=== PATIENT | female | born 1955 | race Caucasian/White ===

== ENCOUNTER 2021-08-02 13:16 | Outpatient (REF) | payer MEDICARE, MEDICAID, SELFPAY ==
[2021-08-02 13:48] LABS: MANUAL DIFF FLAG NO
[2021-08-02 14:32] LABS: Basophils Absolute Auto 0.1 X10*3/uL (0.0-0.2); Basophils Percent Auto 0.8 % (0-2); Eosinophils Absolute Auto 0.1 X10*3/uL (0.0-0.4); Eosinophils Percent Auto 0.6 % (0-4); Hematocrit 41.3 % (37.0-47.0); Imm Gran Abs Auto 0.04 X10*3/uL (0.00-0.03); Imm Gran Pct Auto 0.4 % (0.0-0.4); Lymphocytes Absolute Auto 3.6 X10*3/uL (1.2-4.9); Lymphocytes Percent Auto 36.8 % (20-40); Mean Corpuscular HGB Conc 33.9 g/dl (31.0-35.0); Mean Corpuscular Hemoglobin 30.8 pg (27.0-33.0); Mean Corpuscular Volume 90.8 fL (80.0-98.0); Mean Platelet Volume 10.1 fL (9.4-12.3); Monocytes Absolute Auto 0.6 X10*3/uL (0.1-1.2); Monocytes Percent Auto 6.3 % (2-11); Neutrophils Absolute Auto 5.4 x10*3/uL (2.0-8.3); Neutrophils Percent Auto 55.1 % (45-73); Platelet Count 292 X10*3/uL (160-400); Red Blood Count 4.55 X10*6/uL (4.20-5.50); Red Cell Distribution Width 13.1 % (11.0-16.0); White Blood Count 9.9 X10*3/uL (4.8-10.8)
[2021-08-02 14:53] LABS: Rheumatoid Factor < 15.0 IU/mL (<15.0)
[2021-08-02 15:10] LABS: Erythrocyte Sedimentation Rate 12 MM/HR (0-20)
[2021-08-03 08:35] LABS: Lyme Abs Screen <0.90 index
[2021-08-03 22:12] LABS: Anti Nuclear Antibody Screen POSITIVE (NEGATIVE); Anti Nuclear Antibody Titer 1:40 titer
[2021-08-04 14:01] LABS: Antibody to SS-A Antigen <1.0 NEG AI (<1.0 NEG); Antibody to SS-B Antigen <1.0 NEG AI (<1.0 NEG); Myeloperoxidase Antibody <1.0 AI; Proteinase 3 PR3 Antibodies <1.0 AI
== END 2021-08-02 13:17 | disposition home or self-care (01) ==
LOC: HO.LAB 13:16
PROVIDERS: Visit Provider Psychiatry & Neurology Neurology
DX: M79.7 Fibromyalgia (principal)
CPT/HCPCS: 36415; 85025; 85652; 86021; 86038; 86039; 86235; 86431; 86617; 86618

== ENCOUNTER 2021-08-16 14:37 | Outpatient (REF) | payer MEDICARE, MEDICAID, SELFPAY ==
--- NOTE | ~2021-08-16 | XR_ITS ---
EXAMINATION: PRE-MRI SCREENING ORBITS CLINICAL INFORMATION: Rule out foreign body in the orbits. COMPARISON: None TECHNIQUE: 3 views. FINDINGS: There is no radiopaque foreign body seen in the orbits. Mild haziness in the right maxillary sinus is seen. Rest the paranasal sinuses and mastoid air cells are well-aerated. XR/XR pre mri screening IMPRESSION: No radiopaque foreign body seen in the orbits. Chronic right maxillary sinusitis suspected.
--- NOTE | ~2021-08-16 | MR_ITS ---
EXAMINATION: MR BRAIN WITHOUT AND WITH CONTRAST CLINICAL INFORMATION: 66-year-old with self-reported tremors and numbness in hands and feet. Patient states previous MS diagnosis. Clinically reported reason for exam: Fibromyalgia. COMPARISON: No previous studies are available for comparison. TECHNIQUE: Multiplanar, multisequence MRI of the brain was obtained before and after the intravenous administration of 7 mL Gadavist. FINDINGS: Brain Volume: [id number] generalized diffuse supratentorial brain parenchymal volume loss is noted within the limitations of a qualitative assessment. Structural: No malformations. Brain and Meninges: DWI sequence demonstrates no restricted diffusion to suggest acute or subacute cerebral ischemia. Scattered small zones of FLAIR/T2 signal hyperintensity are seen within the subcortical and deeper white matter of both cerebral hemispheres with patchy zones of white matter T2 hyperintensity in the parietal and left periatrial white matter associated with bilateral periventricular leukoaraiosis. Small zones of low T1/high T2 signal in the deep parietal white matter bilaterally are nonspecific and have the appearance of either remote deep white matter infarcts or possibly chronic demyelination. Gradient refocused imaging demonstrates no evidence for hemorrhage, hemosiderin staining or abnormal mineral deposition. No extra-axial fluid collections, significant space-occupying process or mass effect are identified. There is no abnormal brain parenchymal or leptomeningeal enhancement. No mass lesions are identified. Ventricles and Subarachnoid Spaces: The ventricular system and subarachnoid spaces are consistent with mild volume loss without hydrocephalus. Orbital Structures: The visualized orbital structures are grossly unremarkable within the limitations of the study. Vascular: Signal voids are noted in the visualized major intracranial vessels. Osseous Structures, Sinuses/Mastoids, Extracranial Soft Tissues: Marked nasal septal deviation to the right is noted with minor mucosal thickening in the ethmoid complex. Osseous marrow signal intensity appears within normal limits. The there appears to be either atrophic or postoperative change involving the left parotid gland. MR/MR head/brain wo/w con IMPRESSION: 1. Nonspecific white matter lesions noted bilaterally as detailed above. Differential diagnostic considerations include chronic ischemic microangiopathy with small areas of chronic deep white matter infarction. Cannot exclude superimposed foci of chronic demyelination. 2. No acute intracranial process. Specifically, no evidence for acute territorial infarct, mass lesion, abnormal enhancement, hemorrhage, extra-axial fluid collection, space-occupying process, mass effect or hydrocephalus. 3. 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 Correlate with clinical history and physical exam.
== END 2021-08-16 14:38 | disposition home or self-care (01) ==
LOC: HO.MRI 14:37
PROVIDERS: Visit Provider Psychiatry & Neurology Neurology
DX: M79.7 Fibromyalgia (principal)
CPT/HCPCS: 70553; A9585

== ENCOUNTER 2023-03-22 08:59 | Outpatient (AMB) | payer MEDICARE, MEDICAID, SELFPAY ==
[2023-03-22 09:03] VITALS: BP 140/78; PULSE 77; O2SAT 98; BMI 31.8
--- NOTE | 2023-03-22 09:03 | MHC.PC.OV ---
Vital Signs 03/22/23 09:03 Height 5 ft 1.5 in Weight 171 lb BMI 31.8 BP 140/78 H Blood Pressure Location Lt brachial Position Sitting Pulse 77 Pulse Source Pulse Oximeter Pulse Oximetry (%) 98 Oxygen Delivery Method Room Air Intake Visit Reasons: HEALTH/SAFETY JOB TITLES-Cholesterol/BP Allergies birch [BIRCH] Allergy (Unknown, Verified 03/22/23 09:08) UNKNOWN codeine [CODEINE] Allergy (Unknown, Verified 03/22/23 09:08) UNKNOWN dog dander [DOG] Allergy (Unknown, Verified 03/22/23 09:08) UNKNOWN indomethacin [From INDOCIN] Allergy (Unknown, Verified 03/22/23 09:08) UNKNOWN mold [MOLD] Allergy (Unknown, Verified 03/22/23 09:08) UNKNOWN oak [OAK] Allergy (Unknown, Verified 03/22/23 09:08) UNKNOWN oxycodone [From PERCOCET] Allergy (Unknown, Verified 03/22/23 09:08) UNKNOWN povidone-iodine [From BETADINE] Allergy (Unknown, Verified 03/22/23 09:08) UNKNOWN soap [From BETADINE] Allergy (Unknown, Verified 03/22/23 09:08) UNKNOWN bupropion [From Wellbutrin] Adverse Reaction (Intermediate, Verified 03/22/23 09:08) Hive DUST Allergy (Unknown, Uncoded 03/22/23 09:08) UNKNOWN DUST MITES Allergy (Unknown, Uncoded 03/22/23 09:08) UNKNOWN MILDEW Allergy (Unknown, Uncoded 03/22/23 09:08) UNKNOWN Medication List - Last Reconciled 03/22/23 by Stephany Naranjo MD cholecalciferol (vitamin D3) 25 mcg PO DAILY ferrous sulfate (Feosol) 325 mg PO DAILY lorazepam 0.5 mg PO BID PRN potassium chloride ER 8 mEq PO DAILY rosuvastatin 5 mg PO DAILY trazodone 100 mg PO BEDTIME PRN triamterene-hydrochlorothiazid 37.5-25 mg 1 cap PO DAILY vitamin B complex 1 tab PO DAILY Tobacco use date assessed: 03/22/23 Fall risk assessment: 2 + Falls in past year Last assessed Fall Risk: 03/22/23 Dental Screening Dental Screen Date: 03/22/23 Did you have a dental visit in the last 12 months?: No Did you have a dental problem in the last 6 months where you did not have access to dental care?: No Was dental information given to patient?: No HPI HEALTH/SAFETY JOB TITLES-Cholesterol/BP HPI Details 68-year-old obese female seen for the 1st time . History of chronic maxillary sinusitis. Up-to-date with mammogram. Review of the notes July 2021 had brain MRI Nonspecific white matter lesions noted bilaterally as detailed above. Differential diagnostic considerations include chronic ischemic microangiopathy with small areas of chronic deep white matter infarction. Cannot exclude superimposed foci of chronic demyelination. 2. No acute intracranial process. Specifically, no evidence for acute territorial infarct, mass lesion, abnormal enhancement, hemorrhage, extra-axial fluid collection, space-occupying process, mass effect or hydrocephalus. 3. 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 Correlate with clinical history and physical exam. Regarding her medical problem. Declined referral to Neurology for multiple sclerosis. Not on any treatment for this. Patient has a history of smoking and has been having CT scans every year and would like to be referred for lung cancer screening. Discussed about colonoscopies but declined and would be okay with the Cologuard test. Patient also has multiple eye problems will be seeing the safety and health consultant in April. Dr. Archibald. 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 [facility] Medical History (Updated 03/22/23 @ 10:08 by Stephany Naranjo MD) Dislocated wrist Ankle fracture, right Scleritis Cataract Glaucoma Surgical History (Updated 03/22/23 @ 09:56 by Stephany Naranjo MD) Hx of cholecystectomy History of bilateral oophorectomies Mass of parotid gland Family History (Updated 03/22/23 @ 09:16 by Crystal Carlson [facility]) Mother Lymphoma Father No problems noted. Sister Heart attack Sister No problems noted. Sister No problems noted. Son Memory deficit Son No problems noted. Daughter No problems noted. Social History (Updated 03/22/23 @ 09:59 by Stephany Naranjo MD) Housing: Apartment Alcohol intake: current Comment: once a week2 glasses Patient Tobacco Use Status: Former Tobacco user Tobacco use type: Cigarette e-Cigarette/Vaping Use: Never Used Second Hand Smoke Exposure: No Current occupational status: disabled Current occupational exposures/hazards: No Cognitive needs: No Hearing needs: No Vision needs: Yes Questionnaire PHQ-9 Over the last 2 weeks, how often have you been bothered by any of the following problems? 1. Little interest or pleasure in doing things: nearly every day 2. Feeling down, depressed, or hopeless: nearly every day 3. Trouble falling or staying asleep, or sleeping too much: several days 4. Feeling tired or having little energy: more than half the days 5. Poor appetite or overeating: several days 6. Feeling bad about yourself - or that you are a failure or have let yourself or your family down: several days 7. Trouble concentrating on things, such as reading the newspaper or watching television: not at all 8. Moving or speaking so slowly that other people could have noticed. Or the opposite - being so fidgety or restless that you have been moving around a lot more than usual: several days 9. Thoughts that you would be better off or of hurting yourself in some way: not at all Total score: 12 Depression Screening Interpretation: Positive Depression Screening Done: Yes Source: Developed by Drs. Yosvany Anand, Eleni Sanchez, Dk Parker and colleagues, with an educational rashawn from [employer]. Thrive Questionnaire Date Thrive assessed: 03/22/23 I am a: Patient What is your living situation today?: I have a steady place to live Within the past 12 months, did the food you bought not last and you didn't have the money to get more?: Never true Within the past 12 months, did you worry whether your food would run out before you got money to buy more?: Never true Do you have trouble paying for medicines?: No Do you have trouble getting transportation to medical appointments?: No Do you have trouble paying your heating and electricity bill?: No Do you have trouble taking care of your child, family member or friend?: No Do you have trouble with day-to-day activities such as bathing, preparing meals, shopping, managing finances, etc.?: No Are you currently unemployed and looking for a job?: No Are you interested in more education?: No Currently or been in a relationship where the following occur: no concerns reported THRIVE Score: 0 AUDIT C Alcohol Use Questionnaire (AUDIT-C) 1. How often do you have a drink containing alcohol?: Monthly or less 2. How many drinks containing alcohol do you have on a typical day when you are drinking?: 1 or 2 3. How often do you have six or more drinks on one occasion?: Never Total Score: 1 VICKI-7 AMB Questionnaire VICKI-7 Date VICKI - 7 assessed: 03/22/23 Feeling nervous, anxious, or on edge: 3 = Nearly every day Not being able to stop or control worryin = Nearly every day Worrying too much about different things: 3 = Nearly every day Trouble relaxin = More than half the days Being so restless that it is hard to sit still: 2 = More than half the days Becoming easily annoyed or irritable: 1 = Several days Feeling afraid as if something awful might happen: 0 = Not at all Total VICKI-7 score (0-4 normal; 5-9 mild; 10-14 moderate; 15-21 severe): 14 Source: Developed by Drs. Yosvany Anand, Eleni Sanchez, Dk Parker and colleagues, with an educational rashawn from [employer]. Physical exam (Primary Care) Vital Signs: Last Vital Signs Pulse 77 03/22/23 09:03 BP 140/78 H 03/22/23 09:03 Pulse Ox 98 03/22/23 09:03 Oxygen Delivery Method Room Air 03/22/23 09:03 Next steps: Showed rash on the right lateral leg area scaly irregular shaped scabbed areas 3 x 2 cm had another 1 near the superior leg area on the right side same thing. BMI result Body Mass Index 31.8 Tobacco/Smoking Status: Tobacco use Status Tobacco use date assessed 03/22/23 03/22/23 09:20 Patient Tobacco Use Status Former Tobacco user 03/22/23 09:59 Tobacco use type Cigarette 03/22/23 09:59 e-Cigarette/Vaping Use Never Used 03/22/23 09:59 PHQ-9: PHQ-9 Score PHQ-9: Total score 12 03/22/23 09:52 Depression Screening Interpretation: Positive Thrive Assessment: Date of Thrive Assessment Date Thrive assessed 03/22/23 03/22/23 09:10 Currently or been in a relationship where the following occur: no concerns reported Const General: alert; No acute distress Eyes Conjunctivae: conjunctivae normal Resp Auscultation: clear to auscultation bilaterally Cardio Rate: regular rate Rhythm: regular rhythm GI Inspection: Yes normal to inspection Extrem General: Yes normal to inspection and No edema Immunizations pneumoc 20-chris conj-dip cr(PF) 0.5 mL IM syringe Performing Provider: Stephany Naranjo MD [facility] Administered by: Crystal Carlson CMA on 03/22/23 10:19 Dose Route Admin Location Dispensed Lot Number Expiration Date [employer] 0.5 mL IM Left Deltoid 0.5 mL [id number] 03/30/24 Influx/[employer] VIS Given Date VIS Provided VIS Publication Date 03/22/23 Single Vaccine 21 Eligibility Eligibility Date Funding Source Not [facility] Eligible 03/22/23 Private Assessment and Plan Assessment & Plan (1) Obesity (BMI 30.0-34.9): Code(s): E66.9 - Obesity, unspecified Plan: Diet and exercise (2) Generalized anxiety disorder: Comment: decline counselling Code(s): F41.1 - Generalized anxiety disorder Plan: Continue with present medication. (3) Hypercholesterolemia: Code(s): E78.00 - Pure hypercholesterolemia, unspecified Plan: Avoid fried foods, chicken skin, eggs, butter margarine, pastries and meat. Be it pork or beef they have a lot of cholesterol LDL goal of less than 130 and triglyceride of less than 150. Blood work requested (4) Hypertension: Code(s): I10 - Essential (primary) hypertension Plan: Continue with blood pressure medication. Decrease salt intake and exercise advised to continue monitoring it and if blood pressure is 140/90 or above then will have to adjust medication. She did discuss about having leg cramps a lot. Discussed about potassium problems and if leg cramps continue to happened will change medication (5) Blepharitis: Code(s): H01.009 - Unspecified blepharitis unspecified eye, unspecified eyelid Plan: Will be seeing safety and health consultant in April (6) Multiple sclerosis: Comment: 2011 decline referral to Neurology Code(s): G35 - Multiple sclerosis Plan: Declined referral for Neurology for now (7) Tobacco abuse: Comment: stopped 2007 smoked packed a day 25 years Code(s): Z72.0 - Tobacco use Plan: Referral to thoracic surgeon for lung cancer screening (8) Colon cancer screening: Code(s): Z12.11 - Encounter for screening for malignant neoplasm of colon Plan: Cologuard requested (9) Ankle fracture, right: Comment: 2001 Code(s): S82.891A - Other fracture of right lower leg, initial encounter for closed fracture Plan: Stable (10) Urge incontinence: Code(s): N39.41 - Urge incontinence Plan: Timed voiding meaning every 1-2 hours even if you do not feel like urinating empty the bladder, avoid drinks with high sweet content like juices or caffeine that makes her urinate, 2 hours before you sleep hold liquids so that in the morning you do not get the bladder to be too full. Declined medication (11) Psoriasis: Code(s): L40.9 - Psoriasis, unspecified Plan: Steroid cream sent in. Orders: Orders XR DEXA axial skeleton Today M81.0 - Age-related osteoporosis without current pathological fracture, S82.891A - Other fracture of right lower leg, initial encounter for closed fracture Free T4 (Free Thyroxine) Today I10 - Essential (primary) hypertension Vitamin B12 and Folate Today I10 - Essential (primary) hypertension IRON PROFILE Today I10 - Essential (primary) hypertension UA w Microscopic Today N39.41 - Urge incontinence Complete Blood Count Auto Diff Today I10 - Essential (primary) hypertension Comprehensive Met. Panel Today I10 - Essential (primary) hypertension Thyroid Stimulating Hormone Today I10 - Essential (primary) hypertension Lipid Panel Today E78.00 - Pure hypercholesterolemia, unspecified, I10 - Essential (primary) hypertension Vitamin D 25-OH Total Today I10 - Essential (primary) hypertension Ferritin Today I10 - Essential (primary) hypertension Reticulocyte Count Today I10 - Essential (primary) hypertension Referrals Thoracic Surgery Referral Z72.0 - Tobacco use Cologuard Test Z12.11 - Encounter for screening for malignant neoplasm of colon, Z12.12 - Encounter for screening for malignant neoplasm of rectum Medications: New betamethasone valerate 0.1% 1 appl topical BID PRN 45 grams 0RF skin irritation L40.9 - Psoriasis, unspecified Coding Level of Care Code New Pt Level 4 ([id number]) Diagnoses Obesity (BMI 30.0-34.9) E66.9 Generalized anxiety disorder F41.1 Hypercholesterolemia E78.00 Hypertension I10 Blepharitis H01.009 Multiple sclerosis G35 Tobacco abuse Z72.0 Colon cancer screening Z12.11 Ankle fracture, right S82.891A Urge incontinence N39.41 Psoriasis L40.9
== END 2023-03-22 10:24 | disposition home or self-care (01) ==
PROVIDERS: PCP Internal Medicine; Visit Provider Internal Medicine
DX: G35 Multiple sclerosis (principal); Z68.31 Body mass index [BMI] 31.0-31.9, adult; E66.9 Obesity, unspecified; Z23 Encounter for immunization; F41.1 Generalized anxiety disorder; E78.00 Pure hypercholesterolemia, unspecified; I10 Essential (primary) hypertension; H01.009 Unspecified blepharitis unspecified eye, unspecified eyelid; Z72.0 Tobacco use; Z12.11 Encounter for screening for malignant neoplasm of colon; S82.891A Other fracture of right lower leg, initial encounter for closed fracture; N39.41 Urge incontinence
CPT/HCPCS: 90471; 90677; 99204

== ENCOUNTER 2023-08-16 11:56 | Emergency (ER) | payer MEDICARE, MEDICAID, SELFPAY ==
--- NOTE | 2023-08-16 12:13 | ED.GENADULT ---
HPI - General Adult General Chief complaint: Weakness Stated complaint: hard time walking Time Seen by Provider: 08/16/23 13:13 Source: patient Mode of arrival: ambulatory Limitations: no limitations History of Present Illness ED Provider: Dr. Rosales Escobar HPI narrative: 68-year-old female history of hypertension, hyperlipidemia, psoriasis, multiple sclerosis, anxiety who presents emergency department for evaluation of intermittent difficulty walking, right-sided tremors and her legs giving out on her. Patient states that she has been having intermittent difficulty with her walking since 2006. She states over the last couple of months these symptoms have gotten worse. She states that occasionally she has difficulty standing and walking. She states that also occasionally her knees will give out on her causing her to fall. She states this morning she would difficulty standing and walking. She also noted that her right arm was more tremulous which concerned her. She states she is seen her PCP as well as our neurologist and has not had a specific diagnosis for these symptoms. She states she has been here in the past and was found to have low potassiums in his been dehydrated as causes of the symptoms. She also states that she is concerned that she may have Parkinson's disease as the cause the symptoms since her right arm is more tremulous. She denied fever, chills, rhinorrhea, sore throat, cough, chest pain, shortness of breath, nausea, vomiting, diarrhea. She has had no frequency urgency or dysuria. She has not noticed any dark stools or bloody stools. Related Data Home Medications ?Medication ?Instructions ?Recorded ?Confirmed cholecalciferol (vitamin D3) 25 25 mcg PO DAILY 03/22/23 03/22/23 mcg (1,000 unit) capsule ferrous sulfate 325 mg (65 mg 325 mg PO DAILY 03/22/23 03/22/23 iron) tablet (Feosol) lorazepam 0.5 mg tablet 0.5 mg PO BID PRN 03/22/23 03/22/23 potassium chloride 8 mEq 8 meq PO DAILY 03/22/23 03/22/23 capsule,extended release rosuvastatin 5 mg tablet 5 mg PO DAILY 03/22/23 03/22/23 trazodone 100 mg tablet 100 mg PO BEDTIME PRN 03/22/23 03/22/23 triamterene 37.5 1 cap PO DAILY 03/22/23 03/22/23 mg-hydrochlorothiazide 25 mg capsule vitamin B complex 1 tab PO DAILY 03/22/23 03/22/23 Previous Rx's ?Medication ?Instructions ?Recorded betamethasone valerate 0.1 % 1 appl topical BID PRN skin 07/10/23 topical cream irritation #45 grams Allergies Allergy/AdvReac Type Severity Reaction Status Date / Time birch [BIRCH] Allergy Unknown UNKNOWN Verified 08/16/23 12:16 codeine [CODEINE] Allergy Unknown UNKNOWN Verified 08/16/23 12:16 dog dander [DOG] Allergy Unknown UNKNOWN Verified 08/16/23 12:16 indomethacin [From INDOCIN] Allergy Unknown UNKNOWN Verified 08/16/23 12:16 mold [MOLD] Allergy Unknown UNKNOWN Verified 08/16/23 12:16 oak [OAK] Allergy Unknown UNKNOWN Verified 08/16/23 12:16 oxycodone [From PERCOCET] Allergy Unknown UNKNOWN Verified 08/16/23 12:16 povidone-iodine Allergy Unknown UNKNOWN Verified 08/16/23 12:16 [From BETADINE] soap [From BETADINE] Allergy Unknown UNKNOWN Verified 08/16/23 12:16 bupropion [From Wellbutrin] AdvReac Intermediate Hive Verified 08/16/23 12:16 DUST Allergy Unknown UNKNOWN Uncoded 03/22/23 09:08 DUST MITES Allergy Unknown UNKNOWN Uncoded 03/22/23 09:08 MILDEW Allergy Unknown UNKNOWN Uncoded 03/22/23 09:08 Review of Systems Review of Systems: Yes all other systems are reviewed and are negative [facility] Past Medical History [facility] Narrative: Social history: She denies tobacco use. She drinks 2 alcoholic beverages per week. She denies drug use. Medical History (Updated 08/16/23 @ 13:38 by Rosales Escobar MD) Dislocated wrist Ankle fracture, right Scleritis Cataract Glaucoma Surgical History (Updated 03/22/23 @ 09:56 by Stephany Naranjo MD) Hx of cholecystectomy History of bilateral oophorectomies Mass of parotid gland Family History Family History (Updated 03/22/23 @ 09:16 by Crystal Carlson CMA) Mother Lymphoma Father No problems noted. Sister Heart attack Sister No problems noted. Sister No problems noted. Son Memory deficit Son No problems noted. Daughter No problems noted. Social History Social History (Updated 03/22/23 @ 09:59 by Stephany Naranjo MD) Housing: Apartment Alcohol intake: current Comment: once a week2 glasses Patient Tobacco Use Status: Former Tobacco user Tobacco use type: Cigarette e-Cigarette/Vaping Use: Never Used Second Hand Smoke Exposure: No Advance Directives: No Advance Directives Information Provided: Yes Current occupational status: disabled Current occupational exposures/hazards: No Cognitive needs: No Hearing needs: No Vision needs: Yes Physical Exam ED Vital Signs: Vital Signs - 24 hr 08/16/23 12:14 08/16/23 13:55 08/16/23 13:56 Temperature 98.0 F 97.9 F 97.9 F Pulse Rate 83 89 89 Respiratory Rate 18 18 18 Blood Pressure 122/69 107/71 107/71 Pulse Oximetry 95 93 93 Oxygen Delivery Method Room Air Room Air Room Air BMI result Body Mass Index 31.5 Initial vital signs were normal. Exam: General: Awake, alert in no distress Head: Normocephalic, atraumatic EENT: PERRL, Lids normal, sclera normal, conjunctiva normal, nose normal , ears normal, throat without erythema or exudates Neck: Supple, no adenopathy Lung: breath sounds symmetric, no wheezing, rales or rhonchi Chest: symmetric movement, nontender Heart: regular rate and rhythm, normal S1, S2 no murmurs or rubs Abdomen: soft, non-tender, nondistended, normal bowel sounds Back: no vertebral tenderness, no CVAT Extremities: no deformities, moves all extremities symmetrically Neuro: General: Awake, alert, oriented, normal speech, Cranial nerves: cranial nerves intact Strength: 5/5 strength in both the upper and lower extremities. Patient was able to walk in the emergency department using her walker without any difficulty. She was able to pivot with a walker without losing her balance. Psych: Patient was very pleasant and cooperative, answers all questions appropriately Course Course Course Narrative: This is an RME done by JESSICA Obrien: Additional HPI, ROS, PE not included below will be deferred to primary provider. 68-year-old female history deficiency anemia, hyperlipidemia presenting with difficulty ambulation reports her legs have been giving out, which prompted her to come in today this has been going on for a long time. Denies dizziness, chest pain, shortness of breath, fevers, chills, headache, vision changes. Appearance: Alert.? Oriented X3.? No acute distress.? Head: Normocephalic, atraumatic, no step-offs or deformities Eyes: Pupils equal, round and reactive to light.? Neck: Normal inspection.? Neck supple.? CVS: Normal heart rate and rhythm.? Pulses normal.? Respiratory: No respiratory distress.? Breath sounds normal.? Abdomen: Soft and nontender.? Skin: Skin warm and dry.? Normal skin color.? Normal skin turgor.? Extremities: No lower extremity edema.? No calf ttp. 5/5 strength to bilateral upper and lower extremities Neuro: Oriented X 3.? No motor deficit.? No sensory deficit. CN 2-12 intact Medical Decision Making Medical Decision Making MDM Narrative: 68-year-old female history of hypertension, hyperlipidemia, psoriasis, multiple sclerosis, anxiety who presents emergency department for evaluation of intermittent difficulty walking, right-sided tremors and her legs giving out on her. Patient states that she has been having intermittent difficulty with her walking since 2006. She states over the last couple of months these symptoms have gotten worse. She states that occasionally she has difficulty standing and walking. She states that also occasionally her knees will give out on her causing her to fall. She states this morning she would difficulty standing and walking. She also noted that her right arm was more tremulous which made her concerned that she may have Parkinson's disease. Review of systems were negative. Initial vital signs were normal. Patient's examination was unremarkable, she had a normal neurologic exam with good upper and lower extremity strength and was able to walk in the emergency department using her walker without any difficulty. Differential diagnosis: ?Includes but is not limited to stroke, MS flare-up, Parkinson's disease, anemia, electrolyte abnormalities Following evaluation was ordered: CBC, CMP, PT/INR, C-reactive protein, ESR Course: 13:51 My interpretation patient's laboratory evaluation is as follows: CBC was normal. CMP was normal. Glucose was elevated 157. ESR was normal at 17. CRP was only slightly elevated at 0.57 The patient has no weakness, she was able to walk with a walker without any difficulty. At this time I do not have a clear etiology for her intermittent difficulty with walking. Patient states she has been seen by our neurologist and has not got a clear diagnosis for her symptoms. Patient also states she is done physical therapy in the past but I do not think that she needs physical therapy at this time since she has very good strength that is bilaterally symmetric and she is able to walk with a walker without any difficulty. Patient was advised to continue taking medications as prescribed and to follow-up with her PCP to see if they can determine the cause of her symptoms. She was given printed and verbal instructions and discharged home. Admission/Observation Consideration of admission/observation: Escalation of care including admission/observation considered Lab Data [facility] Lab Attestation statement: I reviewed the patient's lab results. 08/16/23 12:45 08/16/23 12:45 Labs: Lab Results 08/16/23 Range/Units 12:45 WBC 11.1 H (4.8-10.8) X10*3/uL RBC 4.46 (4.20-5.50) X10*6/uL Hgb 14.1 (12.0-16.0) g/dl Hct 39.4 (37.0-47.0) % MCV 88.3 (80.0-98.0) fL MCH 31.6 (27.0-33.0) pg MCHC 35.8 H (31.0-35.0) g/dl RDW 12.1 (11.0-16.0) % Plt Count 255 (160-400) X10*3/uL MPV 9.5 (9.4-12.3) fL Immature Gran % (Auto) 0.3 (0.0-0.4) % Neut % (Auto) 67.1 (45-73) % Lymph % (Auto) 24.4 (20-40) % [place] % (Auto) 7.2 (2-11) % Eos % (Auto) 0.5 (0-4) % Baso % (Auto) 0.5 (0-2) % Lymph # (Auto) 2.7 (1.2-4.9) X10*3/uL [place] # (Auto) 0.8 (0.1-1.2) X10*3/uL Eos # (Auto) 0.1 (0.0-0.4) X10*3/uL Baso # (Auto) 0.1 (0.0-0.2) X10*3/uL Abs Immat Gran (auto) 0.03 (0.00-0.03) X10*3/uL Absolute Neuts (auto) 7.5 (2.0-8.3) x10*3/uL Absolute Nucleated RBC 0.000 (0.0-0.012) X10*3/uL Nucleated RBC % (auto) 0.0 (0.0-0.2) /100WBC ESR 17 (0-20) MM/HR PT 12.5 (11.1-13.3) SEC INR 1.0 (0.9-1.1) Sodium 140 (135-145) mmol/L Potassium 3.8 (3.3-5.1) mmol/L Chloride 103 (96-108) mmol/L Carbon Dioxide 29 (22-29) mmol/L Anion Gap 12 (12-20) BUN 15 (9-16) mg/dL Creatinine 0.91 (0.5-1.4) mg/dL Estim Creat Clear Calc 54.2 Estimated GFR > 60 Random Glucose 151 H (60-115) mg/dL Calcium 9.9 (8.4-10.2) mg/dL Total Bilirubin 0.3 (0.0-1.0) mg/dL AST 15 (5-31) U/L ALT 12 (0-31) U/L Alkaline Phosphatase 69 (39-117) U/L C-Reactive Protein 0.57 H (< or = 0.50) mg/dL Total Protein 7.8 (6.5-8.0) g/dL Albumin 4.2 (3.5-5.0) g/dL Chronic Conditions Patient?s care impacted by: Hypertension Discharge Plan Discharge Clinical Impression: Difficulty in walking Patient Disposition: Home, Self-Care Additional Instructions: You had a complete blood count and comprehensive metabolic panel today detect. These tests were normal. You have very good strength in your upper and lower extremity with no deficits. You were able to walk with your walker today without any difficulty. At this time I do not have a cause for the intermittent inability to walk that you have been experiencing over the past several months. You should discuss your symptoms with your doctor to see if your doctor has any thoughts as to what is causing your symptoms. Follow-up with your doctor in 2 days. Please return to the emergency department if your symptoms get worse or if you develop any symptoms that are concerning to you. Prescriptions: No Action betamethasone valerate 0.1 % cream 1 appl topical BID PRN (Reason: skin irritation) Qty: 45 0RF lorazepam 0.5 mg tablet 0.5 mg PO BID PRN rosuvastatin 5 mg tablet 5 mg PO DAILY trazodone 100 mg tablet 100 mg PO BEDTIME PRN cholecalciferol (vitamin D3) 25 mcg (1,000 unit) capsule 25 mcg PO DAILY vitamin B complex Tablet 1 tab PO DAILY ferrous sulfate [Feosol] 325 mg (65 mg iron) tablet 325 mg PO DAILY triamterene-hydrochlorothiazid 37.5-25 mg capsule 1 cap PO DAILY potassium chloride 8 mEq capsule, extended release 8 meq PO DAILY Interventions: ED Discharge Assessment Last Done: 08/16/23 13:56 Discharge Date/Time: 08/16/23 13:57 Print Language: [place]
[2023-08-16 12:14] VITALS: BP 122/69; PULSE 83; RESP 18; TEMP 36.7; O2SAT 95; BMI 31.5
[2023-08-16 12:51] LABS: MANUAL DIFF FLAG NO
[2023-08-16 12:52] LABS: Basophils Absolute Auto 0.1 X10*3/uL (0.0-0.2); Basophils Percent Auto 0.5 % (0-2); Eosinophils Absolute Auto 0.1 X10*3/uL (0.0-0.4); Eosinophils Percent Auto 0.5 % (0-4); Hematocrit 39.4 % (37.0-47.0); Hemoglobin 14.1 g/dl (12.0-16.0); Imm Gran Abs Auto 0.03 X10*3/uL (0.00-0.03); Imm Gran Pct Auto 0.3 % (0.0-0.4); Lymphocytes Absolute Auto 2.7 X10*3/uL (1.2-4.9); Lymphocytes Percent Auto 24.4 % (20-40); Mean Corpuscular HGB Conc 35.8 g/dl (31.0-35.0); Mean Corpuscular Hemoglobin 31.6 pg (27.0-33.0); Mean Corpuscular Volume 88.3 fL (80.0-98.0); Mean Platelet Volume 9.5 fL (9.4-12.3); Monocytes Absolute Auto 0.8 X10*3/uL (0.1-1.2); Monocytes Percent Auto 7.2 % (2-11); Neutrophils Absolute Auto 7.5 x10*3/uL (2.0-8.3); Neutrophils Percent Auto 67.1 % (45-73); Platelet Count 255 X10*3/uL (160-400); Red Blood Count 4.46 X10*6/uL (4.20-5.50); Red Cell Distribution Width 12.1 % (11.0-16.0); White Blood Count 11.1 X10*3/uL (4.8-10.8)
[2023-08-16 13:02] LABS: Prothrombin Time 12.5 SEC (11.1-13.3)
[2023-08-16 13:06] LABS: Alanine Aminotransferase 12 U/L (0-31); Albumin Level 4.2 g/dL (3.5-5.0); Alkaline Phosphatase 69 U/L (39-117); Anion Gap 12 (12-20); Aspartate Amino Transferase 15 U/L (5-31); Bilirubin Total 0.3 mg/dL (0.0-1.0); Blood Urea Nitrogen 15 mg/dL (9-16); Calcium 9.9 mg/dL (8.4-10.2); Carbon Dioxide 29 mmol/L (22-29); Chloride 103 mmol/L (96-108); Creatinine Clr Calc Pharmacy 54.2; Estimated Glomerular Filt Rate > 60; Glucose Random 151 mg/dL (60-115); Potassium 3.8 mmol/L (3.3-5.1); Sodium 140 mmol/L (135-145); Total Protein 7.8 g/dL (6.5-8.0)
[2023-08-16 13:55] VITALS: BP 107/71; PULSE 89; RESP 18; TEMP 36.6; O2SAT 93
[2023-08-16 13:56] VITALS: BP 107/71; PULSE 89; RESP 18; TEMP 36.6; O2SAT 93
--- NOTE | 2023-08-16 13:56 | PC.NURSE ---
at bedside, aware urine has not been collected, okay to d.c without urine at this time
[2023-08-16 13:59] LABS: C Reactive Protein 0.57 mg/dL (< or = 0.50)
[2023-08-16 14:56] LABS: Erythrocyte Sedimentation Rate 17 MM/HR (0-20)
== END 2023-08-16 13:57 | disposition home or self-care (01) ==
PROVIDERS: Physician Assistant; Emergency Provider Emergency Medicine Emergency Medical Services; PCP Internal Medicine
DX: R26.81 Unsteadiness on feet (principal); R25.1 Tremor, unspecified; F41.9 Anxiety disorder, unspecified; R06.02 Shortness of breath; F43.0 Acute stress reaction; Z79.899 Other long term (current) drug therapy
CPT/HCPCS: 36415; 80053; 85025; 85610; 85652; 86140; 99283; 99284

== ENCOUNTER 2023-11-07 20:56 | Emergency (ER) | payer MEDICARE, SELFPAY ==
--- NOTE | ~2023-11-07 | CT_ITS ---
EXAMINATION: CT HEAD WITHOUT CONTRAST CLINICAL INFORMATION: Syncope. COMPARISON: Brain MRI dated August 16, 2021. TECHNIQUE: Contiguous axial imaging was performed from the skull base to vertex without intravenous administration of contrast. This CT examination was performed using dose optimization techniques as appropriate, variously including the following: *Automated exposure control *Adjustment of mA and/or kV according to patient size (this includes techniques or standardized protocols for targeted exams where dose is matched to indication/reason for exam; i.e. extremities or head) *Use of iterative reconstruction technique DLP: 619 mGy-cm FINDINGS: There is no acute intracranial hemorrhage. There is no evidence of acute/subacute cerebrovascular cerebellar infarction. There is no midline shift or mass effect. No extra-axial fluid collection. The ventricles are normal in size. The orbits are symmetric and within normal limits. The calvarium is intact. The mastoid air cells are well aerated. Visualized paranasal sinuses are clear. The nasal septum is deviated towards the right side. CT/CT head/brain wo IV con IMPRESSION: No acute intracranial pathology. Electronically signed by: Waqar Monteiro DO 11/07/2023 10:22 PM EDT
--- NOTE | ~2023-11-07 | XR_ITS ---
EXAMINATION: XR CHEST CLINICAL INFORMATION: Syncope. COMPARISON: None available. TECHNIQUE: Frontal view of the chest was obtained. FINDINGS: The heart is normal in size. Both lungs are clear. No pleural effusion. No pneumothorax. No acute osseous abnormality. XR/XR chest 1V IMPRESSION: No acute cardiopulmonary disease. Electronically signed by: Waqar Monteiro DO 11/07/2023 10:23 PM EDT
--- NOTE | ~2023-11-07 | CT_ITS ---
EXAMINATION: CT CERVICAL SPINE WITHOUT CONTRAST CLINICAL INFORMATION: Syncope. Fall. COMPARISON: None available. TECHNIQUE: Noncontrast computed tomography of the cervical spine was performed. This CT examination was performed using dose optimization techniques as appropriate, variously including the following: *Automated exposure control *Adjustment of mA and/or kV according to patient size (this includes techniques or standardized protocols for targeted exams where dose is matched to indication/reason for exam; i.e. extremities or head) *Use of iterative reconstruction technique DLP: 443 mGy-cm FINDINGS: There is straightening of the cervical lordosis. The vertebral bodies and posterior elements are otherwise anatomically aligned. The atlantooccipital articulations are intact. The C1-C2 relationship is anatomic. The dens is intact. There is no acute fracture. Vertebral body heights are preserved. There is multilevel degenerative disc disease most conspicuous at C4-5 and C5-6. There is multilevel facet arthropathy. Prevertebral soft tissue is normal in appearance. The paraspinal soft tissue is normal in appearance. The visualized lung apices are clear. There is an 8 mm low-attenuation lesion within the right lobe of the thyroid gland. There is a 1 cm low-attenuation lesion with calcification within the left lobe of the thyroid gland. CT/CT cervical spine wo IV con IMPRESSION: No acute osseous cervical spine abnormality. Cervical spondylosis as described. Thyroid nodules. Further evaluation with ultrasound can be performed on a nonemergent basis. Fleischner guidelines were followed. Electronically signed by: Waqar Monteiro DO 11/07/2023 10:30 PM EDT
[2023-11-07 21:13] VITALS: BP 127/82; PULSE 93; RESP 17; TEMP 37.4; O2SAT 94
[2023-11-07 21:14] VITALS: BP 116/76; BP 127/82; PULSE 94; PULSE 96; RESP 17; TEMP 37.4; O2SAT 94; O2SAT 96; BMI 30.2
--- NOTE | 2023-11-07 21:31 | ECG_ITS ---
Test Reason : FALL Blood Pressure : / mmHG Vent. Rate : 087 BPM Atrial Rate : 087 BPM P-R Int : 208 ms QRS Dur : 084 ms QT Int : 396 ms P-R-T Axes : 004 -14 -12 degrees QTc Int : 476 ms Normal sinus rhythm Inferior infarct , age undetermined Abnormal ECG When compared with ECG of 30-JUL-2005 20:24, Inferior infarct is now Present Inverted T waves have replaced nonspecific T wave abnormality in Inferior leads Referred By: Ender Sheldon Electronically Signed By:BRANDY DO
--- NOTE | 2023-11-07 21:33 | ED.GENADULT ---
HPI - General Adult General Chief complaint: Fall Stated complaint: FREQUENT FALLS Time Seen by Provider: 11/07/23 21:24 Source: patient and EMS Mode of arrival: EMS Limitations: no limitations History of Present Illness ED Provider: DR. Sheldon HPI narrative: 68-year-old female history of MS presented today for evaluation after sustained fall while she was on the toilet seat. Patient stated that she felt dizzy and lightheaded nauseous almost passing out the patient after the fell forward can not remember the event of fall, patient lives home by herself functional and independent, admitted to drinking 1 glass of wine before the event, no CP, no SOB , no headache, no blurry vision, no abdominal pain. Related Data Home Medications ?Medication ?Instructions ?Recorded ?Confirmed cholecalciferol (vitamin D3) 25 25 mcg PO DAILY 03/22/23 03/22/23 mcg (1,000 unit) capsule ferrous sulfate 325 mg (65 mg 325 mg PO DAILY 03/22/23 03/22/23 iron) tablet (Feosol) lorazepam 0.5 mg tablet 0.5 mg PO BID PRN 03/22/23 03/22/23 potassium chloride 8 mEq 8 meq PO DAILY 03/22/23 03/22/23 capsule,extended release rosuvastatin 5 mg tablet 5 mg PO DAILY 03/22/23 03/22/23 trazodone 100 mg tablet 100 mg PO BEDTIME PRN 03/22/23 03/22/23 triamterene 37.5 1 cap PO DAILY 03/22/23 03/22/23 mg-hydrochlorothiazide 25 mg capsule vitamin B complex 1 tab PO DAILY 03/22/23 03/22/23 Previous Rx's ?Medication ?Instructions ?Recorded betamethasone valerate 0.1 % 1 appl topical BID PRN skin 07/10/23 topical cream irritation #45 grams Allergies Allergy/AdvReac Type Severity Reaction Status Date / Time birch [BIRCH] Allergy Unknown UNKNOWN Verified 11/07/23 21:22 codeine [CODEINE] Allergy Unknown UNKNOWN Verified 11/07/23 21:22 dog dander [DOG] Allergy Unknown UNKNOWN Verified 11/07/23 21:22 indomethacin [From INDOCIN] Allergy Unknown UNKNOWN Verified 11/07/23 21:22 mold [MOLD] Allergy Unknown UNKNOWN Verified 11/07/23 21:22 oak [OAK] Allergy Unknown UNKNOWN Verified 11/07/23 21:22 oxycodone [From PERCOCET] Allergy Unknown UNKNOWN Verified 11/07/23 21:22 povidone-iodine Allergy Unknown UNKNOWN Verified 11/07/23 21:22 [From BETADINE] soap [From BETADINE] Allergy Unknown UNKNOWN Verified 11/07/23 21:22 bupropion [From Wellbutrin] AdvReac Intermediate Hive Verified 11/07/23 21:22 DUST Allergy Unknown UNKNOWN Uncoded 03/22/23 09:08 DUST MITES Allergy Unknown UNKNOWN Uncoded 03/22/23 09:08 MILDEW Allergy Unknown UNKNOWN Uncoded 03/22/23 09:08 Review of Systems Review of Systems: All other systems are reviewed and are negative Constitutional: Reports as per HPI and Reports no additional constitutional complaints Eyes: Reports as per HPI and Reports no additional eye complaints Reports system reviewed and no additional complaints, except as documented Cardiovascular: Reports as per HPI and Reports no additional cardiovascular complaints Respiratory: Reports as per HPI and Reports no additional respiratory complaints Gastrointestinal: Reports as per HPI and Reports no additional gastrointestinal complaints Genitourinary: Reports no additional female genitourinary complaints Musculoskeletal: Reports no additional musculoskeletal complaints Skin/Breast: Reports system reviewed and no additional complaints, except as docu Psychiatric: Reports no additional psychiatric complaints Endocrine: Reports no additional endocrine complaints Hematologic/Lymphatic: Reports no additional hematologic/lymphatic complaints Allergic/Immunologic: Reports no additional allergic/immunologic complaints Reports system reviewed and no additional complaints, except as documented and Reports Abnormal speech present [facility] Past Medical History Medical History Dislocated wrist Ankle fracture, right Scleritis Cataract Glaucoma Surgical History Hx of cholecystectomy History of bilateral oophorectomies Mass of parotid gland Family History Family History Mother Lymphoma Father No problems noted. Sister Heart attack Sister No problems noted. Sister No problems noted. Son Memory deficit Son No problems noted. Daughter No problems noted. Social History Social History Housing: Apartment Alcohol intake: current Alcohol type: wine Comment: once a week2 glasses Patient Tobacco Use Status: Former Tobacco user Tobacco use type: Cigarette Smoked in Last 30 Days: No e-Cigarette/Vaping Use: Never Used Second Hand Smoke Exposure: No Use of substances other than those prescribed or required for medical reasons: No Advance Directives: No Advance Directives Information Provided: No Do you have a plan to hurt others: No Plan Current occupational status: disabled Current occupational exposures/hazards: No Cognitive needs: No Hearing needs: No Vision needs: Yes Physical Exam ED Vital Signs: Vital Signs - 24 hr 11/07/23 21:13 11/07/23 21:14 Temperature 99.3 F 99.3 F Pulse Rate 93 96 Respiratory Rate 17 17 Blood Pressure 127/82 127/82 Pulse Oximetry 94 94 Oxygen Delivery Method Room Air Room Air BMI result Body Mass Index 30.2 Vital signs have been reviewed and appear to be correct. Blood pressure elevated. Heart rate normal. Respiratory rate normal. Temperature normal. Oxygen saturation normal. Appearance: Alert. Oriented X3. No acute distress. Head: Normal external exam. Normocephalic. Atraumatic. No Brink signs noted. No raccoon eyes noted Eyes: PERRLA. EOMI. Conjunctiva and sclera normal. Eyelids normal. ENT: TM's Normal. Pharynx normal. Uvula midline. Moist mucous membranes. No trismus noted. No drooling noted. No muffled voice noted. Neck: Normal inspection. Neck supple. FROM. No adenopathy. Thyroid Normal. No meningeal signs. No neck mass noted. CVS: Normal heart rate and rhythm. Heart sound normal. No murmurs noted. Pulses normal throughout. Respiratory: No respiratory distress. Painless inspiration. Breath sounds normal. No wheezes/rales/rhonchi noted. Chest nontender. No accessory muscle usage noted or decreased air movement noted. Abdomen: Soft and nontender. Bowel sounds normal in all 4 quadrants. No distention noted. No organomegaly noted. No visible injury noted. Back: No CVA tenderness. Full range of motion noted. Skin: Skin warm and dry. Normal skin color. Normal skin turgor. No rashes/lesions/lacerations noted. Extremities: No lower extremity edema. Extremities exhibit normal range of motion. Extremities nontender. Neuro: Oriented X 3. Cranial nerve exam: II-XII are grossly intact No motor deficit. No sensory deficit. Reflexes normal. Course Reevaluation(s) Reevaluation #1: 68-year-old presented after sustaining a syncopal episode, unremarkable workup in the emergency department, patient will be admitted for cardiac monitoring. Time: 23:04 Reevaluation #2: initially patient stated that she felt lightheadedness then do not remember the event of the fall, when was interviewed by the hospitalist Dr. Guerrero patient stated that she has no LOC, please refer to the hospitalist's event note, admission was canceled patient will be discharged home instructed to follow-up with neurologist in regard to her chronic MS. No sign of MS exacerbation during this visit. Time: 23:28 Medications Administered Discontinued Medications Generic Name Dose Route Start Last Admin Trade Name Freq PRN Reason Stop Dose Admin Sodium Chloride 1,000 mls @ 999 mls/hr 11/07/23 21:31 11/07/23 22:28 Ns IV 11/07/23 22:31 999 mls/hr .Q1H1M ONE Administration Medical Decision Making Differential Diagnosis Differential Diagnoses: The differential diagnosis associated with the presentation includes ( Syncope, near syncope, mechanical fall, electrolyte derangement, severe dehydration, ACS, head injury, cervical spine injury, pneumonia, pneumothorax, alcohol intoxication.) Admission/Observation Consideration of admission/observation: Escalation of care including admission/observation considered Consult Healthcare Provider Management of the patient was discussed with: Hospitalist ( Dr. Guerrero) Lab Data MDM Lab Attestation statement: I reviewed the patient's lab results. 11/07/23 22:11 11/07/23 22:11 Labs: Lab Results 11/07/23 11/07/23 11/07/23 Range/Units 22:10 22:11 22:13 WBC 7.4 (4.8-10.8) X10*3/uL RBC 4.54 (4.20-5.50) X10*6/uL Hgb 14.2 (12.0-16.0) g/dl Hct 40.3 (37.0-47.0) % MCV 88.8 (80.0-98.0) fL MCH 31.3 (27.0-33.0) pg MCHC 35.2 H (31.0-35.0) g/dl RDW 12.3 (11.0-16.0) % Plt Count 281 (160-400) X10*3/uL MPV 9.4 (9.4-12.3) fL Immature Gran % (Auto) 0.5 H (0.0-0.4) % Neut % (Auto) 55.1 (45-73) % Lymph % (Auto) 36.2 (20-40) % [place] % (Auto) 6.7 (2-11) % Eos % (Auto) 0.7 (0-4) % Baso % (Auto) 0.8 (0-2) % Lymph # (Auto) 2.7 (1.2-4.9) X10*3/uL [place] # (Auto) 0.5 (0.1-1.2) X10*3/uL Eos # (Auto) 0.1 (0.0-0.4) X10*3/uL Baso # (Auto) 0.1 (0.0-0.2) X10*3/uL Abs Immat Gran (auto) 0.04 H (0.00-0.03) X10*3/uL Absolute Neuts (auto) 4.1 (2.0-8.3) x10*3/uL Absolute Nucleated RBC 0.000 (0.0-0.012) X10*3/uL Nucleated RBC % (auto) 0.0 (0.0-0.2) /100WBC PT 12.3 (11.1-13.3) SEC INR 1.0 (0.9-1.1) Sodium 139 (135-145) mmol/L Potassium 3.4 (3.3-5.1) mmol/L Chloride 106 (96-108) mmol/L Carbon Dioxide 24 (22-29) mmol/L Anion Gap 12 (12-20) BUN 10 (9-16) mg/dL Creatinine 0.75 (0.5-1.4) mg/dL Estim Creat Clear Calc 67.0 Estimated GFR > 60 Random Glucose 111 (60-115) mg/dL Calcium 9.6 (8.4-10.2) mg/dL Total Bilirubin 0.2 (0.0-1.0) mg/dL Direct Bilirubin < 0.2 (0.0-0.5) mg/dL AST 14 (5-31) U/L ALT 12 (0-31) U/L Alkaline Phosphatase 61 (39-117) U/L Troponin I High Sens < 2.7 (<3.5-17.0) ng/L B-Natriuretic Peptide 34 (<100) pg/mL Total Protein 7.9 (6.5-8.0) g/dL Albumin 4.2 (3.5-5.0) g/dL Lipase 16 (8-78) U/L Urine Color Urine Appearance Urine pH (5.0-9.0) Ur Specific Tucker (1.005-1.025) Urine Protein (Neg-Trace) mg/dL Urine Glucose (UA) (Negative) mg/dL Urine Ketones (Negative) mg/dL Urine Blood (Negative) Urine Nitrite (Negative) Ur Leukocyte Esterase (Negative) Ethyl Alcohol 90 mg/dL Influenza Type A (PCR) NEGATIVE (Negative) Influenza Type B (PCR) NEGATIVE (Negative) RSV RNA Qual (PCR) NEGATIVE (Negative) SARS-CoV-2 RNA (RT-PCR) NEGATIVE (Negative) 11/07/23 Range/Units 22:51 WBC (4.8-10.8) X10*3/uL RBC (4.20-5.50) X10*6/uL Hgb (12.0-16.0) g/dl Hct (37.0-47.0) % MCV (80.0-98.0) fL MCH (27.0-33.0) pg MCHC (31.0-35.0) g/dl RDW (11.0-16.0) % Plt Count (160-400) X10*3/uL MPV (9.4-12.3) fL Immature Gran % (Auto) (0.0-0.4) % Neut % (Auto) (45-73) % Lymph % (Auto) (20-40) % [place] % (Auto) (2-11) % Eos % (Auto) (0-4) % Baso % (Auto) (0-2) % Lymph # (Auto) (1.2-4.9) X10*3/uL [place] # (Auto) (0.1-1.2) X10*3/uL Eos # (Auto) (0.0-0.4) X10*3/uL Baso # (Auto) (0.0-0.2) X10*3/uL Abs Immat Gran (auto) (0.00-0.03) X10*3/uL Absolute Neuts (auto) (2.0-8.3) x10*3/uL Absolute Nucleated RBC (0.0-0.012) X10*3/uL Nucleated RBC % (auto) (0.0-0.2) /100WBC PT (11.1-13.3) SEC INR (0.9-1.1) Sodium (135-145) mmol/L Potassium (3.3-5.1) mmol/L Chloride (96-108) mmol/L Carbon Dioxide (22-29) mmol/L Anion Gap (12-20) BUN (9-16) mg/dL Creatinine (0.5-1.4) mg/dL Estim Creat Clear Calc Estimated GFR Random Glucose (60-115) mg/dL Calcium (8.4-10.2) mg/dL Total Bilirubin (0.0-1.0) mg/dL Direct Bilirubin (0.0-0.5) mg/dL AST (5-31) U/L ALT (0-31) U/L Alkaline Phosphatase (39-117) U/L Troponin I High Sens (<3.5-17.0) ng/L B-Natriuretic Peptide (<100) pg/mL Total Protein (6.5-8.0) g/dL Albumin (3.5-5.0) g/dL Lipase (8-78) U/L Urine Color Yellow Urine Appearance Clear Urine pH 6.0 (5.0-9.0) Ur Specific Tucker <= 1.005 (1.005-1.025) Urine Protein Negative (Neg-Trace) mg/dL Urine Glucose (UA) Negative (Negative) mg/dL Urine Ketones Negative (Negative) mg/dL Urine Blood Negative (Negative) Urine Nitrite Negative (Negative) Ur Leukocyte Esterase Negative (Negative) Ethyl Alcohol mg/dL Influenza Type A (PCR) (Negative) Influenza Type B (PCR) (Negative) RSV RNA Qual (PCR) (Negative) SARS-CoV-2 RNA (RT-PCR) (Negative) Independent Interpretation I performed an independent interpretation of an: Plain X-Ray ( chest: No acute intrathoracic pathology.) and CT Scan ( Head/cervical spine: No acute injury.) Radiology Impression Discussion of test interpretation with radiology: I have reviewed the radiologist's reading. Discharge Plan Discharge Clinical Impression: Syncope, Alcohol intoxication Patient Disposition: Home, Self-Care Instructions: Alcohol Intoxication (ED) Prescriptions: No Action betamethasone valerate 0.1 % cream 1 appl topical BID PRN (Reason: skin irritation) Qty: 45 0RF lorazepam 0.5 mg tablet 0.5 mg PO BID PRN rosuvastatin 5 mg tablet 5 mg PO DAILY trazodone 100 mg tablet 100 mg PO BEDTIME PRN cholecalciferol (vitamin D3) 25 mcg (1,000 unit) capsule 25 mcg PO DAILY vitamin B complex Tablet 1 tab PO DAILY ferrous sulfate [Feosol] 325 mg (65 mg iron) tablet 325 mg PO DAILY triamterene-hydrochlorothiazid 37.5-25 mg capsule 1 cap PO DAILY potassium chloride 8 mEq capsule, extended release 8 meq PO DAILY Referrals: Coy Cuellar MD [Primary Care Provider] - Demar Beasley MD [Physician] - Print Language: Romanian
--- OUTSIDE RECORDS SUMMARY | 2023-11-07 21:36 | XMS_ITS | Continuity of Care Document ---
Author Organization [facility] Brian Hammad lt Address [address] [place] [id number]- Care Team Providers Care [employer] Name Role Phone Coy Cuellar MD Primary Care Physician Encounter [facility] Date(s): 05/30/22 - 06/29/22 [facility] [address] [place] [address]- Allergies, Adverse Reactions, Alerts Substance Reaction Severity Status codeine Active ibuprofen 1 Active indomethacin Active lisinopril 2 Active Inderal 3 Active Betadine Skin Cleanser Activ e 1gets itchy 2pt reports her tongue swells up 3gets anxiety Immunizations Given and Recorded Vaccine Date Status Refusal Reason [id number] bivalent booster vax 12/22/21 Recorded influenza virus vaccine, inactivated 12/20/21 Camacho rded influenza virus vaccine, inactivated 12/06/20 Camacho rded influenza virus vaccine, inactivated 12/03/19 Give n influenza virus vaccine, inactivated 12/09/17 Camacho rded SARS-CoV-2 (COVID-19) mRNA-1273 vaccine 06/14/21 R ecorded SARS-CoV-2 (COVID-19) mRNA-1273 vaccine 12/21/20 R ecorded SARS-CoV-2 (COVID-19) mRNA-1273 vaccine 05/18/20 G iven SARS-CoV-2 (COVID-19) mRNA-1273 vaccine 04/20/20 G iven SARS-CoV-2 (COVID-19) mRNA-1273 vaccine 04/20/20 R ecorded pneumococcal 13-valent vaccine 04/08/19 Given tetanus-diphtheria toxoids (Td) 04/08/19 Given tetanus-diphtheria toxoids (Td) 02/28/96 Given Influenza Virus Vaccine (oldterm) 1 12/02/18 Recor ded Influenza Inactive (IM) (oldterm) 12/14/06 Given Pneumococcal Vaccine (oldterm) 02/27/03 Given Not Given Vaccine Date Status Refusal Reason tetanus-diphtheria toxoids (Td) 03/08/19 Not Given Parent Or Guardian Refuses 1Result Comment: pt received from [facility] Dr. Daly biotin 5000 mcg oral capsule 0 Refills, Maintenance, 05/21/21 14:55:00 EDT, Partial fill upon patient request if the prescription is for a schedule II opioid drug. Start Date: 05/21/21 Status: Ordered Doxycycline 100 mg, 2 times a day, Maintenance, 05/21/21 14:55:00 EDT Start Date: 05/21/21 Status: Ordered ferrous sulfate 325 mg oral enteric coated tablet 325 mg, 1, tablet, By Mouth, Daily, # 90 tablet, Refills 11, Tot. Refills 11, Maintenance, 05/01/2110:32:00 EST, [id number] Partial fill upon patient request if the prescription is for a schedule II opioid d... Start Date: 05/01/20 Status: Ordered hydrochlorothiazide-triamterene 25 mg-37.5 mg oral capsule See Instructions, TAKE ONE CAPSULE BY MOUTH EVERY DAY *REPLACES CLONIDINE*, # 90 capsule, 1 Refills, Maintenance, 02/27/22 16:00:00 EST, [facility]/pharmacy #[id number], 90, TAKE ONE CAPSULE BY MOUTH EVERY DAY *REPLACES CLONIDINE*, 156, cm, 01/18/22 7:21:00 EST, H... Start Date: 02/27/22 Status: Ordered Iron 100 Plus oral tablet 1 tablet, By Mouth, Daily, 0 Refills, Maintenance, 08/13/19 11:04:00 EDT Start Date: 08/13/19 Status: Ordered loratadine 10 mg oral tablet 10 mg, 1, tablet, By Mouth, Daily, # 90 tablet, Refills 3, Tot. Refills 3, Maintenance, 06/24/21 10:50:00 EDT, Route to Pharmacy Electronically, [facility]/pharmacy #[id number], Partial fill upon patient request if the prescription is for a schedule II opioid drug... Start Date: 06/24/21 Status: Ordered LORazepam 0.5 mg oral tablet 1 tablet = 0.5 mg, By Mouth, Daily, # 30 tablet, 0 Refills, Soft Stop, 06/27/22 9:37:00 EDT, [facility]/pharmacy #[id number], 156, cm, 05/09/22 9:48:00 EDT, Height Start Date: 06/27/22 Status: Ordered nabumetone 750 mg oral tablet 1 tablet, By Mouth, 2 times a day with meals, # 180 tablet, 1 Refills, Maintenance, 12/27/21 9:38:00 EDT, [id number], 156, cm, 09/21/21 9:41:00 EDT, Height Start Date: 12/27/21 Status: Ordered rosuvastatin 5 mg oral tablet 1 tablet, By Mouth, Daily, # 90 tablet, 1 Refills, 01/18/22 7:39:00 EST, [facility]/pharmacy #[id number], 156, cm, 01/18/22 7:21:00 EST, Height Start Date: 01/18/22 Status: Ordered tiZANidine 4 mg oral capsule 2 capsule = 8 mg, By Mouth, 3 times a day, 0 Refills, Maintenance, 05/21/21 14:56:00 EDT, Partial fill upon patient request if the prescription is for a schedule II opioid drug. Start Date: 05/21/21 Status: Ordered traZODone 100 mg oral tablet 1, tablet, By Mouth, Daily at bedtime, DOSAGE INCREASE., # 90 tablet, Refills 1, Maintenance, 12/27/21 9:38:00 EDT, Route to Pharmacy Electronically, [id number], 156, cm, 09/21/21 9:41:00 EDT, Height Start Date: 12/27/21 Status: Ordered venlafaxine 75 mg oral capsule, extended release 1 capsule, By Mouth, Daily, # 30 capsule, 5 Refills, Maintenance, 06/20/22 12:18:00 EDT, [facility]/pharmacy #[id number], 156, cm, 05/09/22 9:48:00 EDT, Height Start Date: 06/20/22 Status: Ordered Vitamin D 16020 iu oral capsule 50,000 International_Units, 1, capsule, By Mouth, Daily, Refills 0, Maintenance, 08/13/19 11:04:00 EDT Start Date: 08/13/19 Status: Ordered Vitamin D3 2000 intl units oral capsule 1 capsule = 2,000 International_Units, By Mouth, Daily, # 60 capsule, 11 Refills, Maintenance, 05/01/20 11:32:00 EST, Capsule, [id number], Partial fill upon patient request if the prescription is for a schedule II opioid drug., 157.48, cm, .. Start Date: 05/01/20 Status: Ordered Walker with 4 swiveling wheels seat and basket Walker with 4 swiveling wheels seat and basket, See Instructions, # 1 each, Refills 0, Tot. Refills0, Maintenance, HT: 5'1 WT: 162 Dx: MS ICD-10: G35, Unsteady Gait ICD-10: R26.81 LALIT: [employer], 07/30/21 10:28:00 EDT, Supply Start Date: 07/30/21 Status: Ordered Problem List Condition Confirmation Course Effective Dates Status Health Status Informant Ankle pain Confirmed 09/01/05 Active Anxiety Confirmed Active Asthma Confirmed Active Autoimmune connective tissue disorder Confirmed Active Nosebleed Confirmed Active COVID-19 Confirmed Active Difficulty sleeping Confirmed Active Fibromyalgia Confirmed Active GERD (gastroesophageal reflux disease) Confirmed Active Hypercholesterolemia Confirmed Active Hyperglycemia Confirmed Active Hypertension Confirmed Active Low back pain Confirmed Active MRSA infection 1 Confirmed Active Multiple sclerosis 2 Confirmed Active Neck pain Confirmed Active Nephrolithiasis Confirmed Active Nodular scleritis Confirmed Active Osteoarthritis Confirmed Active Psoriasis Confirmed Active Depression, major, recurrent, moderate Confirmed Active Scleritis Confirmed Active Seasonal allergies Confirmed Active History of tobacco use 3 Confirmed Active Trigger finger, right Confirmed Active Unsteady gait Confirmed Active 1Buttocks 2question workup via han 3Quit 2008 Social History Social History Type Response Smoking Status Former smoker, quit more than 30 days ago; Other: Quit 2007; entered on: 11/19/20 Sex Patient Care team information Care Team Personnel Name: Coy Cuellar MD Position: S Primary Care Physician Member Role: PCP Address: Address: [address] [place] [id number]- Care Team Related Persons Name: DANTE NICOLE Address: [address] [address] Name: PASTORA NICOLE
--- OUTSIDE RECORDS SUMMARY | 2023-11-07 21:36 | XMS_ITS | Continuity of Care Document ---
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 Role Phone Coy Cuellar MD Primary Care Physician Encounter [facility] Date(s): 02/25/20 - 03/26/20 [facility] Adult [address] [place] [address]- Allergies, Adverse Reactions, Alerts Substance Reaction Severity Status codeine Active ibuprofen 1 Active indomethacin Active lisinopril 2 Active Inderal 3 Active Betadine Skin Cleanser Activ e 1gets itchy 2pt reports her tongue swells up 3gets anxiety Immunizations Given and Recorded Vaccine Date Status Refusal Reason influenza virus vaccine, inactivated 12/03/19 Give n pneumococcal 13-valent vaccine 04/08/19 Given tetanus-diphtheria toxoids (Td) 04/08/19 Given tetanus-diphtheria toxoids (Td) 02/28/96 Given Influenza Virus Vaccine (oldterm) 1 12/02/18 Recor ded Influenza Inactive (IM) (oldterm) 12/14/06 Given Pneumococcal Vaccine (oldterm) 02/27/03 Given Not Given Vaccine Date Status Refusal Reason tetanus-diphtheria toxoids (Td) 03/08/19 Not Given Parent Or Guardian Refuses 1Result Comment: pt received from [facility] Medications albuterol CFC free 90 mcg/inh inhalation aerosol See Instructions, INHALE 2 PUFFS EVERY 6 HOURS NEEDED FOR WHEEZING, # 3 each, Refills 3, Tot. Refills 3, Soft Stop, 09/13/19 14:03:00 EDT, Instructions Replace Required Details, Route to Pharmacy Electronically, [id number]... Start Date: 09/13/19 Status: Ordered Crestor 5 mg oral tablet 1 tablet = 5 mg, By Mouth, Daily, # 90 tablet, 1 Refills, Maintenance, 11/07/19 15:56:00 EDT, Tablet, [facility]/pharmacy #[id number], 157.48, cm, 08/13/19 10:51:00 EDT, Height Start Date: 11/07/19 Status: Ordered Ferrous Sulfate EC Refills 0, Maintenance, 08/13/19 11:26:00 EDT Start Date: 08/13/19 Status: Ordered hydrochlorothiazide-triamterene 25 mg-37.5 mg oral capsule See Instructions, TAKE ONE CAPSULE BY MOUTH EVERY DAY *REPLACES CLONIDINE*, # 90 capsule, 1 Refills, Soft Stop, 03/13/20 16:15:00 EST, [facility]/pharmacy #[id number], TAKE ONE CAPSULE BY MOUTH EVERY DAY *REPLACES CLONIDINE*, 157.48, cm, 03/02/20 9:58:00 EST, Height Start Date: 03/13/20 Status: Ordered Iron 100 Plus oral tablet 1 tablet, By Mouth, Daily, 0 Refills, Maintenance, 08/13/19 11:04:00 EDT Start Date: 08/13/19 Status: Ordered Latanoprost Ophthalmic Daily before dinner, 0 Refills, Maintenance, 08/13/19 11:05:00 EDT Start Date: 08/13/19 Status: Ordered LORazepam 0.5 mg oral tablet 1 tablet = 0.5 mg, By Mouth, Daily, # 30 tablet, 2 Refills, Soft Stop, 01/21/20 10:05:00 EST, [facility]/pharmacy #[id number], 157.48, cm, 01/21/20 9:46:00 EST, Height Start Date: 01/21/20 Status: Ordered prednisolone ophthalmic acetate 1% suspension 1 drops, Eyes, Both, 4 times a day, # 5 mL, 0 Refills, Maintenance, 03/08/19 10:40:00 EST, Ophth Suspension Start Date: 03/08/19 Stop Date: 03/18/19 Status: Ordered traZODone 50 mg oral tablet 50 mg, 1, tablet, By Mouth, Daily at bedtime, # 90 tablet, Refills 1, Tot. Refills 1, Maintenance, 10/21/19 10:51:00 EDT, Route to Pharmacy Electronically, [facility]/pharmacy #[id number], 157.48, cm, 08/13/19 10:51:00 EDT, Height Start Date: 10/21/19 Status: Ordered Vitamin D 68449 iu oral capsule 50,000 International_Units, 1, capsule, By Mouth, Daily, Refills 0, Maintenance, 08/13/19 11:04:00 EDT Start Date: 08/13/19 Status: Ordered Zoloft 100 mg oral tablet 1 tablet = 100 mg, By Mouth, Daily, DOSAGE INCREASE., # 30 tablet, 1 Refills, Maintenance, 03/02/2109:24:00 EST, Tablet, [facility]/pharmacy #[id number], Partial fill upon patient request if the prescription is for a schedule II opioid drug., 157.48, cm, 03/02/20... Start Date: 03/02/20 Status: Ordered Problem List Condition Effective Dates Status Health Status Inform ant Ankle pain(Confirmed) 09/01/05 Active Anxiety(Confirmed) Active Asthma(Confirmed) Active Autoimmune connective tissue disorder(Confirmed) Active Nosebleed(Confirmed) Active BMI 33.0-33.9,adult(Confirmed) Active Depression(Confirmed) Active Difficulty sleeping(Confirmed) Active Fibromyalgia(Confirmed) Active Hypercholesterolemia(Confirmed) Active Hyperglycemia(Confirmed) Active Hypertension(Confirmed) Active Low back pain(Confirmed) Active MRSA infection(Confirmed) 1 Active Multiple sclerosis(Confirmed) 2 Active Neck pain(Confirmed) Active Nephrolithiasis(Confirmed) Active Nodular scleritis(Confirmed) Active Osteoarthritis(Confirmed) Active Psoriasis(Confirmed) Active Seasonal allergies(Confirmed) Active History of tobacco use(Confirmed) 3 Active Trigger finger, right(Confirmed) Active 1Buttocks 2question workup via han 3Quit 2008 Social History Social History Type Response Smoking Status Never (less than 100 in lifetime) entered on: 03/08/19 Sex
--- OUTSIDE RECORDS SUMMARY | 2023-11-07 21:36 | XMS_ITS | Continuity of Care Document ---
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 Role Phone Coy Cuellar MD Primary Care Physician Encounter [facility] Date(s): 10/23/23 - 10/30/23 [facility] Adult [address] [place] [address]- Encounter Diagnosis Depression, major, recurrent, moderate(Discharge Diagnosis) - 10/23/23 Attending Physician: Coy Cuellar MD Allergies, Adverse Reactions, Alerts Substance Reaction Severity Status codeine Active ibuprofen 1 Active lisinopril 2 Active Inderal 3 Active Betadine Skin Cleanser Activ e indomethacin Active 1gets itchy 2pt reports her tongue swells up 3gets anxiety Immunizations Given and Recorded Vaccine Date Status Refusal Reason pneumococcal 20-valent conjugate vaccine 03/22/23 Recorded influenza virus vaccine, inactivated 01/09/23 Camacho rded influenza virus vaccine, inactivated 12/20/21 Camacho rded influenza virus vaccine, inactivated 12/06/20 Camacho rded influenza virus vaccine, inactivated 12/03/19 Give n influenza virus vaccine, inactivated 12/09/17 Cmaacho rded [id number] bivalent booster vax 12/22/21 Recorded SARS-CoV-2 (COVID-19) mRNA-1273 vaccine 06/14/21 R ecorded [...] 12/14/06 Given Pneumococcal Vaccine (oldterm) 02/27/03 Given 1Result Comment: pt received from [facility] Medications buPROPion 150 mg/24 hours (XL) oral tablet, extended release 1 tablet, By Mouth, Every 24 hours, # 30 tablet, 6 Refills, Maintenance, 09/25/23 7:58:00 EDT, [facility], 30, TAKE 1 TABLET BY MOUTH EVERY 24 HOURS, 155, cm, 08/21/23 10:50:00 EDT, Height, 74.5, kg, 06/16/23 16:56:00 EDT, Dry Weight Start Date: 09/25/23 Status: Ordered ferrous sulfate 325 mg oral enteric coated tablet 325 mg, 1, tablet, By Mouth, Daily, # 90 tablet, Refills 11, Tot. Refills 11, Maintenance, 05/01/2110:32:00 EST, Route to Pharmacy Electronically, [facility]/pharmacy #[id number], Partial fill upon patient request if the prescription is for a schedule II opioid d... Start Date: 05/01/20 Status: Ordered hydrochlorothiazide-triamterene 25 mg-37.5 mg oral capsule 1 capsule, By Mouth, Daily, # 90 capsule, 1 Refills, Maintenance, 06/11/23 6:40:00 EDT, [facility]/pharmacy #[id number], 90, 1 capsule By Mouth Daily, 156, cm, 06/02/23 10:46:00 EDT, Height Start Date: 06/11/23 Status: Ordered hydrocortisone 2.5% topical cream See Instructions, APPLY IN A THIN FILM TO AFFECTED AREAS AND RUB IN GENTLY AND COMPLETELY TWICE DAILY, # 30 Gm, 10 Refills, Maintenance, 08/28/23 8:10:00 EDT, [facility], 15, APPLY IN A THIN FILM TO AFFECTED AREAS AND RUB IN GENTLY AND COMPLET... Start Date: 08/28/23 Status: Ordered LORazepam 0.5 mg oral tablet 1 tablet = 0.5 mg, By Mouth, Daily, # 30 tablet, 5 Refills, Soft Stop, 09/15/23 16:05:00 [facility], cm, 08/21/23 10:50:00 EDT, Height, 74.5, kg, 06/16/23 16:56:00 EDT, Dry Weight Start Date: 09/15/23 Status: Ordered nabumetone 750 mg oral tablet 1 tablet, By Mouth, 2 times a day with meals, # 60 tablet, 10 Refills, Maintenance, 10/27/23 9:21:00 EDT, [facility], 155, cm, 10/23/23 14:16:00 EDT, Height, 74.5, kg, 06/16/23 16:56:00 EDT, Dry Weight Start Date: 10/27/23 Status: Ordered rosuvastatin 5 mg oral tablet 1 tablet, By Mouth, Daily, # 30 tablet, 10 Refills, Maintenance, 10/09/23 7:56:00 EDT, [facility], 155, cm, 08/21/23 10:50:00 EDT, Height, 74.5, kg, 06/16/23 16:56:00 EDT, Dry Weight Start Date: 10/09/23 Status: Ordered traZODone 100 mg oral tablet 200 mg, 2, tablet, By Mouth, Daily at bedtime, DOSAGE INCREASE, # 180 tablet, Refills 1, Tot. Refills 1, Maintenance, 08/21/23 10:59:00 EDT, Route to Pharmacy Electronically, [facility]/pharmacy #[id number], Partial fill upon patient request if the prescription is... Start Date: 08/21/23 Status: Ordered Vitamin B Complex oral tablet, disintegrating 1 tablet daily, 0 Refills, Maintenance, 07/03/23 11:17:00 EDT, Partial fill upon patient request ifthe prescription is for a schedule II opioid drug. Start Date: 07/03/23 Status: Ordered Vitamin D3 2000 intl units oral capsule 1 capsule = 2,000 International_Units, By Mouth, Daily, # 60 capsule, 11 Refills, Maintenance, 05/01/20 11:32:00 EST, Capsule, [facility]/pharmacy #[id number], Partial fill upon patient request if the prescription is for a schedule II opioid drug., 157.48, cm, ... Start Date: 05/01/20 Status: Ordered Walker with [...] Status Informant Ankle pain Confirmed 09/01/05 Active Asthma Confirmed Active Autoimmune connective tissue disorder Confirmed Active Nosebleed Confirmed Active Difficulty sleeping Confirmed Active Fibromyalgia Confirmed Active GERD (gastroesophageal reflux disease) Confirmed Active VICKI (generalized anxiety disorder) Confirmed Active History of COVID-19 Confirmed Active Hypercholesterolemia Confirmed Active Hyperglycemia Confirmed Active Hypertension Confirmed Active Low back pain Confirmed Active MRSA infection 1 Confirmed Active Multiple sclerosis 2 Confirmed Active Neck pain Confirmed Active Nephrolithiasis Confirmed Active Nodular scleritis Confirmed Active Obese class I Confirmed Active Osteoarthritis Confirmed Active Psoriasis Confirmed Active Depression, major, recurrent, moderate Confirmed Active Scleritis Confirmed Active Seasonal allergies Confirmed Active History of tobacco use 3 Confirmed Active Tremor Confirmed Active Trigger finger, right Confirmed Active Unsteady gait Confirmed Active 1Buttocks 2question workup via han 3Quit 2008 Diagnosis Diagnosis Type Effective Dates Health Status Cl inical Service Informant Depression, major, recurrent, moderate Discharge Diagnosis 10/23/23 Vital Signs Most recent to oldest [Reference Range]: 1 Height 155 cm (10/23/23 2:16 PM) Weight 74.4 kg (10/23/23 2:16 PM) Body Mass Index [18.5-24.99 kg/m2] 30.97 kg/m2 *>HHI* (10/23/23 2:16 PM) Blood Pressure [90-138/55-84 mm Hg] 120/ 86mm Hg (10/23/23 2:16 PM) Mode of Delivery (Oxygen) Room air (10/23/23 2:16 PM) Blood pressure sites Arm, left (10/23/23 2:16 PM) Weight Obtained Via Standing scale (10/23/23 2:16 PM) Social History Social History Type Response Smoking Status Former smoker, quit more than 30 days ago; Other: Quit 2007; entered on: 11/19/20 Sex Note * Kathia Ly: PERFORM Event Display: Patient Education/Instruction Authored Date: [id number] Ambulatory Adult Visit Summary [facility] Adult [facility] [address] [place] [address] Name: JAYA NICOLE : 1955?? Visit: 10/23/2023 13:59?? Ambulatory Visit Instructions ?? Your Care Team Primary Care Provider Coy Cuellar MD? This Visit Provider Coy Cuellar MD Your Diagnosis Depression, major, recurrent, moderate Screening for colon cancer Vitals Signs Systolic Blood Pressure: 120 mm Hg Height: 155 cm Diastolic Blood Pressure:??86 mm Hg??High Weight: 74.4 kg ?? Body Mass Index:??30.97 kg/m2??Critical ?? Body surface area: 1.79 What to do next Follow-Up Appointments Follow Up with??Coy Cuellar MD When:??In 3 months Where: ?? Follow Up with??Hollie Hare Future Orders Hemoglobin A1C (Monitoring) - Routine, Once, 06/02/23 11:11:00 EDT, Future Order, [facility], Blood?? Hemoglobin A1C (Monitoring) - Routine, Once, 08/21/23 11:14:00 EDT, Future Order, [facility], Blood?? Medications The list below reflects the information in our records and provided by you today along with any changes made during this visit. Please continue your medications until treatment is completed or stopped by your provider. If this is different from the information you have or there are other questions,please contact the prescribing provider. What How Much When Instructions Unchanged BuPROpion (buPROPion 150 mg/ 24 hours (XL) oral tablet, extended release) 1 tab(s) Oral Every 24 hours Unchanged Cholecalciferol (Vitamin D3 2000 intl units oral capsule) 1 capsule Oral Daily Unchanged Durable Medical Equipment (Walker with 4 swiveling wheels seat and basket) See instructions HT: 5'1 ?WT: 162 Dx: [place] ICD-10: G35, Unsteady Gait ICD-10: R26.81 LALIT: Lifetime ?? Unchanged Ferrous Sulfate (ferrous sulfate 325 mg oral enteric coated tablet) 1 tab(s) Oral Daily Unchanged Hydrochlorothiazide/ Triamterene (hydrochlorothiazide-triamterene 25 mg-37.5 mg oral capsule) 1 capsule Oral Daily Unchanged Hydrocortisone Topical (hydrocortisone 2.5% topical cream) See instructions APPLY IN A THIN FILM TO AFFECTED AREAS AND RUB IN GENTLY AND COMPLETELY TWICE DAILY ?? Unchanged Lorazepam (LORazepam 0.5 mg oral tablet) 1 tab(s) Oral Daily Unchanged Multivitamin (Vitamin B Complex oral tablet, disintegrating) 1 tablet daily ?? Unchanged Nabumetone (nabumetone 750 mg oral tablet) 1 tab(s) Oral Two times a day with meals Unchanged Rosuvastatin (rosuvastatin 5 mg oral tablet) 1 tab(s) Oral Daily Unchanged Trazodone (traZODone 100 mg oral tablet) 2 tab(s) Oral Daily at Bedtime DOSAGE INCREASE ?? Medications and Immunizations Administered Medications Given During Visit No medications given during this visit.?? Allergies (NKA means No Known Allergies) Betadine Skin Cleanser Inderal codeine ibuprofen indomethacin lisinopril Common Emergency Awareness Tips IS IT A STROKE? Act FAST and Check for these signs: FACE Does the face look uneven? ARM Does one arm drift down? SPEECH Does their speech sound strange? TIME Call at any sign of stroke ?? Heart Attack Signs Chest discomfort: Most heart attacks involve discomfort in the center of the chest and lasts more than a few minutes, or goes away and comes back. It can feel like uncomfortable pressure, squeezing, fullness or pain. Discomfort in upper body: Symptoms can include pain or discomfort in one or both arms, back, neck, jaw or stomach. Shortness of breath: With or without discomfort. Other signs: Breaking out in a cold sweat, nausea, or lightheaded. Remember, MINUTES DO MATTER. If you experience any of these heart attack warning signs, call to get immediate medical attention! ?? Smoking can increase your chances of developing chronic health problems and can cause harmful effects to other family members in your house. If you smoke, you are strongly encouraged to quit. Please call [employer] at [phone] or [phone] (2746) or log in to [email or web address] for referrals to smoking cessation programs. ?? The National Suicide Prevention Hotline is available 19/09 if you or someone you know needs to find a reason to keep living. By calling 3-690-778-fmsi (3420) you'll be connected to a skilled, trained counselor at a crisis center in your area. [facility] Portal You can view and manage your care through the patient portal or by using a health care daija of your choosing. [employer] is a website that allows you to securely view your medical information including your hospital discharge summary, office visit summaries, medications and follow-up visits. You can also request appointments, renew medications, and request access to your medical information using a health care daija of your choosing, or just ask a question. You can enroll at [email or web address] or register during your next office visit. [facility], in keeping with [facility] guidance, no longer requires face masks for staff, patientsor visitors in most situations. Similiar to time spent indoors at other locations, there is the chance that you were exposed to repiratory viruses during your time with us (such as flu or COVID-19). If you develop symptoms concerning for a viral respiratory infection, please seek testing (and treatment if indicated) from your medical provider or home test kit. ?? Disclaimer: The information provided is of a general nature and is intended to be used in conjunction with the recommendations and advice of your health care practitioner. Every effort has been made to ensure that the information provided is accurate and complete at the time it is provided to you however, as your needs change, or, as new information becomes available, different or additional instructions may be required. ?? If you have questions, please consult with your primary care provider or pharmacist, as appropriate. This information is not intended to serve as substitution for assessment and evaluation by a qualified health care provider. If you do not have a primary care provider, you may find a [facility] provider by calling [facility] at [phone]. Patient Care team information Care Team Personnel Name: Coy Cuellar MD Position: S Physician - Primary Care Member Role: PCP Address: Address: [address] [place] [address]- Care Team Related Persons Name: DANTE NICOLE Address: home [address] [place] [id number] Name: PASTORA NICOLE
--- OUTSIDE RECORDS SUMMARY | 2023-11-07 21:36 | XMS_ITS | Continuity of Care Document ---
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 Name Role Phone Alisa MAS, Coy Peng Primary Care Physician Encounter [facility] Date(s): 06/02/23 - 06/09/23 [facility] Adult [address] [place] [address]- Encounter Diagnosis VICKI (generalized anxiety disorder)(Discharge Diagnosis) - 06/02/23 Depression, major, recurrent, moderate(Discharge Diagnosis) - 06/02/23 Difficulty sleeping(Discharge Diagnosis) - 06/02/23 Hypercholesterolemia(Discharge Diagnosis) - 06/02/23 Hypertension(Discharge Diagnosis) - 06/02/23 Multiple sclerosis(Discharge Diagnosis) - 06/02/23 Autoimmune connective tissue disorder(Discharge Diagnosis) - 06/02/23 Osteoarthritis(Discharge Diagnosis) - 06/02/23 Attending Physician: Fabby KEN, Elda Valencia Allergies, Adverse Reactions, Alerts Substance Reaction Severity Status codeine Active ibuprofen 1 Active lisinopril 2 Active Inderal 3 Active Betadine Skin Cleanser Activ e indomethacin Active 1gets itchy 2pt reports her tongue swells up 3gets anxiety Immunizations Given and Recorded Vaccine Date Status Refusal Reason influenza virus vaccine, inactivated 01/09/23 Camacho rded influenza virus vaccine, inactivated 12/20/21 Camacho rded influenza virus vaccine, inactivated 12/06/20 Camacho rded influenza virus vaccine, inactivated 12/03/19 Give n influenza virus vaccine, inactivated 12/09/17 Camacho rded [id number] bivalent booster vax 12/22/21 Recorded SARS-CoV-2 (COVID-19) [...] 02/27/03 Given 1Result Comment: pt received from [facility] Medications ferrous sulfate 325 mg oral enteric coated tablet 325 mg, 1, tablet, By Mouth, Daily, # 90 tablet, Refills 11, Tot. Refills 11, Maintenance, 05/01/2110:32:00 EST, [id number] Partial fill upon patient request if the prescription is for a schedule II opioid d... Start Date: 05/01/20 Status: Ordered gabapentin 100 mg oral capsule 100 mg, 1, capsule, By Mouth, 3 times a day, # 90 capsule, Refills 0, Tot. Refills 0, Maintenance, 06/02/23 11:03:00 EDT, [id number] Partial fill upon patient request if the prescription is for a schedule II... Start Date: 06/02/23 Status: Ordered hydrochlorothiazide-triamterene 25 mg-37.5 mg oral capsule 1 capsule, By Mouth, Daily, *REPLACES CLONIDINE*., # 90 capsule, 1 Refills, Maintenance, 12/23/22 16:36:00 EDT, [id number], 90, TAKE ONE CAPSULE BY MOUTH EVERY DAY *REPLACES CLONIDINE*, 156, cm,09/05/22 11:06:00 EDT, Height Start Date: 12/23/22 Status: Ordered loratadine 10 mg oral tablet 10 mg, 1, tablet, By Mouth, Daily, # 90 tablet, Refills 3, Tot. Refills 3, Maintenance, 06/24/21 10:50:00 EDT, Route to Pharmacy Electronically, [facility] #[id number], Partial fill upon patient request if the prescription is for a schedule II opioid drug... Start Date: 06/24/21 Status: Ordered LORazepam 0.5 mg oral tablet 1 tablet = 0.5 mg, By Mouth, Daily, # 30 tablet, 5 Refills, Soft Stop, 02/02/23 8:40:00 EST, [id number], 156, cm, 01/26/23 17:08:00 EST, Height Start Date: 02/02/23 Status: Ordered nabumetone 750 mg oral tablet 1 tablet, By Mouth, 2 times a day with meals, # 60 tablet, 14 Refills, Maintenance, 08/31/22 12:49:00 EDT, [id number], 156, cm, 08/02/22 9:52:00 EDT, Height Start Date: 08/31/22 Status: Ordered Potassium Acetate 0 Refills, Maintenance, 06/02/23 10:46:00 EDT, Partial fill upon patient request if the prescription is for a schedule II opioid drug. Start Date: 06/02/23 Status: Ordered rosuvastatin 5 mg oral tablet 1 tablet, By Mouth, Daily, # 90 tablet, 0 Refills, Maintenance, 03/30/23 16:19:00 EST, [id number], 156, cm, 01/26/23 17:08:00 EST, Height Start Date: 03/30/23 Status: Ordered traZODone 150 mg oral tablet 1 tablet = 150 mg, By Mouth, Daily at bedtime, # 30 tablet, 1 Refills, Maintenance, 06/02/23 10:57:00 EDT, Tablet, [id number], Partial fill upon patient request if the prescription is for a schedule II opioid drug., 156, cm, 06/02/23 10:46:00... Start Date: 06/02/23 Status: Ordered Vitamin D3 2000 intl units [...] Diagnosis Diagnosis Type Effective Dates Health Status Clinical Service Informant VICKI (generalized anxiety disorder) Discharge Diagnosis 06/02/23 Depression, major, recurrent, moderate Discharge Diagnosis 06/02/23 Difficulty sleeping Discharge Diagnosis 06/02/23 Hypercholesterolemia Discharge Diagnosis 06/02/23 Hypertension Discharge Diagnosis 06/02/23 Multiple sclerosis Discharge Diagnosis 06/02/23 Autoimmune connective tissue disorder Discharge Diagnosis 06/02/23 Osteoarthritis Discharge Diagnosis 06/02/23 Vital Signs Most recent to oldest [Reference Range]: 1 Height 156 cm (06/02/23 10:46 AM) Weight 79.4 kg (06/02/23 10:46 AM) Oxygen Saturation [94-100 %] 98 % (06/02/23 10:46 AM) Pulse Rate [55-90 bpm] 86 bpm (06/02/23 10:46 AM) Body Mass Index [18.5-24.99 kg/m2] 32.63 kg/m2 *>HHI* (06/02/23 10:46 AM) Blood Pressure [90-138/55-84 mm Hg] 108/ 78mm Hg (06/02/23 10:46 AM) Temperature [96.8-100.4 DegF] 98.1 DegF (06/02/23 10:46 AM) Mode of Delivery (Oxygen) Room air (06/02/23 10:46 AM) Blood pressure sites Arm, left (06/02/23 10:46 AM) Temperature Route Oral (06/02/23 10:46 AM) Weight Obtained Via Standing scale (06/02/23 10:46 AM) Social History Social History Type Response Smoking Status Former smoker, quit more than 30 days ago; Other: Quit 2007; entered on: 11/19/20 Sex Patient Care team information Care Team Personnel Name: Alisa MAS, Coy Peng Position: S Physician - Primary Care Member Role: PCP Address: Address: [address] [place] [address]- Care Team Related Persons Name: DANTE NICOLE Address: [place] [address] [address] Name: PASTORA NICOLE
--- OUTSIDE RECORDS SUMMARY | 2023-11-07 21:36 | XMS_ITS | Continuity of Care Document ---
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 Name Role Phone Coy Cuellar MD Primary Care Physician [facility]counter [facility] Date(s): 12/23/22 - 01/22/23 [facility] Azam Torres Adult [address] [place] [address]- Allergies, Adverse Reactions, Alerts Substance Reaction Severity [...] influenza virus vaccine, inactivated 12/09/17 Camacho rded [id number] bivalent booster vax 12/22/21 Recorded SARS-CoV-2 (COVID-19) [...] 02/27/03 Given 1Result Comment: pt received from [facility] Ezekiel Mccartney Medications ferrous sulfate 325 mg oral enteric coated tablet 325 mg, 1, tablet, By Mouth, Daily, # 90 tablet, Refills 11, Tot. Refills 11, Maintenance, 05/01/2110:32:00 EST, Route to Pharmacy Electronically, [facility]/pharmacy #[id number], Partial fill upon patient request if the prescription is for a schedule II opioid d... Start Date: 05/01/20 Status: Ordered hydrochlorothiazide-triamterene 25 mg-37.5 mg oral capsule 1 capsule, By Mouth, Daily, *REPLACES CLONIDINE*., # 90 capsule, 1 Refills, Maintenance, 12/23/22 16:36:00 EDT, [facility], 90, TAKE ONE CAPSULE BY MOUTH EVERY DAY *REPLACES CLONIDINE*, 156, cm,09/05/22 11:06:00 EDT, Height Start Date: 12/23/22 Status: Ordered loratadine 10 mg oral tablet 10 mg, 1, tablet, By Mouth, Daily, # 90 tablet, Refills 3, Tot. Refills 3, Maintenance, 06/24/21 10:50:00 EDT, Route to Pharmacy Electronically, [facility]/pharmacy #[id number], Partial fill upon patient request if the prescription is for a schedule II opioid drug... Start Date: 06/24/21 Status: Ordered LORazepam 0.5 mg oral tablet 1 tablet = 0.5 mg, By Mouth, Daily, # 30 tablet, 5 Refills, Soft Stop, 09/21/22 11:52:00 EDT, [id number], 156, cm, 09/05/22 11:06:00 EDT, Height Start Date: 09/21/22 Status: Ordered nabumetone 750 mg oral tablet 1 tablet, By Mouth, 2 times a day with meals, # 60 tablet, 14 Refills, Maintenance, 08/31/22 12:49:00 EDT, [id number], 156, cm, 08/02/22 9:52:00 EDT, Height Start Date: 08/31/22 Status: Ordered rosuvastatin 5 mg oral tablet 1 tablet, By Mouth, Daily, # 90 tablet, 1 Refills, Maintenance, 07/04/22 15:03:00 EDT, [facility], 156, cm, 05/09/22 9:48:00 EDT, Height Start Date: 07/04/22 Status: Ordered traZODone 100 mg oral tablet 1, tablet, By Mouth, Daily at bedtime, # 90 tablet, Refills 1, Maintenance, 08/29/22 14:54:00 EDT, Route to Pharmacy Electronically, [id number], 156, cm, 08/02/22 9:52:00 EDT, Height Start Date: 08/29/22 Status: Ordered Vitamin D3 2000 intl units [...] Primary Care Member Role: PCP Address: Address: [address] [place] [address]- Care Team Related Persons Name: DANTE NICOLE Address: [place] [address] [address] Name: PASTORA NICOLE
--- OUTSIDE RECORDS SUMMARY | 2023-11-07 21:37 | XMS_ITS | Continuity of Care Document ---
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 Role Phone Coy Cuellar MD Primary Care Physician Encounter [facility] Date(s): 05/01/20 - 05/08/20 [facility] Adult [address] [place] [address]- Attending Physician: Elda Sequeira NP Referring Physician: Coy Cuellar MD Allergies, Adverse Reactions, Alerts Substance Reaction Severity Status codeine Active ibuprofen 1 Active indomethacin Active lisinopril 2 Active Inderal 3 Active Betadine Skin Cleanser Activ e 1gets itchy 2pt reports her tongue swells up 3gets anxiety Immunizations Given and Recorded Vaccine Date Status Refusal Reason SARS-CoV-2 (COVID-19) mRNA-1273 vaccine 04/20/20 G iven SARS-CoV-2 (COVID-19) mRNA-1273 vaccine 04/20/20 R ecorded influenza virus vaccine, inactivated 12/03/19 Give n pneumococcal 13-valent vaccine 04/08/19 Given tetanus-diphtheria toxoids (Td) 04/08/19 Given tetanus-diphtheria toxoids (Td) 02/28/96 Given Influenza Virus Vaccine (oldterm) 1 12/02/18 Recor ded Influenza Inactive (IM) (oldterm) 12/14/06 Given Pneumococcal Vaccine (oldterm) 02/27/03 Given Not Given Vaccine Date Status Refusal Reason tetanus-diphtheria toxoids (Td) 03/08/19 Not Given Parent Or Guardian Refuses 1Result Comment: pt received from [facility] Medications albuterol CFC free 90 mcg/inh inhalation aerosol See Instructions, INHALE 2 PUFFS EVERY 6 HOURS NEEDED FOR WHEEZING, # 3 each, Refills 3, Tot. Refills 3, Soft Stop, 09/13/19 14:03:00 EDT, Instructions Replace Required Details, Route to Pharmacy Electronically, [id number]... Start Date: 09/13/19 Status: Ordered Crestor 5 mg oral tablet 1 tablet = 5 mg, By Mouth, Daily, # 90 tablet, 1 Refills, Maintenance, 05/01/20 11:29:00 EST, Tablet, [facility]/pharmacy #[id number], 157.48, cm, 05/01/20 11:09:00 EST, Height Start Date: 05/01/20 Status: Ordered Ferrous Sulfate EC Refills 0, Maintenance, 08/13/19 11:26:00 EDT Start Date: 08/13/19 Status: Ordered ferrous sulfate 325 mg oral enteric coated tablet 325 mg, 1, tablet, By Mouth, Daily, # 90 tablet, Refills 11, Tot. Refills 11, Maintenance, 05/01/2110:32:00 EST, Route to Pharmacy Electronically, [facility]/pharmacy #[id number], Partial fill upon patient request if the prescription is for a schedule II opioid d... Start Date: 05/01/20 Status: Ordered hydrochlorothiazide-triamterene 25 mg-37.5 mg oral capsule See Instructions, TAKE ONE CAPSULE BY MOUTH EVERY DAY *REPLACES CLONIDINE*, # 90 capsule, 1 Refills, Soft Stop, 03/13/20 16:15:00 EST, [facility]/pharmacy #[id number], TAKE ONE CAPSULE BY MOUTH [...] 2 Refills, Soft Stop, 01/21/20 10:05:00 EST, [facility]/pharmacy #[id number], 157.48, cm, 01/21/20 9:46:00 EST, [...] tablet, Refills 1, Tot. Refills 1, Maintenance, 04/03/20 10:53:00 EST, Route to Pharmacy Electronically, [facility]/pharmacy #[id number], 157.48, cm, 04/03/20 10:15:00 EST, Height Start Date: 04/03/20 Status: Ordered Vitamin D 62384 iu oral capsule 50,000 International_Units, 1, capsule, By Mouth, Daily, Refills 0, Maintenance, 08/13/19 11:04:00 EDT Start Date: 08/13/19 Status: Ordered Vitamin D3 2000 intl units oral capsule 1 capsule = 2,000 International_Units, By Mouth, Daily, # 60 capsule, 11 Refills, Maintenance, 05/01/20 11:32:00 EST, Capsule, [facility]/pharmacy #[id number], Partial fill upon patient request if the prescription is for a schedule II opioid drug., 157.48, cm, ... Start Date: 05/01/20 Status: Ordered Zoloft 100 mg oral tablet 1 tablet = 100 mg, By Mouth, Daily, # 90 tablet, 1 Refills, Maintenance, 04/03/20 10:54:00 EST, Tablet, [facility]/pharmacy #[id number], Partial fill upon patient request if the prescription is for a schedule II opioid drug., 157.48, cm, 04/03/20 10:15:00 EST, Height Start Date: 04/03/20 Status: Ordered Problem List Condition Effective Dates [...] 1Buttocks 2question workup via han 3Quit 2008 Vital Signs Most recent to oldest [Reference Range]: 1 Height 157.48 cm (05/01/20 11:09 AM) Weight 81.3 kg (05/01/20 11:09 AM) Oxygen Saturation [94-100 %] 97 % (05/01/20 11:09 AM) Pulse Rate [55-90 bpm] 87 bpm (05/01/20 11:09 AM) Body Mass Index [18.5-24.99] 32.78 *>HHI* (05/01/20 11:09 AM) Blood Pressure [90-138/55-84 mm Hg] 124/ 82mm Hg (05/01/20 11:09 AM) Blood pressure sites Arm, left (05/01/20 11:09 AM) Social History Social History Type Response Smoking Status Never (less than 100 in lifetime) entered on: 03/08/19 Sex
--- OUTSIDE RECORDS SUMMARY | 2023-11-07 21:37 | XMS_ITS | Continuity of Care Document ---
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 Name Role Phone Coy Culelar MD Primary Care Physician [facility] Date(s): 07/01/21 - 07/31/21 [facility] Adult [address] [place] [address]- Allergies, Adverse Reactions, Alerts Substance Reaction Severity Status codeine Active ibuprofen 1 Active indomethacin Active lisinopril 2 Active Inderal 3 Active Betadine Skin Cleanser Activ e 1gets itchy 2pt reports her tongue swells up 3gets anxiety Immunizations Given and Recorded Vaccine Date Status Refusal Reason SARS-CoV-2 (COVID-19) mRNA-1273 vaccine 06/14/21 R ecorded SARS-CoV-2 (COVID-19) mRNA-1273 vaccine 12/21/20 R ecorded SARS-CoV-2 (COVID-19) mRNA-1273 vaccine 05/18/20 G iven SARS-CoV-2 (COVID-19) mRNA-1273 vaccine 04/20/20 G iven SARS-CoV-2 (COVID-19) mRNA-1273 vaccine 04/20/20 R ecorded influenza virus vaccine, inactivated 12/06/20 Camacho rded [...] Guardian Refuses 1Result Comment: pt received from [facility] Ezekiel Mccartney Medications albuterol CFC free 90 mcg/inh inhalation aerosol See Instructions, INHALE 2 PUFFS EVERY 6 HOURS NEEDED FOR WHEEZING, # 3 each, Refills 3, Tot. Refills 3, Soft Stop, 09/13/19 14:03:00 EDT, Instructions Replace Required Details, Route to Pharmacy Electronically, [id number]... Start Date: 09/13/19 Status: Ordered biotin 5000 mcg oral capsule 0 Refills, Maintenance, 05/21/21 14:55:00 EDT, Partial fill upon patient request if the prescription is for a schedule II opioid drug. Start Date: 05/21/21 Status: Ordered Doxycycline 100 mg, 2 times a day, Maintenance, 05/21/21 14:55:00 EDT Start Date: 05/21/21 Status: Ordered Effexor XR 37.5 mg oral capsule, extended release 37.5 mg, 1, capsule, By Mouth, Daily, # 30 capsule, Refills 1, Tot. Refills 1, Maintenance, 07/30/21 10:33:00 EDT, Route to Pharmacy Electronically, [facility]/pharmacy #[id number], Partial fill upon patient request if the prescription is for a schedule II opioid... Start Date: 07/30/21 Status: Ordered ferrous sulfate 325 mg oral enteric coated tablet 325 mg, 1, tablet, By Mouth, Daily, # 90 tablet, Refills 11, Tot. Refills 11, Maintenance, 05/01/2110:32:00 EST, Route to Pharmacy Electronically, [facility]/pharmacy #[id number], Partial fill upon patient request if the prescription is for a schedule II opioid d... Start Date: 05/01/20 Status: Ordered hydrochlorothiazide-triamterene 25 mg-37.5 mg oral capsule 1 capsule, By Mouth, Daily, *REPLACES CLONIDINE*., # 90 capsule, 1 Refills, [facility], 90, TAKE ONE CAPSULE BY MOUTH EVERY DAY *REPLACES CLONIDINE*, 156, cm, 11/19/20 13:47:00 EDT, Height Start Date: 03/23/21 Status: Ordered Iron 100 Plus oral tablet 1 tablet, By Mouth, Daily, 0 Refills, Maintenance, 08/13/19 11:04:00 EDT Start Date: 08/13/19 Status: Ordered loratadine 10 mg oral tablet 10 mg, 1, tablet, By Mouth, Daily, # 90 tablet, Refills 3, Tot. Refills 3, Maintenance, 06/24/21 10:50:00 EDT, Route to Pharmacy Electronically, [facility]/pharmacy #[id number], Partial fill upon patient request if the prescription is for a schedule II opioid drug... Start Date: 06/24/21 Status: Ordered LORazepam 0.5 mg oral tablet 1 tablet = 0.5 mg, By Mouth, Daily, # 30 tablet, 2 Refills, Soft Stop, 06/28/21 13:53:00 EDT, [id number], 156, cm, 06/24/21 10:16:00 EDT, Height Start Date: 06/28/21 Status: Ordered magnesium gluconate 500 mg oral tablet 1 tablet = 500 mg, By Mouth, 2 times a day, 0 Refills, Maintenance, 05/21/21 14:56:00 EDT, Partial fill upon patient request if the prescription is for a schedule II opioid drug. Start Date: 05/21/21 Status: Ordered nabumetone 750 mg oral tablet 1 tablet = 750 mg, By Mouth, 2 times a day, with food, # 14 tablet, 0 Refills, Maintenance, 07/30/21 10:39:00 EDT, Tablet, [id number], Partial fill upon patient request if the prescription isfor a schedule II opioid drug., 156, cm, 07/30/21 1... Start Date: 07/30/21 Stop Date: 08/06/21 Status: Ordered omeprazole 20 mg oral enteric coated capsule 1 capsule, By Mouth, Daily, # 90 capsule, 0 Refills, Maintenance, 05/11/21 14:59:00 EDT, [id number], 156, cm, 11/19/20 13:47:00 EDT, Height Start Date: 05/11/21 Status: Ordered rosuvastatin 5 mg oral tablet 1 tablet, By Mouth, Daily, # 90 tablet, 3 Refills, [facility], 156, cm, 11/19/20 13:47:00 EDT,Height Start Date: 04/29/21 Status: Ordered tiZANidine 4 mg oral capsule 2 capsule = 8 mg, By Mouth, 3 times a day, 0 Refills, Maintenance, 05/21/21 14:56:00 EDT, Partial fill upon patient request if the prescription is for a schedule II opioid drug. Start Date: 05/21/21 Status: Ordered traZODone 100 mg oral tablet 100 mg, 1, tablet, By Mouth, Daily at bedtime, DOSAGE INCREASE, # 90 tablet, Refills 1, Tot. Refills 1, Maintenance, 07/30/21 10:32:00 EDT, Route to Pharmacy Electronically, [facility]/pharmacy #[id number], Partial fill upon patient request if the prescription is... Start Date: 07/30/21 Status: Ordered Vitamin D 49791 iu oral capsule 50,000 International_Units, 1, capsule, By Mouth, Daily, Refills 0, Maintenance, 08/13/19 11:04:00 EDT Start Date: 08/13/19 Status: Ordered Vitamin D3 2000 intl units oral capsule 1 capsule = 2,000 International_Units, By Mouth, Daily, # 60 capsule, 11 Refills, Maintenance, 05/01/20 11:32:00 EST, Capsule, [facility]/pharmacy #[id number], Partial fill upon patient request [...] Date: 07/30/21 Status: Ordered Problem List Condition Effective Dates Status Health Status Inform ant Ankle pain(Confirmed) 09/01/05 Active Anxiety(Confirmed) Active Asthma(Confirmed) Active Autoimmune connective tissue disorder(Confirmed) Active Nosebleed(Confirmed) Active BMI 33.0-33.9,adult(Confirmed) Active COVID-19(Confirmed) Active Difficulty sleeping(Confirmed) Active Fibromyalgia(Confirmed) Active GERD (gastroesophageal reflu x disease)(Confirmed) Active Hypercholesterolemia(Confirmed) Active Hyperglycemia(Confirmed) Active Hypertension(Confirmed) Active Low back pain(Confirmed) Active MRSA infection(Confirmed) 1 Active Multiple sclerosis(Confirmed) 2 Active Neck pain(Confirmed) Active Nephrolithiasis(Confirmed) Active Nodular scleritis(Confirmed) Active Obese class I(Confirmed) Active Osteoarthritis(Confirmed) Active Psoriasis(Confirmed) Active Depression, major, recurrent , moderate(Confirmed) Active Scleritis(Confirmed) Active Seasonal allergies(Confirmed) Active History of tobacco use(Confirmed) 3 Active Trigger finger, right(Confirmed) Active Unsteady gait(Confirmed) Active 1Buttocks 2question workup via han 3Quit 2008 Social History Social History Type Response Smoking Status Former smoker, quit more than 30 days ago; Other: Quit 2007; entered on: 11/19/20 Sex
--- OUTSIDE RECORDS SUMMARY | 2023-11-07 21:37 | XMS_ITS | Continuity of Care Document ---
Author Organization [facility] Azam Torres Hammad lt Address [address] [place] [address]- Care Team Providers Care Wound Care Technician Name Role Phone Alisa MAS, Coy Peng Primary Care Physician [phone] [facility]counter [facility] Date(s): 02/17/22 - 03/19/22 [facility] Azam Torres Adult [address] [place] [address]- Attending Physician: Admtr, Ar8 Allergies, Adverse Reactions, Alerts Substance Reaction Severity Status codeine Active ibuprofen 1 Active indomethacin Active lisinopril 2 Active Inderal 3 Active Betadine Skin Cleanser Activ e 1gets itchy 2pt reports her tongue swells up 3gets anxiety Immunizations Given and Recorded Vaccine Date Status Refusal Reason [id number] bivalent booster vax 12/22/21 Recorded influenza virus [...] Guardian Refuses 1Result Comment: pt received from [facility] Ezekiel Mccartney Medications albuterol CFC free 90 mcg/inh inhalation aerosol 2, puffs, Inhalation, Every 6 hours, # 18 Gm, Refills 3, Tot. Refills 3, Soft Stop, 08/16/21 10:54:00 EDT, Route to Pharmacy Electronically, [id number], [facility]/pharmacy #[id number], 156, cm, 08/16/21 10:42:00 EDT, Height Start Date: 08/16/21 Status: Ordered biotin 5000 mcg oral capsule [...] Route to Pharmacy Electronically, [facility]/pharmacy #[id number], Partial fill upon patient request if the prescription is for a schedule II opioid d... Start Date: 05/01/20 Status: Ordered hydrochlorothiazide-triamterene 25 mg-37.5 mg oral capsule See Instructions, TAKE ONE CAPSULE BY MOUTH EVERY DAY *REPLACES CLONIDINE*, # 90 capsule, 1 Refills, Maintenance, 02/27/22 16:00:00 EST, [facility]/pharmacy #[id number], 90, TAKE ONE CAPSULE BY MOUTH EVERY DAY *REPLACES CLONIDINE*, 156, cm, 01/18/22 7:21:00 EST, H... Start Date: 1/1/23 Status: Ordered Iron 100 Plus oral tablet 1 tablet, By Mouth, Daily, 0 Refills, Maintenance, 08/13/19 11:04:00 EDT Start Date: 08/13/19 Status: Ordered loratadine 10 mg oral tablet 10 mg, 1, tablet, By Mouth, Daily, # 90 tablet, Refills 3, Tot. Refills 3, Maintenance, 06/24/21 10:50:00 EDT, Route to Pharmacy Electronically, [facility]/pharmacy #[id number], Partial fill upon patient request if the prescription is for a schedule II opioid drug... Start Date: 06/24/21 Status: Ordered LORazepam 0.5 mg oral tablet 1 tablet = 0.5 mg, By Mouth, Daily, APPOINTMENT NEEDED FOR FURTHER REFILLS, # 30 tablet, 0 Refills,Soft Stop, 03/10/22 10:58:00 EST, [facility]/pharmacy #[id number], 156, cm, 01/18/22 7:21:00 EST, Height Start Date: 03/10/22 Status: Ordered magnesium gluconate 500 mg oral [...] Refills, Maintenance, 12/27/21 9:38:00 EDT, [facility], 156, cm, 09/21/21 9:41:00 EDT, Height Start Date: 12/27/21 Status: Ordered omeprazole 20 mg oral enteric coated capsule 1 capsule, By Mouth, Daily, # 90 capsule, 0 Refills, Maintenance, 05/11/21 14:59:00 EDT, [id number], 156, cm, 11/19/20 13:47:00 EDT, Height Start Date: 05/11/21 Status: Ordered rosuvastatin 5 mg oral tablet 1 tablet, By Mouth, Daily, # 90 tablet, 1 Refills, 01/18/22 7:39:00 EST, [id number], 156, cm, 01/18/22 7:21:00 EST, Height [...] 12/27/21 9:38:00 EDT, Route to Pharmacy Electronically, [facility], 156, cm, 09/21/21 9:41:00 EDT, Height Start Date: 12/27/21 Status: Ordered venlafaxine 75 mg oral capsule, extended release 75 mg, 1, capsule, By Mouth, Daily, APPOINTMENT NEEDED FOR FURTHER REFILLS, # 30 capsule, Refills 0, Tot. Refills 0, Maintenance, 03/10/22 10:58:00 EST, Route to Pharmacy Electronically, [facility]/pharmacy#[id number], Partial fill upon patient request if the pre... Start Date: 03/10/22 Status: Ordered Vitamin D 21168 iu oral capsule 50,000 International_Units, 1, capsule, By Mouth, Daily, Refills 0, Maintenance, 08/13/19 11:04:00 EDT Start Date: 08/13/19 Status: Ordered Vitamin D3 2000 intl units oral capsule 1 capsule = 2,000 International_Units, By Mouth, Daily, # 60 capsule, 11 Refills, Maintenance, 05/01/20 11:32:00 EST, Capsule, [facility]/pharmacy #[id number], Partial fill upon [...] EDT, Supply Start Date: 07/30/21 Status: Ordered Xopenex HFA 45 mcg/inh inhalation aerosol 2 puffs, Inhalation, Every 6 hours, # 18 Gm, 3 Refills, Maintenance, 08/19/21 6:43:00 EDT, [facility]/pharmacy #[id number], Partial fill upon patient request if the prescription is for a schedule II opioid drug.,156, cm, 08/16/21 10:42:00 EDT, Height Start Date: 08/19/21 Status: Ordered Problem List Condition Confirmation Course [...] 2007; entered on: 11/19/20 Sex Note * Event Display: Laboratory Result Scanned Authored Date: Patient Care team information Care Team Personnel Name: Alisa MAS, Coy Peng Position: S Primary Care Physician Member Role: PCP Address: Address: [address] [place] [address]- Care Team Related Persons Name: DANTE NICOLE Address: home [address] [place] [id number] Name: PASTORA NICOLE
--- OUTSIDE RECORDS SUMMARY | 2023-11-07 21:37 | XMS_ITS | Continuity of Care Document ---
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 Name Role Phone Coy Cuellar MD Primary Care Physician [facility] Date[facility]): 09/06[facility]23 - 10/06/23 [facility] Adult [address] [place] [address]- Allergies, Adverse Reactions, Alerts Substance Reaction Severity Status codeine Active ibuprofen 1 Active indomethacin Active Inderal 2 Active Betadine Skin Cleanser Activ e lisinopril 3 Active 1gets itchy 2gets anxiety 3pt reports her tongue swells up Immunizations Given and Recorded Vaccine Date Status Refusal Reason pneumococcal 20-valent conjugate vaccine 03/22/23 Recorded influenza virus vaccine, inactivated 01/09/23 Camacho rded influenza virus vaccine, inactivated 12/20/21 Camacho rded influenza virus vaccine, inactivated 12/06/20 Camacho rded influenza virus vaccine, inactivated 12/03/19 Give n influenza virus vaccine, inactivated 12/09/17 Camacho rded [id number] bivalent booster vax 12/22/21 Recorded SARS-CoV-2 (COVID-19) [...] 02/27/03 Given 1Result Comment: pt received from [facility] Ezekiel Mccartney Medications buPROPion 150 mg/24 hours (XL) oral tablet, extended release 1 tablet, By Mouth, Every 24 hours, # 30 tablet, 6 Refills, Maintenance, 09/25/23 7:58:00 EDT, [facility], 30, TAKE 1 TABLET BY MOUTH EVERY 24 HOURS, 155, cm, 08/21/23 10:50:00 EDT, Height, 74.5, kg, 06/16/23 16:56:00 EDT, Dry Weight Start Date: 09/25/23 Status: Ordered ferrous sulfate 325 mg oral enteric coated tablet 325 mg, 1, tablet, By Mouth, Daily, # 90 tablet, Refills 11, Tot. Refills 11, Maintenance, 05/01/2110:32:00 EST, Route to Pharmacy Electronically, [facility]/pharmacy #[id number], Partial fill upon patient request if the prescription is for a schedule II opioid d... Start Date: 05/01/20 Status: Ordered hydrochlorothiazide-triamterene 25 mg-37.5 mg oral capsule 1 capsule, By Mouth, Daily, # 90 capsule, 1 Refills, Maintenance, 06/11/23 6:40:00 EDT, [facility]/pharmacy #[id number], 90, 1 capsule By Mouth Daily, 156, cm, 06/02/23 10:46:00 EDT, Height Start Date: 06/11/23 Status: Ordered hydrocortisone 2.5% topical cream See Instructions, APPLY IN A THIN FILM TO AFFECTED AREAS AND RUB IN GENTLY AND COMPLETELY TWICE DAILY, # 30 Gm, 10 Refills, Maintenance, 08/28/23 8:10:00 EDT, [facility], 15, APPLY IN A THIN FILM TO AFFECTED AREAS AND RUB IN GENTLY AND COMPLET... Start Date: 08/28/23 Status: Ordered LORazepam 0.5 mg oral tablet 1 tablet = 0.5 mg, By Mouth, Daily, # 30 tablet, 5 Refills, Soft Stop, 09/15/23 16:05:00 EDT, [facility], 155, cm, 08/21/23 10:50:00 EDT, Height, 74.5, kg, 06/16/23 16:56:00 EDT, Dry Weight Start Date: 09/15/23 Status: Ordered nabumetone 750 mg oral tablet 1 tablet, By Mouth, 2 times a day with meals, # 60 tablet, 1 Refills, Maintenance, 09/15/23 16:05:00 EDT, [facility], 155, cm, 08/21/23 10:50:00 EDT, Height, 74.5, kg, 06/16/23 16:56:00 EDT, Dry Weight Start Date: 09/15/23 Status: Ordered rosuvastatin 5 mg oral tablet 1 tablet, By Mouth, Daily, # 90 tablet, 0 Refills, Maintenance, 06/12/23 12:13:00 EDT, [facility] [address], 156, cm, 06/02/23 10:46:00 EDT, Height Start Date: 06/12/23 Status: Ordered traZODone 100 mg oral tablet 200 mg, 2, tablet, By Mouth, Daily at bedtime, DOSAGE INCREASE, # 180 tablet, Refills 1, Tot. Refills 1, Maintenance, 08/21/23 10:59:00 EDT, Route to Pharmacy Electronically, [facility]/pharmacy #[id number], Partial fill upon patient request if the [...] 11 Refills, Maintenance, 05/01/20 11:32:00 EST, Capsule, [facility]/pharmacy #[id number], Partial fill upon patient request if the [...] Primary Care Member Role: PCP Address: Address: [address] [place] [address]- Care Team Related Persons Name: DANTE NICOLE Address: home [address] [place] [address] Name: PASTORA NICOLE
--- OUTSIDE RECORDS SUMMARY | 2023-11-07 21:37 | XMS_ITS | Continuity of Care Document ---
Author Organization [facility] ter Address [address] [place] [id number]- Care Team Providers Care Commercial Cleaner Name Role Phone Alisa MAS, Coy Peng Primary Care Physician Encounter [facility] Date(s): 03/08/19 - 03/15/[address] [address]- [facility] Attending Physician: Kezia Nicolas NP Allergies, Adverse Reactions, Alerts Substance Reaction Severity Status codeine Active ibuprofen 1 Active indomethacin Active lisinopril 2 Active Inderal 3 Active Betadine Skin Cleanser Activ e 1gets itchy 2pt reports her tongue swells up 3gets anxiety Immunizations Given and Recorded Vaccine Date Status Refusal Reason Influenza Virus Vaccine (oldterm) 1 12/02/18 Recor ded Influenza Inactive (IM) (oldterm) 12/14/06 Given Pneumococcal Vaccine (oldterm) 02/27/03 Given tetanus-diphtheria toxoids (Td) 02/28/96 Given Not Given Vaccine Date Status Refusal Reason tetanus-diphtheria toxoids (Td) 03/08/19 Not Given Parent Or Guardian Refuses 1Result Comment: pt received from [facility] Medications Advair Diskus 250 mcg-50 mcg inhalation powder 1, puffs, Inhalation, 2 times a day, # 180 each, Refills 11, Tot. Refills 11, Maintenance, 10/04/1914:03:03 EDT, Powder, Print Requisition Start Date: 10/04/18 Status: Ordered albuterol CFC free 90 mcg/inh inhalation aerosol See Instructions, # 8.5 Unknown, Refills 5 Tot. Refills 5, INHALE 2 PUFFS EVERY 6 HOURS NEEDED FOR WHEEZING, [facility]/pharmacy #[id number] Start Date: 10/30/18 Status: Ordered betamethasone-clotrimazole 0.05%-1% topical cream See Instructions, # 45 Gm, Refills 1 Tot. Refills 1, APPLY TO AFFECTED AREA TWICE A DAY, [facility]/pharmacy #[id number] Start Date: 01/10/19 Status: Ordered Crestor 5 mg oral tablet 1 tablet = 5 mg, By Mouth, Daily, # 30 tablet, 5 Refills, Maintenance, 03/08/19 11:58:00 EST, Tablet, [facility]/pharmacy #[id number], 157.48, cm, 03/08/19 10:35:00 EST, Height Start Date: 03/08/19 Status: Ordered cyclobenzaprine 5 mg oral tablet 1 tablet = 5 mg, By Mouth, 3 times a day, PRN Pain , Mild, # 20 tablet, 0 Refills, Maintenance, 03/08/19 16:05:00 EST, Tablet, [facility]/pharmacy #[id number], 03/08/19, 157.48, cm, 03/08/19 10:35:00 EST, Height Start Date: 03/08/19 Status: Ordered hydrochlorothiazide-triamterene 25 mg-37.5 mg oral capsule See Instructions, TAKE ONE CAPSULE BY MOUTH EVERY DAY *REPLACES CLONIDINE*, # 30 capsule, 5 Refills, Soft Stop, 03/08/19 13:34:00 EST, [facility]/pharmacy #[id number], TAKE ONE CAPSULE BY MOUTH EVERY DAY *REPLACES CLONIDINE*, 157.48, cm, 03/08/19 10:35:00 EST, Height Start Date: 03/08/19 Status: Ordered LORazepam 0.5 mg oral tablet See Instructions, TAKE 1 TABLET BY MOUTH EVERY DAY, # 30 tablet, 0 Refills, Soft Stop, 02/11/19 11:32:48 EST, [facility]/pharmacy #[id number], 157.48, cm, 10/04/18 14:39:17 EDT, Height Start Date: 02/11/19 Status: Ordered prednisolone ophthalmic acetate 1% suspension 1 drops, Eyes, Both, 4 times a day, # 5 mL, 0 Refills, Maintenance, 03/08/19 10:40:00 EST, Ophth Suspension Start Date: 03/08/19 Stop Date: 03/18/19 Status: Ordered Robaxin 500 mg oral tablet 1 tablet = 500 mg, By Mouth, 3 times a day, PRN Pain , Moderate, # 20 tablet, 0 Refills, Maintenance, 03/08/19 11:01:00 EST, Tablet, [id number], 157.48, cm, 03/08/19 10:35:00 EST, Height Start Date: 03/08/19 Stop Date: 03/15/19 Status: Ordered Problem List Condition Effective Dates Status Health Status Inform ant Ankle pain(Confirmed) 09/01/05 Active Anxiety(Confirmed) Active Asthma(Confirmed) Active Autoimmune connective tissue disorder(Confirmed) Active BMI 33.0-33.9,adult(Confirmed) Active Depression(Confirmed) Active Difficulty sleeping(Confirmed) Active Fibromyalgia(Confirmed) Active Hypercholesterolemia(Confirmed) Active Hyperglycemia(Confirmed) Active Hypertension(Confirmed) Active Low back pain(Confirmed) Active Multiple sclerosis(Confirmed) 1 Active Neck pain(Confirmed) Active Nephrolithiasis(Confirmed) Active Nodular scleritis(Confirmed) Active Osteoarthritis(Confirmed) Active Psoriasis(Confirmed) Active Seasonal allergies(Confirmed) Active History of tobacco use(Confirmed) 2 Active 1question workup via han 2Quit 2008 Results Orders for Microbiology Reports Name Date Urine Culture 03/08/19 Microbiology Reports TEST:Urine Culture STATUS:Auth (Verified) BODY SITE: SOURCE:CLEAN COLLECTED DATE/TIME:03/08/19 10:58 AM Urine Culture SPECIMEN DESCRIPTION : CLEAN CATCH (URINE) SPECIAL REQUESTS : NONE CULTURE : NO GROWTH REPORT STATUS : FINAL 03/10/2019 Social History Social History Type Response Smoking Status Never (less than 100 in lifetime) entered on: 03/08/19 Sex
--- OUTSIDE RECORDS SUMMARY | 2023-11-07 21:37 | XMS_ITS | Continuity of Care Document ---
Author Organization [facility] Azam Torres Hammad lt Address [address] [place] [address]- Care Team Providers Care Slot Machine Mechanic Name Role Phone Coy Cuellar MD Primary Care Physician [phone] Encounter [facility] Date(s): 11/07/19 - 12/07/19 [facility] [place] [address] [place] [address]- [facility] Allergies, Adverse Reactions, Alerts Substance Reaction Severity [...] Guardian Refuses 1Result Comment: pt received from [facility] Medications Advair Diskus 250 mcg-50 mcg inhalation [...] Replace Required Details, Route to Pharmacy Electronically, [id number]... Start Date: 09/13/19 Status: Ordered Aleve = 220 mg, By Mouth, 0 Refills, Maintenance, 08/13/19 11:07:00 EDT Start Date: 08/13/19 Status: Ordered Crestor 5 mg oral tablet 1 tablet = 5 mg, By Mouth, Daily, # 90 tablet, 1 Refills, Maintenance, 11/07/19 15:56:00 EDT, Tablet, [id number], 157.48, cm, 08/13/19 10:51:00 EDT, Height Start Date: 11/07/19 Status: Ordered Ferrous Sulfate EC Refills 0, Maintenance, 08/13/19 11:26:00 EDT Start Date: 08/13/19 Status: Ordered hydrochlorothiazide-triamterene 25 mg-37.5 mg oral capsule See Instructions, TAKE ONE CAPSULE BY MOUTH EVERY DAY *REPLACES CLONIDINE*, # 90 capsule, 1 Refills, Soft Stop, 09/13/19 11:53:00 EDT, [id number], TAKE ONE CAPSULE BY MOUTH EVERY DAY *REPLACES CLONIDINE*, 157.48, cm, 08/13/19 10:51:00 EDT, Height Start Date: 09/13/19 Status: Ordered Iron 100 Plus oral tablet 1 tablet, By Mouth, Daily, 0 Refills, Maintenance, 08/13/19 11:04:00 EDT Start Date: 08/13/19 Status: Ordered Keflex monohydrate 500 mg oral capsule 1 capsule = 500 mg, By Mouth, 3 times a day, for 10 days, # 30 capsule, 0 Refills, Acute 12/13/19 11:24:00 EDT, 12/03/19 11:24:00 EDT, Capsule, [id number], 157.48, cm, 12/03/19 10:55:00 EDT, Height Start Date: 12/03/19 Stop Date: 12/13/19 Status: Ordered Latanoprost Ophthalmic Daily before dinner, 0 Refills, Maintenance, 08/13/19 11:05:00 EDT Start Date: 08/13/19 Status: Ordered LORazepam 0.5 mg oral tablet 1 tablet = 0.5 mg, By Mouth, Daily, # 30 tablet, 2 Refills, Soft Stop, 08/13/19 12:12:00 EDT, [facility]/pharmacy #[id number], 157.48, cm, 08/13/19 10:51:00 EDT, Height Start Date: 08/13/19 Status: Ordered omeprazole 20 mg oral enteric coated capsule 1 capsule = 20 mg, By Mouth, Daily, # 14 capsule, 0 Refills, Maintenance, 09/03/19 15:27:00 EDT, [facility]/pharmacy #[id number], 157.48, cm, 08/13/19 10:51:00 EDT, Height Start Date: 09/03/19 Stop Date: 09/17/19 Status: Ordered prednisolone ophthalmic acetate 1% suspension [...] 10/21/19 10:51:00 EDT, Route to Pharmacy Electronically, [facility]/pharmacy #[id number], 157.48, cm, 08/13/19 10:51:00 EDT, Height Start Date: 10/21/19 Status: Ordered Vitamin D 91310 iu oral capsule 50,000 International_Units, 1, capsule, By Mouth, Daily, Refills 0, Maintenance, 08/13/19 11:04:00 EDT Start Date: 08/13/19 Status: Ordered Zoloft 50 mg oral tablet 1 tablet = 50 mg, By Mouth, Daily, DOSAGE INCREASE, # 30 tablet, 1 Refills, Maintenance, 12/03/19 11:17:00 EDT, Tablet, [facility]/pharmacy #[id number], 157.48, cm, 12/03/19 10:55:00 EDT, Height Start Date: 12/03/19 Status: Ordered Problem List Condition Effective Dates [...] Active History of tobacco use(Confirmed) 2 Active Trigger finger, right(Confirmed) Active 1question workup via han 2Quit 2008 Social History Social History Type Response Smoking Status Never (less than 100 in lifetime) entered on: 03/08/19 Sex
--- OUTSIDE RECORDS SUMMARY | 2023-11-07 21:37 | XMS_ITS | Continuity of Care Document ---
Author Organization [facility] Azam Torres Hammad Address [address] [place] [address]- Care Team Providers Care Enforcement Manager Name Role Phone Coy Cuellar MD Primary Care Physician Encounter [facility] Date(s): 05/07/19 - 05/14/19 [facility] Azam Torres Adult [address] [place] [address]- [facility] Encounter Diagnosis Abscess(Discharge Diagnosis) - 05/07/19 Attending Physician: Not on Staff, Attending MD Allergies, Adverse Reactions, Alerts Substance Reaction Severity Status codeine Active ibuprofen 1 Active indomethacin Active lisinopril 2 Active Inderal 3 Active Betadine Skin Cleanser Activ e 1gets itchy 2pt reports her tongue swells up 3gets anxiety Immunizations Given and Recorded Vaccine Date Status Refusal Reason pneumococcal 13-valent vaccine 04/08/19 Given tetanus-diphtheria toxoids (Td) 04/08/19 Given tetanus-diphtheria toxoids (Td) 02/28/96 Given Influenza Virus Vaccine (oldterm) 1 12/02/18 Recor ded Influenza Inactive (IM) (oldterm) 12/14/06 Given Pneumococcal Vaccine (oldterm) 02/27/03 Given Not Given Vaccine Date Status Refusal Reason tetanus-diphtheria toxoids (Td) 03/08/19 Not Given Parent Or Guardian Refuses 1Result Comment: pt received from [facility] Ezekiel Mccartney Medications Advair Diskus 250 mcg-50 mcg inhalation powder 1, puffs, Inhalation, 2 times a day, # 180 each, Refills 11, Tot. Refills 11, Maintenance, 10/04/1914:03:03 EDT, Powder, Print Requisition Start Date: 10/04/18 Status: Ordered albuterol CFC free 90 mcg/inh inhalation aerosol See Instructions, # 8.5 Unknown, Refills 5 Tot. Refills 5, INHALE 2 PUFFS EVERY 6 HOURS NEEDED FOR WHEEZING, [id number] Start Date: 10/30/18 Status: Ordered betamethasone-clotrimazole 0.05%-1% topical cream See Instructions, # 45 Gm, Refills 1 Tot. Refills 1, APPLY TO AFFECTED AREA TWICE A DAY, [facility]/pharmacy #[id number] Start Date: 01/10/19 Status: Ordered cephalexin monohydrate 500 mg oral capsule 1 capsule = 500 mg, By Mouth, 4 times a day, for 10 days, # 40 capsule, 0 Refills, Acute 05/17/19 14:41:00 EDT, 05/07/19 14:41:00 EDT, Capsule, [facility]/pharmacy #[id number], 157.48, cm, 05/07/19 14:27:00 EDT, Height Start Date: 05/07/19 Stop Date: 05/17/19 Status: Ordered Crestor 5 mg oral tablet 1 tablet = 5 mg, By Mouth, Daily, # 30 tablet, 5 Refills, Maintenance, 03/08/19 11:58:00 EST, Tablet, [facility]/pharmacy #[id number], 157.48, cm, 03/08/19 10:35:00 EST, Height Start Date: 03/08/19 Status: Ordered hydrochlorothiazide-triamterene 25 mg-37.5 mg oral capsule See Instructions, TAKE ONE CAPSULE BY MOUTH EVERY DAY *REPLACES CLONIDINE*, # 30 capsule, 5 Refills, Soft Stop, 03/08/19 13:34:00 EST, [facility]/pharmacy #[id number], TAKE ONE CAPSULE BY MOUTH EVERY DAY *REPLACES CLONIDINE*, 157.48, cm, 03/08/19 10:35:00 EST, Height Start Date: 03/08/19 Status: Ordered LORazepam 0.5 mg oral tablet See Instructions, TAKE 1 TABLET BY MOUTH EVERY DAY, # 30 tablet, 0 Refills, Soft Stop, 02/11/19 11:32:48 EST, [facility]/pharmacy #[id number], 157.48, cm, 10/04/18 14:39:17 EDT, Height Start Date: 02/11/19 Status: Ordered prednisolone ophthalmic acetate 1% suspension 1 drops, Eyes, Both, 4 times a day, # 5 mL, 0 Refills, Maintenance, 03/08/19 10:40:00 EST, Ophth Suspension Start Date: 03/08/19 Stop Date: 03/18/19 Status: Ordered traZODone 50 mg oral tablet 25 mg, 0.5, tablet, By Mouth, Daily at bedtime, # 15 tablet, Refills 5, Tot. Refills 5, Maintenance, 05/05/19 16:46:00 EDT, Route to Pharmacy Electronically, [facility]/pharmacy #[id number], 157.48, cm, 04/08/19 9:15:00 EST, Height Start Date: 05/05/19 Status: Ordered Problem List Condition Effective Dates [...] Active 1question workup via han 2Quit 2008 Diagnosis Diagnosis Type Effective Dates Health Status Clini vishnu Service Informant Abscess Discharge Diagnosis 05/07/19 Vital Signs Most recent to oldest [Reference Range]: 1 Height 157.48 cm (05/07/19 2:27 PM) Weight 79.4 kg (05/07/19 2:27 PM) Oxygen Saturation [94-100 %] 97 % (05/07/19 2:27 PM) Pulse Rate [55-90 bpm] 120 bpm *H* (05/07/19 2:27 PM) Body Mass Index [18.5-24.99] 32.02 *>HHI* (05/07/19 2:27 PM) Blood Pressure [90-138/55-84 mm Hg] 120/ 78mm Hg (05/07/19 2:27 PM) Temperature [96.8-100.4 DegF] 98.2 DegF (05/07/19 2:27 PM) Mode of Delivery (Oxygen) Room air (05/07/19 2:27 PM) Blood pressure sites Arm, left (05/07/19 2:27 PM) Temperature Route Oral (05/07/19 2:27 PM) Weight Obtained Via Standing scale (05/07/19 2:27 PM) Social History Social History Type Response Smoking Status Never (less than 100 in lifetime) entered on: 03/08/19 Sex
--- OUTSIDE RECORDS SUMMARY | 2023-11-07 21:37 | XMS_ITS | Continuity of Care Document ---
Author Organization [facility] Address [address] [facility] [address], [address] Floor, [address] [place] [address]- Care Team Providers Care Still Cleaner Tube Name Role Phone Alisa MAS, Coy Peng Primary Care Physician Encounter [facility] Date(s): 07/11/23 - 10/29/23 [facility] [address], [address] [place] [address]- Attending Physician: Benny Morocho MD Admitting Physician: Benny Morocho MD Referring Physician: Fabby KEN, Elda Valencia Allergies, Adverse Reactions, Alerts Substance Reaction Severity Status codeine Active ibuprofen 1 Active Inderal 2 Active Betadine Skin Cleanser Activ e indomethacin Active lisinopril 3 Active 1gets itchy 2gets anxiety 3pt reports her tongue swells up Immunizations Given and Recorded Vaccine Date Status Refusal Reason pneumococcal 20-valent conjugate vaccine 03/22/23 Recorded influenza virus vaccine, inactivated 01/09/23 Camacho rded influenza virus vaccine, inactivated 12/20/21 Camacho rded influenza virus vaccine, inactivated 12/06/20 Camacho rded influenza virus vaccine, inactivated 12/03/19 Give n influenza virus vaccine, inactivated 12/09/17 Camacho rded [id number] bivalent booster vax 12/22/21 Recorded SARS-CoV-2 (COVID-19) [...] 02/27/03 Given 1Result Comment: pt received from [facility] Medications buPROPion 150 mg/24 hours (XL) oral tablet, extended release 1 tablet, By Mouth, Every 24 hours, # 30 tablet, 6 Refills, Maintenance, 09/25/23 7:58:00 EDT, [facility], 30, TAKE 1 TABLET BY MOUTH EVERY 24 HOURS, 155, cm, 08/21/23 10:50:00 EDT, Height, 74.5, kg, 06/16/23 16:56:00 EDT, Dry Weight Start Date: 09/25/23 Status: Ordered ferrous sulfate 325 mg oral enteric coated tablet 325 mg, 1, tablet, By Mouth, Daily, # 90 tablet, Refills 11, Tot. Refills 11, Maintenance, 05/01/2110:32:00 EST, Route to Pharmacy Electronically, [facility]/pharmacy #[id number], Partial fill upon patient request if the prescription is for a schedule II opioid d... Start Date: 05/01/20 Status: Ordered hydrochlorothiazide-triamterene 25 mg-37.5 mg oral capsule 1 capsule, By Mouth, Daily, # 90 capsule, 1 Refills, Maintenance, 06/11/23 6:40:00 EDT, [facility]/pharmacy #[id number], 90, 1 capsule By Mouth Daily, 156, cm, 06/02/23 10:46:00 EDT, Height Start Date: 06/11/23 Status: Ordered hydrocortisone 2.5% topical cream See Instructions, APPLY IN A THIN FILM TO AFFECTED AREAS AND RUB IN GENTLY AND COMPLETELY TWICE DAILY, # 30 Gm, 10 Refills, Maintenance, 08/28/23 8:10:00 EDT, [facility], 15, APPLY IN A THIN FILM TO AFFECTED AREAS AND RUB IN GENTLY AND COMPLET... Start Date: 08/28/23 Status: Ordered LORazepam 0.5 mg oral tablet 1 tablet = 0.5 mg, By Mouth, Daily, # 30 tablet, 5 Refills, Soft Stop, 09/15/23 16:05:00 EDT, [facility], [facility], cm, 08/21/23 10:50:00 EDT, Height, 74.5, kg, 06/16/23 16:56:00 EDT, Dry Weight Start Date: 09/15/23 Status: Ordered nabumetone 750 mg oral tablet 1 tablet, By Mouth, 2 times a day with meals, # 60 tablet, 10 Refills, Maintenance, 10/27/23 9:21:00 EDT, [facility], 155, cm, 10/23/23 14:16:00 EDT, Height, 74.5, kg, 06/16/23 16:56:00 EDT, Dry Weight Start Date: 10/27/23 Status: Ordered rosuvastatin 5 mg oral tablet 1 tablet, By Mouth, Daily, # 30 tablet, 10 Refills, Maintenance, 10/09/23 7:56:00 EDT, [facility], 155, cm, 08/21/23 10:50:00 EDT, Height, 74.5, kg, 06/16/23 16:56:00 EDT, Dry Weight Start Date: 10/09/23 Status: Ordered traZODone 100 mg oral tablet 200 mg, 2, tablet, By Mouth, Daily at bedtime, DOSAGE INCREASE, # 180 tablet, Refills 1, Tot. Refills 1, Maintenance, 08/21/23 10:59:00 EDT, Route to Pharmacy Electronically, [facility]/pharmacy #[id number], Partial fill upon patient request if the [...] 11 Refills, Maintenance, 05/01/20 11:32:00 EST, Capsule, [facility]/pharmacy #[id number], Partial fill upon patient request if the [...] Personnel Name: Alisa MAS, Coy Peng Position: [facility] Physician - Primary Care Member Role: PCP Address: Address: [address] [place] [address]- Care Team Related Persons Name: DANTE NICOLE Address: home [address] [place] [id number] Name: PASTORA NICOLE
--- OUTSIDE RECORDS SUMMARY | 2023-11-07 21:37 | XMS_ITS | Continuity of Care Document ---
Author Organization [facility] Brian Hammad lt Address [address] [place] [address]- Care Team Providers Care Tack Maker Name Role Phone Alisa MAS, Coy Peng Primary Care Physician Encounter [facility] Date(s): 03/08/19 - 03/15/19 [facility] Adult [address] [place] [address]- [facility] Encounter Diagnosis Lower back pain(Discharge Diagnosis) - 03/08/19 Attending Physician: Fidencio KEN, Kezia Allergies, Adverse Reactions, Alerts Substance Reaction Severity [...] Guardian Refuses 1Result Comment: pt received from [facility] Medications Advair Diskus 250 mcg-50 mcg inhalation powder 1, puffs, Inhalation, 2 times a day, # 180 each, Refills 11, Tot. Refills 11, Maintenance, 10/04/1914:03:03 EDT, Powder, Print Requisition Start Date: 10/04/18 Status: Ordered albuterol CFC free 90 mcg/inh inhalation aerosol See Instructions, # 8.5 Unknown, Refills 5 Tot. Refills 5, INHALE 2 PUFFS EVERY 6 HOURS NEEDED FOR WHEEZING, [facility]/pharmacy #[id number] Start Date: 10/30/18 Status: Ordered betamethasone-clotrimazole 0.05%-1% topical cream See Instructions, # 45 Gm, Refills 1 Tot. Refills 1, APPLY TO AFFECTED AREA TWICE A DAY, [facility]/pharmacy #[id number] Start Date: 01/10/19 Status: Ordered Crestor 5 mg oral tablet 1 tablet = 5 mg, By Mouth, Daily, # 30 tablet, 5 Refills, Maintenance, 03/08/19 11:58:00 EST, Tablet, [facility]/pharmacy #[id number], 157.48, cm, 03/08/19 10:35:00 EST, Height Start Date: 03/08/19 Status: Ordered cyclobenzaprine 5 mg oral tablet 1 tablet = 5 mg, By Mouth, 3 times a day, PRN Pain , Mild, # 20 tablet, 0 Refills, Maintenance, 03/08/19 16:05:00 EST, Tablet, [facility]/pharmacy #[id number], 03/08/19, 157.48, cm, 03/08/19 10:35:00 EST, Height Start Date: 03/08/19 Status: Ordered hydrochlorothiazide-triamterene 25 mg-37.5 mg oral capsule See Instructions, TAKE ONE CAPSULE BY MOUTH EVERY DAY *REPLACES CLONIDINE*, # 30 capsule, 5 Refills, Soft Stop, 03/08/19 13:34:00 EST, [facility]/pharmacy #[id number], TAKE ONE CAPSULE BY MOUTH EVERY DAY *REPLACES CLONIDINE*, 157.48, cm, 03/08/19 10:35:00 EST, Height Start Date: 03/08/19 Status: Ordered LORazepam 0.5 mg oral tablet See Instructions, TAKE 1 TABLET BY MOUTH EVERY DAY, # 30 tablet, 0 Refills, Soft Stop, 02/11/19 11:32:48 EST, [facility]/pharmacy #[id number], 157.48, cm, 10/04/18 14:39:17 [...] Dates Health Status Cl inical Service Informant Lower back pain Discharge Diagnosis 03/08/19 Vital Signs Most recent to oldest [Reference Range]: 1 Height 157.48 cm (03/08/19 10:35 AM) Weight 80.8 kg (03/08/19 10:35 AM) Oxygen Saturation [94-100 %] 97 % (03/08/19 10:35 AM) Pulse Rate [55-90 bpm] 103 bpm *H* (03/08/19 10:35 AM) Body Mass Index [18.5-24.99] 32.58 *>HHI* (03/08/19 10:35 AM) Blood Pressure [90-138/55-84 mm Hg] 124/ 86mm Hg (03/08/19 10:35 AM) Respiratory Rate [16-30 br/min] 14 br/mi n *L* (03/08/19 10:35 AM) Temperature [96.8-100.4 DegF] 98.2 DegF (03/08/19 10:35 AM) Mode of Delivery (Oxygen) Room air (03/08/19 10:35 AM) Blood pressure sites Arm, left (03/08/19 10:35 AM) Temperature Route Oral (03/08/19 10:35 AM) Weight Obtained Via Standing scale (03/08/19 10:35 AM) Social History Social History Type Response Smoking Status Never (less than 100 in lifetime) entered on: 03/08/19 Sex
--- OUTSIDE RECORDS SUMMARY | 2023-11-07 21:37 | XMS_ITS | Continuity of Care Document ---
Author Organization [facility] Address [address] [place] [address]- Care Team Providers Care It Risk And Assurance Senior Manager Name Role Phone Alisa MAS, Coy Peng Primary Care Physician [phone] Encounter 09/23/19 - 09/30/19 [facility] [address], [address] [place] [address]- [phone] Attending Physician: Coy Cuellar MD Admitting Physician: Coy Cuellar MD Referring Physician: Coy Cuellar MD Allergies, Adverse [...] Guardian Refuses 1Result Comment: pt received from [facility] Medications Advair Diskus 250 mcg-50 mcg [...] Replace Required Details, Route to Pharmacy Electronically, [id number]... Start Date: 09/13/19 Status: Ordered Aleve = 220 mg, By Mouth, 0 Refills, Maintenance, 08/13/19 11:07:00 EDT Start Date: 08/13/19 Status: Ordered Crestor 5 mg oral tablet 1 tablet = 5 mg, By Mouth, Daily, # 30 tablet, 5 Refills, Maintenance, 09/04/19 10:55:00 EDT, Tablet, [id number], 157.48, cm, 08/13/19 10:51:00 EDT, Height Start Date: 09/04/19 Status: Ordered Ferrous Sulfate EC Refills 0, [...] 2 Refills, Soft Stop, 08/13/19 12:12:00 EDT, [id number], 157.48, cm, 08/13/19 10:51:00 EDT, Height Start Date: 08/13/19 Status: Ordered omeprazole 20 mg oral enteric coated capsule 1 capsule = 20 mg, By Mouth, Daily, # 14 capsule, 0 Refills, Maintenance, 09/03/19 15:27:00 EDT, [facility]/pharmacy #[id number], 157.48, cm, 08/13/19 10:51:00 [...] Mouth, Daily at bedtime, DOSAGE INCREASE, # 30 tablet, Refills 3, Tot. Refills3, Maintenance, 08/13/19 11:26:00 EDT, Route to Pharmacy Electronically, [facility]/pharmacy #[id number], 157.48, cm, 08/13/19 10:51:00 EDT, Height Start Date: 08/13/19 Status: Ordered Vitamin D 59624 iu oral capsule 50,000 International_Units, 1, capsule, By Mouth, Daily, Refills 0, Maintenance, 08/13/19 11:04:00 EDT Start Date: 08/13/19 Status: Ordered Wellbutrin XL 300 mg/24 hours oral tablet, extended release 1 tablet = 300 mg, By Mouth, Daily, DOSAGE INCREASE, # 30 tablet, 3 Refills, Maintenance, 08/13/19 11:25:00 EDT, ER Tablet, [facility]/pharmacy #[id number], 157.48, cm, 08/13/19 10:51:00 EDT, Height Start Date: 08/13/19 Status: Ordered Problem List Condition Effective Dates [...]
--- OUTSIDE RECORDS SUMMARY | 2023-11-07 21:37 | XMS_ITS | Continuity of Care Document ---
Author Organization [facility] Brian Hammad lt Address [address] [place] [address]- Care Team Providers Care Woods Rider Name Role Phone Coy Cuellar MD Primary Care Physician [facility] Date(s): 12/03/20 - 01/02/21 [facility] Adult [address] [place] [address]- Allergies, Adverse Reactions, Alerts Substance Reaction Severity Status codeine Active ibuprofen 1 Active indomethacin Active lisinopril 2 Active Inderal 3 Active Betadine Skin Cleanser Activ e 1gets itchy 2pt reports her tongue swells up 3gets anxiety Immunizations Given and Recorded Vaccine Date Status Refusal Reason SARS-CoV-2 (COVID-19) mRNA-1273 vaccine 12/21/20 R ecorded [...] Guardian Refuses 1Result Comment: pt received from [facility] Medications albuterol CFC free 90 mcg/inh inhalation aerosol See Instructions, INHALE 2 PUFFS EVERY 6 HOURS NEEDED FOR WHEEZING, # 3 each, Refills 3, Tot. Refills 3, Soft Stop, 09/13/19 14:03:00 EDT, Instructions Replace Required Details, Route to Pharmacy Electronically, [id number]... Start Date: 09/13/19 Status: Ordered ferrous sulfate 325 mg oral enteric coated tablet 325 mg, 1, tablet, By Mouth, Daily, # 90 tablet, Refills 11, Tot. Refills 11, Maintenance, 05/01/2110:32:00 EST, [id number] fill upon patient request if the prescription is for a schedule II opioid d... Start Date: 05/01/20 Status: Ordered Iron 100 Plus oral tablet 1 tablet, By Mouth, Daily, 0 Refills, Maintenance, 08/13/19 11:04:00 EDT Start Date: 08/13/19 Status: Ordered Latanoprost Ophthalmic Daily before dinner, 0 Refills, Maintenance, 08/13/19 11:05:00 EDT Start Date: 08/13/19 Status: Ordered LORazepam 0.5 mg oral tablet 1 tablet = 0.5 mg, By Mouth, Daily, # 30 tablet, 2 Refills, Soft Stop, 11/19/20 16:52:00 EDT, [facility]/pharmacy #[id number], 156, cm, 11/19/20 13:47:00 EDT, Height Start Date: 11/19/20 Status: Ordered omeprazole 20 mg oral enteric coated capsule 1 capsule = 20 mg, By Mouth, Daily, # 90 capsule, 1 Refills, Maintenance, 11/19/20 14:14:00 EDT, ECCapsule, [facility]/pharmacy #[id number], Partial fill upon patient request if the prescription is for a schedule II opioid drug., 157.48, cm, 11/19/20 13:47:00 EDT... Start Date: 11/19/20 Status: Ordered prednisolone ophthalmic acetate 1% suspension 1 drops, Eyes, Both, 4 times a day, # 5 mL, 0 Refills, Maintenance, 03/08/19 10:40:00 EST, Ophth Suspension Start Date: 03/08/19 Stop Date: 03/18/19 Status: Ordered rosuvastatin 5 mg oral tablet 1 tablet, By Mouth, Daily, # 90 tablet, 1 Refills, [facility] STORE [id number], 157.48, cm, 05/01/20 11:09:00 EST, Height Start Date: 11/19/20 Status: Ordered traZODone 50 mg oral tablet 50 mg, 1, tablet, By Mouth, Daily at bedtime, # 90 tablet, Refills 1, Tot. Refills 1, Maintenance, 04/03/20 10:53:00 EST, Route to Pharmacy Electronically, [facility]/pharmacy #[id number], 157.48, cm, 04/03/20 10:15:00 EST, Height Start Date: 04/03/20 Status: Ordered Vitamin D 18490 iu oral capsule 50,000 International_Units, 1, capsule, By Mouth, Daily, Refills 0, Maintenance, 08/13/19 11:04:00 EDT Start Date: 08/13/19 Status: Ordered Vitamin D3 2000 intl units oral capsule 1 capsule = 2,000 International_Units, By Mouth, Daily, # 60 capsule, 11 Refills, Maintenance, 05/01/20 11:32:00 EST, Capsule, [facility]/pharmacy #[id number], Partial fill upon patient request if the prescription is for a schedule II opioid drug., 157.48, cm, .. Start Date: 05/01/20 Status: Ordered Problem List Condition Effective Dates Status Health Status Inform ant Ankle pain(Confirmed) 09/01/05 Active Anxiety(Confirmed) Active Asthma(Confirmed) Active Autoimmune connective tissue disorder(Confirmed) Active Nosebleed(Confirmed) Active BMI 33.0-33.9,adult(Confirmed) Active Depression(Confirmed) Active Difficulty sleeping(Confirmed) Active Fibromyalgia(Confirmed) Active GERD (gastroesophageal reflu x disease)(Confirmed) Active Hypercholesterolemia(Confirmed) Active Hyperglycemia(Confirmed) Active Hypertension(Confirmed) Active Low back pain(Confirmed) Active MRSA infection(Confirmed) 1 Active Multiple sclerosis(Confirmed) 2 Active Neck pain(Confirmed) Active Nephrolithiasis(Confirmed) Active Nodular scleritis(Confirmed) Active Osteoarthritis(Confirmed) Active Psoriasis(Confirmed) Active Scleritis(Confirmed) Active Seasonal allergies(Confirmed) Active History of tobacco use(Confirmed) 3 Active Trigger finger, right(Confirmed) Active 1Buttocks 2question workup via han 3Quit 2009 Social History Social History Type Response Smoking Status Former smoker, quit more than 30 days ago; Other: Quit 2007; entered on: 11/19/20 Sex
--- OUTSIDE RECORDS SUMMARY | 2023-11-07 21:37 | XMS_ITS | Continuity of Care Document ---
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 Refills 3, Soft Stop, 09/13/19 14:03:00 EDT, Instructions Replace Required Details, Route to Pharmacy Electronically, [id number]... Start Date: 09/13/19 Status: Ordered Crestor 5 mg oral tablet 1 tablet = 5 mg, By Mouth, Daily, # 90 tablet, 1 Refills, Maintenance, 11/07/19 15:56:00 EDT, Tablet, [facility]/pharmacy #[id number], 157.48, cm, 08/13/19 10:51:00 EDT, Height Start Date: 11/07/19 Status: Ordered Ferrous Sulfate EC Refills 0, Maintenance, 08/13/19 11:26:00 EDT Start Date: 08/13/19 Status: Ordered hydrochlorothiazide-triamterene 25 mg-37.5 mg oral capsule See Instructions, TAKE ONE CAPSULE BY MOUTH EVERY DAY *REPLACES CLONIDINE*, # 90 capsule, 1 Refills, Soft Stop, 03/13/20 16:15:00 EST, [facility]/pharmacy #[id number], TAKE ONE CAPSULE BY MOUTH EVERY [...] 2 Refills, Soft Stop, 01/21/20 10:05:00 EST, [facility]/pharmacy #[id number], 157.48, cm, 01/21/20 9:46:00 EST, Height [...] EST, Route to Pharmacy Electronically, [facility]/pharmacy #[id number], 157.48, cm, 04/03/20 10:15:00 EST, Height Start Date: 04/03/20 Status: Ordered Vitamin D 11018 iu oral capsule 50,000 International_Units, 1, capsule, By Mouth, Daily, Refills 0, Maintenance, 08/13/19 11:04:00 EDT Start Date: 08/13/19 Status: Ordered Zoloft 100 mg oral tablet 1 tablet = 100 mg, By Mouth, Daily, # 90 tablet, 1 Refills, Maintenance, 04/03/20 10:54:00 EST, Tablet, [facility]/pharmacy #[id number], Partial fill upon patient request [...] oldest [Reference Range]: 1 Height 157.48 cm (04/03/20 10:15 AM) Weight 82.5 kg (04/03/20 10:15 AM) Oxygen Saturation [94-100 %] 95 % (04/03/20 10:15 AM) Pulse Rate [55-90 bpm] 71 bpm (04/03/20 10:15 AM) Body Mass Index [18.5-24.99] 33.27 *>HHI* (04/03/20 10:15 AM) Blood Pressure [90-138/55-84 mm Hg] 130/ 82mm Hg (04/03/20 10:15 AM) Blood pressure sites Arm, right (04/03/20 10:15 AM) Social History Social History Type Response Smoking Status Never (less than 100 in lifetime) entered on: 03/08/19 Sex
--- OUTSIDE RECORDS SUMMARY | 2023-11-07 21:37 | XMS_ITS | Continuity of Care Document ---
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 Refills 3, Soft Stop, 09/13/19 14:03:00 EDT, Instructions Replace Required Details, Route to Pharmacy Electronically, [id number]... Start Date: 09/13/19 Status: Ordered Crestor 5 mg oral tablet 1 tablet = 5 mg, By Mouth, Daily, # 90 tablet, 1 Refills, Maintenance, 11/07/19 15:56:00 EDT, Tablet, [facility]/pharmacy #[id number], 157.48, cm, 08/13/19 10:51:00 EDT, Height Start Date: 11/07/19 Status: Ordered Ferrous Sulfate EC Refills 0, Maintenance, 08/13/19 11:26:00 EDT Start Date: 08/13/19 Status: Ordered hydrochlorothiazide-triamterene 25 mg-37.5 mg oral capsule See Instructions, TAKE ONE CAPSULE BY MOUTH EVERY DAY *REPLACES CLONIDINE*, # 90 capsule, 1 Refills, Soft Stop, 09/13/19 11:53:00 EDT, [facility]/pharmacy #[id number], TAKE ONE CAPSULE BY MOUTH [...] 2 Refills, Soft Stop, 01/21/20 10:05:00 EST, [facility]/pharmacy #[id number], 157.48, cm, 01/21/20 9:46:00 EST, [...] 10/21/19 10:51:00 EDT, Route to Pharmacy Electronically, [facility]/pharmacy #[id number], 157.48, cm, 08/13/19 10:51:00 EDT, Height Start Date: 10/21/19 Status: Ordered Vitamin D 61892 iu oral capsule 50,000 International_Units, 1, capsule, By Mouth, Daily, Refills 0, Maintenance, 08/13/19 11:04:00 EDT Start Date: 08/13/19 Status: Ordered Zoloft 100 mg oral tablet 1 tablet = 100 mg, By Mouth, Daily, DOSAGE INCREASE., # 30 tablet, 1 Refills, Maintenance, 03/02/2109:24:00 EST, Tablet, [facility]/pharmacy #[id number], Partial fill upon patient request [...] oldest [Reference Range]: 1 Height 157.48 cm (03/02/20 9:58 AM) Weight 84.0 kg (03/02/20 9:58 AM) Oxygen Saturation [94-100 %] 96 % (03/02/20 9:58 AM) Pulse Rate [55-90 bpm] 89 bpm (03/02/20 9:58 AM) Body Mass Index [18.5-24.99] 33.87 *>HHI* (03/02/20 9:58 AM) Blood Pressure [90-138/55-84 mm Hg] 138/ 82mm Hg (03/02/20 9:58 AM) Blood pressure sites Arm, right (03/02/20 9:58 AM) Social History Social History Type Response Smoking Status Never (less than 100 in lifetime) entered on: 03/08/19 Sex
--- OUTSIDE RECORDS SUMMARY | 2023-11-07 21:37 | XMS_ITS | Continuity of Care Document ---
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 Role Phone Coy Cuellar MD Primary Care Physician Encounter [facility] Date(s): 08/21/23 - 08/28/23 [facility] Adult [address] [place] [address]- Encounter Diagnosis Difficulty sleeping(Discharge Diagnosis) - 08/21/23 Dermatitis of ear canal(Discharge Diagnosis) - 08/21/23 VICKI (generalized anxiety disorder)(Discharge Diagnosis) - 08/21/23 Depression, major, recurrent, moderate(Discharge Diagnosis) - 08/21/23 Attending Physician: Elda Sequeira NP Referring Physician: Coy Cuellar MD Allergies, Adverse Reactions, Alerts Substance Reaction Severity Status codeine Active ibuprofen 1 Active Inderal 2 Active Betadine Skin Cleanser Activ e lisinopril 3 Active indomethacin Active 1gets itchy 2gets anxiety 3pt reports her tongue swells up Immunizations Given and Recorded Vaccine Date Status Refusal Reason pneumococcal 20-valent conjugate vaccine 03/22/23 Recorded influenza virus vaccine, inactivated 01/09/23 Camacho rded influenza virus vaccine, inactivated 12/20/21 Camacho rded influenza virus vaccine, inactivated 12/06/20 Camacho rded influenza virus vaccine, inactivated 12/03/19 Give n influenza virus vaccine, inactivated 12/09/17 Camacho rded [id number] bivalent booster vax 12/22/21 Recorded SARS-CoV-2 (COVID-19) [...] 02/27/03 Given 1Result Comment: pt received from [facility] Ezekiel Mccartney Medications ferrous sulfate 325 mg oral enteric coated tablet 325 mg, 1, tablet, By Mouth, Daily, # 90 tablet, Refills 11, Tot. Refills 11, Maintenance, 05/01/2110:32:00 EST, Route to Pharmacy Electronically, [facility]/pharmacy #[id number], Partial fill upon patient request if the prescription is for a schedule II opioid d... Start Date: 05/01/20 Status: Ordered hydrochlorothiazide-triamterene 25 mg-37.5 mg oral capsule 1 capsule, By Mouth, Daily, # 90 capsule, 1 Refills, Maintenance, 06/11/23 6:40:00 EDT, [facility]/pharmacy #[id number], 90, 1 capsule By Mouth Daily, 156, cm, 06/02/23 10:46:00 EDT, Height Start Date: 06/11/23 Status: Ordered hydrocortisone 2.5% topical cream See Instructions, APPLY IN A THIN FILM TO AFFECTED AREAS AND RUB IN GENTLY AND COMPLETELY TWICE DAILY, # 30 Gm, 10 Refills, Maintenance, 08/28/23 8:10:00 EDT, [facility], 15, APPLY IN A THIN FILM TO AFFECTED AREAS AND RUB IN GENTLY AND COMPLET... Start Date: 08/28/23 Status: Ordered LORazepam 0.5 mg oral tablet 1 tablet = 0.5 mg, By Mouth, Daily, # 30 tablet, 5 Refills, Soft Stop, 08/07/23 12:42:00 EDT, [facility]/pharmacy #[id number], 155, cm, 07/03/23 11:10:00 EDT, Height, 74.5, kg, 06/16/23 16:56:00 EDT, Dry Weight Start Date: 08/07/23 Status: Ordered nabumetone 750 mg oral tablet 1 tablet, By Mouth, 2 times a day with meals, # 60 tablet, 14 Refills, Maintenance, 08/31/22 12:49:00 EDT, [facility] STORE [id number], 156, cm, 08/02/22 9:52:00 EDT, Height Start Date: 08/31/22 Status: Ordered rosuvastatin 5 mg oral tablet 1 tablet, By Mouth, Daily, # 90 tablet, 0 Refills, Maintenance, 06/12/23 12:13:00 EDT, [id number], 156, cm, 06/02/23 10:46:00 EDT, Height Start Date: 06/12/23 Status: Ordered traZODone 100 mg oral tablet 200 mg, 2, tablet, By Mouth, Daily at bedtime, DOSAGE INCREASE, # 180 tablet, Refills 1, Tot. Refills 1, Maintenance, 08/21/23 10:59:00 EDT, Route to Pharmacy Electronically, [facility]/pharmacy #[id number], Partial fill upon patient request if the [...] 11 Refills, Maintenance, 05/01/20 11:32:00 EST, Capsule, [facility]/pharmacy #[id number], Partial fill upon patient request [...] EDT, Supply Start Date: 07/30/21 Status: Ordered Wellbutrin XL 150 mg/24 hours oral tablet, extended release 1 tablet = 150 mg, By Mouth, Every 24 hours, # 30 tablet, 1 Refills, Maintenance, 08/21/23 11:07:00EDT, ER Tablet, [facility]/pharmacy #[id number], Partial fill upon patient request if the prescription is for a schedule II opioid drug., 155, cm, 08/21/23 10:50:00... Start Date: 08/21/23 Status: Ordered Problem List Condition Confirmation Course [...] Effective Dates Health Status Clinical Service Informant Difficulty sleeping Discharge Diagnosis 08/21/23 Dermatitis of ear canal Discharge Diagnosis 08/21/23 VICKI (generalized anxiety disorder) Discharge Diagnosis 08/21/23 Depression, major, recurrent, moderate Discharge Diagnosis 08/21/23 Vital Signs Most recent to oldest [Reference Range]: 1 Height 155 cm (08/21/23 10:50 AM) Weight 76.9 kg (08/21/23 10:50 AM) Oxygen Saturation [94-100 %] 96 % (08/21/23 10:50 AM) Pulse Rate [55-90 bpm] 82 bpm (08/21/23 10:50 AM) Body Mass Index [18.5-24.99 kg/m2] 32.01 kg/m2 *>HHI* (08/21/23 10:50 AM) Blood Pressure [90-138/55-84 mm Hg] 100/ 68mm Hg (08/21/23 10:50 AM) Temperature [96.8-100.4 DegF] 98.3 DegF (08/21/23 10:50 AM) Mode of Delivery (Oxygen) Room air (08/21/23 10:50 AM) Blood pressure sites Arm, left (08/21/23 10:50 AM) Temperature Route Oral (08/21/23 10:50 AM) Weight Obtained Via Standing scale (08/21/23 10:50 AM) Social History Social History Type Response Smoking Status Former smoker, quit more than 30 days ago; Other: Quit 2007; entered on: 11/19/20 Sex Note * Geneva Poole: PERFORM Event Display: Patient Education/Instruction Authored Date: [id number] Ambulatory Adult Visit Summary [facility] Adult [address] [id number] Name: JAYA NICOLE : 1955?? Visit: 08/21/2023 10:40?? Ambulatory Visit Instructions ?? Your Care Team Primary Care Provider Coy Cuellar MD? This Visit Provider Elda Sequeira NP Vitals Signs Temperature: 98.3 DegF Height: 155 cm Pulse Rate: 82 bpm Weight: 76.9 kg Systolic Blood Pressure: 100 mm Hg Body Mass Index:??32.01 kg/m2??Critical Diastolic Blood Pressure: 68 mm Hg Body surface area: 1.82 Oxygen Saturation: 96 % ?? What to do next Scheduled Follow-Up Appointments Monday 8:30 AM EDT ?? With: Shannan Kimbrough NP Where: [facility] [address], [address] [place] [address]- Status: Pending Monday 2:30 PM EDT ?? With: Coy Cuellar MD Where: [facility] Ginger Paoli [address] [address]- Status: Pending Follow-Up Appointments Follow Up with??Coy Cuellar MD Why: as scheduled Future Orders Hemoglobin A1C (Monitoring) - Routine, Once, 06/02/23 11:11:00 EDT, Future Order, [facility], Blood?? Medications The [...] prescribing provider. What How Much When Instructions New BuPROpion (Wellbutrin XL 150 mg/ 24 hours oral tablet, extendedrelease) 1 tab(s) Oral Every 24 hours Refills: 1 Pickup at [facility]/pharmacy #[id number] Unchanged Cholecalciferol (Vitamin D3 2000 intl units [...] oral capsule) 1 capsule Oral Daily Unchanged Lorazepam (LORazepam 0.5 mg oral tablet) [...] Oral Daily at Bedtime DOSAGE INCREASE ?? Pickup at [facility]/pharmacy #[id number] [id number] [address] [place] [phone] Medications and Immunizations Administered Medications Given During [...] are strongly encouraged to quit. Please call [employer] at [phone] or [phone] ([phone]) or log in to [email or web address] for referrals to smoking cessation programs. ?? The National Suicide Prevention Hotline is available 19/09 if you or someone you know needs to find a reason to keep living. By calling 9-349-264-Charge Payment (2575) you'll be connected to a skilled, trained counselor at a crisis center in your area. [facility] [email or web address].[email or web address] Portal You can view and manage your care through the patient portal or by using a health care daija of your choosing. [employer] is a website that allows you to securely view your medical information including your hospital discharge summary, office visit summaries, medications and follow-up visits. You can also request appointments, renew medications, and request access to your medical information using a health care daija of your choosing, or just ask a question. You can enroll at [email or web address] or register during your next office visit. [facility], in keeping with [facility] guidance, no longer requires face masks [...] primary care provider, you may find a [facility] provider by calling [facility] Broadcast.com [facility] at [phone]. Patient Care team information Care Team Personnel Name: Coy Cuellar MD Position: [facility] Physician - Primary Care Member Role: PCP Address: Address: [address] [place] [address]- Care Team Related Persons Name: DANTE NICOLE Address: home [address] [place] [address] Name: PASTORA NICOLE
--- OUTSIDE RECORDS SUMMARY | 2023-11-07 21:37 | XMS_ITS | Continuity of Care Document ---
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 Allergies, Adverse Reactions, Alerts Substance Reaction Severity [...] Guardian Refuses 1Result Comment: pt received from [facility] Medications Advair Diskus 250 mcg-50 mcg [...] Replace Required Details, Route to Pharmacy Electronically, [id number]... Start Date: 09/13/19 Status: Ordered Aleve = 220 mg, By Mouth, 0 Refills, Maintenance, 08/13/19 11:07:00 EDT Start Date: 08/13/19 Status: Ordered Crestor 5 mg oral tablet 1 tablet = 5 mg, By Mouth, Daily, # 30 tablet, 5 Refills, Maintenance, 09/04/19 10:55:00 EDT, Tablet, [facility]/pharmacy #[id number], 157.48, cm, 08/13/19 10:51:00 EDT, Height Start Date: 09/04/19 Status: Ordered Ferrous Sulfate EC Refills 0, Maintenance, 08/13/19 11:26:00 EDT Start Date: 08/13/19 Status: Ordered hydrochlorothiazide-triamterene 25 mg-37.5 mg oral capsule See Instructions, TAKE ONE CAPSULE BY MOUTH EVERY DAY *REPLACES CLONIDINE*, # 90 capsule, 1 Refills, Soft Stop, 09/13/19 11:53:00 EDT, [facility]/pharmacy #[id number], TAKE ONE CAPSULE BY [...] capsule, 0 Refills, Maintenance, 09/03/19 15:27:00 EDT, [facility]/pharmacy #[id number], 157.48, cm, 08/13/19 10:51:00 [...] 08/13/19 11:26:00 EDT, Route to Pharmacy Electronically, [facility]/pharmacy #[id number], 157.48, cm, 08/13/19 10:51:00 EDT, Height Start Date: 08/13/19 Status: Ordered Vitamin D 08718 iu oral capsule 50,000 International_Units, 1, capsule, By Mouth, Daily, Refills 0, Maintenance, 08/13/19 11:04:00 EDT Start Date: 08/13/19 Status: Ordered Wellbutrin XL 300 mg/24 hours oral tablet, extended release 1 tablet = 300 mg, By Mouth, Daily, DOSAGE INCREASE, # 30 tablet, 3 Refills, Maintenance, 08/13/19 11:25:00 EDT, ER Tablet, [facility]/pharmacy #[id number], 157.48, cm, 08/13/19 10:51:00 [...]
--- OUTSIDE RECORDS SUMMARY | 2023-11-07 21:37 | XMS_ITS | Continuity of Care Document ---
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 Start Date: 09/13/19 Status: Ordered Aleve = 220 mg, By Mouth, 0 Refills, Maintenance, 08/13/19 11:07:00 EDT Start Date: 08/13/19 Status: Ordered Crestor 5 mg oral tablet 1 tablet = 5 mg, By Mouth, Daily, # 30 tablet, 5 Refills, Maintenance, 09/04/19 10:55:00 EDT, Tablet, [facility]/pharmacy #[id number], 157.48, cm, 08/13/19 10:51:00 EDT, Height Start Date: 09/04/19 Status: Ordered Ferrous Sulfate EC Refills 0, Maintenance, 08/13/19 11:26:00 EDT Start Date: 08/13/19 Status: Ordered hydrochlorothiazide-triamterene 25 mg-37.5 mg oral capsule See Instructions, TAKE ONE CAPSULE BY MOUTH EVERY DAY *REPLACES CLONIDINE*, # 90 capsule, 1 Refills, Soft Stop, 09/13/19 11:53:00 EDT, [facility]/pharmacy #[id number], TAKE ONE CAPSULE [...] capsule, 0 Refills, Maintenance, 09/03/19 15:27:00 EDT, [facility]/pharmacy #[id number], 157.48, cm, 08/13/19 10:51:00 EDT, [...] 08/13/19 11:26:00 EDT, Route to Pharmacy Electronically, [facility]/pharmacy #[id number], 157.48, cm, 08/13/19 10:51:00 EDT, Height Start Date: 08/13/19 Status: Ordered Vitamin D 60496 iu oral capsule 50,000 International_Units, 1, capsule, By Mouth, Daily, Refills 0, Maintenance, 08/13/19 11:04:00 EDT Start Date: 08/13/19 Status: Ordered Wellbutrin XL 300 mg/24 hours oral tablet, extended release 1 tablet = 300 mg, By Mouth, Daily, DOSAGE INCREASE, # 30 tablet, 3 Refills, Maintenance, 08/13/19 11:25:00 EDT, ER Tablet, [facility]/pharmacy #[id number], 157.48, cm, 08/13/19 10:51:00 EDT, [...]
--- OUTSIDE RECORDS SUMMARY | 2023-11-07 21:37 | XMS_ITS | Continuity of Care Document ---
Author Organization [facility] Brian Hammad lt Address [address] [place] [address]- Care Team Providers Care Consulting Actuary Name Role Phone Coy Cuellar MD Primary Care Physician Encounter [facility] Date(s): 07/03/23 - 07/10/23 [facility] [address] [place] [address]- Encounter Diagnosis Psoriasis(Discharge Diagnosis) - 07/03/23 Difficulty sleeping(Discharge Diagnosis) - 07/03/23 VICKI (generalized anxiety disorder)(Discharge Diagnosis) - 07/03/23 Depression, major, recurrent, moderate(Discharge Diagnosis) - 07/03/23 Multiple sclerosis(Discharge Diagnosis) - 07/03/23 Tremor(Discharge Diagnosis) - 07/03/23 Attending Physician: Elda Sequeira NP Referring Physician: [...] influenza virus vaccine, inactivated 12/09/17 Camacho rded [id number] bivalent booster vax 12/22/21 Recorded SARS-CoV-2 (COVID-19) [...] 02/27/03 Given 1Result Comment: pt received from [facility] Ezekiel Mccartney Medications ferrous sulfate 325 mg oral enteric coated tablet 325 mg, 1, tablet, By Mouth, Daily, # 90 tablet, Refills 11, Tot. Refills 11, Maintenance, 05/01/2110:32:00 EST, [id number] Partial fill upon patient request if the prescription is for a schedule II opioid d... Start Date: 05/01/20 Status: Ordered hydrochlorothiazide-triamterene 25 mg-37.5 mg oral capsule 1 capsule, By Mouth, Daily, # 90 capsule, 1 Refills, Maintenance, 06/11/23 6:40:00 EDT, [id number] 90, 1 capsule By Mouth Daily, 156, cm, 06/02/23 10:46:00 EDT, Height Start Date: 06/11/23 Status: Ordered LORazepam 0.5 mg oral tablet 1 tablet = 0.5 mg, By Mouth, Daily, # 30 tablet, 5 Refills, Soft Stop, 02/02/23 8:40:00 EST, [facility]/pharmacy #[id number], 156, cm, 01/26/23 17:08:00 EST, Height Start Date: 02/02/23 Status: Ordered nabumetone 750 mg oral tablet 1 tablet, By Mouth, 2 times a day with meals, # 60 tablet, 14 Refills, Maintenance, 08/31/22 12:49:00 EDT, [facility], 156, cm, 06/06/23 9:52:00 EDT, Height Start Date: 08/31/22 Status: Ordered rosuvastatin 5 mg oral tablet 1 tablet, By Mouth, Daily, # 90 tablet, 0 Refills, Maintenance, 06/12/23 12:13:00 EDT, [facility], 156, cm, 06/02/23 10:46:00 EDT, Height Start Date: 06/12/23 Status: Ordered traZODone 100 mg oral tablet 200 mg, 2, tablet, By Mouth, Daily at bedtime, DOSAGE INCREASE, # 60 tablet, Refills 1, Tot. Refills 1, Maintenance, 07/03/23 11:31:00 EDT, Route to Pharmacy Electronically, [facility]/pharmacy #[id number], Partial fill upon patient request if the prescription is... Start Date: 07/03/23 Status: Ordered Vitamin B Complex oral tablet, disintegrating 1 tablet daily, 0 Refills, Maintenance, 07/03/23 11:17:00 EDT, Partial fill upon patient request ifthe prescription is for a schedule II opioid drug. Start Date: 07/03/23 Status: Ordered Vitamin D3 2000 intl units oral capsule 1 capsule = 2,000 International_Units, By Mouth, Daily, # 60 capsule, 11 Refills, Maintenance, 05/01/20 11:32:00 EST, Capsule, [facility]/pharmacy #[id number], Partial fill upon patient request if the prescription is for a schedule II opioid drug., 157.48, cm, 03... Start Date: 05/01/20 Status: Ordered Walker with [...] Effective Dates Health Status Clinical Service Informant Psoriasis Discharge Diagnosis 07/03/23 Difficulty sleeping Discharge Diagnosis 07/03/23 VICKI (generalized anxiety disorder) Discharge Diagnosis 07/03/23 Depression, major, recurrent, moderate Discharge Diagnosis 07/03/23 Multiple sclerosis Discharge Diagnosis 07/03/23 Tremor Discharge Diagnosis 07/03/23 Vital Signs Most recent to oldest [Reference Range]: 1 Height 155 cm (07/03/23 11:10 AM) Weight 78.4 kg (07/03/23 11:10 AM) Oxygen Saturation [94-100 %] 96 % (07/03/23 11:10 AM) Pulse Rate [55-90 bpm] 94 bpm *H* (07/03/23 11:10 AM) Body Mass Index [18.5-24.99 kg/m2] 32.63 kg/m2 *>HHI* (07/03/23 11:10 AM) Blood Pressure [90-138/55-84 mm Hg] 117/ 83mm Hg (07/03/23 11:10 AM) Respiratory Rate [16-30 br/min] 20 br/mi n (07/03/23 11:10 AM) Temperature [96.8-100.4 DegF] 98.1 DegF (07/03/23 11:10 AM) Mode of Delivery (Oxygen) Room air (07/03/23 11:10 AM) Blood pressure sites Arm, right (07/03/23 11:10 AM) Temperature Route Oral (07/03/23 11:10 AM) Weight Obtained Via Standing scale (07/03/23 11:10 AM) Social History Social History Type Response Smoking Status Former smoker, quit more than 30 days ago; Other: Quit 2007; entered on: 11/19/20 Sex Patient Care team information Care Team Personnel Name: Coy Cuellar MD Position: [facility] Physician - Primary Care Member Role: PCP Address: Address: [address] [place] [address]- Care Team Related Persons Name: DANTE NICOLE Address: home [address] [place] [id number] Name: PASTORA NICOLE
--- OUTSIDE RECORDS SUMMARY | 2023-11-07 21:37 | XMS_ITS | Continuity of Care Document ---
Author Organization [facility] Address [address] [place] [address]- Care Team Providers Care Remarketing Rep Name Role Phone Coy Cuellar MD Primary Care Physician [phone] [facility]counter [facility] Date[facility]s): 09/15/22 - 10/15/22 [facility] [address] [place] [address]- Allergies, Adverse Reactions, Alerts Substance Reaction Severity Status codeine Active ibuprofen 1 Active indomethacin Active Inderal 2 Active Betadine Skin Cleanser Activ e lisinopril 3 Active 1gets itchy 2gets anxiety 3pt reports her tongue swells up Immunizations Given and Recorded Vaccine Date Status Refusal Reason [id number] bivalent booster vax 12/22/21 Recorded influenza virus [...] 02/27/03 Given 1Result Comment: pt received from [facility] Medications ferrous sulfate 325 mg oral enteric coated tablet 325 mg, 1, tablet, By Mouth, Daily, # 90 tablet, Refills 11, Tot. Refills 11, Maintenance, 05/01/2110:32:00 EST, [id number] fill upon patient request if the prescription is for a schedule II opioid d... Start Date: 05/01/20 Status: Ordered hydrochlorothiazide-triamterene 25 mg-37.5 mg oral capsule See Instructions, TAKE ONE CAPSULE BY MOUTH EVERY DAY *REPLACES CLONIDINE*, # 90 capsule, 1 Refills, Maintenance, 02/27/22 16:00:00 EST, [id number], TAKE ONE CAPSULE BY MOUTH EVERY DAY *REPLACES CLONIDINE*, 156, cm, 01/18/22 7:21:00 EST, H... Start Date: 02/27/22 Status: Ordered loratadine 10 mg oral tablet 10 mg, 1, tablet, By Mouth, Daily, # 90 tablet, Refills 3, Tot. Refills 3, Maintenance, 06/24/21 10:50:00 EDT, Route to Pharmacy Electronically, [facility]/pharmacy #[id number], Partial fill upon patient request if the prescription is for a schedule II opioid drug... Start Date: 06/24/21 Status: Ordered LORazepam 0.5 mg oral tablet 1 tablet = 0.5 mg, By Mouth, Daily, # 30 tablet, 5 Refills, Soft Stop, 09/21/22 11:52:00 EDT, [facility] #[id number], 156, cm, 09/05/22 11:06:00 EDT, Height Start Date: 09/21/22 Status: Ordered nabumetone 750 mg oral tablet 1 tablet, By Mouth, 2 times a day with meals, # 60 tablet, 14 Refills, Maintenance, 08/31/22 12:49:00 EDT, [facility], 156, cm, 08/02/22 9:52:00 EDT, Height Start Date: 08/31/22 Status: Ordered rosuvastatin 5 mg oral tablet 1 tablet, By Mouth, Daily, # 90 tablet, 1 Refills, Maintenance, 07/04/22 15:03:00 EDT, [facility], 156, cm, 05/09/22 9:48:00 EDT, Height Start Date: 07/04/22 Status: Ordered traZODone 100 mg oral tablet 1, tablet, By Mouth, Daily at bedtime, # 90 tablet, Refills 1, Maintenance, 08/29/22 14:54:00 EDT, Route to Pharmacy Electronically, [facility], 156, cm, 08/02/22 9:52:00 EDT, Height Start [...] Primary Care Member Role: PCP Address: Address: [address] [place] [address]- Care Team Related Persons Name: DANTE NICOLE Address: [address] [place] [address] Name: PASTORA NICOLE
--- OUTSIDE RECORDS SUMMARY | 2023-11-07 21:37 | XMS_ITS | Continuity of Care Document ---
Author Organization [facility] Azam Torres Hammad lt Address [address] [place] [address]- Care Team Providers Care Bookmaker'S Clerk Name Role Phone Alisa MAS, Coy Peng Primary Care Physician [phone] [facility] Date[facility]s): 12/06/19 - 01/05/20 [facility] Adult [address] [place] [address]- Allergies, Adverse Reactions, Alerts Substance Reaction Severity [...] Guardian Refuses 1Result Comment: pt received from [facility] Medications Advair Diskus 250 mcg-50 [...] Replace Required Details, Route to Pharmacy Electronically, [id number]... Start Date: 09/13/19 Status: Ordered Aleve = 220 mg, By Mouth, 0 Refills, Maintenance, 08/13/19 11:07:00 EDT Start Date: 08/13/19 Status: Ordered Crestor 5 mg oral tablet 1 tablet = 5 mg, By Mouth, Daily, # 90 tablet, 1 Refills, Maintenance, 11/07/19 15:56:00 EDT, Tablet, [facility]/pharmacy #[id number], 157.48, cm, 08/13/19 10:51:00 EDT, Height Start Date: 11/07/19 Status: Ordered doxycycline hyclate 100 mg oral tablet 1 tablet = 100 mg, By Mouth, 2 times a day, for 14 days, with fluids, # 28 tablet, 0 Refills, Acute01/16/20 14:46:00 EST, 01/02/20 14:46:00 EST, Tablet, [facility]/pharmacy #[id number], 157.48, cm, 01/02/20 13:55:00 EST, Height Start Date: 01/02/20 Stop Date: 01/16/20 Status: Ordered Ferrous Sulfate EC Refills 0, Maintenance, 08/13/19 11:26:00 EDT Start Date: 08/13/19 Status: Ordered hydrochlorothiazide-triamterene 25 mg-37.5 mg oral capsule See Instructions, TAKE ONE CAPSULE BY MOUTH EVERY DAY *REPLACES CLONIDINE*, # 90 capsule, 1 Refills, Soft Stop, 09/13/19 11:53:00 EDT, [facility]/pharmacy #[id number], TAKE ONE [...] 2 Refills, Soft Stop, 08/13/19 12:12:00 EDT, [facility]/pharmacy #[id number], 157.48, cm, 08/13/19 10:51:00 EDT, Height Start Date: 08/13/19 Status: Ordered omeprazole 20 mg oral enteric coated capsule 1 capsule = 20 mg, By Mouth, Daily, # 14 capsule, 0 Refills, Maintenance, 09/03/19 15:27:00 EDT, [facility]/pharmacy #[id number], 157.48, cm, [...] 10/21/19 10:51:00 EDT, Route to Pharmacy Electronically, [facility]/pharmacy #[id number], 157.48, cm, 08/13/19 10:51:00 EDT, Height Start Date: 10/21/19 Status: Ordered triamcinolone 0.1% topical ointment 1 application, Topically, 2 times a day, for 14 days, Apply to affected skin, # 60 Gm, 0 Refills, Acute 01/16/20 14:43:00 EST, 01/02/20 14:43:00 EST, Cream, [facility]/pharmacy #[id number], 1 application Topically 2 times a day,x14 days,Instr:Apply to affected ski... Start Date: 01/02/20 Stop Date: 01/16/20 Status: Ordered Vitamin D 14507 iu oral capsule 50,000 International_Units, 1, capsule, By Mouth, Daily, Refills 0, Maintenance, 08/13/19 11:04:00 EDT Start Date: 08/13/19 Status: Ordered Zoloft 25 mg oral tablet 1 tablet = 25 mg, By Mouth, Daily, # 30 tablet, 1 Refills, Maintenance, 12/19/19 9:19:00 EDT, Tablet, [facility]/pharmacy #[id number], 157.48, cm, 12/19/19 8:54:00 EDT, Height Start Date: 12/19/19 Status: Ordered Problem List Condition Effective Dates [...]
--- OUTSIDE RECORDS SUMMARY | 2023-11-07 21:37 | XMS_ITS | Continuity of Care Document ---
Author Organization [facility] Azam Torres Hammad lt Address [address] [place] [address]- Care Team Providers Care Brush Filler Hand Name Role Phone Coy Cuellar MD Primary Care Physician [facility] Date[facility]s): 09/21/23 - 10/21/23 [facility] Adult [address] [place] [address]- Allergies, Adverse Reactions, Alerts Substance Reaction Severity [...] influenza virus vaccine, inactivated 12/09/17 Camacho rded [id number] bivalent booster vax 12/22/21 Recorded SARS-CoV-2 (COVID-19) [...] 02/27/03 Given 1Result Comment: pt received from [facility] Ezekiel Mccartney Medications buPROPion 150 mg/24 hours (XL) oral tablet, extended release 1 tablet, By Mouth, Every 24 hours, # 30 tablet, 6 Refills, Maintenance, 09/25/23 7:58:00 EDT, [facility], 30, TAKE 1 TABLET BY MOUTH EVERY 24 HOURS, 155, cm, 08/21/23 10:50:00 EDT, Height, 74.5, kg, 06/16/23 16:56:00 EDT, Dry Weight Start Date: 09/25/23 Status: Ordered ferrous sulfate 325 mg oral enteric coated tablet 325 mg, 1, tablet, By Mouth, Daily, # 90 tablet, Refills 11, Tot. Refills 11, Maintenance, 05/01/2110:32:00 EST, Route to Pharmacy Electronically, [facility]/pharmacy #[id number], Partial fill upon patient request if the prescription is for a schedule II opioid d... Start Date: 05/01/20 Status: Ordered hydrochlorothiazide-triamterene 25 mg-37.5 mg oral capsule 1 capsule, By Mouth, Daily, # 90 capsule, 1 Refills, Maintenance, 06/11/23 6:40:00 EDT, [facility]/pharmacy #[id number], 90, 1 capsule By Mouth Daily, 156, cm, 06/02/23 10:46:00 EDT, Height Start Date: 06/11/23 Status: Ordered hydrocortisone 2.5% topical cream See Instructions, APPLY IN A THIN FILM TO AFFECTED AREAS AND RUB IN GENTLY AND COMPLETELY TWICE DAILY, # 30 Gm, 10 Refills, Maintenance, 08/28/23 8:10:00 EDT, [facility], 15, APPLY IN A THIN FILM TO AFFECTED AREAS AND RUB IN GENTLY AND COMPLET... Start Date: 08/28/23 Status: Ordered LORazepam 0.5 mg oral tablet 1 tablet = 0.5 mg, By Mouth, Daily, # 30 tablet, 5 Refills, Soft Stop, 09/15/23 16:05:00 EDT, [facility], 155, cm, 08/21/23 10:50:00 EDT, Height, 74.5, kg, 06/16/23 16:56:00 EDT, Dry Weight Start Date: 09/15/23 Status: Ordered nabumetone 750 mg oral tablet 1 tablet, By Mouth, 2 times a day with meals, # 60 tablet, 1 Refills, Maintenance, 09/15/23 16:05:00 EDT, [facility], 155, cm, 08/21/23 10:50:00 EDT, Height, 74.5, kg, 06/16/23 16:56:00 EDT, Dry Weight Start Date: 09/15/23 Status: Ordered rosuvastatin 5 mg oral tablet 1 tablet, By Mouth, Daily, # 30 tablet, 10 Refills, Maintenance, 10/09/23 7:56:00 EDT, [facility], 155, cm, 08/21/23 10:50:00 EDT, Height, 74.5, kg, 06/16/23 16:56:00 EDT, Dry Weight Start Date: 10/09/23 Status: Ordered traZODone 100 mg oral tablet 200 mg, 2, tablet, By Mouth, Daily at bedtime, DOSAGE INCREASE, # 180 tablet, Refills 1, Tot. Refills 1, Maintenance, 08/21/23 10:59:00 EDT, Route to Pharmacy Electronically, [facility]/pharmacy #[id number], Partial fill upon patient request if the [...] 11 Refills, Maintenance, 05/01/20 11:32:00 EST, Capsule, [facility]/pharmacy #[id number], Partial fill upon patient request if the [...] Team Personnel Name: Coy Cuellar MD Position: [facility] Physician - Primary Care Member Role: PCP Address: Address: [address] [place] [address]- Care Team Related Persons Name: DANTE NICOLE Address: home [address] [place] [id number] Name: PASTORA NICOLE
--- OUTSIDE RECORDS SUMMARY | 2023-11-07 21:37 | XMS_ITS | Continuity of Care Document ---
Author Organization [facility] Brian Hammad lt Address [address] [place] [address]- Care Team Providers Care Actuarial Director Name Role Phone Coy Cuellar MD Primary Care Physician Encounter [facility] Date(s): 07/30/21 - 08/06/21 [facility] Adult [address] [place] [address]- Attending Physician: Elda Sequeira NP Referring Physician: [...] (IM) (oldterm) 12/14/06 Given Pneumococcal Vaccine (oldterm) 1/1/04 Given Not Given Vaccine Date Status Refusal Reason tetanus-diphtheria toxoids (Td) 03/08/19 Not Given Parent Or Guardian Refuses 1Result Comment: pt received from [facility] Ezekiel Mccartney Medications albuterol CFC free 90 mcg/inh inhalation aerosol See Instructions, INHALE 2 PUFFS EVERY 6 HOURS NEEDED FOR WHEEZING, # 3 each, Refills 3, Tot. Refills 3, Soft Stop, 09/13/19 14:03:00 EDT, Instructions Replace Required Details, Route to Pharmacy Electronically, [id number]... Start Date: 09/13/19 Status: Ordered biotin 5000 [...] 07/30/21 10:33:00 EDT, Route to Pharmacy Electronically, [facility]/pharmacy #[id number], Partial fill upon patient request if the prescription is for a schedule II opioid... Start Date: 07/30/21 Status: Ordered ferrous sulfate 325 mg oral enteric coated tablet 325 mg, 1, tablet, By Mouth, Daily, # 90 tablet, Refills 11, Tot. Refills 11, Maintenance, 05/01/2110:32:00 EST, Route to Pharmacy Electronically, [facility]/pharmacy #[id number], Partial fill upon patient request if the prescription is for a schedule II opioid d... Start Date: 05/01/20 Status: Ordered hydrochlorothiazide-triamterene 25 mg-37.5 mg oral capsule 1 capsule, By Mouth, Daily, *REPLACES CLONIDINE*., # 90 capsule, 1 Refills, [facility], 90, TAKE ONE CAPSULE BY MOUTH EVERY [...] 06/24/21 10:50:00 EDT, Route to Pharmacy Electronically, [facility]/pharmacy #[id number], Partial fill upon patient request if [...] # 90 tablet, 3 Refills, [facility], 156, cm, 11/19/20 13:47:00 EDT,Height Start Date: [...] 07/30/21 10:32:00 EDT, Route to Pharmacy Electronically, [facility]/pharmacy #[id number], Partial fill upon patient request if the prescription is... Start Date: 07/30/21 Status: Ordered Vitamin D 20704 iu oral capsule 50,000 International_Units, 1, capsule, By Mouth, Daily, Refills 0, Maintenance, 08/13/19 11:04:00 EDT Start Date: 08/13/19 Status: Ordered Vitamin D3 2000 intl units oral capsule 1 capsule = 2,000 International_Units, By Mouth, Daily, # 60 capsule, 11 Refills, Maintenance, 05/01/20 11:32:00 EST, Capsule, [facility]/pharmacy #[id number], Partial fill upon patient request if [...] oldest [Reference Range]: 1 Height 156 cm (07/30/21 10:04 AM) Weight 73.7 kg (07/30/21 10:04 AM) Oxygen Saturation [94-100 %] 98 % (07/30/21 10:04 AM) Pulse Rate [55-90 bpm] 95 bpm *H* (07/30/21 10:04 AM) Body Mass Index [18.5-24.99] 30.28 *>HHI* (07/30/21 10:04 AM) Blood Pressure [90-138/55-84 mm Hg] 118/ 72mm Hg (07/30/21 10:04 AM) Respiratory Rate [16-30 br/min] 20 br/mi n (07/30/21 10:04 AM) Mode of Delivery (Oxygen) Room air (07/30/21 10:04 AM) Blood pressure sites Arm, left (07/30/21 10:04 AM) Weight Obtained Via Standing scale (07/30/21 10:04 AM) Social History Social History Type Response Smoking Status Former smoker, quit more than 30 days ago; Other: Quit 2007; entered on: 11/19/20 Sex
--- OUTSIDE RECORDS SUMMARY | 2023-11-07 21:37 | XMS_ITS | Continuity of Care Document ---
Author Organization [facility] Brian Hammad lt Address [address] [place] [address]- Care Team Providers Care Supervisor Counseling And Guidance Name Role Phone Coy Cuellar MD Primary Care Physician Encounter [facility] Date(s): 05/21/21 - 05/28/21 [facility] Adult [address] [place] [address]- Attending Physician: Elda Sequeira NP Referring Physician: [...] Guardian Refuses 1Result Comment: pt received from [facility] Ezekiel Mccartney Medications albuterol CFC free 90 mcg/inh inhalation aerosol See Instructions, INHALE 2 PUFFS EVERY 6 HOURS NEEDED FOR WHEEZING, # 3 each, Refills 3, Tot. Refills 3, Soft Stop, 09/13/19 14:03:00 EDT, Instructions Replace Required Details, Route to Pharmacy Electronically, [id number]... Start Date: 09/13/19 Status: Ordered biotin 5000 [...] Maintenance, 05/01/2110:32:00 EST, Route to Pharmacy Electronically, [facility]/pharmacy #[id number], Partial fill upon patient request if the prescription is for a schedule II opioid d... Start Date: 05/01/20 Status: Ordered hydrochlorothiazide-triamterene 25 mg-37.5 mg oral capsule 1 capsule, By Mouth, Daily, *REPLACES CLONIDINE*., # 90 capsule, 1 Refills, [facility] STORE [id number], 90, TAKE ONE CAPSULE BY MOUTH EVERY DAY *REPLACES CLONIDINE*, 156, cm, 11/19/20 13:47:00 EDT, Height Start Date: 03/23/21 Status: Ordered Iron 100 Plus oral tablet 1 tablet, By Mouth, Daily, 0 Refills, Maintenance, 08/13/19 11:04:00 EDT Start Date: 08/13/19 Status: Ordered LORazepam 0.5 mg oral tablet 1 tablet = 0.5 mg, By Mouth, Daily, # 30 tablet, 2 Refills, Soft Stop, 03/23/21 11:39:00 EST, [facility]/pharmacy #[id number], 156, cm, 11/19/20 13:47:00 EDT, Height Start Date: 03/23/21 Status: Ordered magnesium gluconate 500 mg oral tablet 1 tablet = 500 mg, By Mouth, 2 times a day, 0 Refills, Maintenance, 05/21/21 14:56:00 EDT, Partial fill upon patient request if the prescription is for a schedule II opioid drug. Start Date: 05/21/21 Status: Ordered omeprazole 20 mg oral enteric coated capsule 1 capsule, By Mouth, Daily, # 90 capsule, 0 Refills, Maintenance, 05/11/21 14:59:00 EDT, [id number], 156, cm, 11/19/20 13:47:00 EDT, Height Start Date: 05/11/21 Status: Ordered rosuvastatin 5 mg oral tablet 1 tablet, By Mouth, Daily, # 90 tablet, 3 Refills, [facility], 156, cm, 11/19/20 13:47:00 EDT,Height Start Date: [...] tablet, Refills 1, Tot. Refills 1, Maintenance, 05/21/21 15:06:00 EDT, Route to Pharmacy Electronically, [id number], Partial fill upon patient request if the prescription is... Start Date: 05/21/21 Status: Ordered Vitamin D 72204 iu oral capsule 50,000 International_Units, 1, capsule, [...] cm, ... Start Date: 05/01/20 Status: Ordered Wellbutrin XL 150 mg/24 hours oral tablet, extended release 1 tablet = 150 mg, By Mouth, Every 24 hours, # 30 tablet, 1 Refills, Maintenance, 05/21/21 15:03:00EDT, ER Tablet, [facility]/pharmacy #[id number], Partial fill upon patient request if the prescription is for a schedule II opioid drug., 156, cm, 05/21/21 14:37:00... Start Date: 05/21/21 Status: Ordered Problem List Condition Effective Dates Status Health Status Inform ant Ankle pain(Confirmed) 09/01/05 Active Anxiety(Confirmed) Active Asthma(Confirmed) Active Autoimmune connective tissue disorder(Confirmed) Active Nosebleed(Confirmed) Active BMI 33.0-33.9,adult(Confirmed) Active Difficulty sleeping(Confirmed) Active Fibromyalgia(Confirmed) Active GERD [...] oldest [Reference Range]: 1 Height 156 cm (05/21/21 2:37 PM) Weight 78.9 kg (05/21/21 2:37 PM) Oxygen Saturation [94-100 %] 97 % (05/21/21 2:37 PM) Pulse Rate [55-90 bpm] 73 bpm (05/21/21 2:37 PM) Body Mass Index [18.5-24.99] 32.42 *>HHI* (05/21/21 2:37 PM) Blood Pressure [90-138/55-84 mm Hg] 120/ 82mm Hg (05/21/21 2:37 PM) Respiratory Rate [16-30 br/min] 16 br/mi n (05/21/21 2:37 PM) Mode of Delivery (Oxygen) Room air (05/21/21 2:37 PM) Blood pressure sites Arm, left (05/21/21 2:37 PM) Weight Obtained Via Standing scale (05/21/21 2:37 PM) Social History Social History Type Response Smoking Status Former smoker, quit more than 30 days ago; Other: Quit 2007; entered on: 11/19/20 Sex
--- OUTSIDE RECORDS SUMMARY | 2023-11-07 21:37 | XMS_ITS | Continuity of Care Document ---
Author Organization [facility] Brian Hammad lt Address [address] [place] [address]- Care Team Providers Care Silk Screen Processor Name Role Phone Coy Cuellar MD Primary Care Physician [facility] Date[facility]s): 09/04/19 - 10/04/19 [facility] Adult [address] [place] [address]- [facility] Allergies, Adverse Reactions, Alerts Substance Reaction Severity [...] Guardian Refuses 1Result Comment: pt received from [facility] Medications Advair Diskus 250 mcg-50 [...] Replace Required Details, Route to Pharmacy Electronically, [id number]... Start Date: 09/13/19 Status: Ordered Aleve = 220 mg, By Mouth, 0 Refills, Maintenance, 08/13/19 11:07:00 EDT Start Date: 08/13/19 Status: Ordered Crestor 5 mg oral tablet 1 tablet = 5 mg, By Mouth, Daily, # 30 tablet, 5 Refills, Maintenance, 09/04/19 10:55:00 EDT, Tablet, [facility]/pharmacy #[id number], 157.48, cm, 08/13/19 10:51:00 EDT, Height Start Date: 09/04/19 Status: Ordered Ferrous Sulfate EC Refills 0, Maintenance, 08/13/19 11:26:00 EDT Start Date: 08/13/19 Status: Ordered hydrochlorothiazide-triamterene 25 mg-37.5 mg oral capsule See Instructions, TAKE ONE CAPSULE BY MOUTH EVERY DAY *REPLACES CLONIDINE*, # 90 capsule, 1 Refills, Soft Stop, 09/13/19 11:53:00 EDT, [facility]/pharmacy #[id number], TAKE ONE CAPSULE BY MOUTH [...] capsule, 0 Refills, Maintenance, 09/03/19 15:27:00 EDT, [facility]/pharmacy #[id number], 157.48, cm, 08/13/19 10:51:00 EDT, [...] 08/13/19 11:26:00 EDT, Route to Pharmacy Electronically, [facility]/pharmacy #[id number], 157.48, cm, 08/13/19 10:51:00 EDT, Height Start Date: 08/13/19 Status: Ordered Vitamin D 35566 iu oral capsule 50,000 International_Units, 1, capsule, By Mouth, Daily, Refills 0, Maintenance, 08/13/19 11:04:00 EDT Start Date: 08/13/19 Status: Ordered Wellbutrin XL 300 mg/24 hours oral tablet, extended release 1 tablet = 300 mg, By Mouth, Daily, DOSAGE INCREASE, # 30 tablet, 3 Refills, Maintenance, 08/13/19 11:25:00 EDT, ER Tablet, [facility]/pharmacy #[id number], 157.48, cm, 08/13/19 10:51:00 EDT, [...]
--- OUTSIDE RECORDS SUMMARY | 2023-11-07 21:38 | XMS_ITS | Continuity of Care Document ---
Author Organization [facility] Brian Hammad lt Address [address] [place] [address]- Care Team Providers Care Can Reforming Machine Operator Name Role Phone Coy Cuellar MD Primary Care Physician [facility] Date[facility]s): 03/[facility]19 - 03/18/19 [facility] Adult [address] [place] [address]- [facility] Attending Physician: Admtr, Ar8 Allergies, Adverse Reactions, [...] Guardian Refuses 1Result Comment: pt received from [facility] Medications Advair Diskus 250 mcg-50 mcg inhalation powder 1, puffs, Inhalation, 2 times a day, # 180 each, Refills 11, Tot. Refills 11, Maintenance, 10/04/1914:03:03 EDT, Powder, Print Requisition Start Date: 10/04/18 Status: Ordered albuterol CFC free 90 mcg/inh inhalation aerosol See Instructions, # 8.5 Unknown, Refills 5 Tot. Refills 5, INHALE 2 PUFFS EVERY 6 HOURS NEEDED FOR WHEEZING, [facility]/pharmacy #[id number] Start Date: 10/30/18 Status: Ordered betamethasone-clotrimazole 0.05%-1% topical cream See Instructions, # 45 Gm, Refills 1 Tot. Refills 1, APPLY TO AFFECTED AREA TWICE A DAY, [facility]/pharmacy #[id number] Start Date: 01/10/19 Status: Ordered Crestor 5 mg oral tablet 1 tablet = 5 mg, By Mouth, Daily, # 30 tablet, 5 Refills, Maintenance, 03/08/19 11:58:00 EST, Tablet, [facility]/pharmacy #0693, 157.48, cm, 03/08/19 10:35:00 EST, Height Start Date: 03/08/19 Status: Ordered cyclobenzaprine 5 mg oral tablet 1 tablet = 5 mg, By Mouth, 3 times a day, PRN Pain , Mild, # 20 tablet, 0 Refills, Maintenance, 03/08/19 16:05:00 EST, Tablet, [facility]/pharmacy #0693, 03/08/19, 157.48, cm, 03/08/19 10:35:00 EST, Height Start Date: 03/08/19 Status: Ordered hydrochlorothiazide-triamterene 25 mg-37.5 mg oral capsule See Instructions, TAKE ONE CAPSULE BY MOUTH EVERY DAY *REPLACES CLONIDINE*, # 30 capsule, 5 Refills, Soft Stop, 03/08/19 13:34:00 EST, [facility]/pharmacy #[id number], TAKE ONE CAPSULE BY MOUTH EVERY DAY *REPLACES CLONIDINE*, 157.48, cm, 03/08/19 10:35:00 EST, Height Start Date: 03/08/19 Status: Ordered LORazepam 0.5 mg oral tablet See Instructions, TAKE 1 TABLET BY MOUTH EVERY DAY, # 30 tablet, 0 Refills, Soft Stop, 02/11/19 11:32:48 EST, [facility]/pharmacy #[id number], 157.48, cm, 10/04/18 14:39:17 EDT, [...]
--- OUTSIDE RECORDS SUMMARY | 2023-11-07 21:38 | XMS_ITS | Continuity of Care Document ---
Author Organization [facility] Azam Torres Hammad lt Address [address] [place] [address]- Care Team Providers Care Labor Delivery Specialist Name Role Phone Coy Cuellar MD Primary Care Physician [facility] Date[facility]s): 09/13/19 - 10/13/19 [facility] Adult [address] [place] [address]- [facility] Allergies, Adverse Reactions, Alerts Substance Reaction [...] Guardian Refuses 1Result Comment: pt received from [facility] Medications Advair Diskus 250 mcg-50 [...] Replace Required Details, Route to Pharmacy Electronically, [id number]... Start Date: 09/13/19 Status: Ordered Aleve = 220 mg, By Mouth, 0 Refills, Maintenance, 08/13/19 11:07:00 EDT Start Date: 08/13/19 Status: Ordered Crestor 5 mg oral tablet 1 tablet = 5 mg, By Mouth, Daily, # 30 tablet, 5 Refills, Maintenance, 09/04/19 10:55:00 EDT, Tablet, [facility]/pharmacy #[id number], 157.48, cm, 08/13/19 10:51:00 EDT, Height Start Date: 09/04/19 Status: Ordered Ferrous Sulfate EC Refills 0, Maintenance, 08/13/19 11:26:00 EDT Start Date: 08/13/19 Status: Ordered hydrochlorothiazide-triamterene 25 mg-37.5 mg oral capsule See Instructions, TAKE ONE CAPSULE BY MOUTH EVERY DAY *REPLACES CLONIDINE*, # 90 capsule, 1 Refills, Soft Stop, 09/13/19 11:53:00 EDT, [facility]/pharmacy #[id number], TAKE ONE CAPSULE BY MOUTH EVERY [...] capsule, 0 Refills, Maintenance, 09/03/19 15:27:00 EDT, [facility]/pharmacy #[id number], 157.48, cm, 08/13/19 10:51:00 EDT, Height [...] 08/13/19 11:26:00 EDT, Route to Pharmacy Electronically, [facility]/pharmacy #[id number], 157.48, cm, 08/13/19 10:51:00 EDT, Height Start Date: 08/13/19 Status: Ordered Vitamin D 84242 iu oral capsule 50,000 International_Units, 1, capsule, By Mouth, Daily, Refills 0, Maintenance, 08/13/19 11:04:00 EDT Start Date: 08/13/19 Status: Ordered Wellbutrin XL 300 mg/24 hours oral tablet, extended release 1 tablet = 300 mg, By Mouth, Daily, DOSAGE INCREASE, # 30 tablet, 3 Refills, Maintenance, 08/13/19 11:25:00 EDT, ER Tablet, [facility]/pharmacy #[id number], 157.48, cm, 08/13/19 10:51:00 EDT, Height [...]
--- OUTSIDE RECORDS SUMMARY | 2023-11-07 21:38 | XMS_ITS | Continuity of Care Document ---
Author Organization [facility] Azam Torres Hammad lt Address [address] [place] [address]- Care Team Providers Care Casting Inspector Name Role Phone Coy Cuellar MD Primary Care Physician [facility] Date(s): 01/26/23 - 02/25/23 [facility] [address] [place] [address]- Attending Physician: Admtr, Ar8 Allergies, Adverse Reactions, [...] influenza virus vaccine, inactivated 12/09/17 Camacho rded [id number] bivalent booster vax 12/22/21 Recorded SARS-CoV-2 (COVID-19) [...] 02/27/03 Given 1Result Comment: pt received from [facility] Medications ferrous sulfate 325 mg oral enteric coated tablet 325 mg, 1, tablet, By Mouth, Daily, # 90 tablet, Refills 11, Tot. Refills 11, Maintenance, 05/01/2110:32:00 EST, Route to Pharmacy Electronically, [facility]/pharmacy #[id number], Partial fill upon patient request if the prescription is for a schedule II opioid d... Start Date: 05/01/20 Status: Ordered hydrochlorothiazide-triamterene 25 mg-37.5 mg oral capsule 1 capsule, By Mouth, Daily, *REPLACES CLONIDINE*., # 90 capsule, 1 Refills, Maintenance, 12/23/22 16:36:00 EDT, [facility] STORE 99696, 90, TAKE ONE CAPSULE BY MOUTH EVERY DAY *REPLACES CLONIDINE*, 156, cm,09/05/22 11:06:00 EDT, Height Start Date: 12/23/22 Status: Ordered loratadine 10 mg oral tablet 10 mg, 1, tablet, By Mouth, Daily, # 90 tablet, Refills 3, Tot. Refills 3, Maintenance, 06/24/21 10:50:00 EDT, Route to Pharmacy Electronically, [facility]/pharmacy #[id number], Partial fill upon patient request if the prescription is for a schedule II opioid drug... Start Date: 06/24/21 Status: Ordered LORazepam 0.5 mg oral tablet 1 tablet = 0.5 mg, By Mouth, Daily, # 30 tablet, 5 Refills, Soft Stop, 02/02/23 8:40:00 EST, [facility]/pharmacy #[id number], 156, cm, 01/26/23 17:08:00 EST, Height Start Date: 02/02/23 Status: Ordered nabumetone 750 mg oral tablet 1 tablet, By Mouth, 2 times a day with meals, # 60 tablet, 14 Refills, Maintenance, 08/31/22 12:49:00 EDT, [facility] STORE 39406, 156, cm, 08/02/22 9:52:00 EDT, Height Start Date: 08/31/22 Status: Ordered rosuvastatin 5 mg oral tablet 1 tablet, By Mouth, Daily, # 90 tablet, 1 Refills, Maintenance, 07/04/22 15:03:00 EDT, [facility], 156, cm, 05/09/22 9:48:00 EDT, Height Start Date: 07/04/22 Status: Ordered traZODone 100 mg oral tablet 1, tablet, By Mouth, Daily at bedtime, # 90 tablet, Refills 1, Maintenance, 02/01/23 15:33:00 EST, Route to Pharmacy Electronically, [facility], 156, cm, 01/26/23 17:08:00 EST, Height Start Date: 02/01/23 Status: Ordered Vitamin D3 2000 intl units [...] Other: Quit 2007; entered on: 11/19/20 Sex Laboratory * Event Display: Laboratory Result Scanned Authored Date: [id number] Patient Care team information Care Team Personnel Name: Alisa MAS, Coy Peng Position: [facility] Physician - Primary Care Member Role: PCP Address: Address: [address] [place] [address]- Care Team Related Persons Name: DANTE NICOLE Address: [address] [address] Name: PASTORA NICOLE
--- OUTSIDE RECORDS SUMMARY | 2023-11-07 21:38 | XMS_ITS | Continuity of Care Document ---
Author Organization [facility] Azam Torres Hammad lt Address [address] [place] [address]- Care Team Providers Care Food Supervisor Name Role Phone Coy Cuellar MD Primary Care Physician [place] [facility] [place]20 - 02/07/20 [facility] Adult [address] [place] [address]- Encounter Diagnosis Anxiety(Discharge Diagnosis) - 01/31/20 Boil(Discharge Diagnosis) - 01/31/20 Attending Physician: Elda Sequeira NP Referring Physician: [...] [facility] Ezekiel Mccartney Medications Advair Diskus 250 mcg-50 [...] Replace Required Details, Route to Pharmacy Electronically, [id number]... Start Date: 09/13/19 Status: Ordered Aleve = 220 mg, By Mouth, 0 Refills, Maintenance, 08/13/19 11:07:00 EDT Start Date: 08/13/19 Status: Ordered Crestor 5 mg oral tablet 1 tablet = 5 mg, By Mouth, Daily, # 90 tablet, 1 Refills, Maintenance, 11/07/19 15:56:00 EDT, Tablet, [facility]/pharmacy #[id number], 157.48, cm, 08/13/19 10:51:00 EDT, Height [...] 2 Refills, Soft Stop, 01/21/20 10:05:00 EST, [id number], 157.48, cm, 01/21/20 9:46:00 EST, Height Start Date: 01/21/20 Status: Ordered omeprazole 20 mg oral enteric coated capsule 1 capsule = 20 mg, By Mouth, Daily, # 14 capsule, 0 Refills, Maintenance, 09/03/19 15:27:00 EDT, [facility]/pharmacy #0843, 157.48, cm, 08/13/19 10:51:00 EDT, Height [...] 10/21/19 10:51:00 EDT, Route to Pharmacy Electronically, [facility]/pharmacy #0843, 157.48, cm, 08/13/19 10:51:00 EDT, Height Start Date: 10/21/19 Status: Ordered Vitamin D 89654 iu oral capsule 50,000 International_Units, 1, capsule, By Mouth, Daily, Refills 0, Maintenance, 08/13/19 11:04:00 EDT Start Date: 08/13/19 Status: Ordered Zoloft 50 mg oral tablet 1 tablet = 50 mg, By Mouth, Daily, DOSAGE INCREASE, # 30 tablet, 1 Refills, Maintenance, 01/21/20 10:09:00 EST, Tablet, [facility]/pharmacy #0843, Partial fill upon patient request, 157.48, cm, 01/21/20 9:46:00 EST, Height Start Date: 01/21/20 Status: Ordered Problem List Condition Effective Dates [...] Dates Health Status Clini vishnu Service Informant Anxiety Discharge Diagnosis 01/31/20 Boil Discharge Diagnosis 01/31/20 Vital Signs Most recent to oldest [Reference Range]: 1 Height 157.48 cm (01/31/20 12:39 PM) Social History Social History Type Response Smoking Status Never (less than 100 in lifetime) entered on: 03/08/19 Sex
--- OUTSIDE RECORDS SUMMARY | 2023-11-07 21:38 | XMS_ITS | Continuity of Care Document ---
Author Organization [facility] Azam Torres Hammad lt Address [address] [place] [address]- Care Team Providers Care Mapping Pilot Name Role Phone Coy Cuellar MD Primary Care Physician [facility] Date[facility]s): 10/21/19 - 11/20/19 [facility] Adult [address] [place] [address]- [facility] Allergies, Adverse Reactions, Alerts Substance Reaction Severity [...] Guardian Refuses 1Result Comment: pt received from [facility] Medications Advair Diskus 250 mcg-50 [...] Replace Required Details, Route to Pharmacy Electronically, [id number]... Start Date: 09/13/19 Status: Ordered Aleve = 220 mg, By Mouth, 0 Refills, Maintenance, 08/13/19 11:07:00 EDT Start Date: 08/13/19 Status: Ordered Crestor 5 mg oral tablet 1 tablet = 5 mg, By Mouth, Daily, # 90 tablet, 1 Refills, Maintenance, 11/07/19 15:56:00 EDT, Tablet, [facility]/pharmacy #[id number], 157.48, cm, 08/13/19 10:51:00 EDT, Height Start Date: 11/07/19 Status: Ordered Ferrous Sulfate EC Refills 0, Maintenance, 08/13/19 11:26:00 EDT Start Date: 08/13/19 Status: Ordered hydrochlorothiazide-triamterene 25 mg-37.5 mg oral capsule See Instructions, TAKE ONE CAPSULE BY MOUTH EVERY DAY *REPLACES CLONIDINE*, # 90 capsule, 1 Refills, Soft Stop, 09/13/19 11:53:00 EDT, [facility]/pharmacy #[id number], TAKE ONE CAPSULE BY MOUTH EVERY [...] capsule, 0 Refills, Maintenance, 09/03/19 15:27:00 EDT, [facility]/pharmacy #[id number], 157.48, cm, 08/13/19 10:51:00 EDT, Height [...] 10/21/19 10:51:00 EDT, Route to Pharmacy Electronically, [facility]/pharmacy #[id number], 157.48, cm, 08/13/19 10:51:00 EDT, Height Start Date: 10/21/19 Status: Ordered Vitamin D 25219 iu oral capsule 50,000 International_Units, 1, capsule, By Mouth, Daily, Refills 0, Maintenance, 08/13/19 11:04:00 EDT Start Date: 08/13/19 Status: Ordered Zoloft 25 mg oral tablet 1 tablet = 25 mg, By Mouth, Daily, REPLACES WELLBUTRIN, # 30 tablet, 0 Refills, Maintenance, 11/15/19 9:56:00 EDT, Tablet, [facility]/pharmacy #[id number], 157.48, cm, 11/15/19 9:29:00 EDT, Height Start Date: 11/15/19 Status: Ordered Problem List Condition Effective Dates [...] right(Confirmed) Active 1question workup via han 2Quit 2009 Social History Social History Type Response Smoking Status Never (less than 100 in lifetime) entered on: 03/08/19 Sex
--- OUTSIDE RECORDS SUMMARY | 2023-11-07 21:38 | XMS_ITS | Continuity of Care Document ---
Author Organization [facility] Azam Torres Hammad lt Address [address] [place] [address]- Care Team Providers Care Awning Craftsperson Name Role Phone Coy Cuellar MD Primary Care Physician [phone] [facility]counter [facility] Date[facility]s): 09/21/22 - 10/21/22 [facility] Torres Adult [address] [place] [address]- Allergies, Adverse Reactions, Alerts Substance Reaction Severity Status codeine Active ibuprofen 1 Active Inderal 2 Active Betadine Skin Cleanser Activ e indomethacin Active lisinopril 3 Active 1gets itchy 2gets anxiety 3pt reports her tongue swells up Immunizations Given and Recorded Vaccine Date Status Refusal Reason [id number] bivalent booster vax 12/22/21 Recorded influenza virus [...] 02/27/03 Given 1Result Comment: pt received from [facility] Ezekiel Mccartney Medications ferrous sulfate 325 mg oral enteric coated tablet 325 mg, 1, tablet, By Mouth, Daily, # 90 tablet, Refills 11, Tot. Refills 11, Maintenance, 05/01/2110:32:00 EST, [id number] Partial fill upon patient request if the prescription is for a schedule II opioid d... Start Date: 05/01/20 Status: Ordered hydrochlorothiazide-triamterene 25 mg-37.5 mg oral capsule See Instructions, TAKE ONE CAPSULE BY MOUTH EVERY DAY *REPLACES CLONIDINE*, # 90 capsule, 1 Refills, Maintenance, 02/27/22 16:00:00 EST, [facility]/pharmacy #0693, 90, TAKE ONE CAPSULE BY MOUTH EVERY DAY *REPLACES CLONIDINE*, 156, cm, 01/18/22 7:21:00 EST, H... Start Date: 02/27/22 Status: Ordered loratadine 10 mg oral tablet 10 mg, 1, tablet, By Mouth, Daily, # 90 tablet, Refills 3, Tot. Refills 3, Maintenance, 06/24/21 10:50:00 EDT, Route to Pharmacy Electronically, [facility]/pharmacy #[id number], Partial fill upon patient request if the prescription is for a schedule II opioid drug... Start Date: 06/24/21 Status: Ordered LORazepam 0.5 mg oral tablet 1 tablet = 0.5 mg, By Mouth, Daily, # 30 tablet, 5 Refills, Soft Stop, 09/21/22 11:52:00 EDT, [id number], 156, cm, 09/05/22 11:06:00 EDT, Height Start Date: 09/21/22 Status: Ordered nabumetone 750 mg oral tablet 1 tablet, By Mouth, 2 times a day with meals, # 60 tablet, 14 Refills, Maintenance, 08/31/22 12:49:00 EDT, [facility], 156, cm, 08/02/22 9:52:00 EDT, Height Start Date: 08/31/22 Status: Ordered rosuvastatin 5 mg oral tablet 1 tablet, By Mouth, Daily, # 90 tablet, 1 Refills, Maintenance, 07/04/22 15:03:00 EDT, [facility], 156, cm, 05/09/22 9:48:00 EDT, Height Start Date: 07/04/22 Status: Ordered traZODone 100 mg oral tablet 1, tablet, By Mouth, Daily at bedtime, # 90 tablet, Refills 1, Maintenance, 08/29/22 14:54:00 EDT, Route to Pharmacy Electronically, [facility], 156, cm, 08/02/22 9:52:00 EDT, Height Start [...] Primary Care Member Role: PCP Address: Address: [address] [place] [address]- Care Team Related Persons Name: DANTE NICOLE Address: [address] [place] [address] Name: PASTORA NICOLE
--- OUTSIDE RECORDS SUMMARY | 2023-11-07 21:38 | XMS_ITS | Continuity of Care Document ---
Author Organization [facility] Brian Hammad lt Address [address] [place] [address]- Care Team Providers Care Space Engineer Name Role Phone Alisa MAS, Coy Peng Primary Care Physician Encounter [facility] [place] Date(s): 09/03/19 - 10/03/19 [facility] Adult [address] [place] [address]- [facility] Attending Physician: Brianda Amado NP Allergies, Adverse Reactions, Alerts Substance Reaction [...] Guardian Refuses 1Result Comment: pt received from [facility] Medications Advair Diskus 250 [...] Replace Required Details, Route to Pharmacy Electronically, [id number]... Start Date: 09/13/19 Status: Ordered Aleve = 220 mg, By Mouth, 0 Refills, Maintenance, 08/13/19 11:07:00 EDT Start Date: 08/13/19 Status: Ordered Crestor 5 mg oral tablet 1 tablet = 5 mg, By Mouth, Daily, # 30 tablet, 5 Refills, Maintenance, 09/04/19 10:55:00 EDT, Tablet, [facility]/pharmacy #[id number], 157.48, cm, 08/13/19 10:51:00 EDT, [...] capsule, 0 Refills, Maintenance, 09/03/19 15:27:00 EDT, [facility]/pharmacy #[id number], 157.48, cm, 08/13/19 10:51:00 EDT, [...] 08/13/19 11:26:00 EDT, Route to Pharmacy Electronically, [facility]/pharmacy #[id number], 157.48, cm, 08/13/19 10:51:00 EDT, Height Start Date: 08/13/19 Status: Ordered Vitamin D 11641 iu oral capsule 50,000 International_Units, 1, capsule, By Mouth, Daily, Refills 0, Maintenance, 08/13/19 11:04:00 EDT Start Date: 08/13/19 Status: Ordered Wellbutrin XL 300 mg/24 hours oral tablet, extended release 1 tablet = 300 mg, By Mouth, Daily, DOSAGE INCREASE, # 30 tablet, 3 Refills, Maintenance, 08/13/19 11:25:00 EDT, ER Tablet, [facility]/pharmacy #[id number], 157.48, cm, 08/13/19 10:51:00 EDT, [...]
--- OUTSIDE RECORDS SUMMARY | 2023-11-07 21:38 | XMS_ITS | Continuity of Care Document ---
Author Organization [facility] Azam Torres Hammad lt Address [address] [place] [address]- Care Team Providers Care Mri Supervisor Name Role Phone Alisa MAS, Coy Peng Primary Care Physician [facility] Date(s): 06/11/23 - 07/11/23 [facility] Azam Torres Adult [address] [place] [address]- Allergies, Adverse Reactions, Alerts Substance Reaction Severity [...] influenza virus vaccine, inactivated 12/09/17 Camacho rded [id number] bivalent booster vax 12/22/21 Recorded SARS-CoV-2 (COVID-19) [...] 02/27/03 Given 1Result Comment: pt received from [facility] Ezekiel Mccartney Medications ferrous sulfate 325 mg oral enteric coated tablet 325 mg, 1, tablet, By Mouth, Daily, # 90 tablet, Refills 11, Tot. Refills 11, Maintenance, 05/01/2110:32:00 EST, Route to Pharmacy Electronically, [facility]/pharmacy #[id number], Partial fill upon patient request if the prescription is for a schedule II opioid d... Start Date: 05/01/20 Status: Ordered hydrochlorothiazide-triamterene 25 mg-37.5 mg oral capsule 1 capsule, By Mouth, Daily, # 90 capsule, 1 Refills, Maintenance, 06/11/23 6:40:00 EDT[facility], 1 capsule By Mouth Daily, 156, cm, 06/02/23 10:46:00 EDT, Height Start Date: 06/11/23 Status: Ordered LORazepam 0.5 mg oral tablet 1 tablet = 0.5 mg, By Mouth, Daily, # 30 tablet, 5 Refills, Soft Stop, 02/02/23 8:40:00 EST, [facility]/pharmacy #0693, 156, cm, 01/26/23 17:08:00 EST, Height Start Date: 02/02/23 Status: Ordered nabumetone 750 mg oral tablet 1 tablet, By Mouth, 2 times a day with meals, # 60 tablet, 14 Refills, Maintenance, 08/31/22 12:49:00 EDT, [facility], 156, cm, 08/02/22 9:52:00 EDT, Height Start Date: 08/31/22 Status: Ordered rosuvastatin 5 mg oral tablet 1 tablet, By Mouth, Daily, # 90 tablet, 0 Refills, Maintenance, 06/12/23 12:13:00 EDT, [facility], 156, cm, 06/02/23 10:46:00 EDT, Height Start Date: 06/12/23 Status: Ordered traZODone 100 mg oral tablet 200 mg, 2, tablet, By Mouth, Daily at bedtime, DOSAGE INCREASE, # 60 tablet, Refills 1, Tot. Refills 1, Maintenance, 07/03/23 11:31:00 EDT, Route to Pharmacy Electronically, [facility]/pharmacy #[id number], Partial fill upon patient request if the [...] 11 Refills, Maintenance, 05/01/20 11:32:00 EST, Capsule, [facility]/pharmacy #[id number], Partial fill upon patient request if [...] Primary Care Member Role: PCP Address: Address: [address] [place] [address]- Care Team Related Persons Name: DANTE NICOLE Address: home [address] [place] [address] Name: PASTORA NICOLE
--- OUTSIDE RECORDS SUMMARY | 2023-11-07 21:38 | XMS_ITS | Continuity of Care Document ---
Author Organization [facility] Brian Hammad lt Address [address] [place] [address]- Care Team Providers Care Temper Mill Operator Name Role Phone Coy Cuellar MD Primary Care Physician [phone] [facility]counter [facility] Date(s): 09/15/23 - 10/15/23 [facility] Brian Adult [address] [place] [address]- Allergies, Adverse Reactions, Alerts Substance Reaction Severity [...] influenza virus vaccine, inactivated 12/09/17 Camacho rded [id number] bivalent booster vax 12/22/21 Recorded SARS-CoV-2 (COVID-19) [...] 02/27/03 Given 1Result Comment: pt received from [facility] Ezekiel Mccartney Medications buPROPion 150 mg/24 hours (XL) oral tablet, extended release 1 tablet, By Mouth, Every 24 hours, # 30 tablet, 6 Refills, Maintenance, 09/25/23 7:58:00 EDT, [facility], 30, TAKE 1 TABLET BY MOUTH EVERY 24 HOURS, 155, cm, 08/21/23 10:50:00 EDT, Height, 74.5, kg, 06/16/23 16:56:00 EDT, Dry Weight Start Date: 09/25/23 Status: Ordered ferrous sulfate 325 mg oral enteric coated tablet 325 mg, 1, tablet, By Mouth, Daily, # 90 tablet, Refills 11, Tot. Refills 11, Maintenance, 05/01/2110:32:00 EST, Route to Pharmacy Electronically, [facility]/pharmacy #[id number], Partial fill upon patient request if the prescription is for a schedule II opioid d... Start Date: 05/01/20 Status: Ordered hydrochlorothiazide-triamterene 25 mg-37.5 mg oral capsule 1 capsule, By Mouth, Daily, # 90 capsule, 1 Refills, Maintenance, 06/11/23 6:40:00 EDT, [facility]/pharmacy #[id number], 90, 1 capsule By Mouth Daily, 156, cm, 06/02/23 10:46:00 EDT, Height Start Date: 06/11/23 Status: Ordered hydrocortisone 2.5% topical cream See Instructions, APPLY IN A THIN FILM TO AFFECTED AREAS AND RUB IN GENTLY AND COMPLETELY TWICE DAILY, # 30 Gm, 10 Refills, Maintenance, 08/28/23 8:10:00 EDT, [facility], 15, APPLY IN A THIN FILM TO AFFECTED AREAS AND RUB IN GENTLY AND COMPLET... Start Date: 08/28/23 Status: Ordered LORazepam 0.5 mg oral tablet 1 tablet = 0.5 mg, By Mouth, Daily, # 30 tablet, 5 Refills, Soft Stop, 09/15/23 16:05:00 EDT, [facility], 155, cm, 08/21/23 10:50:00 EDT, Height, 74.5, kg, 06/16/23 16:56:00 EDT, Dry Weight Start Date: 09/15/23 Status: Ordered nabumetone 750 mg oral tablet 1 tablet, By Mouth, 2 times a day with meals, # 60 tablet, 1 Refills, Maintenance, 09/15/23 16:05:00 EDT, [facility], 155, cm, 08/21/23 10:50:00 EDT, Height, 74.5, kg, 06/16/23 16:56:00 EDT, Dry Weight Start Date: 09/15/23 Status: Ordered rosuvastatin 5 mg oral tablet 1 tablet, By Mouth, Daily, # 30 tablet, 10 Refills, Maintenance, 10/09/23 7:56:00 EDT, [facility], 155, cm, 08/21/23 10:50:00 EDT, Height, 74.5, kg, 06/16/23 16:56:00 EDT, Dry Weight Start Date: 10/09/23 Status: Ordered traZODone 100 mg oral tablet 200 mg, 2, tablet, By Mouth, Daily at bedtime, DOSAGE INCREASE, # 180 tablet, Refills 1, Tot. Refills 1, Maintenance, 08/21/23 10:59:00 EDT, Route to Pharmacy Electronically, [facility]/pharmacy #[id number], Partial fill upon patient request if the [...] 11 Refills, Maintenance, 05/01/20 11:32:00 EST, Capsule, [facility]/pharmacy #[id number], Partial fill upon patient request if the [...] Care Member Role: PCP Address: Address: [address] [place] [address]- Care Team Related Persons Name: DANTE NICOLE Address: home [address] [place] [id number] Name: PASTORA NICOLE
--- OUTSIDE RECORDS SUMMARY | 2023-11-07 21:38 | XMS_ITS | Continuity of Care Document ---
Author Organization [facility] Azam Torres Hammad lt Address [address] [place] [address]- Care Team Providers Care Wet Process Technician Name Role Phone Alisa MAS, Coy Peng Primary Care Physician [facility]counter [facility] Date(s): 08/02/22 - 08/09/22 [facility] Azam Torres Adult [address] [place] [address]- Attending Physician: Fabby KEN, Elda Valencia Referring Physician: Coy Cuellar MD Allergies, Adverse Reactions, Alerts Substance Reaction Severity Status codeine Active ibuprofen 1 Active indomethacin Active lisinopril 2 Active Inderal 3 Active Betadine Skin Cleanser Activ e 1gets itchy 2pt reports her tongue swells up 3gets anxiety Immunizations Given and Recorded Vaccine Date Status Refusal Reason [id number] bivalent booster vax 12/22/21 Recorded influenza virus [...] Guardian Refuses 1Result Comment: pt received from [facility] Daly biotin 5000 mcg oral [...] Pharmacy Electronically, [facility]/pharmacy #[id number], Partial fill upon patient request if the prescription is for a schedule II opioid d... Start Date: 05/01/20 Status: Ordered hydrochlorothiazide-triamterene 25 mg-37.5 mg oral capsule See Instructions, TAKE ONE CAPSULE BY MOUTH EVERY DAY *REPLACES CLONIDINE*, # 90 capsule, 1 Refills, Maintenance, 02/27/22 16:00:00 EST, [facility]/pharmacy #[id number], 90, TAKE ONE CAPSULE BY [...] 06/24/21 10:50:00 EDT, Route to Pharmacy Electronically, [facility]/pharmacy #[id number], Partial fill upon patient request if the prescription is for a schedule II opioid drug... Start Date: 06/24/21 Status: Ordered LORazepam 0.5 mg oral tablet 1 tablet = 0.5 mg, By Mouth, Daily, # 30 tablet, 5 Refills, Soft Stop, 08/02/22 11:08:00 EDT, [facility]/pharmacy #[id number], 156, cm, 08/02/22 9:52:00 EDT, Height Start Date: 08/02/22 Status: Ordered nabumetone 750 mg oral tablet 1 tablet, By Mouth, 2 times a day with meals, # 180 tablet, 1 Refills, Maintenance, 12/27/21 9:38:00 EDT, [facility], 156, cm, 09/21/21 9:41:00 EDT, Height Start Date: 12/27/21 Status: Ordered rosuvastatin 5 mg oral tablet 1 tablet, By Mouth, Daily, # 90 tablet, 1 Refills, Maintenance, 07/04/22 15:03:00 EDT, [facility], 156, cm, 05/09/22 9:48:00 EDT, Height Start Date: 07/04/22 Status: Ordered tiZANidine 4 mg oral capsule [...] 12/27/21 9:38:00 EDT, Route to Pharmacy Electronically, [facility], 156, cm, 09/21/21 9:41:00 EDT, Height Start Date: 12/27/21 Status: Ordered venlafaxine 75 mg oral capsule, extended release 2 capsule = 150 mg, By Mouth, Daily, DOSAGE INCREASE, # 60 capsule, 5 Refills, Maintenance, 08/02/22 10:26:00 EDT, [id number], 156, cm, 08/02/22 9:52:00 EDT, Height Start Date: 08/02/22 Status: Ordered Vitamin D 56097 iu oral capsule 50,000 International_Units, 1, capsule, [...] oldest [Reference Range]: 1 Height 156 cm (08/02/22 9:52 AM) Weight 76.5 kg (08/02/22 9:52 AM) Oxygen Saturation [94-100 %] 98 % (08/02/22 9:52 AM) Pulse Rate [55-90 bpm] 106 bpm *H* (08/02/22 9:52 AM) Body Mass Index [18.5-24.99 kg/m2] 31.43 kg/m2 *>HHI* (08/02/22 9:52 AM) Blood Pressure [90-138/55-84 mm Hg] 112/ 70mm Hg (08/02/22 9:52 AM) Respiratory Rate [16-30 br/min] 20 br/mi n (08/02/22 9:52 AM) Temperature [96.8-100.4 DegF] 98.1 DegF (08/02/22 9:52 AM) Mode of Delivery (Oxygen) Room air (08/02/22 9:52 AM) Blood pressure sites Arm, left (08/02/22 9:52 AM) Temperature Route Oral (08/02/22 9:52 AM) Weight Obtained Via Standing scale (08/02/22 9:52 AM) Social History Social History Type Response Smoking Status Former smoker, quit more than 30 days ago; Other: Quit 2007; entered on: 11/19/20 Sex Note * Shannon Ye: PERFORM, SIGN, VERIFY Event Display: Patient Education/Instruction Authored Date: [id number] [facility] *[facility] Clinical Summary Name JAYA NICOLE Age 67 Years 1955 PCP Alisa MAS, Coy Peng PCP Visit Date 08/02/2022 09:37:00 Additional Instructions: Scheduled Appointments?? Future Appointments ?No Future Appointments Scheduled Follow-Up Instructions ?? With: Address: When: Fabby KEN, Elda Valencia [address] [place], [place] [address] [address] [facility] (1) In 1 month Diagnosis Medications: Please continue your medications until treatment is completed or stopped by your provider. Discuss any questions related to medications with your provider. Medications to Continue Taking That Have Changed [facility]/pharmacy #[id number], [address] [place] [id number], [phone] - Venlafaxine (venlafaxine 75 mg oral capsule, extended release) 2 capsule Oral Daily. DOSAGE INCREASE. Refills: 5. Next Dose: Medications to Continue with No Changes These medications were not printed or sent to your pharmacy Biotin (biotin 5000 mcg oral capsule) Next Dose: Cholecalciferol (Vitamin D3 2000 intl units oral capsule) 1 capsule Oral Daily. Refills: 11. Next Dose: Doxycycline 100 Milligram twice a day. Next Dose: Durable Medical Equipment (Walker with 4 swiveling wheels seat and basket) HT: 5'1 WT: 162 Dx: MS ICD-10: G35, Unsteady Gait ICD-10: R26.81 LALIT: Lifetime. Refills: 0. Next Dose: Ergocalciferol (Vitamin D 92366 iu oral capsule) 50,000 International Unit Oral Daily. Next Dose: Ferrous Sulfate (ferrous sulfate 325 mg oral enteric coated tablet) 1 tab(s) Oral Daily. Refills: 11. Next Dose: Hydrochlorothiazide/Triamterene (hydrochlorothiazide-triamterene 25 mg-37.5 mg oral capsule) TAKE ONE CAPSULE BY MOUTH EVERY DAY *REPLACES CLONIDINE*. Refills: 1. Next Dose: Loratadine (loratadine 10 mg oral tablet) 1 tab(s) Oral Daily. Refills: 3. Next Dose: Lorazepam (LORazepam 0.5 mg oral tablet) 1 tab(s) Oral Daily. Refills: 0. Next Dose: Multivitamin With Iron (Iron 100 Plus oral tablet) 1 tab(s) Oral Daily. Next Dose: Nabumetone (nabumetone 750 mg oral tablet) 1 tab(s) Oral two times a day with meals. Refills: 1. Next Dose: Rosuvastatin (rosuvastatin 5 mg oral tablet) 1 tab(s) Oral Daily. Refills: 1. Next Dose: Tizanidine (tiZANidine 4 mg oral capsule) 2 capsule Oral 3 times a day. Next Dose: Trazodone (traZODone 100 mg oral tablet) 1 tab(s) Oral Daily at Bedtime. DOSAGE INCREASE.. Refills:1. Next Dose: Allergy Info:?? Betadine Skin Cleanser; Inderal; lisinopril; indomethacin; ibuprofen; codeine Medications Given This Visit Future Orders ?No future orders Vital Signs Height 156 cm Weight 76.5 kg BMI 31.43 kg/m2 Blood Pressure 112 mm Hg/70 mm Hg Temperature 98.1 DegF Pulse Rate 106 bpm Respiratory Rate 20 br/min 02 Sat Mode of Delivery 98 %/Room air You can now view a summary of your hospital visit from the comfort of your home through a free online portal called [employer]. [employer] is a website that allows you to securely view your medical information including discharge summary, medications and follow-up visits. ??You can alsosend a secure electronic message to your doctor???s office to request appointments, renew medications or just ask a question. You can enroll at [email or web address] or register during your next office visit. Disclaimer:?? The information provided is of a general nature and is intended to be used in conjunction with the recommendations and advice of your health care practitioner. ??Every effort has been made to ensure that the information provided is accurate and complete at the time it is provided to you however, as your needs change, or, as new ??information becomes available, different or additional instructions may be required. If you have questions, please consult with your primary care provider or pharmacist, as appropriate. ??This information is not intended to serve as substitution for assessment and evaluation by a qualified health care provider. If you do not have a primary care provider, you may find a [facility] provider by calling [facility] [employer] Link at [phone]. For information about the plan of care including goals and instructions for your diagnosis, please see the patient education orders section of this document. Patient Education Materials?? The content of this educational material or handout may have been modified, supplemented, or adapted from its original content and format to support your individualized medical care. Patient Care team information Care Team Personnel Name: Alisa MAS, Coy ePng Position: S Physician - Primary Care Member Role: PCP Address: Address: [address] [place] [address]- Care Team Related Persons Name: DANTE NICOLE Address: home [address] [place] [address] Name: PASTORA NICOLE
--- OUTSIDE RECORDS SUMMARY | 2023-11-07 21:38 | XMS_ITS | Continuity of Care Document ---
Author Organization [facility] Brian Hammad lt Address [address] [place] [address]- Care Team Providers Care Jigger Crown Pouncing Machine Operator Name Role Phone Coy Cuellar MD Primary Care Physician [place] [facility] [place] 05/24/21 - 06/23/21 [facility] Adult [address] [place] [address]- Allergies, Adverse Reactions, Alerts Substance Reaction Severity [...] Guardian Refuses 1Result Comment: pt received from [facility] Ezekiel Mccartney Medications albuterol CFC free 90 mcg/inh inhalation aerosol See Instructions, INHALE 2 PUFFS EVERY 6 HOURS NEEDED FOR WHEEZING, # 3 each, Refills 3, Tot. Refills 3, Soft Stop, 09/13/19 14:03:00 EDT, Instructions Replace Required Details, Route to Pharmacy Electronically, [id number]... Start Date: 09/13/19 Status: Ordered biotin 5000 [...] 05/01/2110:32:00 EST, Route to Pharmacy Electronically, [facility]/pharmacy #[id number], Partial fill upon patient request if the prescription is for a schedule II opioid d... Start Date: 05/01/20 Status: Ordered hydrochlorothiazide-triamterene 25 mg-37.5 mg oral capsule 1 capsule, By Mouth, Daily, *REPLACES CLONIDINE*., # 90 capsule, 1 Refills, [facility], 90, TAKE ONE CAPSULE BY MOUTH EVERY [...] 2 Refills, Soft Stop, 03/23/21 11:39:00 EST, [facility]/pharmacy #[id number], 156, cm, 11/19/20 13:47:00 EDT, Height [...] capsule, 0 Refills, Maintenance, 05/11/21 14:59:00 EDT, [facility]/pharmacy #[id number], 156, cm, 11/19/20 13:47:00 EDT, Height Start Date: 05/11/21 Status: Ordered rosuvastatin 5 mg oral tablet 1 tablet, By Mouth, Daily, # 90 tablet, 3 Refills, [facility], 156, cm, 11/19/20 13:47:00 EDT,Height Start Date: [...] Start Date: 05/21/21 Status: Ordered Vitamin D 19725 iu oral capsule 50,000 International_Units, 1, capsule, [...] 1 Refills, Maintenance, 05/21/21 15:03:00EDT, ER Tablet, [facility]/pharmacy #[id number], Partial fill upon patient request if [...]
--- OUTSIDE RECORDS SUMMARY | 2023-11-07 21:38 | XMS_ITS | Continuity of Care Document ---
Author Organization [facility] Address [address] [place] [address]- Care Team Providers Care Research Staff Member Name Role Phone Coy Cuellar MD Primary Care Physician [facility] Date[facility]): 09/12/23 - 10/12/23 [facility] [address] [place] [address]- Allergies, Adverse Reactions, Alerts Substance Reaction Severity [...] influenza virus vaccine, inactivated 12/09/17 Camacho rded [id number] bivalent booster vax 12/22/21 Recorded SARS-CoV-2 (COVID-19) [...] 02/27/03 Given 1Result Comment: pt received from [facility] Ezekiel Mccartney Medications buPROPion 150 mg/24 hours (XL) oral tablet, extended release 1 tablet, By Mouth, Every 24 hours, # 30 tablet, 6 Refills, Maintenance, 09/25/23 7:58:00 EDT, [facility], 30, TAKE 1 TABLET BY MOUTH EVERY 24 HOURS, 155, cm, 08/21/23 10:50:00 EDT, Height, 74.5, kg, 06/16/23 16:56:00 EDT, Dry Weight Start Date: 09/25/23 Status: Ordered ferrous sulfate 325 mg oral enteric coated tablet 325 mg, 1, tablet, By Mouth, Daily, # 90 tablet, Refills 11, Tot. Refills 11, Maintenance, 05/01/2110:32:00 EST, Route to Pharmacy Electronically, [facility]/pharmacy #[id number], Partial fill upon patient request if the prescription is for a schedule II opioid d... Start Date: 05/01/20 Status: Ordered hydrochlorothiazide-triamterene 25 mg-37.5 mg oral capsule 1 capsule, By Mouth, Daily, # 90 capsule, 1 Refills, Maintenance, 06/11/23 6:40:00 EDT, [facility]/pharmacy #[id number], 90, 1 capsule By Mouth Daily, 156, cm, 06/02/23 10:46:00 EDT, Height Start Date: 06/11/23 Status: Ordered hydrocortisone 2.5% topical cream See Instructions, APPLY IN A THIN FILM TO AFFECTED AREAS AND RUB IN GENTLY AND COMPLETELY TWICE DAILY, # 30 Gm, 10 Refills, Maintenance, 08/28/23 8:10:00 EDT, [facility], 15, APPLY IN A THIN FILM TO AFFECTED AREAS AND RUB IN GENTLY AND COMPLET... Start Date: 08/28/23 Status: Ordered LORazepam 0.5 mg oral tablet 1 tablet = 0.5 mg, By Mouth, Daily, # 30 tablet, 5 Refills, Soft Stop, 09/15/23 16:05:00 EDT, [facility], 155, cm, 08/21/23 10:50:00 EDT, Height, 74.5, kg, 06/16/23 16:56:00 EDT, Dry Weight Start Date: 09/15/23 Status: Ordered nabumetone 750 mg oral tablet 1 tablet, By Mouth, 2 times a day with meals, # 60 tablet, 1 Refills, Maintenance, 09/15/23 16:05:00 EDT, [facility], 155, cm, 08/21/23 10:50:00 EDT, Height, 74.5, kg, 06/16/23 16:56:00 EDT, Dry Weight Start Date: 09/15/23 Status: Ordered rosuvastatin 5 mg oral tablet 1 tablet, By Mouth, Daily, # 30 tablet, 10 Refills, Maintenance, 10/09/23 7:56:00 EDT, [facility], 155, cm, 08/21/23 10:50:00 EDT, Height, 74.5, kg, 06/16/23 16:56:00 EDT, Dry Weight Start Date: 10/09/23 Status: Ordered traZODone 100 mg oral tablet 200 mg, 2, tablet, By Mouth, Daily at bedtime, DOSAGE INCREASE, # 180 tablet, Refills 1, Tot. Refills 1, Maintenance, 08/21/23 10:59:00 EDT, Route to Pharmacy Electronically, [facility]/pharmacy #[id number], Partial fill upon patient request if the [...] 11 Refills, Maintenance, 05/01/20 11:32:00 EST, Capsule, [facility]/pharmacy #[id number], Partial fill upon patient request if the [...] Team Personnel Name: Coy Cuellar MD Position: [facility] Physician - Primary Care Member Role: PCP Address: Address: [address] [place] [address]- Care Team Related Persons Name: DANTE NICOLE Address: home [address] [place] [phone] Name: PASTORA NICOLE
--- OUTSIDE RECORDS SUMMARY | 2023-11-07 21:38 | XMS_ITS | Continuity of Care Document ---
Author Organization [facility] Brian Hammad lt Address [address] [place] [address]- Care Team Providers Care Bark Press Operator Name Role Phone Coy Cuellar MD Primary Care Physician [phone] [facility] - 10/20/21 [facility] Adult [address] [place] [address]- Allergies, Adverse Reactions, Alerts Substance Reaction Severity [...] 1Result Comment: pt received from [facility] Ezekiel Mccartney Medications albuterol CFC free 90 mcg/inh inhalation aerosol 2, puffs, Inhalation, Every 6 hours, # 18 Gm, Refills 3, Tot. Refills 3, Soft Stop, 08/16/21 10:54:00 EDT, Route to Pharmacy Electronically, [id number], [facility]/pharmacy #[id number], 156, cm, 08/16/21 10:42:00 EDT, Height [...] mg, 1, capsule, By Mouth, Daily, # 90 capsule, Refills 1, Tot. Refills 1, Maintenance, 08/16/21 10:56:00 EDT, Route to Pharmacy Electronically, [facility]/pharmacy #[id number], Partial fill upon patient request if the prescription is for a schedule II opioid... Start Date: 08/16/21 Status: Ordered ferrous sulfate 325 mg oral enteric coated tablet 325 mg, 1, tablet, By Mouth, Daily, # 90 tablet, Refills 11, Tot. Refills 11, Maintenance, 05/01/2110:32:00 EST, Route to Pharmacy Electronically, [facility]/pharmacy #[id number], Partial fill upon patient request if the prescription is for a schedule II opioid d... Start Date: 05/01/20 Status: Ordered hydrochlorothiazide-triamterene 25 mg-37.5 mg oral capsule 1 capsule, By Mouth, Daily, *REPLACES CLONIDINE*., # 90 capsule, 1 Refills, [facility] STORE 44035, 90, TAKE ONE CAPSULE BY MOUTH EVERY DAY *REPLACES CLONIDINE*, 156, cm, 08/16/21 10:42:00 EDT, Height Start Date: 08/18/21 Status: Ordered Iron 100 Plus oral tablet [...] 2 times a day, with food, # 180 tablet, 1 Refills, Maintenance, 08/16/21 10:53:00 EDT, Tablet, [id number], Partial fill upon patient request if the prescription is for a schedule II opioid drug., 156, cm, 08/16/21... Start Date: 08/16/21 Stop Date: 08/30/21 Status: Ordered omeprazole 20 mg oral enteric coated capsule 1 capsule, By Mouth, Daily, # 90 capsule, 0 Refills, Maintenance, 05/11/21 14:59:00 EDT, [id number], 156, cm, 11/19/20 13:47:00 EDT, Height Start Date: 05/11/21 Status: Ordered rosuvastatin 5 mg oral tablet 1 tablet, By Mouth, Daily, # 90 tablet, 3 Refills, [facility], 156, cm, 11/19/20 13:47:00 EDT,Height Start Date: [...] 07/30/21 10:32:00 EDT, Route to Pharmacy Electronically, [facility]/pharmacy #[id number], Partial fill upon patient request if the prescription is... Start Date: 07/30/21 Status: Ordered Vitamin D 31017 iu oral capsule 50,000 International_Units, 1, capsule, [...] Gm, 3 Refills, Maintenance, 08/19/21 6:43:00 EDT, [id number], Partial fill upon patient request if the prescription is for a schedule II opioid drug.,156, cm, 08/16/21 10:42:00 EDT, Height Start Date: 08/19/21 Status: Ordered Problem List Condition Effective Dates [...]
--- OUTSIDE RECORDS SUMMARY | 2023-11-07 21:38 | XMS_ITS | Continuity of Care Document ---
Author Organization [facility] Azam Torres Hammad lt Address [address] [place] [address]- Care Team Providers Care Oil Producer Name Role Phone Coy Cuellar MD Primary Care Physician [facility] 09[facility]07/23 - 10/07/23 [facility] Azam Torres Adult [address] [place] [address]- Allergies, Adverse Reactions, Alerts Substance Reaction Severity [...] influenza virus vaccine, inactivated 12/09/17 Camacho rded [id number] bivalent booster vax 12/22/21 Recorded SARS-CoV-2 (COVID-19) [...] 02/27/03 Given 1Result Comment: pt received from [facility] Ezekiel Mccartney Medications buPROPion 150 mg/24 hours (XL) oral tablet, extended release 1 tablet, By Mouth, Every 24 hours, # 30 tablet, 6 Refills, Maintenance, 09/25/23 7:58:00 EDT, [facility], 30, TAKE 1 TABLET BY MOUTH EVERY 24 HOURS, 155, cm, 08/21/23 10:50:00 EDT, Height, 74.5, kg, 06/16/23 16:56:00 EDT, Dry Weight Start Date: 09/25/23 Status: Ordered ferrous sulfate 325 mg oral enteric coated tablet 325 mg, 1, tablet, By Mouth, Daily, # 90 tablet, Refills 11, Tot. Refills 11, Maintenance, 05/01/2110:32:00 EST, Route to Pharmacy Electronically, [facility]/pharmacy #[id number], Partial fill upon patient request if the prescription is for a schedule II opioid d... Start Date: 05/01/20 Status: Ordered hydrochlorothiazide-triamterene 25 mg-37.5 mg oral capsule 1 capsule, By Mouth, Daily, # 90 capsule, 1 Refills, Maintenance, 06/11/23 6:40:00 EDT, [facility]/pharmacy #[id number], 90, 1 capsule By Mouth Daily, 156, cm, 06/02/23 10:46:00 EDT, Height Start Date: 06/11/23 Status: Ordered hydrocortisone 2.5% topical cream See Instructions, APPLY IN A THIN FILM TO AFFECTED AREAS AND RUB IN GENTLY AND COMPLETELY TWICE DAILY, # 30 Gm, 10 Refills, Maintenance, 08/28/23 8:10:00 EDT, [facility], 15, APPLY IN A THIN FILM TO AFFECTED AREAS AND RUB IN GENTLY AND COMPLET... Start Date: 08/28/23 Status: Ordered LORazepam 0.5 mg oral tablet 1 tablet = 0.5 mg, By Mouth, Daily, # 30 tablet, 5 Refills, Soft Stop, 09/15/23 16:05:00 EDT, [facility], 155, cm, 08/21/23 10:50:00 EDT, Height, 74.5, kg, 06/16/23 16:56:00 EDT, Dry Weight Start Date: 09/15/23 Status: Ordered nabumetone 750 mg oral tablet 1 tablet, By Mouth, 2 times a day with meals, # 60 tablet, 1 Refills, Maintenance, 09/15/23 16:05:00 EDT, [facility], 155, cm, 08/21/23 10:50:00 EDT, Height, 74.5, kg, 06/16/23 16:56:00 EDT, Dry Weight Start Date: 09/15/23 Status: Ordered rosuvastatin 5 mg oral tablet 1 tablet, By Mouth, Daily, # 90 tablet, 0 Refills, Maintenance, 06/12/23 12:13:00 EDT, [facility] [address], 156, cm, 06/02/23 10:46:00 EDT, Height Start Date: 06/12/23 Status: Ordered traZODone 100 mg oral tablet 200 mg, 2, tablet, By Mouth, Daily at bedtime, DOSAGE INCREASE, # 180 tablet, Refills 1, Tot. Refills 1, Maintenance, 08/21/23 10:59:00 EDT, Route to Pharmacy Electronically, [facility]/pharmacy #[id number], Partial fill upon patient request if the [...] 11 Refills, Maintenance, 05/01/20 11:32:00 EST, Capsule, [facility]/pharmacy #[id number], Partial fill upon patient request if the [...] gait Confirmed Active 1Buttocks 2question workup via hna 3Quit 2008 Social History Social History Type Response Smoking Status Former smoker, quit more than 30 days ago; Other: Quit 2007; entered on: 11/19/20 Sex Patient Care team information Care Team Personnel Name: Coy Cuellar MD Position: S Physician - Primary Care Member Role: PCP Address: Address: [address] [place] [address]- Care Team Related Persons Name: DANTE NICOLE Address: home [address] [place] [address] Name: PASTORA NICOLE
--- OUTSIDE RECORDS SUMMARY | 2023-11-07 21:38 | XMS_ITS | Continuity of Care Document ---
Author Organization [facility] Azam Torres Hammad lt Address [address] [place] [address]- Care Team Providers Care Mat Sewer Name Role Phone Coy Cuellar MD Primary Care Physician [phone] En[place] [facility] Date(s): 12/19/19 - 12/26/19 [facility] Adult [address] [place] [address]- [facility] Encounter Diagnosis Nosebleed(Discharge Diagnosis) - 12/19/19 Anxiety(Discharge Diagnosis) - 12/19/19 Boil(Discharge Diagnosis) - 12/19/19 Attending Physician: Elda Sequeira NP Referring Physician: [...] Guardian Refuses 1Result Comment: pt received from [facility] Medications Advair Diskus 250 mcg-50 [...] Replace Required Details, Route to Pharmacy Electronically, [id number]... Start Date: 09/13/19 Status: Ordered Aleve = 220 mg, By Mouth, 0 Refills, Maintenance, 08/13/19 11:07:00 EDT Start Date: 08/13/19 Status: Ordered Crestor 5 mg oral tablet 1 tablet = 5 mg, By Mouth, Daily, # 90 tablet, 1 Refills, Maintenance, 11/07/19 15:56:00 EDT, Tablet, [facility]/pharmacy #[id number], 157.48, cm, 08/13/19 10:51:00 EDT, [...] days, # 30 capsule, 0 Refills, Acute 12/29/19 9:20:00 EST, 12/19/19 9:20:00 EDT, Capsule, [id number], 157.48, cm, 12/19/19 8:54:00 EDT, Height Start Date: 12/19/19 Stop Date: 12/29/19 Status: Ordered Latanoprost Ophthalmic Daily before dinner, 0 Refills, Maintenance, 08/13/19 11:05:00 EDT Start Date: 08/13/19 Status: Ordered LORazepam 0.5 mg oral tablet 1 tablet = 0.5 mg, By Mouth, Daily, # 30 tablet, 2 Refills, Soft Stop, 08/13/19 12:12:00 EDT, [facility]/pharmacy #[id number], 157.48, cm, 08/13/19 10:51:00 EDT, Height Start Date: 08/13/19 Status: Ordered omeprazole 20 mg oral enteric coated capsule 1 capsule = 20 mg, By Mouth, Daily, # 14 capsule, 0 Refills, Maintenance, 09/03/19 15:27:00 EDT, [id number], 157.48, cm, 08/13/19 10:51:00 [...] 10/21/19 10:51:00 EDT, Route to Pharmacy Electronically, [facility]/pharmacy #[id number], 157.48, cm, 08/13/19 10:51:00 EDT, Height Start Date: 10/21/19 Status: Ordered Vitamin D 36623 iu oral capsule 50,000 International_Units, 1, capsule, By Mouth, Daily, Refills 0, Maintenance, 08/13/19 11:04:00 EDT Start Date: 08/13/19 Status: Ordered Zoloft 25 mg oral tablet 1 tablet = 25 mg, By Mouth, Daily, # 30 tablet, 1 Refills, Maintenance, 12/19/19 9:19:00 EDT, Tablet, [facility]/pharmacy #[id number], 157.48, cm, 12/19/19 8:54:00 EDT, Height [...] Dates Health Status Clini vishnu Service Informant Nosebleed Discharge Diagnosis 12/19/19 Anxiety Discharge Diagnosis 12/19/19 Boil Discharge Diagnosis 12/19/19 Vital Signs Most recent to oldest [Reference Range]: 1 Height 157.48 cm (12/19/19 8:54 AM) Weight 83.9 kg (12/19/19 8:54 AM) Oxygen Saturation [94-100 %] 97 % (12/19/19 8:54 AM) Pulse Rate [55-90 bpm] 92 bpm *H* (12/19/19 8:54 AM) Body Mass Index [18.5-24.99] 33.83 *>HHI* (12/19/19 8:54 AM) Blood Pressure [90-138/55-84 mm Hg] 110/ 72mm Hg (12/19/19 8:54 AM) Blood pressure sites Arm, left (12/19/19 8:54 AM) Social History Social History Type Response Smoking Status Never (less than 100 in lifetime) entered on: 03/08/19 Sex
--- OUTSIDE RECORDS SUMMARY | 2023-11-07 21:38 | XMS_ITS | Continuity of Care Document ---
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 Name Role Phone Coy Cuellar MD Primary Care Physician [facility]s): 05/09/22 - 06/08/22 [facility] Azam Torres Adult [address] [place] [address]- Attending Physician: Admtr, Ar8 Allergies, Adverse Reactions, Alerts Substance Reaction Severity Status codeine Active ibuprofen 1 Active lisinopril 2 Active Inderal 3 Active Betadine Skin Cleanser Activ e indomethacin Active 1gets itchy 2pt reports her tongue swells up 3gets anxiety Immunizations Given and Recorded Vaccine Date Status Refusal Reason [id number] bivalent booster vax 12/22/21 Recorded influenza virus [...] Guardian Refuses 1Result Comment: pt received from [facility] Dr. Daly biotin 5000 mcg oral capsule [...] 05/01/2110:32:00 EST, [id number] fill upon patient request if the prescription is for a schedule II opioid d... Start Date: 05/01/20 Status: Ordered hydrochlorothiazide-triamterene 25 mg-37.5 mg oral capsule See Instructions, TAKE ONE CAPSULE BY MOUTH EVERY DAY *REPLACES CLONIDINE*, # 90 capsule, 1 Refills, Maintenance, 02/27/22 16:00:00 EST, [facility]/pharmacy #[id number], 90, TAKE ONE CAPSULE BY MOUTH [...] Route to Pharmacy Electronically, [facility]/pharmacy #[id number], Partial fill upon patient request if the prescription is for a schedule II opioid drug... Start Date: 06/24/21 Status: Ordered LORazepam 0.5 mg oral tablet 1 tablet = 0.5 mg, By Mouth, Daily, # 30 tablet, 0 Refills, Soft Stop, 05/24/22 14:02:00 EDT, [facility]/pharmacy #[id number], 156, cm, 05/09/22 9:48:00 EDT, Height Start Date: 05/24/22 Status: Ordered nabumetone 750 mg oral tablet 1 tablet, By Mouth, 2 times a day with meals, # 180 tablet, 1 Refills, Maintenance, 12/27/21 9:38:00 EDT, [facility], 156, cm, 09/21/21 9:41:00 EDT, Height Start Date: 12/27/21 Status: Ordered rosuvastatin 5 mg oral tablet 1 tablet, By Mouth, Daily, # 90 tablet, 1 Refills, 01/18/22 7:39:00 EST, [facility]/pharmacy #[id number], 156, cm, 01/18/22 7:21:00 EST, Height [...] EDT, Route to Pharmacy Electronically, [facility], 156, cm, 09/21/21 9:41:00 EDT, Height Start Date: 12/27/21 Status: Ordered venlafaxine 75 mg oral capsule, extended release 1 capsule, By Mouth, Daily, # 30 capsule, 1 Refills, Maintenance, 05/17/22 6:15:00 EDT, [facility], 156, cm, 05/09/22 9:48:00 EDT, Height Start Date: 05/17/22 Status: Ordered Vitamin D 21651 iu oral capsule 50,000 International_Units, 1, capsule, [...] a schedule II opioid drug., 157.48, cm, . Start Date: 05/01/20 Status: Ordered Walker with [...] Care Physician Member Role: PCP Address: Address: [address] [place] [address]- Care Team Related Persons Name: DANTE NICOLE Address: home [address] [place] [address] Name: PASTORA NICOLE
--- OUTSIDE RECORDS SUMMARY | 2023-11-07 21:38 | XMS_ITS | Continuity of Care Document ---
Author Organization [facility] Azam Torres Hammad lt Address [address] [place] [address]- Care Team Providers Care Student Dean Name Role Phone Alisa MAS, Coy Peng Primary Care Physician [facility] 08[facility]22 - 09/18/22 [facility] Azam Torres Adult [address] [place] [address]- Allergies, Adverse Reactions, Alerts Substance Reaction Severity Status codeine Active ibuprofen 1 Active indomethacin Active lisinopril 2 Active Inderal 3 Active Betadine Skin Cleanser Activ e 1gets itchy 2pt reports her tongue swells up 3gets anxiety Immunizations Given and Recorded Vaccine Date Status Refusal Reason [id number] bivalent booster vax 12/22/21 Recorded influenza virus [...] Guardian Refuses 1Result Comment: pt received from [facility] Ezekiel Mccartney Medications ferrous sulfate 325 mg oral enteric coated tablet 325 mg, 1, tablet, By Mouth, Daily, # 90 tablet, Refills 11, Tot. Refills 11, Maintenance, 05/01/2110:32:00 EST, Route to Pharmacy Electronically, [facility]/pharmacy #[id number], Partial fill upon patient request if the prescription is for a schedule II opioid d... Start Date: 05/01/20 Status: Ordered hydrochlorothiazide-triamterene 25 mg-37.5 mg oral capsule See Instructions, TAKE ONE CAPSULE BY MOUTH EVERY DAY *REPLACES CLONIDINE*, # 90 capsule, 1 Refills, Maintenance, 02/27/22 16:00:00 EST, [facility]/pharmacy #[id number], 90, TAKE ONE CAPSULE BY MOUTH EVERY DAY *REPLACES CLONIDINE*, 156, cm, 01/18/22 7:21:00 EST, H... Start Date: 02/27/22 Status: Ordered loratadine 10 mg oral tablet 10 mg, 1, tablet, By Mouth, Daily, # 90 tablet, Refills 3, Tot. Refills 3, Maintenance, 06/24/21 10:50:00 EDT, Route to Pharmacy Electronically, [facility]/pharmacy #[id number], Partial fill upon patient request if the prescription is for a schedule II opioid drug... Start Date: 06/24/21 Status: Ordered LORazepam 0.5 mg oral tablet 1 tablet = 0.5 mg, By Mouth, Daily, # 30 tablet, 5 Refills, Soft Stop, 08/02/22 11:08:00 EDT, [facility]/pharmacy #[id number], 156, cm, 08/02/22 9:52:00 EDT, Height Start Date: 08/02/22 Status: Ordered nabumetone 750 mg oral tablet 1 tablet, By Mouth, 2 times a day with meals, # 60 tablet, 14 Refills, Maintenance, 08/31/22 12:49:00 EDT, [facility] STORE 76524, 156, cm, 08/02/22 9:52:00 EDT, Height Start Date: 08/31/22 Status: Ordered rosuvastatin 5 mg oral tablet 1 tablet, By Mouth, Daily, # 90 tablet, 1 Refills, Maintenance, 07/04/22 15:03:00 EDT, [facility] STORE 39947, 156, cm, 05/09/22 9:48:00 EDT, Height Start Date: 07/04/22 Status: Ordered traZODone 100 mg oral tablet 1, tablet, By Mouth, Daily at bedtime, # 90 tablet, Refills 1, Maintenance, 08/29/22 14:54:00 EDT, Route to Pharmacy Electronically, [facility] STORE 94349, 156, cm, 08/02/22 9:52:00 EDT, Height Start Date: 08/29/22 Status: Ordered Vitamin D3 2000 intl units oral capsule 1 capsule = 2,000 International_Units, By Mouth, Daily, # 60 capsule, 11 Refills, Maintenance, 05/01/20 11:32:00 EST, Capsule, [facility]/pharmacy #[id number], Partial fill upon patient request [...] Personnel Name: Alisa MAS, Coy Peng Position: [facility] Physician - Primary Care Member Role: PCP Address: Address: [address] [place] [address]- Care Team Related Persons Name: DANTE NICOLE Address: [address] [address] Name: PASTORA NICOLE
--- OUTSIDE RECORDS SUMMARY | 2023-11-07 21:38 | XMS_ITS | Continuity of Care Document ---
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 Refills 11, Maintenance, 05/01/2110:32:00 EST, Route to Pharmacy Electronically, [facility]/pharmacy #[id number], Partial fill upon patient request if the prescription is for a schedule II opioid d... Start Date: 05/01/20 Status: Ordered hydrochlorothiazide-triamterene 25 mg-37.5 mg oral capsule 1 capsule, By Mouth, Daily, # 90 capsule, 1 Refills, Maintenance, 06/11/23 6:40:00 EDT[id number], 1 capsule By Mouth Daily, 156, cm, 06/02/23 10:46:00 EDT, Height Start Date: 06/11/23 Status: Ordered LORazepam 0.5 mg oral tablet 1 tablet = 0.5 mg, By Mouth, Daily, # 30 tablet, 5 Refills, Soft Stop, 02/02/23 8:40:00 EST, [facility]/pharmacy #[id number], 156, cm, 01/26/23 17:08:00 EST, Height Start Date: 02/02/23 Status: Ordered nabumetone 750 mg oral tablet 1 tablet, By Mouth, 2 times a day with meals, # 60 tablet, 14 Refills, Maintenance, 08/31/22 12:49:00 EDT, [facility], 156, cm, 08/02/22 9:52:00 EDT, Height Start Date: 08/31/22 Status: Ordered rosuvastatin 5 mg oral tablet 1 tablet, By Mouth, Daily, # 90 tablet, 0 Refills, Maintenance, 06/12/23 12:13:00 EDT, [facility] STORE 89576, 156, cm, 06/02/23 10:46:00 EDT, Height Start Date: 06/12/23 Status: Ordered traZODone 100 mg oral tablet 200 mg, 2, tablet, By Mouth, Daily at bedtime, DOSAGE INCREASE, # 60 tablet, Refills 1, Tot. Refills 1, Maintenance, 07/03/23 11:31:00 EDT, Route to Pharmacy Electronically, [facility]/pharmacy #[id number], Partial fill upon patient request if the [...] 11 Refills, Maintenance, 05/01/20 11:32:00 EST, Capsule, [facility]/pharmacy #[id number], Partial fill upon patient request if the [...] Primary Care Member Role: PCP Address: Address: [address] [place] [address]- Care Team Related Persons Name: DANTE NICOLE Address: [address] [place] [address] Name: PASTORA NICOLE
--- OUTSIDE RECORDS SUMMARY | 2023-11-07 21:38 | XMS_ITS | Continuity of Care Document ---
Author Organization [facility] Azam Torres Hammad lt Address [address] [place] [address]- Care Team Providers Care Digital Marketing Manager Name Role Phone Alisa MAS, Coy Peng Primary Care Physician [phone] [facility] 12[facility]13[facility]21 - 01/12/22 [facility] Azam Torres Adult [address] [place] [address]- Allergies, Adverse Reactions, Alerts Substance Reaction Severity Status codeine Active ibuprofen 1 Active indomethacin Active lisinopril 2 Active Inderal 3 Active Betadine Skin Cleanser Activ e 1gets itchy 2pt reports her tongue swells up 3gets anxiety Immunizations Given and Recorded Vaccine Date Status Refusal Reason [id number] bivalent booster vax 12/22/21 Recorded influenza virus vaccine, inactivated 12/20/21 Camacho rded influenza virus vaccine, inactivated 12/06/20 Camacho rded influenza virus vaccine, inactivated 12/03/19 Give n SARS-CoV-2 (COVID-19) mRNA-1273 vaccine 06/14/21 R ecorded [...] Guardian Refuses 1Result Comment: pt received from [facility] Ezekiel Mccartney Medications albuterol CFC free 90 mcg/inh inhalation aerosol 2, puffs, Inhalation, Every 6 hours, # 18 Gm, Refills 3, Tot. Refills 3, Soft Stop, 08/16/21 10:54:00 EDT, Route to Pharmacy Electronically, [id number], [facility]/pharmacy #[id number], 156, cm, 08/16/21 10:42:00 EDT, [...] Maintenance, 05/01/2110:32:00 EST, Route to Pharmacy Electronically, [facility]/pharmacy #[id number], Partial fill upon patient request if the prescription is for a schedule II opioid d... Start Date: 05/01/20 Status: Ordered hydrochlorothiazide-triamterene 25 mg-37.5 mg oral capsule 1 capsule, By Mouth, Daily, *REPLACES CLONIDINE*., # 90 capsule, 1 Refills, [facility] STORE 28412, 90, TAKE ONE CAPSULE BY MOUTH EVERY [...] 06/24/21 10:50:00 EDT, Route to Pharmacy Electronically, [facility]/pharmacy #[id number], Partial fill upon patient request if the prescription is for a schedule II opioid drug... Start Date: 06/24/21 Status: Ordered LORazepam 0.5 mg oral tablet 1 tablet = 0.5 mg, By Mouth, Daily, # 30 tablet, 0 Refills, Soft Stop, 12/16/21 18:01:00 EDT, [facility]/pharmacy #[id number], 156, cm, 09/21/21 9:41:00 EDT, Height Start Date: 12/16/21 Status: Ordered magnesium gluconate 500 mg oral [...] Refills, Maintenance, 12/27/21 9:38:00 EDT, [facility], 156, cm, 09/21/21 9:41:00 EDT, Height Start Date: 12/27/21 Status: Ordered omeprazole 20 mg oral enteric coated capsule 1 capsule, By Mouth, Daily, # 90 capsule, 0 Refills, Maintenance, 05/11/21 14:59:00 EDT, [facility]/pharmacy #[id number], 156, cm, 11/19/20 13:47:00 EDT, Height Start Date: 05/11/21 Status: Ordered rosuvastatin 5 mg oral tablet 1 tablet, By Mouth, Daily, # 30 tablet, 0 Refills, 12/16/21 15:55:00 EDT, [facility]/pharmacy #[id number], 156, cm, 09/21/21 9:41:00 EDT, Height Start Date: 12/16/21 Status: Ordered tiZANidine 4 mg oral capsule [...] EDT, Route to Pharmacy Electronically, [facility], 156, cm, 09/21/21 9:41:00 EDT, Height Start Date: 12/27/21 Status: Ordered venlafaxine 37.5 mg oral capsule, extended release 1 capsule, By Mouth, Daily, # 90 capsule, 1 Refills, Maintenance, 12/27/21 9:38:00 EDT, [facility], 156, cm, 09/21/21 9:41:00 EDT, Height Start Date: 12/27/21 Status: Ordered Vitamin D 13152 iu oral capsule 50,000 International_Units, 1, capsule, [...] tissue disorder Confirmed Active Nosebleed Confirmed Active BMI 33.0-33.9,adult Confirmed Active COVID-19 Confirmed Active Difficulty sleeping [...] Personnel Name: Alisa MAS, Coy Peng Position: [facility] Primary Care Physician Member Role: PCP Address: Address: [address] [place] [address]- Care Team Related Persons Name: DANTE NICOLE Address: home [address] [address] Name: PASTORA NICOLE
--- OUTSIDE RECORDS SUMMARY | 2023-11-07 21:38 | XMS_ITS | Continuity of Care Document ---
Author Organization [facility] Azam Torres Hammad lt Address [address] [place] [address]- Care Team Providers Care Mosaic Tiler Name Role Phone Alisa MAS, Coy Peng Primary Care Physician [phone] [facility]counter [facility]): 09/23/23 - 10/23/23 [facility] Azam Torres Adult [address] [place] [address]- Allergies, Adverse Reactions, Alerts Substance Reaction Severity [...] influenza virus vaccine, inactivated 12/09/17 Camacho rded [id number] bivalent booster vax 12/22/21 Recorded SARS-CoV-2 (COVID-19) mRNA-1273 vaccine 06/14/21 R ecorded SARS-CoV-2 (COVID-19) mRNA-1273 vaccine 12/21/20 R ecorded SARS-CoV-2 (COVID-19) mRNA-1273 vaccine 05/18/20 G iven SARS-CoV-2 (COVID-19) mRNA-1273 vaccine 04/20/20 G iven SARS-CoV-2 (COVID-19) mRNA-1273 vaccine 04/20/20 R ecorded pneumococcal 13-valent vaccine 2/10/20 Given tetanus-diphtheria toxoids (Td) 04/08/19 Given tetanus-diphtheria toxoids (Td) 02/28/96 Given Influenza Virus Vaccine (oldterm) 1 12/02/18 Recor ded Influenza Inactive (IM) (oldterm) 12/14/06 Given Pneumococcal Vaccine (oldterm) 02/27/03 Given 1Result Comment: pt received from [facility] Ezekiel Mccartney Medications buPROPion 150 mg/24 hours (XL) oral tablet, extended release 1 tablet, By Mouth, Every 24 hours, # 30 tablet, 6 Refills, Maintenance, 09/25/23 7:58:00 EDT, [facility], 30, TAKE 1 TABLET BY MOUTH EVERY 24 HOURS, 155, cm, 08/21/23 10:50:00 EDT, Height, 74.5, kg, 06/16/23 16:56:00 EDT, Dry Weight Start Date: 09/25/23 Status: Ordered ferrous sulfate 325 mg oral enteric coated tablet 325 mg, 1, tablet, By Mouth, Daily, # 90 tablet, Refills 11, Tot. Refills 11, Maintenance, 05/01/2110:32:00 EST, Route to Pharmacy Electronically, [facility]/pharmacy #[id number], Partial fill upon patient request if the prescription is for a schedule II opioid d... Start Date: 05/01/20 Status: Ordered hydrochlorothiazide-triamterene 25 mg-37.5 mg oral capsule 1 capsule, By Mouth, Daily, # 90 capsule, 1 Refills, Maintenance, 06/11/23 6:40:00 EDT, [facility]/pharmacy #[id number], 90, 1 capsule By Mouth Daily, 156, cm, 06/02/23 10:46:00 EDT, Height Start Date: 06/11/23 Status: Ordered hydrocortisone 2.5% topical cream See Instructions, APPLY IN A THIN FILM TO AFFECTED AREAS AND RUB IN GENTLY AND COMPLETELY TWICE DAILY, # 30 Gm, 10 Refills, Maintenance, 08/28/23 8:10:00 EDT, [facility], 15, APPLY IN A THIN FILM TO AFFECTED AREAS AND RUB IN GENTLY AND COMPLET... Start Date: 08/28/23 Status: Ordered LORazepam 0.5 mg oral tablet 1 tablet = 0.5 mg, By Mouth, Daily, # 30 tablet, 5 Refills, Soft Stop, 09/15/23 16:05:00 EDT, [facility], 155, cm, 08/21/23 10:50:00 EDT, Height, 74.5, kg, 06/16/23 16:56:00 EDT, Dry Weight Start Date: 09/15/23 Status: Ordered nabumetone 750 mg oral tablet 1 tablet, By Mouth, 2 times a day with meals, # 60 tablet, 1 Refills, Maintenance, 09/15/23 16:05:00 EDT, [facility], 155, cm, 08/21/23 10:50:00 EDT, Height, 74.5, kg, 06/16/23 16:56:00 EDT, Dry Weight Start Date: 09/15/23 Status: Ordered rosuvastatin 5 mg oral tablet 1 tablet, By Mouth, Daily, # 30 tablet, 10 Refills, Maintenance, 10/09/23 7:56:00 EDT, [facility], 155, cm, 08/21/23 10:50:00 EDT, Height, 74.5, kg, 06/16/23 16:56:00 EDT, Dry Weight Start Date: 10/09/23 Status: Ordered traZODone 100 mg oral tablet 200 mg, 2, tablet, By Mouth, Daily at bedtime, DOSAGE INCREASE, # 180 tablet, Refills 1, Tot. Refills 1, Maintenance, 08/21/23 10:59:00 EDT, Route to Pharmacy Electronically, [facility]/pharmacy #[id number], Partial fill upon patient request if the [...] 11 Refills, Maintenance, 05/01/20 11:32:00 EST, Capsule, [facility]/pharmacy #[id number], Partial fill upon patient request if the [...] Primary Care Member Role: PCP Address: Address: [address] [place] [address]- Care Team Related Persons Name: DANTE NICOLE Address: home [address] [place] [id number] Name: PASTORA NICOLE
--- OUTSIDE RECORDS SUMMARY | 2023-11-07 21:39 | XMS_ITS | Continuity of Care Document ---
Author Organization [facility] Azam Torres Hammad lt Address [address] [place] [address]- Care Team Providers Care House Supervisor Name Role Phone Alisa MAS, Coy Peng Primary Care Physician [facility] 06/[facility]/23 - 07/22/23 [place] Torres Adult [address] [place] [address]- Allergies, Adverse Reactions, Alerts Substance Reaction Severity [...] influenza virus vaccine, inactivated 12/09/17 Camacho rded [id number] bivalent booster vax 12/22/21 Recorded SARS-CoV-2 (COVID-19) [...] Given 1Result Comment: pt received from [facility] Ezekiel Mccartney Medications ferrous sulfate 325 mg oral enteric coated tablet 325 mg, 1, tablet, By Mouth, Daily, # 90 tablet, Refills 11, Tot. Refills 11, Maintenance, 05/01/2110:32:00 EST, Route to Pharmacy Electronically, [facility]/pharmacy #[id number], Partial fill upon patient request if the prescription is for a schedule II opioid d... Start Date: 05/01/20 Status: Ordered hydrochlorothiazide-triamterene 25 mg-37.5 mg oral capsule 1 capsule, By Mouth, Daily, # 90 capsule, 1 Refills, Maintenance, 06/11/23 6:40:00 EDT[id number] 90, 1 capsule By Mouth Daily, 156, cm, 06/02/23 10:46:00 EDT, Height Start Date: 06/11/23 Status: Ordered LORazepam 0.5 mg oral tablet 1 tablet = 0.5 mg, By Mouth, Daily, # 30 tablet, 5 Refills, Soft Stop, 02/02/23 8:40:00 EST, [facility]/pharmacy #[id number], 156, cm, 01/26/23 17:08:00 EST, Height Start Date: 02/02/23 Status: Ordered nabumetone 750 mg oral tablet 1 tablet, By Mouth, 2 times a day with meals, # 60 tablet, 14 Refills, Maintenance, 08/31/22 12:49:00 EDT, [facility] STORE [id number], 156, cm, 08/02/22 9:52:00 EDT, Height Start Date: 08/31/22 Status: Ordered rosuvastatin 5 mg oral tablet 1 tablet, By Mouth, Daily, # 90 tablet, 0 Refills, Maintenance, 06/12/23 12:13:00 EDT, [facility] STORE 81173, 156, cm, 06/02/23 10:46:00 EDT, Height Start Date: 06/12/23 Status: Ordered traZODone 100 mg oral tablet 200 mg, 2, tablet, By Mouth, Daily at bedtime, DOSAGE INCREASE, # 60 tablet, Refills 1, Tot. Refills 1, Maintenance, 07/03/23 11:31:00 EDT, Route to Pharmacy Electronically, [facility]/pharmacy #[id number], Partial fill upon patient request if the [...] Refills, Maintenance, 05/01/20 11:32:00 EST, Capsule, [facility]/pharmacy #[id number], Partial fill upon patient request if the [...] Primary Care Member Role: PCP Address: Address: [address] [place] [address]- Care Team Related Persons Name: DANTE NICOLE Address: home [address] [place] [address] Name: PASTORA NICOLE
--- OUTSIDE RECORDS SUMMARY | 2023-11-07 21:39 | XMS_ITS | Continuity of Care Document ---
Author Organization [facility] Azam Torres Hammad lt Address [address] [place] [address]- Care Team Providers Care Divinity Professor Name Role Phone Coy Cuellar MD Primary Care Physician [facility]): 08/25/23 - 09/24/23 [facility] Azam Torres Adult [address] [place] [address]- Allergies, Adverse Reactions, Alerts Substance Reaction Severity [...] influenza virus vaccine, inactivated 12/09/17 Camacho rded [id number] bivalent booster vax 12/22/21 Recorded SARS-CoV-2 (COVID-19) [...] 02/27/03 Given 1Result Comment: pt received from [facility] Ezekiel Mccartney Medications ferrous sulfate 325 mg oral enteric coated tablet 325 mg, 1, tablet, By Mouth, Daily, # 90 tablet, Refills 11, Tot. Refills 11, Maintenance, 05/01/2110:32:00 EST, [id number] Partial fill upon patient request if the prescription is for a schedule II opioid d... Start Date: 05/01/20 Status: Ordered hydrochlorothiazide-triamterene 25 mg-37.5 mg oral capsule 1 capsule, By Mouth, Daily, # 90 capsule, 1 Refills, Maintenance, 06/11/23 6:40:00 EDT, [id number], 90, 1 capsule By Mouth Daily, 156, cm, 06/02/23 10:46:00 EDT, Height Start Date: 06/11/23 Status: Ordered hydrocortisone 2.5% topical cream See Instructions, APPLY IN A THIN FILM TO AFFECTED AREAS AND RUB IN GENTLY AND COMPLETELY TWICE DAILY, # 30 Gm, 10 Refills, Maintenance, 08/28/23 8:10:00 EDT, [facility], 15, APPLY IN A THIN FILM TO AFFECTED AREAS AND RUB IN GENTLY AND COMPLET... Start Date: 08/28/23 Status: Ordered LORazepam 0.5 mg oral tablet 1 tablet = 0.5 mg, By Mouth, Daily, # 30 tablet, 5 Refills, Soft Stop, 09/15/23 16:05:00 EDT, [facility], 155, cm, 08/21/23 10:50:00 EDT, Height, 74.5, kg, 06/16/23 16:56:00 EDT, Dry Weight Start Date: 09/15/23 Status: Ordered nabumetone 750 mg oral tablet 1 tablet, By Mouth, 2 times a day with meals, # 60 tablet, 1 Refills, Maintenance, 09/15/23 16:05:00 EDT, [facility], 155, cm, 08/21/23 10:50:00 EDT, Height, 74.5, kg, 06/16/23 16:56:00 EDT, Dry Weight Start Date: 09/15/23 Status: Ordered rosuvastatin 5 mg oral tablet 1 tablet, By Mouth, Daily, # 90 tablet, 0 Refills, Maintenance, 06/12/23 12:13:00 EDT, [id number], 156, cm, 06/02/23 10:46:00 EDT, Height Start Date: 06/12/23 Status: Ordered traZODone 100 mg oral tablet 200 mg, 2, tablet, By Mouth, Daily at bedtime, DOSAGE INCREASE, # 180 tablet, Refills 1, Tot. Refills 1, Maintenance, 08/21/23 10:59:00 EDT, Route to Pharmacy Electronically, [facility]/pharmacy #[id number], Partial fill upon patient request if the [...] 11 Refills, Maintenance, 05/01/20 11:32:00 EST, Capsule, [facility]/pharmacy #[id number], Partial fill upon patient request if the [...] 1 Refills, Maintenance, 08/21/23 11:07:00EDT, ER Tablet, [id number], Partial fill upon patient [...] Care Member Role: PCP Address: Address: [address] [place] [address]- Care Team Related Persons Name: DANTE NICOLE Address: home [address] [place] [id number] Name: PASTORA NICOLE
--- OUTSIDE RECORDS SUMMARY | 2023-11-07 21:39 | XMS_ITS | Continuity of Care Document ---
Author Organization [facility] Azam Torres Hammad lt Address [address] [place] [address]- Care Team Providers Care Area Representative Name Role Phone Alisa MAS, Coy Peng Primary Care Physician [facility]): 04/26/23 - 05/26/23 [facility] Azam Torres Adult [address] [place] [address]- Allergies, Adverse Reactions, Alerts Substance Reaction Severity [...] influenza virus vaccine, inactivated 12/09/17 Camacho rded [id number] bivalent booster vax 12/22/21 Recorded SARS-CoV-2 (COVID-19) [...] 02/27/03 Given 1Result Comment: pt received from [facility] Ezekiel Mccartney Medications ferrous sulfate 325 mg oral enteric coated tablet 325 mg, 1, tablet, By Mouth, Daily, # 90 tablet, Refills 11, Tot. Refills 11, Maintenance, 05/01/2110:32:00 EST, Route to Pharmacy Electronically, [facility]/pharmacy #[id number], Partial fill upon patient request if the prescription is for a schedule II opioid d... Start Date: 05/01/20 Status: Ordered hydrochlorothiazide-triamterene 25 mg-37.5 mg oral capsule 1 capsule, By Mouth, Daily, *REPLACES CLONIDINE*., # 90 capsule, 1 Refills, Maintenance, 12/23/22 16:36:00 EDT, [facility] STORE 109[facility], 90, TAKE ONE CAPSULE BY MOUTH EVERY DAY *REPLACES CLONIDINE*, 156, cm,09/05/22 11:06:00 EDT, Height Start Date: 12/23/22 Status: Ordered loratadine 10 mg oral tablet 10 mg, 1, tablet, By Mouth, Daily, # 90 tablet, Refills 3, Tot. Refills 3, Maintenance, 06/24/21 10:50:00 EDT, Route to Pharmacy Electronically, [facility]/pharmacy #[id number], Partial fill upon patient request if the prescription is for a schedule II opioid drug... Start Date: 06/24/21 Status: Ordered LORazepam 0.5 mg oral tablet 1 tablet = 0.5 mg, By Mouth, Daily, # 30 tablet, 5 Refills, Soft Stop, 02/02/23 8:40:00 EST, [facility]/pharmacy #[id number], 156, cm, 01/26/23 17:08:00 EST, Height Start Date: 02/02/23 Status: Ordered nabumetone 750 mg oral tablet 1 tablet, By Mouth, 2 times a day with meals, # 60 tablet, 14 Refills, Maintenance, 08/31/22 12:49:00 EDT, [facility] [id number], 156, cm, 08/02/22 9:52:00 EDT, Height Start Date: 08/31/22 Status: Ordered rosuvastatin 5 mg oral tablet 1 tablet, By Mouth, Daily, # 90 tablet, 0 Refills, Maintenance, 03/30/23 16:19:00 EST, [facility], 156, cm, 01/26/23 17:08:00 EST, Height Start Date: 03/30/23 Status: Ordered traZODone 100 mg oral tablet 1, tablet, By Mouth, Daily at bedtime, # 90 tablet, Refills 1, Maintenance, 02/01/23 15:33:00 EST, Route to Pharmacy Electronically, [facility], 156, cm, 01/26/23 17:08:00 EST, Height Start [...] Primary Care Member Role: PCP Address: Address: [address] [place] [address]- Care Team Related Persons Name: DANTE NICOLE Address: [address] [address] Name: PASTORA NICOLE
--- OUTSIDE RECORDS SUMMARY | 2023-11-07 21:39 | XMS_ITS | Continuity of Care Document ---
Author Organization [facility] Brian Hammad lt Address [address] [place] [address]- Care Team Providers Care Dermatologist Name Role Phone Coy Cuellar MD Primary Care Physician Encounter [facility] Date(s): 01/18/22 - 01/25/22 [facility] [place] Adult [address] [place] [address]- Attending Physician: Not on Staff, Attending MD Allergies, Adverse Reactions, Alerts Substance Reaction Severity Status codeine Active ibuprofen 1 Active indomethacin Active lisinopril 2 Active Inderal 3 Active Betadine Skin Cleanser Activ e 1gets itchy 2pt reports her tongue swells up 3gets anxiety Immunizations Given and Recorded Vaccine Date Status Refusal Reason [id number] bivalent booster vax 12/22/21 Recorded influenza virus [...] Guardian Refuses 1Result Comment: pt received from [facility] Ezekiel Mccartney Medications albuterol CFC free 90 mcg/inh inhalation aerosol 2, puffs, Inhalation, Every 6 hours, # 18 Gm, Refills 3, Tot. Refills 3, Soft Stop, 08/16/21 10:54:00 EDT, Route to Pharmacy Electronically, [id number], [facility]/pharmacy #[id number], 156, cm, 08/16/21 10:42:00 EDT, Height [...] Maintenance, 05/01/2110:32:00 EST, Route to Pharmacy Electronically, [facility]/pharmacy #[id number], Partial fill upon patient request if the prescription is for a schedule II opioid d... Start Date: 05/01/20 Status: Ordered hydrochlorothiazide-triamterene 25 mg-37.5 mg oral capsule 1 capsule, By Mouth, Daily, *REPLACES CLONIDINE*., # 90 capsule, 1 Refills, [facility] 449[facility], 90, TAKE ONE CAPSULE BY MOUTH EVERY [...] 06/24/21 10:50:00 EDT, Route to Pharmacy Electronically, [facility]/pharmacy #[id number], Partial fill upon patient request if the prescription is for a schedule II opioid drug... Start Date: 06/24/21 Status: Ordered LORazepam 0.5 mg oral tablet 1 tablet = 0.5 mg, By Mouth, Daily, # 30 tablet, 0 Refills, Soft Stop, 12/16/21 18:01:00 EDT, [facility]/pharmacy #[id number], 156, cm, 09/21/21 9:41:00 EDT, Height [...] Refills, Maintenance, 12/27/21 9:38:00 EDT, [facility], 156, cm, 09/21/21 9:41:00 EDT, Height Start Date: 12/27/21 Status: Ordered omeprazole 20 mg oral enteric coated capsule 1 capsule, By Mouth, Daily, # 90 capsule, 0 Refills, Maintenance, 05/11/21 14:59:00 EDT, [facility]/pharmacy #[id number], 156, cm, 11/19/20 13:47:00 EDT, Height Start Date: 05/11/21 Status: Ordered rosuvastatin 5 mg oral tablet 1 tablet, By Mouth, Daily, # 90 tablet, 1 Refills, 01/18/22 7:39:00 EST, [facility]/pharmacy #[id number], 156, cm, 01/18/22 7:21:00 EST, Height [...] 12/27/21 9:38:00 EDT, Route to Pharmacy Electronically, [facility] STORE 27470, 156, cm, 09/21/21 9:41:00 EDT, Height Start Date: 12/27/21 Status: Ordered venlafaxine 75 mg oral capsule, extended release 75 mg, 1, capsule, By Mouth, Daily, DOSAGE INCREASE, # 30 capsule, Refills 1, Tot. Refills 1, Maintenance, 01/18/22 7:33:00 EST, Route to Pharmacy Electronically, [facility]/pharmacy #[id number], Partial fill upon patient request if the prescription is for a sched... Start Date: 01/18/22 Status: Ordered Vitamin D 10093 iu oral capsule 50,000 International_Units, 1, capsule, By Mouth, Daily, Refills 0, Maintenance, 08/13/19 11:04:00 EDT Start Date: 08/13/19 Status: Ordered Vitamin D3 2000 intl units oral capsule 1 capsule = 2,000 International_Units, By Mouth, Daily, # 60 capsule, 11 Refills, Maintenance, 05/01/20 11:32:00 EST, Capsule, [facility]/pharmacy #[id number], Partial fill upon patient request if [...] oldest [Reference Range]: 1 Height 156 cm (01/18/22 7:21 AM) Weight 78.8 kg (01/18/22 7:21 AM) Oxygen Saturation [94-100 %] 98 % (01/18/22 7:21 AM) Pulse Rate [55-90 bpm] 96 bpm *H* (01/18/22 7:21 AM) Body Mass Index [18.5-24.99 kg/m2] 32.38 kg/m2 *>HHI* (01/18/22 7:21 AM) Blood Pressure [90-138/55-84 mm Hg] 116/ 60mm Hg (01/18/22 7:21 AM) Mode of Delivery (Oxygen) Room air (01/18/22 7:21 AM) Weight Obtained Via Standing scale (01/18/22 7:21 AM) Social History Social History Type Response Smoking Status Former smoker, quit more than 30 days ago; Other: Quit 2007; entered on: 11/19/20 Sex Note * Shannon Ye: PERFORM, SIGN, VERIFY Event Display: Patient Education/Instruction Authored Date: [id number] [facility] *BMP Ginger Rodríguez Clinical Summary Name NICOLE, JAYA Age 66 Years 1955 PCP Alisa MAS, Coy Peng PCP Visit Date 01/18/2022 07:09:00 Additional Instructions: Scheduled Appointments?? Future Appointments ?No Future Appointments Scheduled Follow-Up Instructions ?? With: Address: When: Fabby KEN, Elda Valencia [address] [place] [address] Business (1) In 1 month Diagnosis Medications: Please continue your medications until treatment is completed or stopped by your provider. Discuss any questions related to medications with your provider. Medications to Continue Taking That Have Changed [id number], [address] [place] [id number], [phone] - Venlafaxine (venlafaxine 75 mg oral capsule, extended release) 1 capsule Oral Daily. DOSAGE INCREASE. Refills: 1. Next Dose: Medications to Continue with No Changes [facility]/pharmacy #[id number], [address] [place] [id number], [phone] Rosuvastatin (rosuvastatin 5 mg oral tablet) 1 tab(s) Oral Daily. Refills: 1. Next Dose: These medications were not printed or sent to your pharmacy Albuterol (albuterol CFC free 90 mcg/inh inhalation aerosol) 2 puff(s) Inhalation every 6 hours. Refills: 3. Next Dose: Biotin (biotin 5000 mcg oral capsule) Next [...] Refills: 0. Next Dose: Ergocalciferol (Vitamin D 14328 iu oral capsule) 50,000 International Unit Oral Daily. Next Dose: Ferrous Sulfate (ferrous sulfate 325 mg oral enteric coated tablet) 1 tab(s) Oral Daily. Refills: 11. Next Dose: Hydrochlorothiazide/Triamterene (hydrochlorothiazide-triamterene 25 mg-37.5 mg oral capsule) 1 capsule Oral Daily. *REPLACES CLONIDINE*.. Refills: 1. Next Dose: Levalbuterol (Xopenex HFA 45 mcg/inh inhalation aerosol) 2 puff(s) Inhalation every 6 hours. Refills: 3. Next Dose: Loratadine (loratadine 10 mg oral tablet) 1 tab(s) Oral Daily. Refills: 3. Next Dose: Lorazepam (LORazepam 0.5 mg oral tablet) 1 tab(s) Oral Daily. Refills: 0. Next Dose: Magnesium Gluconate (magnesium gluconate 500 mg oral tablet) 1 tab(s) Oral twice a day. Next Dose: Multivitamin With Iron (Iron 100 Plus oral tablet) 1 tab(s) Oral Daily. Next Dose: Nabumetone (nabumetone 750 mg oral tablet) 1 tab(s) Oral two times a day with meals. Refills: 1. Next Dose: Omeprazole (omeprazole 20 mg oral enteric coated capsule) 1 capsule Oral Daily. Refills: 0. Next Dose: Tizanidine (tiZANidine 4 mg oral capsule) 2 capsule Oral 3 times a day. Next Dose: Trazodone (traZODone 100 mg oral tablet) 1 tab(s) Oral Daily at Bedtime. DOSAGE INCREASE.. Refills:1. Next Dose: Allergy Info:?? Betadine Skin Cleanser; Inderal; lisinopril; indomethacin; ibuprofen; codeine Medications Given This Visit Future Orders ?Comprehensive Metabolic Panel? Order Date:01/18/22?- Complete on or after?01/18/22 ?Cholesterol Total? Order Date:01/18/22?- Complete on or after?01/18/22 ?Hemoglobin A1C (Monitoring)? Order Date:01/18/22?- Complete on or after?01/18/22 ?CBC w/ Differential? Order Date:01/18/22?- Complete on or after?01/18/22 ?HDL Cholesterol? Order Date:01/18/22?- Complete on or after?01/18/22 ?Direct LDL? Order Date:01/18/22?- Complete on or after?01/18/22 Vital Signs Height 156 cm Weight 78.8 kg BMI 32.38 kg/m2 Blood Pressure 116 mm Hg/60 mm Hg Temperature Pulse Rate 96 bpm Respiratory Rate 02 Sat Mode of Delivery 98 %/Room air You can now view a summary of your hospital visit from the comfort of your home through a free online portal called [employer] is a website that allows you to securely view your medical information including discharge summary, medications and follow-up visits. ??You can alsosend a secure electronic message to your doctor???s office to request appointments, renew medications or just ask a question. You can enroll at [email or web address] or register during your next office visit. [...] primary care provider, you may find a [facility] provider by calling [facility] at [phone]. For information about the plan of care [...] Care Physician Member Role: PCP Address: Address: [address] [place] [phone]- Care Team Related Persons Name: DANTE NICOLE Address: [address] [address] Name: PASTORA NICOLE
--- OUTSIDE RECORDS SUMMARY | 2023-11-07 21:39 | XMS_ITS | Continuity of Care Document ---
Author Organization [facility] Azam Torres Hammad lt Address [address] [place] [address]- Care Team Providers Care Appeals Manager Name Role Phone Alisa MAS, Coy Peng Primary Care Physician [facility] Date[facility]): 06[facility]21 - 07/01/21 [facility] Adult [address] [place] [address]- Attending Physician: Elda Sequeira NP Referring Physician: [...] Guardian Refuses 1Result Comment: pt received from [facility] Ezekiel Mccartney Medications albuterol CFC free 90 mcg/inh inhalation aerosol See Instructions, INHALE 2 PUFFS EVERY 6 HOURS NEEDED FOR WHEEZING, # 3 each, Refills 3, Tot. Refills 3, Soft Stop, 09/13/19 14:03:00 EDT, Instructions Replace Required Details, Route to Pharmacy Electronically, [id number]... Start Date: 09/13/19 Status: Ordered biotin 5000 [...] Maintenance, 05/01/2110:32:00 EST, Route to Pharmacy Electronically, [facility]/pharmacy #[id number], Partial fill upon patient request if the prescription is for a schedule II opioid d... Start Date: 05/01/20 Status: Ordered hydrochlorothiazide-triamterene 25 mg-37.5 mg oral capsule 1 capsule, By Mouth, Daily, *REPLACES CLONIDINE*., # 90 capsule, 1 Refills, [facility] STORE [facility]90, 90, TAKE ONE CAPSULE BY MOUTH EVERY [...] 06/24/21 10:50:00 EDT, Route to Pharmacy Electronically, [facility]/pharmacy #[id number], Partial fill upon patient request if the prescription is for a schedule II opioid drug... Start Date: 06/24/21 Status: Ordered LORazepam 0.5 mg oral tablet 1 tablet = 0.5 mg, By Mouth, Daily, # 30 tablet, 2 Refills, Soft Stop, 06/28/21 13:53:00 EDT, [facility]/pharmacy #[id number], 156, cm, 06/24/21 10:16:00 EDT, Height [...] capsule, 0 Refills, Maintenance, 05/11/21 14:59:00 EDT, [facility]/pharmacy #[id number], 156, cm, 11/19/20 13:47:00 EDT, Height Start Date: 05/11/21 Status: Ordered Paxlovid 150 mg-100 mg oral tablet See Instructions, Take 3 tablet by mouth twice a day for 5 dyas, # 30 tablet, 0 Refills, Maintenance, 07/01/21 14:52:00 EDT, [facility]/pharmacy #[id number], Partial fill upon patient request if the prescription is for a schedule II opioid drug., Take 3 tablet by... Start Date: 07/01/21 Status: Ordered rosuvastatin 5 mg oral tablet 1 tablet, By Mouth, Daily, # 90 tablet, 3 Refills, [facility], 156, cm, 11/19/20 13:47:00 EDT,Height Start Date: [...] 05/21/21 15:06:00 EDT, Route to Pharmacy Electronically, [facility]/pharmacy #[id number], Partial fill upon patient request if the prescription is... Start Date: 05/21/21 Status: Ordered Vitamin D 75146 iu oral capsule 50,000 International_Units, 1, capsule, By Mouth, Daily, Refills 0, Maintenance, 08/13/19 11:04:00 EDT Start Date: 08/13/19 Status: Ordered Vitamin D3 2000 intl units oral capsule 1 capsule = 2,000 International_Units, By Mouth, Daily, # 60 capsule, 11 Refills, Maintenance, 05/01/20 11:32:00 EST, Capsule, [facility]/pharmacy #[id number], Partial fill upon patient request if the prescription is for a schedule II opioid drug., 157.48, cm, ... Start Date: 05/01/20 Status: Ordered Wellbutrin XL 300 mg/24 hours oral tablet, extended release 1 tablet = 300 mg, By Mouth, Daily, DOSAGE INCREASE, # 30 tablet, 1 Refills, Maintenance, 06/24/21 10:44:00 EDT, ER Tablet, [facility]/pharmacy #[id number], Partial fill upon patient request if the prescription is for a schedule II opioid drug., 156, cm, 06/24/21... Start Date: 06/24/21 Status: Ordered Problem List Condition Effective Dates [...] oldest [Reference Range]: 1 Height 156 cm (06/24/21 10:16 AM) Weight 76.3 kg (06/24/21 10:16 AM) Oxygen Saturation [94-100 %] 97 % (06/24/21 10:16 AM) Pulse Rate [55-90 bpm] 94 bpm *H* (06/24/21 10:16 AM) Body Mass Index [18.5-24.99] 31.35 *>HHI* (06/24/21 10:16 AM) Blood Pressure [90-138/55-84 mm Hg] 112/ 66mm Hg (06/24/21 10:16 AM) Respiratory Rate [16-30 br/min] 22 br/mi n (06/24/21 10:16 AM) Mode of Delivery (Oxygen) Room air (06/24/21 10:16 AM) Blood pressure sites Arm, left (06/24/21 10:16 AM) Weight Obtained Via Standing scale (06/24/21 10:16 AM) Social History Social History Type Response Smoking Status Former smoker, quit more than 30 days ago; Other: Quit 2007; entered on: 11/19/20 Sex
--- OUTSIDE RECORDS SUMMARY | 2023-11-07 21:39 | XMS_ITS | Continuity of Care Document ---
Author Organization [facility] Azam Torres Hammad lt Address [address] [place] [address]- Care Team Providers Care Television Audio Engineer Name Role Phone Coy Cuellar MD Primary Care Physician Encounter [facility] Date(s): 11/15/19 - 11/22/19 [facility] Adult [address] [place] [address]- [facility] Attending Physician: Elda Sequeira NP Referring Physician: [...] Comment: pt received from [facility] Medications Advair Diskus 250 mcg-50 mcg [...] Replace Required Details, Route to Pharmacy Electronically, [id number]... Start Date: 09/13/19 Status: Ordered Aleve = [...] capsule, 0 Refills, Maintenance, 09/03/19 15:27:00 EDT, [facility]/pharmacy #[id number], 157.48, cm, 08/13/19 10:51:00 EDT, [...] 10/21/19 10:51:00 EDT, Route to Pharmacy Electronically, [facility]/pharmacy #[id number], 157.48, cm, 08/13/19 10:51:00 EDT, Height Start Date: 10/21/19 Status: Ordered Vitamin D 23044 iu oral capsule 50,000 International_Units, 1, capsule, By Mouth, Daily, Refills 0, Maintenance, 08/13/19 11:04:00 EDT Start Date: 08/13/19 Status: Ordered Zoloft 25 mg oral tablet 1 tablet = 25 mg, By Mouth, Daily, REPLACES WELLBUTRIN, # 30 tablet, 0 Refills, Maintenance, 11/15/19 9:56:00 EDT, Tablet, [facility]/pharmacy #[id number], 157.48, cm, 11/15/19 9:29:00 EDT, Height [...] Active 1question workup via han 2Quit 2008 Vital Signs Most recent to oldest [Reference Range]: 1 Height 157.48 cm (11/15/19 9:29 AM) Weight 85.4 kg (11/15/19 9:29 AM) Oxygen Saturation [94-100 %] 98 % (11/15/19 9:29 AM) Pulse Rate [55-90 bpm] 71 bpm (11/15/19 9:29 AM) Body Mass Index [18.5-24.99] 34.44 *>HHI* (11/15/19 9:29 AM) Blood Pressure [90-138/55-84 mm Hg] 122/ 70mm Hg (11/15/19 9:29 AM) Blood pressure sites Arm, right (11/15/19 9:29 AM) Social History Social History Type Response Smoking Status Never (less than 100 in lifetime) entered on: 03/08/19 Sex
--- OUTSIDE RECORDS SUMMARY | 2023-11-07 21:39 | XMS_ITS | Continuity of Care Document ---
Author Organization [facility] Azam Torres Hammad lt Address [address] [place] [id number]- Care Team Providers Care Development Assistant Name Role Phone Coy Cuellar MD Primary Care Physician [facility]counter [facility] Date(s): 01/26/23 - 02/25/23 [facility] Azam Torres Adult [address] [place] [address]- Allergies, Adverse Reactions, Alerts Substance Reaction Severity [...] influenza virus vaccine, inactivated 12/09/17 Camacho rded [id number] bivalent booster vax 12/22/21 Recorded SARS-CoV-2 (COVID-19) [...] 02/27/03 Given 1Result Comment: pt received from [facility] Ezekiel Mccartney Medications ferrous sulfate 325 mg oral enteric coated tablet 325 mg, 1, tablet, By Mouth, Daily, # 90 tablet, Refills 11, Tot. Refills 11, Maintenance, 05/01/2110:32:00 EST, Route to Pharmacy Electronically, [facility]/pharmacy #[id number], Partial fill upon patient request if the prescription is for a schedule II opioid d... Start Date: 05/01/20 Status: Ordered hydrochlorothiazide-triamterene 25 mg-37.5 mg oral capsule 1 capsule, By Mouth, Daily, *REPLACES CLONIDINE*., # 90 capsule, 1 Refills, Maintenance, 12/23/22 16:36:00 EDT, [facility] STORE 98[facility], 90, TAKE ONE CAPSULE BY MOUTH EVERY DAY *REPLACES CLONIDINE*, 156, cm,09/05/22 11:06:00 EDT, Height Start Date: 12/23/22 Status: Ordered loratadine 10 mg oral tablet 10 mg, 1, tablet, By Mouth, Daily, # 90 tablet, Refills 3, Tot. Refills 3, Maintenance, 06/24/21 10:50:00 EDT, Route to Pharmacy Electronically, [facility]/pharmacy #[id number], Partial fill upon patient request if the prescription is for a schedule II opioid drug... Start Date: 06/24/21 Status: Ordered LORazepam 0.5 mg oral tablet 1 tablet = 0.5 mg, By Mouth, Daily, # 30 tablet, 5 Refills, Soft Stop, 02/02/23 8:40:00 EST, [facility]/pharmacy #0693, 156, cm, 01/26/23 17:08:00 EST, Height Start Date: 02/02/23 Status: Ordered nabumetone 750 mg oral tablet 1 tablet, By Mouth, 2 times a day with meals, # 60 tablet, 14 Refills, Maintenance, 08/31/22 12:49:00 EDT, [facility]13, 156, cm, 08/02/22 9:52:00 EDT, Height Start Date: 08/31/22 Status: Ordered rosuvastatin 5 mg oral tablet 1 tablet, By Mouth, Daily, # 90 tablet, 1 Refills, Maintenance, 07/04/22 15:03:00 EDT, [facility], 156, cm, 05/09/22 9:48:00 EDT, Height Start Date: 07/04/22 Status: Ordered traZODone 100 mg oral tablet 1, tablet, By Mouth, Daily at bedtime, # 90 tablet, Refills 1, Maintenance, 02/01/23 15:33:00 EST, Route to Pharmacy Electronically, [facility], 156, cm, 01/26/23 17:08:00 EST, Height Start [...] Primary Care Member Role: PCP Address: Address: [address] [place] [address]- Care Team Related Persons Name: DANTE NICOLE Address: home [address] [address] Name: PASTORA NICOLE
--- OUTSIDE RECORDS SUMMARY | 2023-11-07 21:39 | XMS_ITS | Continuity of Care Document ---
Author Organization [facility] Azam Torres Hammad lt Address [address] [place] [address]- Care Team Providers Care Mold Operator Name Role Phone Alisa MAS, Coy Peng Primary Care Physician [facility] Date[facility]s): 11/15/21 - 12/23/21 [facility] [place] Adult [address] [place] [address]- Attending Physician: Fabby KEN, Elda Valencia Allergies, [...] Guardian Refuses 1Result Comment: pt received from [facility] Ezekiel Mccartney Medications albuterol CFC free 90 mcg/inh inhalation aerosol 2, puffs, Inhalation, Every 6 hours, # 18 Gm, Refills 3, Tot. Refills 3, Soft Stop, 08/16/21 10:54:00 EDT, Route to Pharmacy Electronically, [id number], [facility]/pharmacy #[id number], 156, cm, 08/16/21 10:42:00 EDT, Height [...] 08/16/21 10:56:00 EDT, Route to Pharmacy Electronically, [facility]/pharmacy #[id number], Partial fill upon patient request if the prescription is for a schedule II opioid... Start Date: 08/16/21 Status: Ordered ferrous sulfate 325 mg oral enteric coated tablet 325 mg, 1, tablet, By Mouth, Daily, # 90 tablet, Refills 11, Tot. Refills 11, Maintenance, 05/01/2110:32:00 EST, Route to Pharmacy Electronically, [facility]/pharmacy #0843, Partial fill upon patient request if the prescription is for a schedule II opioid d... Start Date: 05/01/20 Status: Ordered hydrochlorothiazide-triamterene 25 mg-37.5 mg oral capsule 1 capsule, By Mouth, Daily, *REPLACES CLONIDINE*., # 90 capsule, 1 Refills, [facility] STORE 63675, 90, TAKE ONE CAPSULE BY MOUTH EVERY [...] 06/24/21 10:50:00 EDT, Route to Pharmacy Electronically, [facility]/pharmacy #[id number], Partial fill upon patient request if the prescription is for a schedule II opioid drug... Start Date: 06/24/21 Status: Ordered LORazepam 0.5 mg oral tablet 1 tablet = 0.5 mg, By Mouth, Daily, # 30 tablet, 0 Refills, Soft Stop, 12/16/21 18:01:00 EDT, [id number], 156, cm, 09/21/21 9:41:00 EDT, Height [...] 30 tablet, 0 Refills, 12/16/21 15:55:00 EDT, [facility]/pharmacy #0843, 156, cm, 09/21/21 9:41:00 EDT, Height [...] 07/30/21 10:32:00 EDT, Route to Pharmacy Electronically, [facility]/pharmacy #0843, Partial fill upon patient request if the prescription is... Start Date: 07/30/21 Status: Ordered Vitamin D 59137 iu oral capsule 50,000 International_Units, 1, capsule, By Mouth, Daily, Refills 0, Maintenance, 08/13/19 11:04:00 EDT Start Date: 08/13/19 Status: Ordered Vitamin D3 2000 intl units oral capsule 1 capsule = 2,000 International_Units, By Mouth, Daily, # 60 capsule, 11 Refills, Maintenance, 05/01/20 11:32:00 EST, Capsule, [facility]/pharmacy #[id number], Partial fill upon patient request if [...] on: 11/19/20 Sex Patient Care team information Personnel Name: Alisa MAS, Coy Peng Address: Address: [address] [place] [address]
--- OUTSIDE RECORDS SUMMARY | 2023-11-07 21:39 | XMS_ITS | Continuity of Care Document ---
Author Organization [facility] Address [address] [facility], [address] [place] [address]- Care Team Providers Care Sub Arc Operator Name Role Phone Coy Cuellar MD Primary Care Physician [phone] Encounter 02/07/22 - 02/14/22 [facility] [address], [facility] [address] [place] [address]- Attending Physician: Fabby KEN, Elda Valencia Admitting Physician: Fabby KEN, Elda Valencia Referring Physician: Fabby KEN, Elda Valencia Allergies, Adverse Reactions, Alerts Substance Reaction Severity Status codeine Active ibuprofen 1 Active indomethacin Active lisinopril 2 Active Inderal 3 Active Betadine Skin Cleanser Activ e 1gets itchy 2pt reports her tongue swells up 3gets anxiety Immunizations Given and Recorded Vaccine Date Status Refusal Reason [id number] bivalent booster vax 12/22/21 Recorded influenza virus [...] Guardian Refuses 1Result Comment: pt received from [facility] Ezekiel Mccartney Medications albuterol CFC free 90 mcg/inh inhalation aerosol 2, puffs, Inhalation, Every 6 hours, # 18 Gm, Refills 3, Tot. Refills 3, Soft Stop, 08/16/21 10:54:00 EDT, Route to Pharmacy Electronically, [id number], [facility]/pharmacy #[id number], 156, cm, 08/16/21 10:42:00 EDT, Height [...] Maintenance, 05/01/2110:32:00 EST, Route to Pharmacy Electronically, [facility]/pharmacy #0843, Partial fill upon patient request if the prescription is for a schedule II opioid d... Start Date: 05/01/20 Status: Ordered hydrochlorothiazide-triamterene 25 mg-37.5 mg oral capsule 1 capsule, By Mouth, Daily, *REPLACES CLONIDINE*., # 90 capsule, 1 Refills, [facility] STORE 73162, 90, TAKE ONE CAPSULE BY MOUTH EVERY [...] 06/24/21 10:50:00 EDT, Route to Pharmacy Electronically, [facility]/pharmacy #[id number], Partial fill upon patient request if the prescription is for a schedule II opioid drug... Start Date: 06/24/21 Status: Ordered LORazepam 0.5 mg oral tablet 1 tablet = 0.5 mg, By Mouth, Daily, # 30 tablet, 0 Refills, Soft Stop, 12/16/21 18:01:00 EDT, [facility]/pharmacy #[id number], 156, cm, 09/21/21 9:41:00 EDT, Height [...] Refills, Maintenance, 12/27/21 9:38:00 EDT, [facility], 156, cm, 09/21/21 9:41:00 EDT, Height Start Date: 12/27/21 Status: Ordered omeprazole 20 mg oral enteric coated capsule 1 capsule, By Mouth, Daily, # 90 capsule, 0 Refills, Maintenance, 05/11/21 14:59:00 EDT, [facility]/pharmacy #[id number], 156, cm, 11/19/20 13:47:00 EDT, Height Start Date: 05/11/21 Status: Ordered rosuvastatin 5 mg oral tablet 1 tablet, By Mouth, Daily, # 90 tablet, 1 Refills, 01/18/22 7:39:00 EST, [facility]/pharmacy #0693, 156, cm, 01/18/22 7:21:00 [...] 12/27/21 9:38:00 EDT, Route to Pharmacy Electronically, [facility] STORE 90266, 156, cm, 09/21/21 9:41:00 EDT, Height Start Date: 12/27/21 Status: Ordered venlafaxine 75 mg oral capsule, extended release 75 mg, 1, capsule, By Mouth, Daily, DOSAGE INCREASE, # 30 capsule, Refills 1, Tot. Refills 1, Maintenance, 01/18/22 7:33:00 EST, Route to Pharmacy Electronically, [facility]/pharmacy #0693, Partial fill upon patient request if the prescription is for a sched... Start Date: 01/18/22 Status: Ordered Vitamin D 14374 iu oral capsule 50,000 International_Units, 1, capsule, By Mouth, Daily, Refills 0, Maintenance, 08/13/19 11:04:00 EDT Start Date: 08/13/19 Status: Ordered Vitamin D3 2000 intl units oral capsule 1 capsule = 2,000 International_Units, By Mouth, Daily, # 60 capsule, 11 Refills, Maintenance, 05/01/20 11:32:00 EST, Capsule, [facility]/pharmacy #[id number], Partial fill upon patient [...] Gm, 3 Refills, Maintenance, 08/19/21 6:43:00 EDT, [facility]/pharmacy #[id number], Partial fill upon patient [...] 1Buttocks 2question workup via han 3Quit 2008 Results Radiology Reports * Exam Date Time Procedure Performing Provider Status 02/07/22 4:11 PM MM Digital Mammo Screening Janett Quesada; Auth (Verified) Notes: (MM Digital Mammo Screening) Reason For Exam: Screening RESULT: MM Digital Mammo Screening PROCEDURE: MM Digital Mammo Screening INDICATION: Screening for breast cancer. No known palpable abnormalities. COMPARISON: Prior mammograms most recent dated 11/03/2020. TECHNIQUE: Full-field digital CC and MLO 3D tomosynthesis images of both breasts were acquired. Computer-aided detection (CAD) was utilized in the interpretation of this study. DENSITY: The breast tissue contains scattered areas of fibroglandular density. FINDINGS: No suspicious masses, suspicious microcalcifications, or areas of architectural distortion are seen in either breast to suggest malignancy. IMPRESSION: No mammographic evidence of malignancy. RECOMMENDATION: Annual mammographic screening BI-RADS: 1 (Negative) Lay letter mailed to patient WSN: [id number] Ordering Physician: Elda Sequeira Dictated By: Radha Avilez MD Dictated Date/Time: 02/07/22 4:24 pm Reviewed By: Radha Avilez MD Signed By: Radha Avilez MD Signed Date/Time: 02/07/22 4:24 pm Transcribed By: GRIFFIN Information Assurance Specialist Date/Time: 02/07/22 4:18 pm Birads: Social History Social History Type Response Smoking Status Former smoker, quit more than 30 days ago; Other: Quit 2007; entered on: 11/19/20 Sex MG Breast Screening * [facility] , CIS S: TRANSCRIBE Radha Avilez MD: VERIFY Event Display: Result: Authored Date: [id number] PROCEDURE: MM Digital Mammo Screening INDICATION: Screening for breast cancer. No known palpable abnormalities. COMPARISON: Prior mammograms most recent dated 11/03/2020. TECHNIQUE: Full-field digital CC and MLO 3D tomosynthesis images of both breasts were acquired. Computer-aided detection (CAD) was utilized in the interpretation of this study. DENSITY: The breast tissue contains scattered areas of fibroglandular density. FINDINGS: No suspicious masses, suspicious microcalcifications, or areas of architectural distortion are seen in either breast to suggest malignancy. IMPRESSION: No mammographic evidence of malignancy. RECOMMENDATION: Annual mammographic screening BI-RADS: 1 (Negative) Lay letter mailed to patient WSN: [id number] Ordering Physician: Elda Sequeira Dictated By: Radha Avilez MD Dictated Date/Time: 02/07/22 4:24 pm Reviewed By: Radha Avilez MD Signed By: Radha Avilez MD Signed Date/Time: 02/07/22 4:24 pm Transcribed By: GRIFFIN Information Assurance Specialist Date/Time: 02/07/22 4:18 pm Birads: Patient Care team information Care Team Personnel Name: Coy Cuellar MD Position: [facility] Primary Care Physician Member Role: PCP Address: Address: [address] [place] [address]- [place] Care Team Related Persons Name: DANTE NICOLE Address: [address] [address] Name: PASTORA NIOCLE
--- OUTSIDE RECORDS SUMMARY | 2023-11-07 21:39 | XMS_ITS | Continuity of Care Document ---
Author Organization [facility] Brian Hammad lt Address [address] [place] [address]- Care Team Providers Care Blast Furnace Supervisor Name Role Phone Coy Cuellar MD Primary Care Physician [phone] [facility] [place] 08/16[place]21 - 08/23/21 [facility] Adult [address] [place] [address]- Attending Physician: Elda Sequeira NP Referring Physician: [...] 08/16/21 10:54:00 EDT, Route to Pharmacy Electronically, [id number], [facility]/pharmacy #[id number], 156, cm, 08/16/21 10:42:00 EDT, Height [...] 08/16/21 10:56:00 EDT, Route to Pharmacy Electronically, [facility] Refills, [facility] STORE 35717, 90, TAKE ONE CAPSULE BY MOUTH EVERY [...] 06/24/21 10:50:00 EDT, Route to Pharmacy Electronically, [facility] Mouth, Daily, # 90 tablet, 3 Refills, [facility] STORE 68103, 156, cm, 11/19/20 13:47:00 EDT,Height Start Date: [...] 07/30/21 10:32:00 EDT, Route to Pharmacy Electronically, [facility]/pharmacy #[id number], Partial fill upon patient request if the prescription is... Start Date: 07/30/21 Status: Ordered Vitamin D 54262 iu oral capsule 50,000 International_Units, 1, capsule, By Mouth, Daily, Refills 0, Maintenance, 08/13/19 11:04:00 EDT Start Date: 08/13/19 Status: Ordered Vitamin D3 2000 intl units oral capsule 1 capsule = 2,000 International_Units, By Mouth, Daily, # 60 capsule, 11 Refills, Maintenance, 05/01/20 11:32:00 EST, Capsule, [facility]/pharmacy #0843, Partial [...] Gm, 3 Refills, Maintenance, 08/19/21 6:43:00 EDT, [facility]/pharmacy #0843, Partial [...] oldest [Reference Range]: 1 Height 156 cm (08/16/21 10:42 AM) Weight 74.7 kg (08/16/21 10:42 AM) Oxygen Saturation [94-100 %] 97 % (08/16/21 10:42 AM) Pulse Rate [55-90 bpm] 88 bpm (08/16/21 10:42 AM) Body Mass Index [18.5-24.99] 30.7 *>HHI* (08/16/21 10:42 AM) Blood Pressure [90-138/55-84 mm Hg] 110/ 64mm Hg (08/16/21 10:42 AM) Respiratory Rate [16-30 br/min] 16 br/mi n (08/16/21 10:42 AM) Mode of Delivery (Oxygen) Room air (08/16/21 10:42 AM) Blood pressure sites Arm, left (08/16/21 10:42 AM) Weight Obtained Via Standing scale (08/16/21 10:42 AM) Social History Social History Type Response Smoking Status Former smoker, quit more than 30 days ago; Other: Quit 2007; entered on: 11/19/20 Sex
--- OUTSIDE RECORDS SUMMARY | 2023-11-07 21:39 | XMS_ITS | Continuity of Care Document ---
Author Organization [facility] Azam Torres Hammad lt Address [address] [place] [address]- Care Team Providers Care Swimming Instructor Name Role Phone Alisa MAS, Coy Peng Primary Care Physician [facility] - 04/08/22 [place] [facility] Adult [address] [place] [address]- Allergies, Adverse Reactions, Alerts Substance Reaction Severity Status codeine Active ibuprofen 1 Active indomethacin Active lisinopril 2 Active Inderal 3 Active Betadine Skin Cleanser Activ e 1gets itchy 2pt reports her tongue swells up 3gets anxiety Immunizations Given and Recorded Vaccine Date Status Refusal Reason [id number] bivalent booster vax 12/22/21 Recorded influenza virus [...] Guardian Refuses 1Result Comment: pt received from [facility] Medications albuterol CFC free 90 mcg/inh inhalation aerosol 2, puffs, Inhalation, Every 6 hours, # 18 Gm, Refills 3, Tot. Refills 3, Soft Stop, 08/16/21 10:54:00 EDT, Route to Pharmacy Electronically, [id number], [facility]/pharmacy #[id number], 156, cm, 08/16/21 10:42:00 [...] Maintenance, 05/01/2110:32:00 EST, Route to Pharmacy Electronically, [facility]/pharmacy #[id number], Partial fill upon patient request if the prescription is for a schedule II opioid d... Start Date: 05/01/20 Status: Ordered hydrochlorothiazide-triamterene 25 mg-37.5 mg oral capsule See Instructions, TAKE ONE CAPSULE BY MOUTH EVERY DAY *REPLACES CLONIDINE*, # 90 capsule, 1 Refills, Maintenance, 02/27/22 16:00:00 EST, [facility]/pharmacy #[id number], 90, TAKE ONE CAPSULE BY MOUTH [...] 06/24/21 10:50:00 EDT, Route to Pharmacy Electronically, [facility]/pharmacy #[id number], Partial fill upon patient request if the prescription is for a schedule II opioid drug... Start Date: 06/24/21 Status: Ordered LORazepam 0.5 mg oral tablet 1 tablet = 0.5 mg, By Mouth, Daily, APPOINTMENT NEEDED FOR FURTHER REFILLS, # 30 tablet, 0 Refills,Soft Stop, 03/10/22 10:58:00 EST, [facility]/pharmacy #[id number], 156, cm, 01/18/22 7:21:00 EST, Height [...] Refills, Maintenance, 12/27/21 9:38:00 EDT, [facility], 156, cm, 09/21/21 9:41:00 EDT, Height Start Date: 12/27/21 Status: Ordered omeprazole 20 mg oral enteric coated capsule 1 capsule, By Mouth, Daily, # 90 capsule, 0 Refills, Maintenance, 05/11/21 14:59:00 EDT, [facility]/pharmacy #[id number], 156, cm, 11/19/20 13:47:00 EDT, Height Start Date: 05/11/21 Status: Ordered rosuvastatin 5 mg oral tablet 1 tablet, By Mouth, Daily, # 90 tablet, 1 Refills, 01/18/22 7:39:00 EST, [facility]/pharmacy #[id number], 156, cm, 01/18/22 7:21:00 EST, Height [...] 12/27/21 9:38:00 EDT, Route to Pharmacy Electronically, [id number], 156, cm, 09/21/21 9:41:00 EDT, Height Start Date: 12/27/21 Status: Ordered venlafaxine 75 mg oral capsule, extended release 75 mg, 1, capsule, By Mouth, Daily, APPOINTMENT NEEDED FOR FURTHER REFILLS, # 30 capsule, Refills 0, Tot. Refills 0, Maintenance, 03/10/22 10:58:00 EST, Route to Pharmacy Electronically, [facility]/pharmacy#[id number], Partial fill upon patient request if the pre... Start Date: 03/10/22 Status: Ordered Vitamin D 10523 iu oral capsule 50,000 International_Units, 1, capsule, By Mouth, Daily, Refills 0, Maintenance, 08/13/19 11:04:00 EDT Start Date: 08/13/19 Status: Ordered Vitamin D3 2000 intl units oral capsule 1 capsule = 2,000 International_Units, By Mouth, Daily, # 60 capsule, 11 Refills, Maintenance, 05/01/20 11:32:00 EST, Capsule, [facility]/pharmacy #[id number], Partial fill upon [...] Gm, 3 Refills, Maintenance, 08/19/21 6:43:00 EDT, [facility]/pharmacy #[id number], Partial fill upon [...] Team Personnel Name: Coy Cuellar MD Position: [facility] Primary Care Physician Member Role: PCP Address: Address: [address] [place] [address]- Care Team Related Persons Name: DANTE NICOLE Address: home [address] [place] [id number] Name: PASTORA NICOLE
--- OUTSIDE RECORDS SUMMARY | 2023-11-07 21:39 | XMS_ITS | Continuity of Care Document ---
Author Organization [facility] Azam Torres Hammad lt Address [address] [place] [address]- Care Team Providers Care Skate Hop Name Role Phone Coy Cuellar MD Primary Care Physician [facility]): 08/21/23 - 09/20/23 [place] Torres Adult [address] [place] [address]- Attending Physician: Admtr, Ar8 Allergies, Adverse Reactions, [...] influenza virus vaccine, inactivated 12/09/17 Camacho rded [id number] bivalent booster vax 12/22/21 Recorded SARS-CoV-2 (COVID-19) [...] 02/27/03 Given 1Result Comment: pt received from [facility] Ezekiel Mccartney Medications ferrous sulfate 325 mg oral enteric coated tablet 325 mg, 1, tablet, By Mouth, Daily, # 90 tablet, Refills 11, Tot. Refills 11, Maintenance, 05/01/2110:32:00 EST, Route to Pharmacy Electronically, [facility]/pharmacy #[id number], Partial fill upon patient request if the prescription is for a schedule II opioid d... Start Date: 05/01/20 Status: Ordered hydrochlorothiazide-triamterene 25 mg-37.5 mg oral capsule 1 capsule, By Mouth, Daily, # 90 capsule, 1 Refills, Maintenance, 06/11/23 6:40:00 EDT[id number], 1 capsule By Mouth Daily, 156, cm, 06/02/23 10:46:00 EDT, Height Start Date: 06/11/23 Status: Ordered hydrocortisone 2.5% topical cream See Instructions, APPLY IN A THIN FILM TO AFFECTED AREAS AND RUB IN GENTLY AND COMPLETELY TWICE DAILY, # 30 Gm, 10 Refills, Maintenance, 08/28/23 8:10:00 EDT, [facility], 15, APPLY IN A THIN FILM TO AFFECTED AREAS AND RUB IN GENTLY AND COMPLET... Start Date: 08/28/23 Status: Ordered LORazepam 0.5 mg oral tablet 1 tablet = 0.5 mg, By Mouth, Daily, # 30 tablet, 5 Refills, Soft Stop, 09/15/23 16:05:00 EDT, [facility], 155, cm, 08/21/23 10:50:00 EDT, Height, 74.5, kg, 06/16/23 16:56:00 EDT, Dry Weight Start Date: 09/15/23 Status: Ordered nabumetone 750 mg oral tablet 1 tablet, By Mouth, 2 times a day with meals, # 60 tablet, 1 Refills, Maintenance, 09/15/23 16:05:00 EDT, [facility], 155, cm, 08/21/23 10:50:00 EDT, Height, 74.5, kg, 06/16/23 16:56:00 EDT, Dry Weight Start Date: 09/15/23 Status: Ordered rosuvastatin 5 mg oral tablet 1 tablet, By Mouth, Daily, # 90 tablet, 0 Refills, Maintenance, 06/12/23 12:13:00 EDT, [facility], 156, cm, 06/02/23 10:46:00 EDT, Height Start Date: 06/12/23 Status: Ordered traZODone 100 mg oral tablet 200 mg, 2, tablet, By Mouth, Daily at bedtime, DOSAGE INCREASE, # 180 tablet, Refills 1, Tot. Refills 1, Maintenance, 08/21/23 10:59:00 EDT, Route to Pharmacy Electronically, [facility]/pharmacy #[id number], Partial fill upon patient request if the [...] 11 Refills, Maintenance, 05/01/20 11:32:00 EST, Capsule, [facility]/pharmacy #[id number], Partial fill upon patient request if the [...] 1 Refills, Maintenance, 08/21/23 11:07:00EDT, ER Tablet, [facility]/pharmacy #[id number], Partial fill upon patient request if [...] Primary Care Member Role: PCP Address: Address: [address] [place] [address]- Care Team Related Persons Name: DANTE NICOLE Address: home [address] [place] [address] Name: PASTORA NICOLE
--- OUTSIDE RECORDS SUMMARY | 2023-11-07 21:39 | XMS_ITS | Continuity of Care Document ---
Author Organization [facility] Azam Torres Hammad lt Address [address] [place] [address]- Care Team Providers Care Certified Legal Secretary Specialist Name Role Phone Coy Cuellar MD Primary Care Physician [phone] [facility] 08[facility] - 09/26/23 [facility] Azam Torres Adult [address] [place] [address]- Allergies, Adverse Reactions, Alerts Substance Reaction Severity [...] influenza virus vaccine, inactivated 12/09/17 Camacho rded [id number] bivalent booster vax 12/22/21 Recorded SARS-CoV-2 (COVID-19) [...] 02/27/03 Given 1Result Comment: pt received from [facility] Ezekiel Mccartney Medications buPROPion 150 mg/24 hours (XL) oral tablet, extended release 1 tablet, By Mouth, Every 24 hours, # 30 tablet, 6 Refills, Maintenance, 09/25/23 7:58:00 EDT, [facility], 30, TAKE 1 TABLET BY MOUTH EVERY 24 HOURS, 155, cm, 08/21/23 10:50:00 EDT, Height, 74.5, kg, 06/16/23 16:56:00 EDT, Dry Weight Start Date: 09/25/23 Status: Ordered ferrous sulfate 325 mg oral enteric coated tablet 325 mg, 1, tablet, By Mouth, Daily, # 90 tablet, Refills 11, Tot. Refills 11, Maintenance, 05/01/2110:32:00 EST, Route to Pharmacy Electronically, [facility]/pharmacy #[id number], Partial fill upon patient request if the prescription is for a schedule II opioid d... Start Date: 05/01/20 Status: Ordered hydrochlorothiazide-triamterene 25 mg-37.5 mg oral capsule 1 capsule, By Mouth, Daily, # 90 capsule, 1 Refills, Maintenance, 06/11/23 6:40:00 EDT, [facility]/pharmacy #[id number], 90, 1 capsule By Mouth Daily, 156, cm, 06/02/23 10:46:00 EDT, Height Start Date: 06/11/23 Status: Ordered hydrocortisone 2.5% topical cream See Instructions, APPLY IN A THIN FILM TO AFFECTED AREAS AND RUB IN GENTLY AND COMPLETELY TWICE DAILY, # 30 Gm, 10 Refills, Maintenance, 08/28/23 8:10:00 EDT, [facility], 15, APPLY IN A THIN FILM TO AFFECTED AREAS AND RUB IN GENTLY AND COMPLET... Start Date: 08/28/23 Status: Ordered LORazepam 0.5 mg oral tablet 1 tablet = 0.5 mg, By Mouth, Daily, # 30 tablet, 5 Refills, Soft Stop, 09/15/23 16:05:00 EDT, [facility], 155, cm, 08/21/23 10:50:00 EDT, Height, 74.5, kg, 06/16/23 16:56:00 EDT, Dry Weight Start Date: 09/15/23 Status: Ordered nabumetone 750 mg oral tablet 1 tablet, By Mouth, 2 times a day with meals, # 60 tablet, 1 Refills, Maintenance, 09/15/23 16:05:00 EDT, [facility], 155, cm, 08/21/23 10:50:00 EDT, Height, 74.5, kg, 06/16/23 16:56:00 EDT, Dry Weight Start Date: 09/15/23 Status: Ordered rosuvastatin 5 mg oral tablet 1 tablet, By Mouth, Daily, # 90 tablet, 0 Refills, Maintenance, 06/12/23 12:13:00 EDT, [facility] [address], 156, cm, 06/02/23 10:46:00 EDT, Height Start Date: 06/12/23 Status: Ordered traZODone 100 mg oral tablet 200 mg, 2, tablet, By Mouth, Daily at bedtime, DOSAGE INCREASE, # 180 tablet, Refills 1, Tot. Refills 1, Maintenance, 08/21/23 10:59:00 EDT, Route to Pharmacy Electronically, [facility]/pharmacy #[id number], Partial fill upon patient request if the [...] 11 Refills, Maintenance, 05/01/20 11:32:00 EST, Capsule, [facility]/pharmacy #[id number], Partial fill upon patient request if the [...] Primary Care Member Role: PCP Address: Address: [address] [place] [address]- Care Team Related Persons Name: DANTE NICOLE Address: home [address] [place] [id number] Name: PASTORA NICOLE
--- OUTSIDE RECORDS SUMMARY | 2023-11-07 21:39 | XMS_ITS | Continuity of Care Document ---
Author Organization [facility] Azam Trores Hammad lt Address [address] [place] [address]- Care Team Providers Care Zoology Professor Name Role Phone Alisa MAS, Coy Peng Primary Care Physician [phone] [facility] 08[facility]12[facility]22 - 09/11/22 [facility] Azam Torres Adult [address] [place] [address]- Allergies, Adverse Reactions, Alerts Substance Reaction Severity Status codeine Active ibuprofen 1 Active indomethacin Active lisinopril 2 Active Inderal 3 Active Betadine Skin Cleanser Activ e 1gets itchy 2pt reports her tongue swells up 3gets anxiety Immunizations Given and Recorded Vaccine Date Status Refusal Reason [id number] bivalent booster vax 12/22/21 Recorded influenza virus [...] received from [facility] Medications ferrous sulfate 325 mg oral enteric coated tablet 325 mg, 1, tablet, By Mouth, Daily, # 90 tablet, Refills 11, Tot. Refills 11, Maintenance, 05/01/2110:32:00 EST, Route to Pharmacy Electronically, [facility]/pharmacy #[id number], Partial fill upon patient request if the prescription is for a schedule II opioid d... Start Date: 05/01/20 Status: Ordered hydrochlorothiazide-triamterene 25 mg-37.5 mg oral capsule See Instructions, TAKE ONE CAPSULE BY MOUTH EVERY DAY *REPLACES CLONIDINE*, # 90 capsule, 1 Refills, Maintenance, 02/27/22 16:00:00 EST, [facility]/pharmacy #[id number], 90, TAKE ONE CAPSULE BY MOUTH EVERY DAY *REPLACES CLONIDINE*, 156, cm, 01/18/22 7:21:00 EST, H... Start Date: 02/27/22 Status: Ordered loratadine 10 mg oral tablet 10 mg, 1, tablet, By Mouth, Daily, # 90 tablet, Refills 3, Tot. Refills 3, Maintenance, 06/24/21 10:50:00 EDT, Route to Pharmacy Electronically, [facility]/pharmacy #[id number], Partial fill upon patient request if the prescription is for a schedule II opioid drug... Start Date: 06/24/21 Status: Ordered LORazepam 0.5 mg oral tablet 1 tablet = 0.5 mg, By Mouth, Daily, # 30 tablet, 5 Refills, Soft Stop, 08/02/22 11:08:00 EDT, [facility]/pharmacy #[id number], 156, cm, 08/02/22 9:52:00 EDT, Height Start Date: 08/02/22 Status: Ordered nabumetone 750 mg oral tablet 1 tablet, By Mouth, 2 times a day with meals, # 60 tablet, 14 Refills, Maintenance, 08/31/22 12:49:00 EDT, [facility], 156, cm, 08/02/22 9:52:00 EDT, Height Start Date: 08/31/22 Status: Ordered rosuvastatin 5 mg oral tablet 1 tablet, By Mouth, Daily, # 90 tablet, 1 Refills, Maintenance, 07/04/22 15:03:00 EDT, [facility], 156, cm, 05/09/22 9:48:00 EDT, Height Start Date: 07/04/22 Status: Ordered traZODone 100 mg oral tablet 1, tablet, By Mouth, Daily at bedtime, # 90 tablet, Refills 1, Maintenance, 08/29/22 14:54:00 EDT, Route to Pharmacy Electronically, [facility], 156, cm, 08/02/22 9:52:00 EDT, Height Start Date: 08/29/22 Status: Ordered Vitamin D3 2000 intl units oral capsule 1 capsule = 2,000 International_Units, By Mouth, Daily, # 60 capsule, 11 Refills, Maintenance, 05/01/20 11:32:00 EST, Capsule, [facility]/pharmacy #[id number], Partial fill upon patient [...] Personnel Name: Alisa MAS, Coy Peng Position: [facility] Physician - Primary Care Member Role: PCP Address: Address: [address] [place] [phone]- Care Team Related Persons Name: DANTE NICOLE Address: home [address] [address] Name: PASTORA NICOLE
--- OUTSIDE RECORDS SUMMARY | 2023-11-07 21:39 | XMS_ITS | Continuity of Care Document ---
Author Organization [facility] Azam Torres Hammad lt Address [address] [place] [address]- Care Team Providers Care Theatre Program Director Name Role Phone Coy Cuellar MD Primary Care Physician [facility] 08[facility]22 - 09/28/22 [facility] Azam Torres Adult [address] [place] [address]- Allergies, Adverse Reactions, Alerts Substance Reaction Severity Status codeine Active ibuprofen 1 Active indomethacin Active lisinopril 2 Active Inderal 3 Active Betadine Skin Cleanser Activ e 1gets itchy 2pt reports her tongue swells up 3gets anxiety Immunizations Given and Recorded Vaccine Date Status Refusal Reason [id number] bivalent booster vax 12/22/21 Recorded influenza virus [...] Guardian Refuses 1Result Comment: pt received from [facility] Ezekiel Mccartney Medications ferrous sulfate 325 mg oral enteric coated tablet 325 mg, 1, tablet, By Mouth, Daily, # 90 tablet, Refills 11, Tot. Refills 11, Maintenance, 05/01/2110:32:00 EST, Route to Pharmacy Electronically, [facility]/pharmacy #[id number], Partial fill upon patient request if the prescription is for a schedule II opioid d... Start Date: 05/01/20 Status: Ordered hydrochlorothiazide-triamterene 25 mg-37.5 mg oral capsule See Instructions, TAKE ONE CAPSULE BY MOUTH EVERY DAY *REPLACES CLONIDINE*, # 90 capsule, 1 Refills, Maintenance, 02/27/22 16:00:00 EST, [id number] 90, TAKE ONE CAPSULE BY MOUTH EVERY DAY *REPLACES CLONIDINE*, 156, cm, 01/18/22 7:21:00 EST, H... Start Date: 02/27/22 Status: Ordered loratadine 10 mg oral tablet 10 mg, 1, tablet, By Mouth, Daily, # 90 tablet, Refills 3, Tot. Refills 3, Maintenance, 06/24/21 10:50:00 EDT, Route to Pharmacy Electronically, [facility]/pharmacy #[id number], Partial fill upon patient request if the prescription is for a schedule II opioid drug... Start Date: 06/24/21 Status: Ordered LORazepam 0.5 mg oral tablet 1 tablet = 0.5 mg, By Mouth, Daily, # 30 tablet, 5 Refills, Soft Stop, 09/21/22 11:52:00 EDT, [id number], 156, cm, 09/05/22 11:06:00 EDT, Height Start Date: 09/21/22 Status: Ordered nabumetone 750 mg oral tablet 1 tablet, By Mouth, 2 times a day with meals, # 60 tablet, 14 Refills, Maintenance, 08/31/22 12:49:00 EDT, [facility] 258[facility], 156, cm, 08/02/22 9:52:00 EDT, Height Start Date: 08/31/22 Status: Ordered rosuvastatin 5 mg oral tablet 1 tablet, By Mouth, Daily, # 90 tablet, 1 Refills, Maintenance, 07/04/22 15:03:00 EDT, [facility] 63[facility], 156, cm, 05/09/22 9:48:00 EDT, Height Start Date: 07/04/22 Status: Ordered traZODone 100 mg oral tablet 1, tablet, By Mouth, Daily at bedtime, # 90 tablet, Refills 1, Maintenance, 08/29/22 14:54:00 EDT, Route to Pharmacy Electronically, [facility] 24[facility], 156, cm, 08/02/22 9:52:00 EDT, Height Start Date: 08/29/22 Status: Ordered Vitamin D3 2000 intl units oral capsule 1 capsule = 2,000 International_Units, By Mouth, Daily, # 60 capsule, 11 Refills, Maintenance, 05/01/20 11:32:00 EST, Capsule, [facility]/pharmacy #[id number], Partial fill upon patient [...] Primary Care Member Role: PCP Address: Address: [address] [place] [address]- Care Team Related Persons Name: DANTE NICOLE Address: [address] [address] Name: PASTORA NICOLE
--- OUTSIDE RECORDS SUMMARY | 2023-11-07 21:39 | XMS_ITS | Continuity of Care Document ---
Author Organization [facility] Brian Hammad lt Address [address] [place] [address]- Care Team Providers Care Charge Gang Weigher Name Role Phone Coy Cuellar MD Primary Care Physician [facility] 10[facility]07[facility]23 - 11/06/23 [facility] Azam Torres Adult [address] [place] [address]- Allergies, Adverse Reactions, Alerts Substance Reaction Severity [...] influenza virus vaccine, inactivated 12/09/17 Camacho rded [id number] bivalent booster vax 12/22/21 Recorded SARS-CoV-2 (COVID-19) [...] 1Result Comment: pt received from [facility] Ezekiel Mccartney Medications buPROPion 150 mg/24 hours (XL) oral tablet, extended release 1 tablet, By Mouth, Every 24 hours, # 30 tablet, 6 Refills, Maintenance, 09/25/23 7:58:00 EDT, [facility], 30, TAKE 1 TABLET BY MOUTH EVERY 24 HOURS, 155, cm, 08/21/23 10:50:00 EDT, Height, 74.5, kg, 06/16/23 16:56:00 EDT, Dry Weight Start Date: 09/25/23 Status: Ordered ferrous sulfate 325 mg oral enteric coated tablet 325 mg, 1, tablet, By Mouth, Daily, # 90 tablet, Refills 11, Tot. Refills 11, Maintenance, 05/01/2110:32:00 EST, Route to Pharmacy Electronically, [facility]/pharmacy #[id number], Partial fill upon patient request if the prescription is for a schedule II opioid d... Start Date: 05/01/20 Status: Ordered hydrochlorothiazide-triamterene 25 mg-37.5 mg oral capsule 1 capsule, By Mouth, Daily, # 90 capsule, 1 Refills, Maintenance, 06/11/23 6:40:00 EDT, [facility]/pharmacy #[id number], 90, 1 capsule By Mouth Daily, 156, cm, 06/02/23 10:46:00 EDT, Height Start Date: 06/11/23 Status: Ordered hydrocortisone 2.5% topical cream See Instructions, APPLY IN A THIN FILM TO AFFECTED AREAS AND RUB IN GENTLY AND COMPLETELY TWICE DAILY, # 30 Gm, 10 Refills, Maintenance, 08/28/23 8:10:00 EDT, [facility], 15, APPLY IN A THIN FILM TO AFFECTED AREAS AND RUB IN GENTLY AND COMPLET... Start Date: 08/28/23 Status: Ordered LORazepam 0.5 mg oral tablet 1 tablet = 0.5 mg, By Mouth, Daily, # 30 tablet, 5 Refills, Soft Stop, 09/15/23 16:05:00 EDT, [facility], 155, cm, 08/21/23 10:50:00 EDT, Height, 74.5, kg, 06/16/23 16:56:00 EDT, Dry Weight Start Date: 09/15/23 Status: Ordered nabumetone 750 mg oral tablet 1 tablet, By Mouth, 2 times a day with meals, # 60 tablet, 10 Refills, Maintenance, 10/27/23 9:21:00 EDT, [facility], 155, cm, 10/23/23 14:16:00 EDT, Height, 74.5, kg, 06/16/23 16:56:00 EDT, Dry Weight Start Date: 10/27/23 Status: Ordered rosuvastatin 5 mg oral tablet 1 tablet, By Mouth, Daily, # 30 tablet, 10 Refills, Maintenance, 10/09/23 7:56:00 EDT, [facility], 155, cm, 08/21/23 10:50:00 EDT, Height, 74.5, kg, 06/16/23 16:56:00 EDT, Dry Weight Start Date: 10/09/23 Status: Ordered traZODone 100 mg oral tablet 200 mg, 2, tablet, By Mouth, Daily at bedtime, DOSAGE INCREASE, # 180 tablet, Refills 1, Tot. Refills 1, Maintenance, 08/21/23 10:59:00 EDT, Route to Pharmacy Electronically, [facility]/pharmacy #[id number], Partial fill upon patient request if the [...] Refills, Maintenance, 05/01/20 11:32:00 EST, Capsule, [facility]/pharmacy #[id number], Partial fill upon patient request if the [...] Primary Care Member Role: PCP Address: Address: [address] [place] [address]- Care Team Related Persons Name: DANTE NICOLE Address: home [address] [place] [id number] Name: PASTORA NICOLE
--- OUTSIDE RECORDS SUMMARY | 2023-11-07 21:39 | XMS_ITS | Continuity of Care Document ---
Author Organization [facility] Brian Hammad lt Address [address] [place] [address]- Care Team Providers Care Pricing Director Name Role Phone Coy Cuellar MD Primary Care Physician [facility]23 - 11/05/23 [facility] Brian Adult [address] [place] [address]- Allergies, Adverse Reactions, Alerts Substance Reaction Severity [...] influenza virus vaccine, inactivated 12/09/17 Camacho rded [id number] bivalent booster vax 12/22/21 Recorded SARS-CoV-2 (COVID-19) [...] 1Result Comment: pt received from [facility] Ezekiel Mccartney Medications buPROPion 150 mg/24 hours (XL) oral tablet, extended release 1 tablet, By Mouth, Every 24 hours, # 30 tablet, 6 Refills, Maintenance, 09/25/23 7:58:00 EDT, [facility], 30, TAKE 1 TABLET [...] Electronically, [facility]/pharmacy #[id number], Partial fill upon patient request if the prescription is for a schedule II opioid d... Start Date: 05/01/20 Status: Ordered hydrochlorothiazide-triamterene 25 mg-37.5 mg oral capsule 1 capsule, By Mouth, Daily, # 90 capsule, 1 Refills, Maintenance, 06/11/23 6:40:00 EDT, [facility]/pharmacy #[id number], 90, 1 capsule By Mouth Daily, 156, cm, 06/02/23 10:46:00 EDT, Height Start Date: 06/11/23 Status: Ordered hydrocortisone 2.5% topical cream See Instructions, APPLY IN A THIN FILM TO AFFECTED AREAS AND RUB IN GENTLY AND COMPLETELY TWICE DAILY, # 30 Gm, 10 Refills, Maintenance, 08/28/23 8:10:00 EDT, [facility], 15, APPLY IN A THIN FILM TO AFFECTED AREAS AND RUB IN GENTLY AND COMPLET... Start Date: 08/28/23 Status: Ordered LORazepam 0.5 mg oral tablet 1 tablet = 0.5 mg, By Mouth, Daily, # 30 tablet, 5 Refills, Soft Stop, 09/15/23 16:05:00 EDT, [facility], 155, cm, 08/21/23 10:50:00 EDT, Height, 74.5, kg, 06/16/23 16:56:00 EDT, Dry Weight Start Date: 09/15/23 Status: Ordered nabumetone 750 mg oral tablet 1 tablet, By Mouth, 2 times a day with meals, # 60 tablet, 10 Refills, Maintenance, 10/27/23 9:21:00 EDT, [facility], 155, cm, 10/23/23 14:16:00 EDT, Height, 74.5, kg, 06/16/23 16:56:00 EDT, Dry Weight Start Date: 10/27/23 Status: Ordered rosuvastatin 5 mg oral tablet 1 tablet, By Mouth, Daily, # 30 tablet, 10 Refills, Maintenance, 10/09/23 7:56:00 EDT, [facility], 155, cm, 08/21/23 10:50:00 EDT, Height, 74.5, kg, 06/16/23 16:56:00 EDT, Dry Weight Start Date: 10/09/23 Status: Ordered traZODone 100 mg oral tablet 200 mg, 2, tablet, By Mouth, Daily at bedtime, DOSAGE INCREASE, # 180 tablet, Refills 1, Tot. Refills 1, Maintenance, 08/21/23 10:59:00 EDT, Route to Pharmacy Electronically, [facility]/pharmacy #[id number], Partial fill upon patient request if the [...] Maintenance, 05/01/20 11:32:00 EST, Capsule, [facility]/pharmacy #[id number], Partial fill upon patient request if the [...] Primary Care Member Role: PCP Address: Address: [address] [place] [address]- Care Team Related Persons Name: DANTE NICOLE Address: home [address] [place] [id number] Name: PASTORA NICOLE
--- OUTSIDE RECORDS SUMMARY | 2023-11-07 21:39 | XMS_ITS | Continuity of Care Document ---
Author Organization [facility] Brian Hammad lt Address [address] [place] [address]- Care Team Providers Care Wire Drawing Setter Name Role Phone Coy Cuellar MD Primary Care Physician [facility]19 - 05/24/19 [facility] Adult [address] [place] [address]- [facility] Attending Physician: Admtr, Ar8 Allergies, Adverse Reactions, [...] Guardian Refuses 1Result Comment: pt received from [facility] Medications Advair Diskus 250 mcg-50 mcg inhalation powder 1, puffs, Inhalation, 2 times a day, # 180 each, Refills 11, Tot. Refills 11, Maintenance, 10/04/1914:03:03 EDT, Powder, Print Requisition Start Date: 10/04/18 Status: Ordered albuterol CFC free 90 mcg/inh inhalation aerosol See Instructions, # 8.5 Unknown, Refills 5 Tot. Refills 5, INHALE 2 PUFFS EVERY 6 HOURS NEEDED FOR WHEEZING, [facility]/pharmacy #[id number] Start Date: 10/30/18 Status: Ordered betamethasone-clotrimazole 0.05%-1% topical cream 1 applicator, Topically, 2 times a day, Not to be used longer than 2 weeks, # 45 Gm, 0 Refills, Acute 06/21/19 7:00:00 EDT, 05/21/19 11:45:00 EDT, [facility]/pharmacy #[id number], 1 applicator Topically 2 times aday,Instr:Not to be used longer than 2 weeks, 157.4... Start Date: 05/21/19 Stop Date: 06/21/19 Status: Ordered Crestor 5 mg oral tablet 1 tablet = 5 mg, By Mouth, Daily, # 30 tablet, 5 Refills, Maintenance, 03/08/19 11:58:00 EST, Tablet, [facility]/pharmacy #[id number], 157.48, cm, 03/08/19 10:35:00 EST, Height Start Date: 03/08/19 Status: Ordered hydrochlorothiazide-triamterene 25 mg-37.5 mg oral capsule See Instructions, TAKE ONE CAPSULE BY MOUTH EVERY DAY *REPLACES CLONIDINE*, # 30 capsule, 5 Refills, Soft Stop, 03/08/19 13:34:00 EST, [facility]/pharmacy #[id number], TAKE ONE CAPSULE BY MOUTH EVERY DAY *REPLACES CLONIDINE*, 157.48, cm, 03/08/19 10:35:00 EST, Height Start Date: 03/08/19 Status: Ordered LORazepam 0.5 mg oral tablet See Instructions, TAKE 1 TABLET BY MOUTH EVERY DAY, # 30 tablet, 0 Refills, Soft Stop, 02/11/19 11:32:48 EST, [facility]/pharmacy #[id number], 157.48, cm, 10/04/18 14:39:17 EDT, [...] 05/05/19 16:46:00 EDT, Route to Pharmacy Electronically, [facility]/pharmacy #[id number], 157.48, cm, 04/08/19 9:15:00 EST, [...]
--- OUTSIDE RECORDS SUMMARY | 2023-11-07 21:40 | XMS_ITS | Continuity of Care Document ---
Author Organization [facility] Azam Torres Hammad lt Address [address] [place] [address]- Care Team Providers Care Chrome Tanning Drum Operator Name Role Phone Alisa MAS, Coy Peng Primary Care Physician [facility] 06[facility]19[facility]23 - 07/19/23 [facility] Azam Torres Adult [address] [place] [address]- Allergies, Adverse Reactions, Alerts Substance Reaction Severity [...] influenza virus vaccine, inactivated 12/09/17 Camacho rded [id number] bivalent booster vax 12/22/21 Recorded SARS-CoV-2 (COVID-19) [...] 02/27/03 Given 1Result Comment: pt received from [facility] Ezekiel Mccartney Medications ferrous sulfate 325 mg oral enteric coated tablet 325 mg, 1, tablet, By Mouth, Daily, # 90 tablet, Refills 11, Tot. Refills 11, Maintenance, 05/01/2110:32:00 EST, Route to Pharmacy Electronically, [facility]/pharmacy #[id number], Partial fill upon patient request if the prescription is for a schedule II opioid d... Start Date: 05/01/20 Status: Ordered hydrochlorothiazide-triamterene 25 mg-37.5 mg oral capsule 1 capsule, By Mouth, Daily, # 90 capsule, 1 Refills, Maintenance, 06/11/23 6:40:00 EDT, [id number] 90, 1 capsule By Mouth Daily, 156, cm, 06/02/23 10:46:00 EDT, Height Start Date: 06/11/23 Status: Ordered LORazepam 0.5 mg oral tablet 1 tablet = 0.5 mg, By Mouth, Daily, # 30 tablet, 5 Refills, Soft Stop, 02/02/23 8:40:00 EST, [facility]/pharmacy #[id number], 156, cm, 01/26/23 17:08:00 EST, Height Start Date: 02/02/23 Status: Ordered nabumetone 750 mg oral tablet 1 tablet, By Mouth, 2 times a day with meals, # 60 tablet, 14 Refills, Maintenance, 08/31/22 12:49:00 EDT, [id number], 156, cm, 08/02/22 9:52:00 EDT, Height Start Date: 08/31/22 Status: Ordered rosuvastatin 5 mg oral tablet 1 tablet, By Mouth, Daily, # 90 tablet, 0 Refills, Maintenance, 06/12/23 12:13:00 EDT, [facility] ST[facility] [id number], 156, cm, 06/02/23 10:46:00 EDT, Height Start Date: 06/12/23 Status: Ordered traZODone 100 mg oral tablet 200 mg, 2, tablet, By Mouth, Daily at bedtime, DOSAGE INCREASE, # 60 tablet, Refills 1, Tot. Refills 1, Maintenance, 07/03/23 11:31:00 EDT, Route to Pharmacy Electronically, [facility]/pharmacy #[id number], Partial fill upon patient request if the [...] 11 Refills, Maintenance, 05/01/20 11:32:00 EST, Capsule, [facility]/pharmacy #[id number], Partial fill upon patient request [...] Primary Care Member Role: PCP Address: Address: [address] [place] [address]- Care Team Related Persons Name: DANTE NICOLE Address: [address] [place] [address] Name: PASTORA NICOLE
--- OUTSIDE RECORDS SUMMARY | 2023-11-07 21:40 | XMS_ITS | Continuity of Care Document ---
Author Organization [facility] Brian Hammad lt Address [address] [place] [address]- Care Team Providers Care Cloth Doubling Machine Operator Name Role Phone Alisa MAS, Coy Peng Primary Care Physician [phone] [facility]): 01[facility]26[facility]23 - 02/02/23 [facility] [place] Adult [address] [place] [address]- Encounter Diagnosis COVID-19(Discharge Diagnosis) - 01/26/23 Attending Physician: Fidencio BEE-FEED WEIGHER-Kezia Ghosh Allergies, Adverse Reactions, Alerts Substance Reaction Severity [...] influenza virus vaccine, inactivated 12/09/17 Camacho rded [id number] bivalent booster vax 12/22/21 Recorded SARS-CoV-2 (COVID-19) [...] 02/27/03 Given 1Result Comment: pt received from [facility] Medications ferrous sulfate 325 mg oral enteric coated tablet 325 mg, 1, tablet, By Mouth, Daily, # 90 tablet, Refills 11, Tot. Refills 11, Maintenance, 05/01/2110:32:00 EST, Route to Pharmacy Electronically, [facility]/pharmacy #[id number], Partial fill upon patient request if the prescription is for a schedule II opioid d... Start Date: 05/01/20 Status: Ordered hydrochlorothiazide-triamterene 25 mg-37.5 mg oral capsule 1 capsule, By Mouth, Daily, *REPLACES CLONIDINE*., # 90 capsule, 1 Refills, Maintenance, 12/23/22 16:36:00 EDT, [facility] 11462, 90, TAKE ONE CAPSULE BY MOUTH EVERY DAY *REPLACES CLONIDINE*, 156, cm,09/05/22 11:06:00 EDT, Height Start Date: 12/23/22 Status: Ordered loratadine 10 mg oral tablet 10 mg, 1, tablet, By Mouth, Daily, # 90 tablet, Refills 3, Tot. Refills 3, Maintenance, 06/24/21 10:50:00 EDT, Route to Pharmacy Electronically, [facility]/pharmacy #[id number], Partial fill upon patient request if the prescription is for a schedule II opioid drug... Start Date: 06/24/21 Status: Ordered LORazepam 0.5 mg oral tablet 1 tablet = 0.5 mg, By Mouth, Daily, # 30 tablet, 5 Refills, Soft Stop, 02/02/23 8:40:00 EST, [facility]/pharmacy #[id number], 156, cm, 01/26/23 17:08:00 EST, Height Start Date: 02/02/23 Status: Ordered nabumetone 750 mg oral tablet 1 tablet, By Mouth, 2 times a day with meals, # 60 tablet, 14 Refills, Maintenance, 08/31/22 12:49:00 EDT, [facility] ST[facility]15, 156, cm, 08/02/22 9:52:00 EDT, Height Start Date: 08/31/22 Status: Ordered rosuvastatin 5 mg oral tablet 1 tablet, By Mouth, Daily, # 90 tablet, 1 Refills, Maintenance, 07/04/22 15:03:00 EDT, [facility], 156, cm, 05/09/22 9:48:00 EDT, Height Start Date: 07/04/22 Status: Ordered traZODone 100 mg oral tablet 1, tablet, By Mouth, Daily at bedtime, # 90 tablet, Refills 1, Maintenance, 02/01/23 15:33:00 EST, Route to Pharmacy Electronically, [facility] 8[facility]21, 156, cm, 01/26/23 17:08:00 EST, Height Start Date: 02/01/23 Status: Ordered Vitamin D3 2000 intl units oral capsule 1 capsule = 2,000 International_Units, By Mouth, Daily, # 60 capsule, 11 Refills, Maintenance, 05/01/20 11:32:00 EST, Capsule, [facility]/pharmacy #[id number], Partial fill upon [...] Dates Health Status Clini vishnu Service Informant COVID-19 Discharge Diagnosis 01/26/23 Vital Signs Most recent to oldest [Reference Range]: 1 Height 156 cm (01/26/23 1:00 PM) Social History Social History Type Response Smoking Status Former smoker, quit more than 30 days ago; Other: Quit 2007; entered on: 11/19/20 Sex Patient Care team information Care Team Personnel Name: Alisa MAS, Coy Peng Position: [facility] Physician - Primary Care Member Role: PCP Address: Address: [address] [place] [address]- Care Team Related Persons Name: DANTE NICOLE Address: home [address] [place] [id number] Name: PASTORA NICOLE
--- OUTSIDE RECORDS SUMMARY | 2023-11-07 21:40 | XMS_ITS | Continuity of Care Document ---
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 Ezekiel Mccartney Medications albuterol CFC free 90 mcg/inh inhalation aerosol See Instructions, INHALE 2 PUFFS EVERY 6 HOURS NEEDED FOR WHEEZING, # 3 each, Refills 3, Tot. Refills 3, Soft Stop, 09/13/19 14:03:00 EDT, Instructions Replace Required Details, Route to Pharmacy Electronically, [id number]... Start Date: 09/13/19 Status: Ordered ferrous sulfate 325 mg oral enteric coated tablet 325 mg, 1, tablet, By Mouth, Daily, # 90 tablet, Refills 11, Tot. Refills 11, Maintenance, 05/01/2110:32:00 EST, [id number] fill upon patient request [...] 2 Refills, Soft Stop, 11/19/20 16:52:00 EDT, [facility]/pharmacy #[id number], 156, cm, 11/19/20 13:47:00 EDT, Height Start Date: 11/19/20 Status: Ordered omeprazole 20 mg oral enteric coated capsule 1 capsule = 20 mg, By Mouth, Daily, # 90 capsule, 1 Refills, Maintenance, 11/19/20 14:14:00 EDT, ECCapsule, [facility]/pharmacy #[id number], Partial fill upon patient request [...] Mouth, Daily, # 90 tablet, 1 Refills, [facility]ORE 66901, 157.48, cm, 05/01/20 11:09:00 EST, Height Start Date: 11/19/20 Status: Ordered traZODone 50 mg oral tablet 50 mg, 1, tablet, By Mouth, Daily at bedtime, # 90 tablet, Refills 1, Tot. Refills 1, Maintenance, 04/03/20 10:53:00 EST, Route to Pharmacy Electronically, [facility]/pharmacy #[id number], 157.48, cm, 04/03/20 10:15:00 EST, Height Start Date: 04/03/20 Status: Ordered Vitamin D 80953 iu oral capsule 50,000 International_Units, 1, capsule, By Mouth, Daily, Refills 0, Maintenance, 08/13/19 11:04:00 EDT Start Date: 08/13/19 Status: Ordered Vitamin D3 2000 intl units oral capsule 1 capsule = 2,000 International_Units, By Mouth, Daily, # 60 capsule, 11 Refills, Maintenance, 05/01/20 11:32:00 EST, Capsule, [facility]/pharmacy #[id number], Partial fill upon patient request if the prescription is for a schedule II opioid drug., 157.48, cm, ... Start Date: 05/01/20 Status: Ordered Problem List [...] Effective Dates Health Status Clinical Service Informant Autoimmune connective tissue disorder Discharge Diagnosis 11/19/20 Vital Signs Most recent to oldest [Reference Range]: 1 Height 156 cm (11/19/20 1:47 PM) Weight 83.8 kg (11/19/20 1:47 PM) Oxygen Saturation [94-100 %] 98 % (11/19/20 1:47 PM) Pulse Rate [55-90 bpm] 84 bpm (11/19/20 1:47 PM) Body Mass Index [18.5-24.99] 34.43 *>HHI* (11/19/20 1:47 PM) Blood Pressure [90-138/55-84 mm Hg] 134/ 80mm Hg (11/19/20 1:47 PM) Blood pressure sites Arm, left (11/19/20 1:47 PM) Social History Social History Type Response Smoking Status Former smoker, quit more than 30 days ago; Other: Quit 2007; entered on: 11/19/20 Sex
--- OUTSIDE RECORDS SUMMARY | 2023-11-07 21:40 | XMS_ITS | Continuity of Care Document ---
Author Organization [facility] Azam Torres Hammad lt Address [address] [place] [address]- Care Team Providers Care Court Messenger Name Role Phone Alisa MAS, Coy Peng Primary Care Physician [facility] 01[facility]22 - 03/02/22 [facility] Azam Torres Adult [address] [place] [address]- Allergies, Adverse Reactions, Alerts Substance Reaction Severity Status codeine Active ibuprofen 1 Active indomethacin Active lisinopril 2 Active Inderal 3 Active Betadine Skin Cleanser Activ e 1gets itchy 2pt reports her tongue swells up 3gets anxiety Immunizations Given and Recorded Vaccine Date Status Refusal Reason [id number] bivalent booster vax 12/22/21 Recorded influenza virus [...] Guardian Refuses 1Result Comment: pt received from [facility] Medications albuterol CFC free 90 mcg/inh inhalation aerosol 2, puffs, Inhalation, Every 6 hours, # 18 Gm, Refills 3, Tot. Refills 3, Soft Stop, 08/16/21 10:54:00 EDT, Route to Pharmacy Electronically, [id number], [facility]/pharmacy #[id number], 156, cm, 08/16/21 10:42:00 EDT, Height [...] Maintenance, 05/01/2110:32:00 EST, Route to Pharmacy Electronically, [facility]/pharmacy #[id number], Partial fill upon patient request if the prescription is for a schedule II opioid d... Start Date: 05/01/20 Status: Ordered hydrochlorothiazide-triamterene 25 mg-37.5 mg oral capsule See Instructions, TAKE ONE CAPSULE BY MOUTH EVERY DAY *REPLACES CLONIDINE*, # 90 capsule, 1 Refills, Maintenance, 02/27/22 16:00:00 EST, [facility]/pharmacy #[id number], 90, TAKE ONE CAPSULE BY MOUTH [...] Route to Pharmacy Electronically, [facility]/pharmacy #0843, Partial fill upon patient request if the prescription is for a schedule II opioid drug... Start Date: 06/24/21 Status: Ordered LORazepam 0.5 mg oral tablet 1 tablet = 0.5 mg, By Mouth, Daily, # 30 tablet, 0 Refills, Soft Stop, 12/16/21 18:01:00 EDT, [facility]/pharmacy #[id number], 156, cm, 09/21/21 9:41:00 EDT, Height [...] Refills, Maintenance, 12/27/21 9:38:00 EDT, [facility], 156, cm, 09/21/21 9:41:00 EDT, Height Start Date: 12/27/21 Status: Ordered omeprazole 20 mg oral enteric coated capsule 1 capsule, By Mouth, Daily, # 90 capsule, 0 Refills, Maintenance, 05/11/21 14:59:00 EDT, [facility]/pharmacy #[id number], 156, cm, 11/19/20 13:47:00 EDT, Height Start Date: 05/11/21 Status: Ordered rosuvastatin 5 mg oral tablet 1 tablet, By Mouth, Daily, # 90 tablet, 1 Refills, 01/18/22 7:39:00 EST, [facility]/pharmacy #[id number], 156, cm, 01/18/22 7:21:00 EST, Height [...] EDT, Route to Pharmacy Electronically, [facility] 02395, 156, cm, 09/21/21 9:41:00 EDT, Height Start Date: 12/27/21 Status: Ordered venlafaxine 75 mg oral capsule, extended release 75 mg, 1, capsule, By Mouth, Daily, DOSAGE INCREASE, # 30 capsule, Refills 1, Tot. Refills 1, Maintenance, 01/18/22 7:33:00 EST, Route to Pharmacy Electronically, [facility]/pharmacy #[id number], Partial fill upon patient request if the prescription is for a sched... Start Date: 01/18/22 Status: Ordered Vitamin D 75811 iu oral capsule 50,000 International_Units, 1, capsule, [...] Gm, 3 Refills, Maintenance, 08/19/21 6:43:00 EDT, [facility]/pharmacy #[id number], Partial fill upon [...] Care Physician Member Role: PCP Address: Address: [address] [place] [address]- Care Team Related Persons Name: DANTE NICOLE Address: [place] [address] [place] [address] Name: PASTORA NICOLE
--- OUTSIDE RECORDS SUMMARY | 2023-11-07 21:40 | XMS_ITS | Continuity of Care Document ---
Author Organization [facility] [place] [place] Address [address] [facility] [place] [address]- Care Team Providers Care It Support Engineer Name Role Phone Coy Cuellar MD Primary Care Physician Encounter 02/08/23 - 02/15/23 [facility] [address], [address] [place] [address]- Attending Physician: Bryson , Provider Admitting Physician: NoBreastExam , Provider Referring Physician: NoBreastExam , Provider Allergies, Adverse Reactions, Alerts Substance Reaction Severity [...] influenza virus vaccine, inactivated 12/09/17 Camacho rded [id number] bivalent booster vax 12/22/21 Recorded SARS-CoV-2 (COVID-19) [...] 02/27/03 Given 1Result Comment: pt received from [facility] Ezekiel Mccartney Medications ferrous sulfate 325 mg oral enteric coated tablet 325 mg, 1, tablet, By Mouth, Daily, # 90 tablet, Refills 11, Tot. Refills 11, Maintenance, 05/01/2110:32:00 EST, Route to Pharmacy Electronically, [facility]/pharmacy #[id number], Partial fill upon patient request if the prescription is for a schedule II opioid d... Start Date: 05/01/20 Status: Ordered hydrochlorothiazide-triamterene 25 mg-37.5 mg oral capsule 1 capsule, By Mouth, Daily, *REPLACES CLONIDINE*., # 90 capsule, 1 Refills, Maintenance, 12/23/22 16:36:00 EDT, [facility] STORE [id number], 90, TAKE ONE CAPSULE BY MOUTH EVERY DAY *REPLACES CLONIDINE*, 156, cm,09/05/22 11:06:00 EDT, Height Start Date: 12/23/22 Status: Ordered loratadine 10 mg oral tablet 10 mg, 1, tablet, By Mouth, Daily, # 90 tablet, Refills 3, Tot. Refills 3, Maintenance, 06/24/21 10:50:00 EDT, Route to Pharmacy Electronically, [facility]/pharmacy #[id number], Partial fill upon patient request if the prescription is for a schedule II opioid drug... Start Date: 06/24/21 Status: Ordered LORazepam 0.5 mg oral tablet 1 tablet = 0.5 mg, By Mouth, Daily, # 30 tablet, 5 Refills, Soft Stop, 02/02/23 8:40:00 EST, [facility]/pharmacy #[id number], 156, cm, 01/26/23 17:08:00 EST, Height Start Date: 02/02/23 Status: Ordered nabumetone 750 mg oral tablet 1 tablet, By Mouth, 2 times a day with meals, # 60 tablet, 14 Refills, Maintenance, 08/31/22 12:49:00 EDT, [facility] STORE 73153, 156, cm, 08/02/22 9:52:00 EDT, Height Start Date: 08/31/22 Status: Ordered rosuvastatin 5 mg oral tablet 1 tablet, By Mouth, Daily, # 90 tablet, 1 Refills, Maintenance, 07/04/22 15:03:00 EDT, [facility], 156, cm, 05/09/22 9:48:00 EDT, Height Start Date: 07/04/22 Status: Ordered traZODone 100 mg oral tablet 1, tablet, By Mouth, Daily at bedtime, # 90 tablet, Refills 1, Maintenance, 02/01/23 15:33:00 EST, Route to Pharmacy Electronically, [facility], 156, cm, 01/26/23 17:08:00 EST, Height Start Date: 02/01/23 Status: Ordered Vitamin D3 2000 intl units oral capsule 1 capsule = 2,000 International_Units, By Mouth, Daily, # 60 capsule, 11 Refills, Maintenance, 05/01/20 11:32:00 EST, Capsule, [facility]/pharmacy #[id number], Partial fill upon patient [...] 1Buttocks 2question workup via han 3Quit 2009 Results Radiology Reports * Exam Date Time Procedure Performing Provider Status 02/08/23 10:30 AM MM Digital Mammo Screening Nola Clayton; Yeni (Verified) Notes: (MM Digital Mammo Screening) Reason For Exam: Z12.31 SCREENING MAMMO RESULT: MM Digital Mammo Screening PROCEDURE: MM Digital Mammo Screening INDICATION: Screening for breast cancer. No known palpable abnormalities. COMPARISON: Prior mammograms most recently dated 02/07/2022. TECHNIQUE: Full-field digital CC and MLO 3D tomosynthesis images of both breasts were acquired. Computer-aided detection (CAD) was utilized in the interpretation of this study. DENSITY: The breast tissue contains scattered areas of fibroglandular density. FINDINGS: Only seen on the mediolateral oblique view is questionable distortion in the inferior anterior left breast. Further evaluation with spot compression and true lateral views is recommended. Additional targeted ultrasound scan may be required. No suspicious findings are seen in the right breast. IMPRESSION: Additional imaging recommended. We will recall the patient. RECOMMENDATION: Diagnostic 3D tomosynthesis of the left breast with scheduled ultrasound BI-RADS: 0 Incomplete - Need Additional Imaging Evaluation. Lay letter mailed to patient WSN: [id number] Ordering Physician: Elda Sequeira Dictated By: Radha Avilez MD Dictated Date/Time: 02/08/23 11:05 am Reviewed By: Radha Avilez MD Signed By: Radha Avilez MD Signed Date/Time: 02/08/23 11:05 am Transcribed By: GRIFFIN Machinist Date/Time: 02/08/23 10:55 am Birads: Social History Social History Type Response Smoking Status Former smoker, quit more than 30 days ago; Other: Quit 2007; entered on: 11/19/20 Sex Patient Care team information Care Team Personnel Name: Coy Cuellar MD Position: S Physician - Primary Care Member Role: PCP Address: Address: [address] [place] [address]- Care Team Related Persons Name: DANTE NICOLE Address: home [address] [place] [address] Name: PASTORA NICOLE
--- OUTSIDE RECORDS SUMMARY | 2023-11-07 21:40 | XMS_ITS | Continuity of Care Document ---
Author Organization [facility] Address [address] [place] [address]- Care Team Providers Care Validation Consultant Name Role Phone Alisa MAS, Coy Peng Primary Care Physician Encounter 09/18/19 - 09/25/19 [facility] [place] [place] [address], [address] [place] [address]- [phone] Attending Physician: Fabby KEN, Tim Valencia Admitting Physician: Fabby KEN, Tim Valencia Referring Physician: Fabby KEN, Tim Valencia Allergies, Adverse Reactions, Alerts Substance Reaction [...] Guardian Refuses 1Result Comment: pt received from [facility] Medications Advair Diskus 250 mcg-50 [...] Replace Required Details, Route to Pharmacy Electronically, [id number]... Start Date: 09/13/19 Status: Ordered Aleve = [...] capsule, 0 Refills, Maintenance, 09/03/19 15:27:00 EDT, [facility]/pharmacy #[id number], 157.48, cm, 08/13/19 [...] 08/13/19 11:26:00 EDT, Route to Pharmacy Electronically, [facility]/pharmacy #[id number], 157.48, cm, 08/13/19 10:51:00 EDT, Height Start Date: 08/13/19 Status: Ordered Vitamin D 76707 iu oral capsule 50,000 International_Units, 1, capsule, By Mouth, Daily, Refills 0, Maintenance, 08/13/19 11:04:00 EDT Start Date: 08/13/19 Status: Ordered Wellbutrin XL 300 mg/24 hours oral tablet, extended release 1 tablet = 300 mg, By Mouth, Daily, DOSAGE INCREASE, # 30 tablet, 3 Refills, Maintenance, 08/13/19 11:25:00 EDT, ER Tablet, [facility]/pharmacy #[id number], 157.48, cm, 08/13/19 [...] 1question workup via han 2Quit 2008 Results Radiology Reports * Exam Date Time Procedure Performing Provider Status 09/18/19 2:43 PM Dexa Bone Density (Axial) Saad Quintanilla (Verified) Notes: (Dexa Bone Density (Axial)) Reason For Exam: Post Menopausal RESULT: DEXA BONE DENSITY (AXIAL) Bone Density Report Name: JAYA NICOLE Age: 64 Sex: Female Ethnicity: White Date of : 1955 Indication: POSTMENOPAUSAL. Referring Provider: TIM MAURER Study: Bone densitometry was performed. Exam Date: September 18, 2019 Accession number: [id number] Bone Density: Region BMD T-score Z-score Classification AP Spine (L1, L4) 1.051 0.1 1.9 Normal Femoral Neck (Left) 0.773 -0.7 0.9 Normal Total Hip (Left) 0.882 -0.5 0.8 Normal Total Forearm (Left) 0.576 -0.1 1.6 1/3 Forearm (Left) 0.649 -0.7 0.9 Normal UD Forearm (Left) 0.445 0.0 1.2 World Health Organization criteria for BMD impression classify patients as: Normal (T-score at or above -1.0), Osteopenia (T-score between -1.0 and -2.5), or Osteoporosis (T-score at or below -2.5). 10-year Fracture Risk: FRAX not reported because: All T-scores at or above -1.0 Clinical Information Provided by Patient: Has taken Glucocorticoids Has used the following medications: HRT (i.e. estrogen/hormone therapy), Vitamin D, Calcium Has the following medical conditions: Asthma or Emphysema, Hysterectomy Patient maximum height was 62.7 Menopause Age: 41 Onset of menses at age 13 Number of children 3 Impression: The patient has normal bone density as determined by WHO criteria. A repeat bone density assessment should be considered in two years. Reported by: Yoana Martinez M.D. on 09/18/2019 5:52:00 PM. Dictated By: Yoana Martinez MD Dictated Date/Time: 09/18/19 5:53 pm Reviewed By: Yoana Martinez MD Signed By: Yoana Martinez MD Signed Date/Time: 09/18/19 5:53 pm Transcribed By: GRIFFIN Transcribed Date/Time: 09/18/19 5:53 pm Social History Social History Type Response Smoking Status Never (less than 100 in lifetime) entered on: 03/08/19 Sex
--- OUTSIDE RECORDS SUMMARY | 2023-11-07 21:40 | XMS_ITS | Continuity of Care Document ---
Author Organization [facility] Azam Torres Hammad Address [address] [place] [address]- Care Team Providers Care Extension Service Supervisor Name Role Phone Coy Cuellar MD Primary Care Physician Encounter [facility] Date(s): 04/08/19 - 06/06/19 [facility] Adult [address] [place] [address]- [facility] Attending Physician: Elda Sequeira NP Referring Physician: [...] Guardian Refuses 1Result Comment: pt received from [facility] Ezekiel Mccartney Medications Advair Diskus 250 mcg-50 mcg inhalation powder 1, puffs, Inhalation, 2 times a day, # 180 each, Refills 11, Tot. Refills 11, Maintenance, 10/04/1914:03:03 EDT, Powder, Print Requisition Start Date: 10/04/18 Status: Ordered albuterol CFC free 90 mcg/inh inhalation aerosol See Instructions, # 8.5 Unknown, Refills 5 Tot. Refills 5, INHALE 2 PUFFS EVERY 6 HOURS NEEDED FOR WHEEZING, [facility]/pharmacy #[id number] Start Date: 10/30/18 Status: Ordered betamethasone-clotrimazole 0.05%-1% topical cream 1 applicator, Topically, 2 times a day, Not to be used longer than 2 weeks, # 45 Gm, 0 Refills, Acute 06/21/19 7:00:00 EDT, 05/21/19 11:45:00 EDT, [facility]/pharmacy #[id number], 1 applicator Topically 2 times aday,Instr:Not to be used longer than 2 weeks, 157.4... Start Date: 05/21/19 Stop Date: 06/21/19 Status: Ordered Crestor 5 mg oral tablet 1 tablet = 5 mg, By Mouth, Daily, # 30 tablet, 5 Refills, Maintenance, 03/08/19 11:58:00 EST, Tablet, [facility]/pharmacy #[id number], 157.48, cm, 03/08/19 10:35:00 EST, Height Start Date: 03/08/19 Status: Ordered hydrochlorothiazide-triamterene 25 mg-37.5 mg oral capsule See Instructions, TAKE ONE CAPSULE BY MOUTH EVERY DAY *REPLACES CLONIDINE*, # 30 capsule, 5 Refills, Soft Stop, 03/08/19 13:34:00 EST, [facility]/pharmacy #0693, TAKE ONE CAPSULE BY MOUTH EVERY DAY *REPLACES CLONIDINE*, 157.48, cm, 03/08/19 10:35:00 EST, Height Start Date: 03/08/19 Status: Ordered LORazepam 0.5 mg oral tablet 1 tablet = 0.5 mg, By Mouth, Daily, # 30 tablet, 0 Refills, Soft Stop, 06/06/19 15:41:00 EDT, [facility]/pharmacy #0693, 157.48, cm, 05/07/19 14:27:00 EDT, Height Start Date: 06/06/19 Status: Ordered prednisolone ophthalmic acetate 1% suspension [...] 05/05/19 16:46:00 EDT, Route to Pharmacy Electronically, [facility]/pharmacy #[id number], 157.48, cm, 04/08/19 9:15:00 EST, [...]
--- OUTSIDE RECORDS SUMMARY | 2023-11-07 21:40 | XMS_ITS | Continuity of Care Document ---
Author Organization [facility] Address [address] [place] [address]- Care Team Providers Care Weaver Axminster Name Role Phone Coy Cuellar MD Primary Care Physician Encounter [facility] Date(s): 08/19/20 - 09/18/20 [facility] [address] [place] [address] Attending Physician: Admtr, Thomas8 Admitting Physician: Admtr, Ar8 Referring Physician: Admtr, Ar8 Allergies, Adverse Reactions, Alerts [...] Guardian Refuses 1Result Comment: pt received from [facility] Dr. Medications albuterol CFC free 90 mcg/inh inhalation aerosol See Instructions, INHALE 2 PUFFS EVERY 6 HOURS NEEDED FOR WHEEZING, # 3 each, Refills 3, Tot. Refills 3, Soft Stop, 09/13/19 14:03:00 EDT, Instructions Replace Required Details, Route to Pharmacy Electronically, [id number]... Start Date: 09/13/19 Status: Ordered Crestor 5 mg oral tablet 1 tablet = 5 mg, By Mouth, Daily, # 90 tablet, 1 Refills, Maintenance, 05/01/20 11:29:00 EST, Tablet, [facility]/pharmacy #[id number], 157.48, cm, 05/01/20 11:09:00 EST, Height [...] 1 Refills, Soft Stop, 03/13/20 16:15:00 EST, [facility]/pharmacy #[id number], TAKE ONE CAPSULE BY MOUTH [...] # 30 tablet, 2 Refills, Soft Stop, 05/29/20 10:22:00 EDT, [facility]/pharmacy #0843, 157.48, cm, 05/01/20 11:09:00 EST, Height Start Date: 05/29/20 Status: Ordered prednisolone ophthalmic acetate 1% suspension [...] 04/03/20 10:53:00 EST, Route to Pharmacy Electronically, [facility]/pharmacy #0843, 157.48, cm, 04/03/20 10:15:00 EST, Height Start Date: 04/03/20 Status: Ordered Vitamin D 82247 iu oral capsule 50,000 International_Units, 1, capsule, By Mouth, Daily, Refills 0, Maintenance, 08/13/19 11:04:00 EDT Start Date: 08/13/19 Status: Ordered Vitamin D3 2000 intl units oral capsule 1 capsule = 2,000 International_Units, By Mouth, Daily, # 60 capsule, 11 Refills, Maintenance, 05/01/20 11:32:00 EST, Capsule, [facility]/pharmacy #[id number], Partial fill upon patient request if the prescription is for a schedule II opioid drug., 157.48, cm, ... Start Date: 05/01/20 Status: Ordered Zoloft 100 mg oral tablet 1 tablet = 100 mg, By Mouth, Daily, # 90 tablet, 1 Refills, Maintenance, 04/03/20 10:54:00 EST, Tablet, [facility]/pharmacy #[id number], Partial fill upon [...]
--- OUTSIDE RECORDS SUMMARY | 2023-11-07 21:40 | XMS_ITS | Continuity of Care Document ---
Author Organization [facility] Brian Hammad lt Address [address] [place] [address]- Care Team Providers Care Validation Technician Name Role Phone Coy Cuellar MD Primary Care Physician Encounter [facility] Date(s): 11/07/19 - 12/07/19 [facility] Adult [address] [place] [address]- [facility] Allergies, Adverse Reactions, Alerts Substance Reaction Severity [...] Guardian Refuses 1Result Comment: pt received from [facility] Medications Advair Diskus 250 mcg-50 mcg [...] Replace Required Details, Route to Pharmacy Electronically, [id number]... Start Date: 09/13/19 Status: Ordered Aleve = [...] 2 Refills, Soft Stop, 08/13/19 12:12:00 EDT, [facility]/pharmacy #[id number], 157.48, cm, 08/13/19 10:51:00 EDT, Height Start Date: 08/13/19 Status: Ordered omeprazole 20 mg oral enteric coated capsule 1 capsule = 20 mg, By Mouth, Daily, # 14 capsule, 0 Refills, Maintenance, 09/03/19 15:27:00 EDT, [facility]/pharmacy #0843, 157.48, cm, 08/13/19 10:51:00 [...] 10/21/19 10:51:00 EDT, Route to Pharmacy Electronically, [facility]/pharmacy #0843, 157.48, cm, 08/13/19 10:51:00 EDT, Height Start Date: 10/21/19 Status: Ordered Vitamin D 91078 iu oral capsule 50,000 International_Units, 1, capsule, By Mouth, Daily, Refills 0, Maintenance, 08/13/19 11:04:00 EDT Start Date: 08/13/19 Status: Ordered Zoloft 50 mg oral tablet 1 tablet = 50 mg, By Mouth, Daily, DOSAGE INCREASE, # 30 tablet, 1 Refills, Maintenance, 12/03/19 11:17:00 EDT, Tablet, [facility]/pharmacy #[id number], 157.48, cm, 12/03/19 10:55:00 [...]
--- OUTSIDE RECORDS SUMMARY | 2023-11-07 21:40 | XMS_ITS | Continuity of Care Document ---
Author Organization [facility] Brian Hammad lt Address [address] [place] [address]- Care Team Providers Care Test Director Name Role Phone Coy Cuellar MD Primary Care Physician Encounter [facility] Date(s): 11/11/19 - 12/11/19 [facility] Adult [address] [place] [address]- [facility] Allergies, Adverse Reactions, Alerts Substance [...] Replace Required Details, Route to Pharmacy Electronically, [id number]... Start Date: 09/13/19 Status: Ordered Aleve = [...] 2 Refills, Soft Stop, 08/13/19 12:12:00 EDT, [facility]/pharmacy #[id number], 157.48, cm, 08/13/19 10:51:00 EDT, Height Start Date: 08/13/19 Status: Ordered omeprazole 20 mg oral enteric coated capsule 1 capsule = 20 mg, By Mouth, Daily, # 14 capsule, 0 Refills, Maintenance, 09/03/19 15:27:00 EDT, [facility]/pharmacy #0843, 157.48, cm, 08/13/19 10:51:00 EDT, [...] 10/21/19 10:51:00 EDT, Route to Pharmacy Electronically, [facility]/pharmacy #0843, 157.48, cm, 08/13/19 10:51:00 EDT, Height Start Date: 10/21/19 Status: Ordered Vitamin D 87216 iu oral capsule 50,000 International_Units, 1, capsule, By Mouth, Daily, Refills 0, Maintenance, 08/13/19 11:04:00 EDT Start Date: 08/13/19 Status: Ordered Zoloft 50 mg oral tablet 1 tablet = 50 mg, By Mouth, Daily, DOSAGE INCREASE, # 30 tablet, 1 Refills, Maintenance, 12/03/19 11:17:00 EDT, Tablet, [facility]/pharmacy #[id number], 157.48, cm, 12/03/19 10:55:00 EDT, Height [...]
--- OUTSIDE RECORDS SUMMARY | 2023-11-07 21:40 | XMS_ITS | Continuity of Care Document ---
Author Organization [facility] Brian Hammad lt Address [address] [place] [address]- Care Team Providers Care Metal Furniture Panel Coverer Name Role Phone Coy Cuellar MD Primary Care Physician Encounter [facility] Date(s): 09/18/19 - 10/18/19 [facility] Adult [address] [place] [address]- [facility] Allergies, Adverse Reactions, Alerts Substance Reaction [...] Guardian Refuses 1Result Comment: pt received from [facility] Medications Advair Diskus 250 mcg-50 [...] Replace Required Details, Route to Pharmacy Electronically, [id number]... Start Date: 09/13/19 Status: Ordered Aleve = 220 mg, By Mouth, 0 Refills, Maintenance, 08/13/19 11:07:00 EDT Start Date: 08/13/19 Status: Ordered Crestor 5 mg oral tablet 1 tablet = 5 mg, By Mouth, Daily, # 30 tablet, 5 Refills, Maintenance, 09/04/19 10:55:00 EDT, Tablet, [facility]/pharmacy #[id number], 157.48, cm, 08/13/19 10:51:00 EDT, Height Start Date: 09/04/19 Status: Ordered Ferrous Sulfate EC Refills 0, Maintenance, 08/13/19 11:26:00 EDT Start Date: 08/13/19 Status: Ordered hydrochlorothiazide-triamterene 25 mg-37.5 mg oral capsule See Instructions, TAKE ONE CAPSULE BY MOUTH EVERY DAY *REPLACES CLONIDINE*, # 90 capsule, 1 Refills, Soft Stop, 09/13/19 11:53:00 EDT, [facility]/pharmacy #0843, TAKE ONE CAPSULE BY MOUTH [...] Refills, Maintenance, 09/03/19 15:27:00 EDT, [facility]/pharmacy #0843, 157.48, cm, 08/13/19 10:51:00 EDT, [...] EDT, Route to Pharmacy Electronically, [facility]/pharmacy #0843, 157.48, cm, 08/13/19 10:51:00 EDT, Height Start Date: 08/13/19 Status: Ordered Vitamin D 23452 iu oral capsule 50,000 International_Units, 1, capsule, By Mouth, Daily, Refills 0, Maintenance, 08/13/19 11:04:00 EDT Start Date: 08/13/19 Status: Ordered Wellbutrin XL 300 mg/24 hours oral tablet, extended release 1 tablet = 300 mg, By Mouth, Daily, DOSAGE INCREASE, # 30 tablet, 3 Refills, Maintenance, 08/13/19 11:25:00 EDT, ER Tablet, [facility]/pharmacy #0843, 157.48, cm, 08/13/19 10:51:00 EDT, [...]
--- OUTSIDE RECORDS SUMMARY | 2023-11-07 21:40 | XMS_ITS | Continuity of Care Document ---
Author Organization [facility] Address [address] [place] [address]- Care Team Providers Care Public Relations Manager Name Role Phone Coy Cuellar MD Primary Care Physician [phone] Encounter [facility] Date(s): 08/12/21 - 09/11/21 [facility] [address] [place] [address] Attending Physician: Admnoam, Wiley Admitting Physician: Admtr, Ar8 Referring Physician: Admtr, [...] Guardian Refuses 1Result Comment: pt received from [facility] Ezekiel Mccartney Medications albuterol CFC free 90 mcg/inh inhalation aerosol 2, puffs, Inhalation, Every 6 hours, # 18 Gm, Refills 3, Tot. Refills 3, Soft Stop, 08/16/21 10:54:00 EDT, Route to Pharmacy Electronically, [id number], [facility]/pharmacy #[id number], 156, cm, 08/16/21 10:42:00 EDT, Height [...] 08/16/21 10:56:00 EDT, Route to Pharmacy Electronically, [facility]/pharmacy #0843, Partial fill upon patient request if the prescription is for a schedule II opioid... Start Date: 08/16/21 Status: Ordered ferrous sulfate 325 mg oral enteric coated tablet 325 mg, 1, tablet, By Mouth, Daily, # 90 tablet, Refills 11, Tot. Refills 11, Maintenance, 05/01/2110:32:00 EST, Route to Pharmacy Electronically, [facility]/pharmacy #0843, Partial fill upon patient request if the prescription is for a schedule II opioid d... Start Date: 05/01/20 Status: Ordered hydrochlorothiazide-triamterene 25 mg-37.5 mg oral capsule 1 capsule, By Mouth, Daily, *REPLACES CLONIDINE*., # 90 capsule, 1 Refills, [facility] STORE 00990, 90, TAKE ONE CAPSULE BY MOUTH EVERY [...] 06/24/21 10:50:00 EDT, Route to Pharmacy Electronically, [facility]/pharmacy #0843, Partial fill upon patient request if [...] Mouth, Daily, # 90 tablet, 3 Refills, [facility] STORE [address]7065, 156, cm, 11/19/20 13:47:00 EDT,Height Start Date: [...] 07/30/21 10:32:00 EDT, Route to Pharmacy Electronically, [facility]/pharmacy #0843, Partial fill upon patient request if the prescription is... Start Date: 07/30/21 Status: Ordered Vitamin D 67192 iu oral capsule 50,000 International_Units, 1, capsule, By Mouth, Daily, Refills 0, Maintenance, 08/13/19 11:04:00 EDT Start Date: 08/13/19 Status: Ordered Vitamin D3 2000 intl units oral capsule 1 capsule = 2,000 International_Units, By Mouth, Daily, # 60 capsule, 11 Refills, Maintenance, 05/01/20 11:32:00 EST, Capsule, [facility]/pharmacy #0843, Partial fill upon patient request if [...]
--- OUTSIDE RECORDS SUMMARY | 2023-11-07 21:40 | XMS_ITS | Continuity of Care Document ---
Author Organization [facility] Azam Torres Hammad lt Address [address] [place] [address]- Care Team Providers Care Valve Machine Operator Name Role Phone Alisa MAS, Coy Peng Primary Care Physician [facility]): 02[facility]22 - 03/10/22 [facility] Azam Torres Adult [address] [place] [address]- Allergies, Adverse Reactions, Alerts Substance Reaction Severity Status codeine Active ibuprofen 1 Active lisinopril 2 Active Inderal 3 Active Betadine Skin Cleanser Activ e indomethacin Active 1gets itchy 2pt reports her tongue swells up 3gets anxiety Immunizations Given and Recorded Vaccine Date Status Refusal Reason [id number] bivalent booster vax 12/22/21 Recorded influenza virus [...] Guardian Refuses 1Result Comment: pt received from [facility] Ezekiel Mccartney Medications albuterol CFC free 90 mcg/inh inhalation aerosol 2, puffs, Inhalation, Every 6 hours, # 18 Gm, Refills 3, Tot. Refills 3, Soft Stop, 08/16/21 10:54:00 EDT, Route to Pharmacy Electronically, [id number], [facility]/pharmacy #[id number], 156, cm, 08/16/21 10:42:00 [...] Maintenance, 05/01/2110:32:00 EST, Route to Pharmacy Electronically, [facility]/pharmacy #[id number], Partial fill upon patient request if the prescription is for a schedule II opioid d... Start Date: 05/01/20 Status: Ordered hydrochlorothiazide-triamterene 25 mg-37.5 mg oral capsule See Instructions, TAKE ONE CAPSULE BY MOUTH EVERY DAY *REPLACES CLONIDINE*, # 90 capsule, 1 Refills, Maintenance, 02/27/22 16:00:00 EST, [facility]/pharmacy #[id number], 90, TAKE ONE CAPSULE [...] 06/24/21 10:50:00 EDT, Route to Pharmacy Electronically, [facility]/pharmacy #[id number], Partial fill upon patient request if the prescription is for a schedule II opioid drug... Start Date: 06/24/21 Status: Ordered LORazepam 0.5 mg oral tablet 1 tablet = 0.5 mg, By Mouth, Daily, APPOINTMENT NEEDED FOR FURTHER REFILLS, # 30 tablet, 0 Refills,Soft Stop, 03/10/22 10:58:00 EST, [facility]/pharmacy #[id number], 156, cm, 01/18/22 7:21:00 [...] Refills, Maintenance, 12/27/21 9:38:00 EDT, [id number], 156, cm, 09/21/21 9:41:00 EDT, Height Start Date: 12/27/21 Status: Ordered omeprazole 20 mg oral enteric coated capsule 1 capsule, By Mouth, Daily, # 90 capsule, 0 Refills, Maintenance, 05/11/21 14:59:00 EDT, [facility]/pharmacy #[id number], 156, cm, 11/19/20 13:47:00 EDT, Height Start Date: 05/11/21 Status: Ordered rosuvastatin 5 mg oral tablet 1 tablet, By Mouth, Daily, # 90 tablet, 1 Refills, 01/18/22 7:39:00 EST, [facility]/pharmacy #[id number], 156, cm, 01/18/22 7:21:00 [...] 12/27/21 9:38:00 EDT, Route to Pharmacy Electronically, [id number], 156, cm, 09/21/21 9:41:00 EDT, Height Start Date: 12/27/21 Status: Ordered venlafaxine 75 mg oral capsule, extended release 75 mg, 1, capsule, By Mouth, Daily, APPOINTMENT NEEDED FOR FURTHER REFILLS, # 30 capsule, Refills 0, Tot. Refills 0, Maintenance, 03/10/22 10:58:00 EST, Route to Pharmacy Electronically, [facility]/pharmacy#[id number], Partial fill upon patient request if the pre... Start Date: 03/10/22 Status: Ordered Vitamin D 61692 iu oral capsule 50,000 International_Units, 1, capsule, By Mouth, Daily, Refills 0, Maintenance, 08/13/19 11:04:00 EDT Start Date: 08/13/19 Status: Ordered Vitamin D3 2000 intl units oral capsule 1 capsule = 2,000 International_Units, By Mouth, Daily, # 60 capsule, 11 Refills, Maintenance, 05/01/20 11:32:00 EST, Capsule, [facility]/pharmacy #[id number], Partial fill upon patient [...] Gm, 3 Refills, Maintenance, 08/19/21 6:43:00 EDT, [facility]/pharmacy #[id number], Partial fill upon patient [...] Care Physician Member Role: PCP Address: Address: [address] [place] [address]- Care Team Related Persons Name: DANTE NICOLE Address: home [address] [place] [phone] Name: PASTORA NICOLE
--- OUTSIDE RECORDS SUMMARY | 2023-11-07 21:40 | XMS_ITS | Continuity of Care Document ---
Author Organization [facility] Brian Hammad lt Address [address] [place] [address]- Care Team Providers Care Docketing Specialist Name Role Phone Coy Cuellar MD Primary Care Physician [facility]): 10[facility]07/23 - 11/06/23 [facility] Azam Torres Adult [address] [place] [address]- Allergies, Adverse Reactions, Alerts Substance Reaction Severity [...] influenza virus vaccine, inactivated 12/09/17 Camacho rded [id number] bivalent booster vax 12/22/21 Recorded SARS-CoV-2 (COVID-19) [...] 02/27/03 Given 1Result Comment: pt received from [facility] Ezekiel Mccartney Medications buPROPion 150 mg/24 hours (XL) oral tablet, extended release 1 tablet, By Mouth, Every 24 hours, # 30 tablet, 6 Refills, Maintenance, 09/25/23 7:58:00 EDT, [facility], 30, TAKE 1 TABLET [...] to Pharmacy Electronically, [facility]/pharmacy #[id number], Partial fill upon patient request if the prescription is for a schedule II opioid d... Start Date: 05/01/20 Status: Ordered hydrochlorothiazide-triamterene 25 mg-37.5 mg oral capsule 1 capsule, By Mouth, Daily, # 90 capsule, 1 Refills, Maintenance, 06/11/23 6:40:00 EDT, [facility]/pharmacy #[id number], 90, 1 capsule By Mouth Daily, 156, cm, 06/02/23 10:46:00 EDT, Height Start Date: 06/11/23 Status: Ordered hydrocortisone 2.5% topical cream See Instructions, APPLY IN A THIN FILM TO AFFECTED AREAS AND RUB IN GENTLY AND COMPLETELY TWICE DAILY, # 30 Gm, 10 Refills, Maintenance, 08/28/23 8:10:00 EDT, [facility], 15, APPLY IN A THIN FILM TO AFFECTED AREAS AND RUB IN GENTLY AND COMPLET... Start Date: 08/28/23 Status: Ordered LORazepam 0.5 mg oral tablet 1 tablet = 0.5 mg, By Mouth, Daily, # 30 tablet, 5 Refills, Soft Stop, 09/15/23 16:05:00 EDT, [facility], 155, cm, 08/21/23 10:50:00 EDT, Height, 74.5, kg, 06/16/23 16:56:00 EDT, Dry Weight Start Date: 09/15/23 Status: Ordered nabumetone 750 mg oral tablet 1 tablet, By Mouth, 2 times a day with meals, # 60 tablet, 10 Refills, Maintenance, 10/27/23 9:21:00 EDT, [facility], 155, cm, 10/23/23 14:16:00 EDT, Height, 74.5, kg, 06/16/23 16:56:00 EDT, Dry Weight Start Date: 10/27/23 Status: Ordered rosuvastatin 5 mg oral tablet 1 tablet, By Mouth, Daily, # 30 tablet, 10 Refills, Maintenance, 10/09/23 7:56:00 EDT, [facility], 155, cm, 08/21/23 10:50:00 EDT, Height, 74.5, kg, 06/16/23 16:56:00 EDT, Dry Weight Start Date: 10/09/23 Status: Ordered traZODone 100 mg oral tablet 200 mg, 2, tablet, By Mouth, Daily at bedtime, DOSAGE INCREASE, # 180 tablet, Refills 1, Tot. Refills 1, Maintenance, 08/21/23 10:59:00 EDT, Route to Pharmacy Electronically, [facility]/pharmacy #[id number], Partial fill upon patient request if the [...] 11:32:00 EST, Capsule, [facility]/pharmacy #[id number], Partial fill upon patient request if the [...] Care Member Role: PCP Address: Address: [address] [place] [address]- Care Team Related Persons Name: DANTE NICOLE Address: home [address] [place] [id number] Name: PASTORA NICOLE
--- OUTSIDE RECORDS SUMMARY | 2023-11-07 21:40 | XMS_ITS | Continuity of Care Document ---
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 Name Role Phone Alisa MAS, Coy Peng Primary Care Physician [facility]): 03/30/23 - 04/29/23 [facility] Azam Torres Adult [address] [place] [address]- Allergies, Adverse Reactions, Alerts Substance Reaction Severity [...] influenza virus vaccine, inactivated 12/09/17 Camacho rded [id number] bivalent booster vax 12/22/21 Recorded SARS-CoV-2 (COVID-19) [...] capsule, 1 Refills, Maintenance, 12/23/22 16:36:00 EDT, [id number], 90, TAKE ONE CAPSULE BY MOUTH EVERY [...] 5 Refills, Soft Stop, 02/02/23 8:40:00 EST, [facility]/pharmacy #[id number], 156, cm, 01/26/23 17:08:00 EST, Height Start Date: 02/02/23 Status: Ordered nabumetone 750 mg oral tablet 1 tablet, By Mouth, 2 times a day with meals, # 60 tablet, 14 Refills, Maintenance, 08/31/22 12:49:00 EDT, [facility] 77[facility], 156, cm, 08/02/22 9:52:00 EDT, Height Start Date: 08/31/22 Status: Ordered rosuvastatin 5 mg oral tablet 1 tablet, By Mouth, Daily, # 90 tablet, 0 Refills, Maintenance, 03/30/23 16:19:00 EST, [facility], 156, cm, 01/26/23 17:08:00 EST, Height Start Date: 03/30/23 Status: Ordered traZODone 100 mg oral tablet 1, tablet, By Mouth, Daily at bedtime, # 90 tablet, Refills 1, Maintenance, 02/01/23 15:33:00 EST, Route to Pharmacy Electronically, [facility], 156, cm, 01/26/23 17:08:00 EST, Height Start [...] Care Member Role: PCP Address: Address: [address] [place] [address]- Care Team Related Persons Name: DANTE NICOLE Address: [place] [address] [address] Name: PASTORA NICOLE
--- OUTSIDE RECORDS SUMMARY | 2023-11-07 21:40 | XMS_ITS | Continuity of Care Document ---
Author Organization [facility] Azam Torres Hammad lt Address [address] [place] [address]- Care Team Providers Care Slip Dumper Name Role Phone Coy Cuellar MD Primary Care Physician [facility]s): 08/29/23 - 09/28/23 [facility] Azam Torres Adult [address] [place] [address]- Allergies, Adverse Reactions, Alerts Substance Reaction Severity [...] influenza virus vaccine, inactivated 12/09/17 Camacho rded [id number] bivalent booster vax 12/22/21 Recorded SARS-CoV-2 (COVID-19) [...] 02/27/03 Given 1Result Comment: pt received from [facility] Ezekiel Mccartney Medications buPROPion 150 mg/24 hours (XL) oral tablet, extended release 1 tablet, By Mouth, Every 24 hours, # 30 tablet, 6 Refills, Maintenance, 09/25/23 7:58:00 EDT, [facility], 30, TAKE 1 TABLET BY MOUTH EVERY 24 HOURS, 155, cm, 08/21/23 10:50:00 EDT, Height, 74.5, kg, 06/16/23 16:56:00 EDT, Dry Weight Start Date: 09/25/23 Status: Ordered ferrous sulfate 325 mg oral enteric coated tablet 325 mg, 1, tablet, By Mouth, Daily, # 90 tablet, Refills 11, Tot. Refills 11, Maintenance, 05/01/2110:32:00 EST, Route to Pharmacy Electronically, [facility]/pharmacy #[id number], Partial fill upon patient request if the prescription is for a schedule II opioid d... Start Date: 05/01/20 Status: Ordered hydrochlorothiazide-triamterene 25 mg-37.5 mg oral capsule 1 capsule, By Mouth, Daily, # 90 capsule, 1 Refills, Maintenance, 06/11/23 6:40:00 EDT, [facility]/pharmacy #[id number], 90, 1 capsule By Mouth Daily, 156, cm, 06/02/23 10:46:00 EDT, Height Start Date: 06/11/23 Status: Ordered hydrocortisone 2.5% topical cream See Instructions, APPLY IN A THIN FILM TO AFFECTED AREAS AND RUB IN GENTLY AND COMPLETELY TWICE DAILY, # 30 Gm, 10 Refills, Maintenance, 08/28/23 8:10:00 EDT, [facility], 15, APPLY IN A THIN FILM TO AFFECTED AREAS AND RUB IN GENTLY AND COMPLET... Start Date: 08/28/23 Status: Ordered LORazepam 0.5 mg oral tablet 1 tablet = 0.5 mg, By Mouth, Daily, # 30 tablet, 5 Refills, Soft Stop, 09/15/23 16:05:00 EDT, [facility], 155, cm, 08/21/23 10:50:00 EDT, Height, 74.5, kg, 06/16/23 16:56:00 EDT, Dry Weight Start Date: 09/15/23 Status: Ordered nabumetone 750 mg oral tablet 1 tablet, By Mouth, 2 times a day with meals, # 60 tablet, 1 Refills, Maintenance, 09/15/23 16:05:00 EDT, [facility], 155, cm, 08/21/23 10:50:00 EDT, Height, 74.5, kg, 06/16/23 16:56:00 EDT, Dry Weight Start Date: 09/15/23 Status: Ordered rosuvastatin 5 mg oral tablet 1 tablet, By Mouth, Daily, # 90 tablet, 0 Refills, Maintenance, 06/12/23 12:13:00 EDT, [facility] [id number], 156, cm, 06/02/23 10:46:00 EDT, Height Start Date: 06/12/23 Status: Ordered traZODone 100 mg oral tablet 200 mg, 2, tablet, By Mouth, Daily at bedtime, DOSAGE INCREASE, # 180 tablet, Refills 1, Tot. Refills 1, Maintenance, 08/21/23 10:59:00 EDT, Route to Pharmacy Electronically, [facility]/pharmacy #[id number], Partial fill upon patient request if the [...] 11 Refills, Maintenance, 05/01/20 11:32:00 EST, Capsule, [facility]/pharmacy #[id number], Partial fill upon patient request if the [...] Primary Care Member Role: PCP Address: Address: [address] [place] [address]- Care Team Related Persons Name: DANTE NICOLE Address: home [address] [place] [id number] Name: PASTORA NICOLE
--- OUTSIDE RECORDS SUMMARY | 2023-11-07 21:40 | XMS_ITS | Continuity of Care Document ---
Author Organization [facility] Azam Torres Hammad lt Address [address] [place] [address]- Care Team Providers Care Client Services Assistant Name Role Phone Alisa MAS, Coy Peng Primary Care Physician [phone] Encounter [facility] Date(s): 06/20/23 - 06/27/23 [facility] Azam Torres Adult [address] [place] [address]- Encounter Diagnosis Weakness(Discharge Diagnosis) - 06/20/23 Multiple sclerosis(Discharge Diagnosis) - 06/20/23 Tremor(Discharge Diagnosis) - 06/20/23 Attending Physician: Not on Staff, Attending MD [...] influenza virus vaccine, inactivated 12/09/17 Camacho rded [id number] bivalent booster vax 12/22/21 Recorded SARS-CoV-2 (COVID-19) [...] 02/27/03 Given 1Result Comment: pt received from [facility] Medications ferrous sulfate 325 mg oral enteric coated tablet 325 mg, 1, tablet, By Mouth, Daily, # 90 tablet, Refills 11, Tot. Refills 11, Maintenance, 05/01/2110:32:00 EST, [id number] upon [...] EDT, Height Start Date: 06/11/23 Status: Ordered loratadine 10 mg oral tablet 10 mg, 1, tablet, By Mouth, Daily, # 90 tablet, Refills 3, Tot. Refills 3, Maintenance, 06/24/21 10:50:00 EDT, [id number] Partial fill upon patient request if the prescription is for a schedule II opioid drug... Start Date: 06/24/21 Status: Ordered LORazepam 0.5 mg oral tablet 1 tablet = 0.5 mg, By Mouth, Daily, # 30 tablet, 5 Refills, Soft Stop, 02/02/23 8:40:00 EST, [facility]/pharmacy #[id number], 156, cm, 01/26/23 17:08:00 EST, Height Start Date: 02/02/23 Status: Ordered nabumetone 750 mg oral tablet 1 tablet, By Mouth, 2 times a day with meals, # 60 tablet, 14 Refills, Maintenance, 08/31/22 12:49:00 EDT, [facility], 156, cm, 08/02/22 9:52:00 EDT, Height Start Date: 08/31/22 Status: Ordered Potassium Acetate 0 Refills, Maintenance, 06/02/23 10:46:00 EDT, Partial fill upon patient request if the prescription is for a schedule II opioid drug. Start Date: 06/02/23 Status: Ordered rosuvastatin 5 mg oral tablet 1 tablet, By Mouth, Daily, # 90 tablet, 0 Refills, Maintenance, 06/12/23 12:13:00 EDT, [facility], 156, cm, 06/02/23 10:46:00 EDT, Height Start Date: 06/12/23 Status: Ordered traZODone 150 mg oral tablet [...] Dates Health Status Cl inical Service Informant Weakness Discharge Diagnosis 06/20/23 Multiple sclerosis Discharge Diagnosis 06/20/23 Tremor Discharge Diagnosis 06/20/23 Vital Signs Most recent to oldest [Reference Range]: 1 Height 155 cm (06/20/23 9:54 AM) Weight 78.9 kg (06/20/23 9:54 AM) Oxygen Saturation [94-100 %] 96 % (06/20/23 9:54 AM) Pulse Rate [55-90 bpm] 92 bpm *H* (06/20/23 9:54 AM) Body Mass Index [18.5-24.99 kg/m2] 32.84 kg/m2 *>HHI* (06/20/23 9:54 AM) Blood Pressure [90-138/55-84 mm Hg] 108/ 66mm Hg (06/20/23 9:54 AM) Temperature [96.8-100.4 DegF] 98.1 DegF (06/20/23 9:54 AM) Mode of Delivery (Oxygen) Room air (06/20/23 9:54 AM) Blood pressure sites Arm, right (06/20/23 9:54 AM) Temperature Route Oral (06/20/23 9:54 AM) Weight Obtained Via Standing scale (06/20/23 9:54 AM) Social History Social History Type Response Smoking Status Former smoker, quit more than 30 days ago; Other: Quit 2007; entered on: 11/19/20 Sex Patient Care team information Care Team Personnel Name: Coy Cuellar MD Position: S Physician - Primary Care Member Role: PCP Address: Address: [address] [place] [phone]- [place] Care Team Related Persons Name: DANTE NICOLE Address: home [address] [place] [address] Name: PASTORA NICOLE
--- OUTSIDE RECORDS SUMMARY | 2023-11-07 21:40 | XMS_ITS | Continuity of Care Document ---
Author Organization [facility] Azam Torres Hammad lt Address [address] [place] [address]- Care Team Providers Care Front Office Associate Name Role Phone Coy Cuellar MD Primary Care Physician [phone] [facility]s): 02/01/23 - 03/03/23 [facility] Azam Torres Adult [address] [place] [address]- Allergies, Adverse Reactions, Alerts Substance Reaction Severity [...] influenza virus vaccine, inactivated 12/09/17 Camacho rded [id number] bivalent booster vax 12/22/21 Recorded SARS-CoV-2 (COVID-19) [...] Given 1Result Comment: pt received from [facility] Ezekiel Mccartney Medications ferrous sulfate 325 mg oral enteric coated tablet 325 mg, 1, tablet, By Mouth, Daily, # 90 tablet, Refills 11, Tot. Refills 11, Maintenance, 05/01/2110:32:00 EST, Route to Pharmacy Electronically, [facility]/pharmacy #[id number], Partial fill upon patient request if the prescription is for a schedule II opioid d... Start Date: 05/01/20 Status: Ordered hydrochlorothiazide-triamterene 25 mg-37.5 mg oral capsule 1 capsule, By Mouth, Daily, *REPLACES CLONIDINE*., # 90 capsule, 1 Refills, Maintenance, 12/23/22 16:36:00 EDT, [facility] 655[facility], 90, TAKE ONE CAPSULE BY MOUTH EVERY DAY *REPLACES CLONIDINE*, 156, cm,09/05/22 11:06:00 EDT, Height Start Date: 12/23/22 Status: Ordered loratadine 10 mg oral tablet 10 mg, 1, tablet, By Mouth, Daily, # 90 tablet, Refills 3, Tot. Refills 3, Maintenance, 06/24/21 10:50:00 EDT, Route to Pharmacy Electronically, [facility]/pharmacy #[id number], Partial fill upon patient request if the prescription is for a schedule II opioid drug... Start Date: 06/24/21 Status: Ordered LORazepam 0.5 mg oral tablet 1 tablet = 0.5 mg, By Mouth, Daily, # 30 tablet, 5 Refills, Soft Stop, 02/02/23 8:40:00 EST, [facility]/pharmacy #[id number], 156, cm, 01/26/23 17:08:00 EST, Height Start Date: 02/02/23 Status: Ordered nabumetone 750 mg oral tablet 1 tablet, By Mouth, 2 times a day with meals, # 60 tablet, 14 Refills, Maintenance, 08/31/22 12:49:00 EDT, [facility] [id number], 156, cm, 08/02/22 9:52:00 EDT, Height Start Date: 08/31/22 Status: Ordered rosuvastatin 5 mg oral tablet 1 tablet, By Mouth, Daily, # 90 tablet, 1 Refills, Maintenance, 07/04/22 15:03:00 EDT, [facility], 156, cm, 05/09/22 9:48:00 EDT, Height Start Date: 07/04/22 Status: Ordered traZODone 100 mg oral tablet 1, tablet, By Mouth, Daily at bedtime, # 90 tablet, Refills 1, Maintenance, 02/01/23 15:33:00 EST, Route to Pharmacy Electronically, [facility], 156, cm, 01/26/23 17:08:00 EST, Height Start [...] Care Member Role: PCP Address: Address: [address] [place] [phone]- Care Team Related Persons Name: DANTE NICOLE Address: [address] [place] [address] Name: PASTORA NICOLE
--- OUTSIDE RECORDS SUMMARY | 2023-11-07 21:40 | XMS_ITS | Continuity of Care Document ---
Author Organization [facility] Brian Hammad lt Address [address] [place] [address]- Care Team Providers Care Press Operator Instant Print Shop Name Role Phone Coy Cuellar MD Primary Care Physician [facility]): 04/26/22 - 05/03/22 [facility] [place] Adult [address] [place] [address]- Attending Physician: Fabby KEN, Elda Valencia Allergies, Adverse Reactions, Alerts Substance Reaction Severity Status codeine Active ibuprofen 1 Active indomethacin Active lisinopril 2 Active Inderal 3 Active Betadine Skin Cleanser Activ e 1gets itchy 2pt reports her tongue swells up 3gets anxiety Immunizations Given and Recorded Vaccine Date Status Refusal Reason [id number] bivalent booster vax 12/22/21 Recorded influenza virus [...] pt received from [facility] Dr. Daly biotin 5000 mcg oral [...] Maintenance, 05/01/2110:32:00 EST, [id number] fill upon patient request if the prescription is for a schedule II opioid d... Start Date: 05/01/20 Status: Ordered hydrochlorothiazide-triamterene 25 mg-37.5 mg oral capsule See Instructions, TAKE ONE CAPSULE BY MOUTH EVERY DAY *REPLACES CLONIDINE*, # 90 capsule, 1 Refills, Maintenance, 02/27/22 16:00:00 EST, [facility]/pharmacy #[id number], 90, TAKE ONE CAPSULE BY MOUTH [...] 06/24/21 10:50:00 EDT, Route to Pharmacy Electronically, [facility]/pharmacy #[id number], Partial fill upon patient request if the prescription is for a schedule II opioid drug... Start Date: 06/24/21 Status: Ordered LORazepam 0.5 mg oral tablet 1 tablet = 0.5 mg, By Mouth, Daily, APPOINTMENT NEEDED FOR FURTHER REFILLS, # 30 tablet, 0 Refills,Soft Stop, 04/21/22 6:45:00 EST, [facility]/pharmacy #[id number], 156, cm, 01/18/22 7:21:00 EST, Height Start Date: 04/21/22 Status: Ordered nabumetone 750 mg oral tablet 1 tablet, By Mouth, 2 times a day with meals, # 180 tablet, 1 Refills, Maintenance, 12/27/21 9:38:00 EDT, [facility], 156, cm, 09/21/21 9:41:00 EDT, Height Start Date: 12/27/21 Status: Ordered rosuvastatin 5 mg oral tablet 1 tablet, By Mouth, Daily, # 90 tablet, 1 Refills, 01/18/22 7:39:00 EST, [facility]/pharmacy #[id number], 156, cm, 01/18/22 7:21:00 EST, Height [...] EDT, Route to Pharmacy Electronically, [facility], 156, cm, 09/21/21 9:41:00 EDT, Height Start Date: 12/27/21 Status: Ordered venlafaxine 75 mg oral capsule, extended release 75 mg, 1, capsule, By Mouth, Daily, APPOINTMENT NEEDED FOR FURTHER REFILLS, # 30 capsule, Refills 0, Tot. Refills 0, Maintenance, 03/10/22 10:58:00 EST, Route to Pharmacy Electronically, [facility]/pharmacy#0693, Partial fill upon patient request if the pre... Start Date: 03/10/22 Status: Ordered Vitamin D 17033 iu oral capsule 50,000 International_Units, 1, capsule, [...] oldest [Reference Range]: 1 Height 156 cm (04/26/22 10:10 AM) Weight 73.7 kg (04/26/22 10:10 AM) Oxygen Saturation [94-100 %] 97 % (04/26/22 10:10 AM) Pulse Rate [55-90 bpm] 97 bpm *H* (04/26/22 10:10 AM) Body Mass Index [18.5-24.99 kg/m2] 30.28 kg/m2 *>HHI* (04/26/22 10:10 AM) Blood Pressure [90-138/55-84 mm Hg] 108/ 72mm Hg (04/26/22 10:10 AM) Respiratory Rate [16-30 br/min] 16 br/mi n (04/26/22 10:10 AM) Temperature [96.8-100.4 DegF] 98.3 DegF (04/26/22 10:10 AM) Mode of Delivery (Oxygen) Room air (04/26/22 10:10 AM) Blood pressure sites Arm, left (04/26/22 10:10 AM) Temperature Route Oral (04/26/22 10:10 AM) Weight Obtained Via Standing scale (04/26/22 10:10 AM) Social History Social History Type Response Smoking Status Former smoker, quit more than 30 days ago; Other: Quit 2007; entered on: 11/19/20 Sex Note * Brittany Ramos: PERFORM, SIGN, VERIFY Event Display: Patient Education/Instruction Authored Date: [id number] [facility] *BMP So Brian Rodríguez Clinical Summary Name JAYA NICOLE Age 67 Years 1955 PCP Alisa MAS, Coy Peng PCP Visit Date 04/26/2022 10:04:00 Additional Instructions: Scheduled Appointments?? Future Appointments ?No Future Appointments Scheduled Follow-Up Instructions ?? With: Address: When: Fabby KEN, Elda Valencia [address] [place] [address] [phone] [employer] ([employer] In 3 months Comments: 40 min Diagnosis Sleep disorder, unspecified; Multiple sclerosis; Essential (primary) hypertension; Pure hypercholesterolemia, unspecified; Major depressive disorder, recurrent, moderate; Gastro-esophageal reflux disease without esophagitis; Anxiety disorder, unspecified; Low back pain, unspecified Medications: Please continue your medications until treatment is completed or stopped by your provider. Discuss any questions related to medications with your provider. Medications to Continue with No Changes These [...] Refills: 0. Next Dose: Ergocalciferol (Vitamin D 36388 iu oral capsule) 50,000 International Unit Oral [...] mg oral tablet) 1 tab(s) Oral Daily. APPOINTMENT NEEDED FOR FURTHER REFILLS. Refills: 0. Next Dose: Multivitamin With Iron [...] at Bedtime. DOSAGE INCREASE.. Refills:1. Next Dose: Venlafaxine (venlafaxine 75 mg oral capsule, extended release) 1 capsule Oral Daily. APPOINTMENT NEEDED FOR FURTHER REFILLS. Refills: 0. Next Dose: Allergy Info:?? Betadine Skin Cleanser; Inderal; lisinopril; indomethacin; ibuprofen; codeine Medications Given This Visit Future Orders ?No future orders Vital Signs Height 156 cm Weight 73.7 kg BMI 30.28 kg/m2 Blood Pressure 108 mm Hg/72 mm Hg Temperature 98.3 DegF Pulse Rate 97 bpm Respiratory Rate 16 br/min 02 Sat Mode of Delivery 97 %/Room air You can now view a summary of your hospital visit from the comfort of your home through a free online portal called [employer]. [employer] is a website that allows you to securely view your medical information including discharge summary, medications and follow-up visits. ??You can alsosend a secure electronic message to your doctor???s office to request appointments, renew medications or just ask a question. You can enroll at [email or web address] or register during your next office visit. [...] primary care provider, you may find a [facility] provider by calling [facility] GiveForward Link at [phone]. For information about the plan of care [...] Care Physician Member Role: PCP Address: Address: [address] [place] [address]- Care Team Related Persons Name: DANTE NICOLE Address: home [address] [place] [address] Name: PASTORA NICOLE
--- OUTSIDE RECORDS SUMMARY | 2023-11-07 21:40 | XMS_ITS | Continuity of Care Document ---
Author Organization [facility] Azam Torres Hammad lt Address [address] [place] [address]- Care Team Providers Care Ambulatory Services Representative Name Role Phone Coy Cuellar MD Primary Care Physician Encounter [facility] Date(s): 12/03/19 - 12/10/19 [facility] Adult [address] [place] [address]- [facility] Encounter Diagnosis Anxiety(Discharge Diagnosis) - 12/03/19 Depression(Discharge Diagnosis) - 12/03/19 Abscess of buttock, left(Discharge Diagnosis) - 12/03/19 Attending Physician: Elda Sequeira NP Referring Physician: [...] received from [facility] Medications Advair Diskus 250 [...] Replace Required Details, Route to Pharmacy Electronically, [id number]... Start Date: 09/13/19 Status: Ordered Aleve = 220 mg, By Mouth, 0 Refills, Maintenance, 08/13/19 11:07:00 EDT Start Date: 08/13/19 Status: Ordered Crestor 5 mg oral tablet 1 tablet = 5 mg, By Mouth, Daily, # 90 tablet, 1 Refills, Maintenance, 11/07/19 15:56:00 EDT, Tablet, [facility]/pharmacy #[id number], 157.48, cm, 08/13/19 10:51:00 [...] Refills, Soft Stop, 08/13/19 12:12:00 EDT, [facility]/pharmacy #[id number], 157.48, cm, 08/13/19 10:51:00 [...] 10:51:00 EDT, Route to Pharmacy Electronically, [facility]/pharmacy #[id number], 157.48, cm, 08/13/19 10:51:00 EDT, Height Start Date: 10/21/19 Status: Ordered Vitamin D 22988 iu oral capsule 50,000 International_Units, 1, capsule, By Mouth, Daily, Refills 0, Maintenance, 08/13/19 11:04:00 EDT Start Date: 08/13/19 Status: Ordered Zoloft 50 mg oral tablet 1 tablet = 50 mg, By Mouth, Daily, DOSAGE INCREASE, # 30 tablet, 1 Refills, Maintenance, 12/03/19 11:17:00 EDT, Tablet, [facility]/pharmacy #[id number], 157.48, cm, 12/03/19 10:55:00 [...] Effective Dates Health Status Clinical Service Informant Anxiety Discharge Diagnosis 12/03/19 Depression Discharge Diagnosis 12/03/19 Abscess of buttock, left Discharge Diagnosis 12/03/19 Vital Signs Most recent to oldest [Reference Range]: 1 Height 157.48 cm (12/03/19 10:55 AM) Weight 84.6 kg (12/03/19 10:55 AM) Body Mass Index [18.5-24.99] 34.11 *>HHI* (12/03/19 10:55 AM) Blood Pressure [90-138/55-84 mm Hg] 110/ 68mm Hg (12/03/19 10:55 AM) Blood pressure sites Arm, right (12/03/19 10:55 AM) Social History Social History Type Response Smoking Status Never (less than 100 in lifetime) entered on: 03/08/19 Sex
--- OUTSIDE RECORDS SUMMARY | 2023-11-07 21:40 | XMS_ITS | Continuity of Care Document ---
Author Organization [facility] Azam Torres Hammad lt Address [address] [place] [address]- Care Team Providers Care Administrative Underwriter Name Role Phone Coy Cuellar MD Primary Care Physician [phone] [facility] 09[facility]19 - 10/13/19 [facility] Adult [address] [place] [address]- [facility] Allergies, Adverse Reactions, Alerts Substance [...] Replace Required Details, Route to Pharmacy Electronically, [id number]... Start Date: 09/13/19 Status: Ordered Aleve = 220 mg, By Mouth, 0 Refills, Maintenance, 08/13/19 11:07:00 EDT Start Date: 08/13/19 Status: Ordered Crestor 5 mg oral tablet 1 tablet = 5 mg, By Mouth, Daily, # 30 tablet, 5 Refills, Maintenance, 09/04/19 10:55:00 EDT, Tablet, [facility]/pharmacy #[id number], 157.48, cm, 08/13/19 10:51:00 EDT, Height Start Date: 09/04/19 Status: Ordered Ferrous Sulfate EC Refills 0, Maintenance, 08/13/19 11:26:00 EDT Start Date: 08/13/19 Status: Ordered hydrochlorothiazide-triamterene 25 mg-37.5 mg oral capsule See Instructions, TAKE ONE CAPSULE BY MOUTH EVERY DAY *REPLACES CLONIDINE*, # 90 capsule, 1 Refills, Soft Stop, 09/13/19 11:53:00 EDT, [facility]/pharmacy #[id number], TAKE ONE CAPSULE BY MOUTH EVERY [...] capsule, 0 Refills, Maintenance, 09/03/19 15:27:00 EDT, [facility]/pharmacy #[id number], 157.48, cm, 08/13/19 10:51:00 EDT, Height [...] 08/13/19 11:26:00 EDT, Route to Pharmacy Electronically, [facility]/pharmacy #[id number], 157.48, cm, 08/13/19 10:51:00 EDT, Height Start Date: 08/13/19 Status: Ordered Vitamin D 45792 iu oral capsule 50,000 International_Units, 1, capsule, By Mouth, Daily, Refills 0, Maintenance, 08/13/19 11:04:00 EDT Start Date: 08/13/19 Status: Ordered Wellbutrin XL 300 mg/24 hours oral tablet, extended release 1 tablet = 300 mg, By Mouth, Daily, DOSAGE INCREASE, # 30 tablet, 3 Refills, Maintenance, 08/13/19 11:25:00 EDT, ER Tablet, [facility]/pharmacy #[id number], 157.48, cm, 08/13/19 10:51:00 EDT, Height [...]
--- OUTSIDE RECORDS SUMMARY | 2023-11-07 21:40 | XMS_ITS | Continuity of Care Document ---
Author Organization [facility] Azam Torres Hammad Address [address] [place] [address]- Care Team Providers Care Rubber Off Name Role Phone Coy Cuellar MD Primary Care Physician [facility] 04[facility] - 04/15/19 [facility] Azam Torres Adult [address] [place] [address]- [facility] Attending Physician: Elda Sequeira NP Referring Physician: [...] Refuses 1Result Comment: pt received from [facility] Ezekiel Mccartney Medications Advair Diskus 250 mcg-50 mcg inhalation powder 1, puffs, Inhalation, 2 times a day, # 180 each, Refills 11, Tot. Refills 11, Maintenance, 10/04/1914:03:03 EDT, Powder, Print Requisition Start Date: 10/04/18 Status: Ordered albuterol CFC free 90 mcg/inh inhalation aerosol See Instructions, # 8.5 Unknown, Refills 5 Tot. Refills 5, INHALE 2 PUFFS EVERY 6 HOURS NEEDED FOR WHEEZING, [facility]/pharmacy #[id number] Start Date: 10/30/18 Status: Ordered betamethasone-clotrimazole 0.05%-1% topical cream See Instructions, # 45 Gm, Refills 1 Tot. Refills 1, APPLY TO AFFECTED AREA TWICE A DAY, [facility]/pharmacy #[id number] Start Date: 01/10/19 Status: Ordered Crestor 5 mg oral tablet 1 tablet = 5 mg, By Mouth, Daily, # 30 tablet, 5 Refills, Maintenance, 03/08/19 11:58:00 EST, Tablet, [facility]/pharmacy #[id number], 157.48, cm, 03/08/19 10:35:00 EST, Height Start Date: 03/08/19 Status: Ordered hydrochlorothiazide-triamterene 25 mg-37.5 mg oral capsule See Instructions, TAKE ONE CAPSULE BY MOUTH EVERY DAY *REPLACES CLONIDINE*, # 30 capsule, 5 Refills, Soft Stop, 03/08/19 13:34:00 EST, [facility]/pharmacy #[id number], TAKE ONE CAPSULE BY MOUTH EVERY DAY *REPLACES CLONIDINE*, 157.48, cm, 03/08/19 10:35:00 EST, Height Start Date: 03/08/19 Status: Ordered LORazepam 0.5 mg oral tablet See Instructions, TAKE 1 TABLET BY MOUTH EVERY DAY, # 30 tablet, 0 Refills, Soft Stop, 02/11/19 11:32:48 EST, [facility]/pharmacy #[id number], 157.48, cm, 10/04/18 14:39:17 EDT, Height Start Date: 02/11/19 Status: Ordered prednisolone ophthalmic acetate 1% suspension 1 drops, Eyes, Both, 4 times a day, # 5 mL, 0 Refills, Maintenance, 03/08/19 10:40:00 EST, Ophth Suspension Start Date: 03/08/19 Stop Date: 03/18/19 Status: Ordered traZODone 50 mg oral tablet 25 mg, 0.5, tablet, By Mouth, Daily at bedtime, # 15 tablet, Refills 1, Tot. Refills 1, Maintenance, 04/08/19 9:43:00 EST, Route to Pharmacy Electronically, [facility]/pharmacy #[id number], 157.48, cm, 04/08/19 9:15:00 EST, Height Start Date: 04/08/19 Status: Ordered Problem List Condition Effective Dates [...] oldest [Reference Range]: 1 Height 157.48 cm (04/08/19 9:15 AM) Weight 81.5 kg (04/08/19 9:15 AM) Oxygen Saturation [94-100 %] 95 % (04/08/19 9:15 AM) Pulse Rate [55-90 bpm] 112 bpm *H* (04/08/19 9:15 AM) Body Mass Index [18.5-24.99] 32.86 *>HHI* (04/08/19 9:15 AM) Blood Pressure [90-138/55-84 mm Hg] 122/ 84mm Hg (04/08/19 9:15 AM) Temperature [96.8-100.4 DegF] 98.1 DegF (04/08/19 9:15 AM) Social History Social History Type Response Smoking Status Never (less than 100 in lifetime) entered on: 03/08/19 Sex
--- NOTE | 2023-11-07 21:41 | PC.NURSE ---
spoke with son, Perez, per Pt's permission, update given
--- OUTSIDE RECORDS SUMMARY | 2023-11-07 21:41 | XMS_ITS | Continuity of Care Document ---
Author Organization [facility] Azam Torres Hammad lt Address [address] [place] [address]- Care Team Providers Care Cinder Crew Worker Name Role Phone Coy Cuellar MD Primary Care Physician [phone] [facility] 06[facility] - 07/05/23 [facility] Azam Torres Adult [address] [place] [address]- Allergies, Adverse Reactions, Alerts Substance Reaction Severity [...] influenza virus vaccine, inactivated 12/09/17 Camacho rded [id number] bivalent booster vax 12/22/21 Recorded SARS-CoV-2 (COVID-19) [...] 02/27/03 Given 1Result Comment: pt received from [facility] Ezekiel Mccartney Medications ferrous sulfate 325 mg oral enteric coated tablet 325 mg, 1, tablet, By Mouth, Daily, # 90 tablet, Refills 11, Tot. Refills 11, Maintenance, 05/01/2110:32:00 EST, [id number] Partial fill upon patient request if the prescription is for a schedule II opioid d... Start Date: 05/01/20 Status: Ordered hydrochlorothiazide-triamterene 25 mg-37.5 mg oral capsule 1 capsule, By Mouth, Daily, # 90 capsule, 1 Refills, Maintenance, 06/11/23 6:40:00 EDT, [id number], 90, 1 capsule By Mouth Daily, 156, cm, 06/02/23 10:46:00 EDT, Height Start Date: 06/11/23 Status: Ordered LORazepam 0.5 mg oral tablet 1 tablet = 0.5 mg, By Mouth, Daily, # 30 tablet, 5 Refills, Soft Stop, 02/02/23 8:40:00 EST, [id number], 156, cm, 01/26/23 17:08:00 EST, Height Start Date: 02/02/23 Status: Ordered nabumetone 750 mg oral tablet 1 tablet, By Mouth, 2 times a day with meals, # 60 tablet, 14 Refills, Maintenance, 08/31/22 12:49:00 EDT, [facility], 156, cm, 08/02/22 9:52:00 EDT, Height Start Date: 08/31/22 Status: Ordered rosuvastatin 5 mg oral tablet 1 tablet, By Mouth, Daily, # 90 tablet, 0 Refills, Maintenance, 06/12/23 12:13:00 EDT, [facility], 156, cm, 06/02/23 10:46:00 EDT, Height Start Date: 06/12/23 Status: Ordered traZODone 100 mg oral tablet 200 mg, 2, tablet, By Mouth, Daily at bedtime, DOSAGE INCREASE, # 60 tablet, Refills 1, Tot. Refills 1, Maintenance, 07/03/23 11:31:00 EDT, Route to Pharmacy Electronically, [facility]/pharmacy #[id number], Partial fill upon patient request if the [...] 11 Refills, Maintenance, 05/01/20 11:32:00 EST, Capsule, [facility]/pharmacy #[id number], Partial fill upon patient request if the [...] Primary Care Member Role: PCP Address: Address: [address] [place] [address]- Care Team Related Persons Name: DANTE NICOLE Address: home [address] [address] Name: PASTORA NICOLE
--- OUTSIDE RECORDS SUMMARY | 2023-11-07 21:41 | XMS_ITS | Continuity of Care Document ---
Author Organization [facility] Azam Torres Hammad lt Address [address] [place] [address]- Care Team Providers Care Pot Fluxer Name Role Phone Coy Cuellar MD Primary Care Physician [facility]): 11[facility]07[facility]19 - 12/07/19 [facility] Adult [address] [place] [address]- [facility] Allergies, Adverse Reactions, Alerts Substance Reaction [...] Guardian Refuses 1Result Comment: pt received from [facility] Medications Advair Diskus 250 mcg-50 [...] Replace Required Details, Route to Pharmacy Electronically, [id number]... Start Date: 09/13/19 Status: Ordered Aleve = [...] 2 Refills, Soft Stop, 08/13/19 12:12:00 EDT, [facility]/pharmacy #[id number], 157.48, cm, 08/13/19 10:51:00 EDT, Height Start Date: 08/13/19 Status: Ordered omeprazole 20 mg oral enteric coated capsule 1 capsule = 20 mg, By Mouth, Daily, # 14 capsule, 0 Refills, Maintenance, 09/03/19 15:27:00 EDT, [facility]/pharmacy #[id number], 157.48, cm, 08/13/19 10:51:00 [...] 10/21/19 10:51:00 EDT, Route to Pharmacy Electronically, [facility]/pharmacy #[id number], 157.48, cm, 08/13/19 10:51:00 EDT, Height Start Date: 10/21/19 Status: Ordered Vitamin D 25268 iu oral capsule 50,000 International_Units, 1, capsule, By Mouth, Daily, Refills 0, Maintenance, 08/13/19 11:04:00 EDT Start Date: 08/13/19 Status: Ordered Zoloft 50 mg oral tablet 1 tablet = 50 mg, By Mouth, Daily, DOSAGE INCREASE, # 30 tablet, 1 Refills, Maintenance, 12/03/19 11:17:00 EDT, Tablet, [facility]/pharmacy #[id number], 157.48, cm, 12/03/19 10:55:00 EDT, Height [...]
--- OUTSIDE RECORDS SUMMARY | 2023-11-07 21:41 | XMS_ITS | Continuity of Care Document ---
Author Organization [facility] Azam Torres Hammad lt Address [address] [place] [address]- Care Team Providers Care Senior Clinical Data Manager Name Role Phone Coy Cuellar MD Primary Care Physician [facility]s): 01/05/22 - 02/04/22 [facility] Adult [address] [place] [address]- Allergies, Adverse Reactions, Alerts Substance Reaction Severity Status codeine Active ibuprofen 1 Active indomethacin Active lisinopril 2 Active Inderal 3 Active Betadine Skin Cleanser Activ e 1gets itchy 2pt reports her tongue swells up 3gets anxiety Immunizations Given and Recorded Vaccine Date Status Refusal Reason [id number] bivalent booster vax 12/22/21 Recorded influenza virus [...] Refuses 1Result Comment: pt received from [facility] Ezekiel Mccartney Medications albuterol CFC free 90 mcg/inh inhalation aerosol 2, puffs, Inhalation, Every 6 hours, # 18 Gm, Refills 3, Tot. Refills 3, Soft Stop, 08/16/21 10:54:00 EDT, Route to Pharmacy Electronically, [id number], [facility]/pharmacy #[id number], 156, cm, 08/16/21 10:42:00 [...] 05/01/2110:32:00 EST, Route to Pharmacy Electronically, [facility]/pharmacy #0843, Partial fill upon patient request if the prescription is for a schedule II opioid d... Start Date: 05/01/20 Status: Ordered hydrochlorothiazide-triamterene 25 mg-37.5 mg oral capsule 1 capsule, By Mouth, Daily, *REPLACES CLONIDINE*., # 90 capsule, 1 Refills, [facility] 212[facility], 90, TAKE ONE CAPSULE BY MOUTH EVERY [...] 10:50:00 EDT, Route to Pharmacy Electronically, [facility]/pharmacy #0843, Partial fill upon patient request if the prescription is for a schedule II opioid drug... Start Date: 06/24/21 Status: Ordered LORazepam 0.5 mg oral tablet 1 tablet = 0.5 mg, By Mouth, Daily, # 30 tablet, 0 Refills, Soft Stop, 12/16/21 18:01:00 EDT, [facility]/pharmacy #[id number], 156, cm, 09/21/21 9:41:00 EDT, [...] Refills, Maintenance, 12/27/21 9:38:00 EDT, [facility], 156, cm, 09/21/21 9:41:00 EDT, Height Start Date: 12/27/21 Status: Ordered omeprazole 20 mg oral enteric coated capsule 1 capsule, By Mouth, Daily, # 90 capsule, 0 Refills, Maintenance, 05/11/21 14:59:00 EDT, [facility]/pharmacy #[id number], 156, cm, 11/19/20 13:47:00 EDT, Height Start Date: 05/11/21 Status: Ordered rosuvastatin 5 mg oral tablet 1 tablet, By Mouth, Daily, # 90 tablet, 1 Refills, 01/18/22 7:39:00 EST, [facility]/pharmacy #[id number], 156, cm, 01/18/22 7:21:00 [...] 12/27/21 9:38:00 EDT, Route to Pharmacy Electronically, [facility] 438[facility], 156, cm, 09/21/21 9:41:00 EDT, Height Start Date: 12/27/21 Status: Ordered venlafaxine 75 mg oral capsule, extended release 75 mg, 1, capsule, By Mouth, Daily, DOSAGE INCREASE, # 30 capsule, Refills 1, Tot. Refills 1, Maintenance, 01/18/22 7:33:00 EST, Route to Pharmacy Electronically, [facility]/pharmacy #[id number], Partial fill upon patient request if the prescription is for a sched... Start Date: 01/18/22 Status: Ordered Vitamin D 01688 iu oral capsule 50,000 International_Units, 1, capsule, By Mouth, Daily, Refills 0, Maintenance, 08/13/19 11:04:00 EDT Start Date: 08/13/19 Status: Ordered Vitamin D3 2000 intl units oral capsule 1 capsule = 2,000 International_Units, By Mouth, Daily, # 60 capsule, 11 Refills, Maintenance, 05/01/20 11:32:00 EST, Capsule, [facility]/pharmacy #0843, Partial fill upon patient [...] Gm, 3 Refills, Maintenance, 08/19/21 6:43:00 EDT, [facility]/pharmacy #0843, Partial fill upon patient [...] Personnel Name: Alisa MAS, Coy Peng Position: [facility] Primary Care Physician Member Role: PCP Address: Address: [address] [place] [address]- Care Team Related Persons Name: DANTE NICOLE Address: home [address] [place] [id number] Name: PASTORA NICOLE
--- OUTSIDE RECORDS SUMMARY | 2023-11-07 21:41 | XMS_ITS | Continuity of Care Document ---
Author Organization [facility] Address [address] [address]- Care Team Providers Care High Pressure Boiler Operator Name Role Phone Coy Cuellar MD Primary Care Physician Encounter [facility] Date(s): 08/23/19 - 09/22/19 [facility] [address] [place] [address]- [facility] Attending Physician: AdmtrWiley Admitting Physician: Admtr, Ar8 Referring Physician: Admtr, ArReji Allergies, Adverse Reactions, Alerts Substance Reaction Severity [...] Guardian Refuses 1Result Comment: pt received from [facility] Medications Advair Diskus 250 mcg-50 mcg [...] Replace Required Details, Route to Pharmacy Electronically, [id number]... Start Date: 09/13/19 Status: Ordered Aleve = 220 mg, By Mouth, 0 Refills, Maintenance, 08/13/19 11:07:00 EDT Start Date: 08/13/19 Status: Ordered Crestor 5 mg oral tablet 1 tablet = 5 mg, By Mouth, Daily, # 30 tablet, 5 Refills, Maintenance, 09/04/19 10:55:00 EDT, Tablet, [facility]/pharmacy #[id number], 157.48, cm, 08/13/19 10:51:00 [...] capsule, 0 Refills, Maintenance, 09/03/19 15:27:00 EDT, [facility]/pharmacy #[id number], 157.48, cm, 08/13/19 10:51:00 [...] 08/13/19 11:26:00 EDT, Route to Pharmacy Electronically, [facility]/pharmacy #[id number], 157.48, cm, 08/13/19 10:51:00 EDT, Height Start Date: 08/13/19 Status: Ordered Vitamin D 99472 iu oral capsule 50,000 International_Units, 1, capsule, By Mouth, Daily, Refills 0, Maintenance, 08/13/19 11:04:00 EDT Start Date: 08/13/19 Status: Ordered Wellbutrin XL 300 mg/24 hours oral tablet, extended release 1 tablet = 300 mg, By Mouth, Daily, DOSAGE INCREASE, # 30 tablet, 3 Refills, Maintenance, 08/13/19 11:25:00 EDT, ER Tablet, [facility]/pharmacy #[id number], 157.48, cm, 08/13/19 10:51:00 [...]
--- OUTSIDE RECORDS SUMMARY | 2023-11-07 21:41 | XMS_ITS | Continuity of Care Document ---
Author Organization [facility] Azam Torres Hammad lt Address [address] [place] [address]- Care Team Providers Care Engraver Set Up Operator Name Role Phone Alisa MAS, Coy Peng Primary Care Physician [phone] Encounter [facility] Date(s): 09/05/22 - 09/12/22 [facility] Azam Torres Adult [address] [place] [address]- Encounter Diagnosis VICKI (generalized anxiety disorder)(Discharge Diagnosis) - 09/05/22 Depression, major, recurrent, moderate(Discharge Diagnosis) - 09/05/22 Attending Physician: Elda Sequeira NP Referring Physician: Coy Cuellar MD Allergies, Adverse Reactions, Alerts Substance Reaction Severity Status codeine Active ibuprofen 1 Active indomethacin Active lisinopril 2 Active Inderal 3 Active Betadine Skin Cleanser Activ e 1gets itchy 2pt reports her tongue swells up 3gets anxiety Immunizations Given and Recorded Vaccine Date Status Refusal Reason [id number] bivalent booster vax 12/22/21 Recorded influenza virus [...] pt received from [facility] Medications ferrous sulfate 325 mg oral enteric coated tablet 325 mg, 1, tablet, By Mouth, Daily, # 90 tablet, Refills 11, Tot. Refills 11, Maintenance, 05/01/2110:32:00 EST, Route to Pharmacy Electronically, [facility]/pharmacy #[id number], Partial fill upon patient request if the prescription is for a schedule II opioid d... Start Date: 05/01/20 Status: Ordered hydrochlorothiazide-triamterene 25 mg-37.5 mg oral capsule See Instructions, TAKE ONE CAPSULE BY MOUTH EVERY DAY *REPLACES CLONIDINE*, # 90 capsule, 1 Refills, Maintenance, 02/27/22 16:00:00 EST, [facility]/pharmacy #[id number], 90, TAKE ONE CAPSULE BY MOUTH EVERY DAY *REPLACES CLONIDINE*, 156, cm, 01/18/22 7:21:00 EST, H... Start Date: 02/27/22 Status: Ordered loratadine 10 mg oral tablet 10 mg, 1, tablet, By Mouth, Daily, # 90 tablet, Refills 3, Tot. Refills 3, Maintenance, 06/24/21 10:50:00 EDT, Route to Pharmacy Electronically, [facility]/pharmacy #[id number], Partial fill upon patient request if the prescription is for a schedule II opioid drug... Start Date: 06/24/21 Status: Ordered LORazepam 0.5 mg oral tablet 1 tablet = 0.5 mg, By Mouth, Daily, # 30 tablet, 5 Refills, Soft Stop, 08/02/22 11:08:00 EDT, [facility]/pharmacy #[id number], 156, cm, 08/02/22 9:52:00 EDT, Height Start Date: 08/02/22 Status: Ordered nabumetone 750 mg oral tablet 1 tablet, By Mouth, 2 times a day with meals, # 60 tablet, 14 Refills, Maintenance, 08/31/22 12:49:00 EDT, [id number], 156, cm, 08/02/22 9:52:00 EDT, Height Start Date: 08/31/22 Status: Ordered rosuvastatin 5 mg oral tablet 1 tablet, By Mouth, Daily, # 90 tablet, 1 Refills, Maintenance, 07/04/22 15:03:00 EDT, [facility], 156, cm, 05/09/22 9:48:00 EDT, Height Start Date: 07/04/22 Status: Ordered traZODone 100 mg oral tablet 1, tablet, By Mouth, Daily at bedtime, # 90 tablet, Refills 1, Maintenance, 08/29/22 14:54:00 EDT, Route to Pharmacy Electronically, [facility], 156, cm, 08/02/22 9:52:00 EDT, Height Start Date: 08/29/22 Status: Ordered Vitamin D3 2000 intl units oral capsule 1 capsule = 2,000 International_Units, By Mouth, Daily, # 60 capsule, 11 Refills, Maintenance, 05/01/20 11:32:00 EST, Capsule, [facility]/pharmacy #[id number], Partial fill upon patient [...] Dates Health Status Cl inical Service Informant VICKI (generalized anxiety disorder) Discharge Diagnosis 09/05/22 Depression, major, recurrent, moderate Discharge Diagnosis 09/05/22 Vital Signs Most recent to oldest [Reference Range]: 1 Height 156 cm (09/05/22 11:06 AM) Weight 76.9 kg (09/05/22 11:06 AM) Oxygen Saturation [94-100 %] 97 % (09/05/22 11:06 AM) Pulse Rate [55-90 bpm] 106 bpm *H* (09/05/22 11:06 AM) Body Mass Index [18.5-24.99 kg/m2] 31.6 kg/m2 *>HHI* (09/05/22 11:06 AM) Blood Pressure [90-138/55-84 mm Hg] 96/6 4mm Hg (09/05/22 11:06 AM) Respiratory Rate [16-30 br/min] 20 br/mi n (09/05/22 11:06 AM) Temperature [96.8-100.4 DegF] 98.0 DegF (09/05/22 11:06 AM) Mode of Delivery (Oxygen) Room air (09/05/22 11:06 AM) Blood pressure sites Arm, right (09/05/22 11:06 AM) Temperature Route Oral (09/05/22 11:06 AM) Weight Obtained Via Standing scale (09/05/22 11:06 AM) Social History Social History Type Response Smoking Status Former smoker, quit more than 30 days ago; Other: Quit 2007; entered on: 11/19/20 Sex Note * Shannon Ye: PERFORM, SIGN, VERIFY Event Display: Patient Education/Instruction Authored Date: [id number] [facility] *BMP Ginger Rodríguez Clinical Summary Name JAYA NICOLE Age 67 Years 1955 PCP Alisa MAS, Coy Peng PCP Visit Date 09/05/2022 10:56:00 Additional Instructions: Scheduled Appointments?? Future Appointments ?No Future Appointments Scheduled Follow-Up Instructions ?? With: Address: When: Fabby KEN, Elda Valencia [address] [place] [address] Road [place], [place] [id number] Healios K.K (1RECCY In 6 months Comments: 40 min Diagnosis Medications: Please continue your medications until treatment is completed or stopped by your provider. Discuss any questions related to medications with your provider. Medications to Continue with No Changes These medications were not printed or sent to your pharmacy Cholecalciferol (Vitamin D3 2000 intl units oral capsule) 1 capsule Oral Daily. Refills: 11. Next Dose: Durable Medical Equipment (Walker with 4 swiveling wheels seat and basket) HT: 5'1 WT: 162 Dx: MS ICD-10: G35, Unsteady Gait ICD-10: R26.81 LALIT: Lifetime. Refills: 0. Next Dose: Ferrous Sulfate (ferrous sulfate 325 [...] oral tablet) 1 tab(s) Oral Daily. Refills: 5. Next Dose: Nabumetone (nabumetone 750 mg oral tablet) 1 tab(s) Oral two times a day with meals. Refills: 14. Next Dose: Rosuvastatin (rosuvastatin 5 mg oral tablet) 1 tab(s) Oral Daily. Refills: 1. Next Dose: Trazodone (traZODone 100 mg oral tablet) 1 tab(s) Oral Daily at Bedtime. Refills: 1. Next Dose: Allergy Info:?? Betadine Skin Cleanser; Inderal; lisinopril; indomethacin; ibuprofen; codeine Medications Given This Visit Future Orders ?No future orders Vital Signs Height 156 cm Weight 76.9 kg BMI 31.6 kg/m2 Blood Pressure 96 mm Hg/64 mm Hg Temperature 98.0 DegF Pulse Rate 106 bpm Respiratory Rate 20 br/min 02 Sat Mode of Delivery 97 %/Room air You can now view a summary of your hospital visit from the comfort of your home through a free online portal called [facility] [facility]. [employer] is a website that allows you to securely view your medical information including discharge summary, medications and follow-up visits. ??You can alsosend a secure electronic message to your doctor???s office to request appointments, renew medications or just ask a question. You can enroll at [email or web address] or register during your next office [...] primary care provider, you may find a [facility] provider by calling [facility] Link at [phone]. For information about the plan of care [...] Primary Care Member Role: PCP Address: Address: [address] [place] [address]- Care Team Related Persons Name: DANTE NICOLE Address: home [address] [place] [id number] Name: PASTORA NICOLE
--- OUTSIDE RECORDS SUMMARY | 2023-11-07 21:41 | XMS_ITS | Continuity of Care Document ---
Author Organization [facility] Brian Hammad lt Address [address] [place] [address]- Care Team Providers Care In File Operator Name Role Phone Alisa MAS, Coy Peng Primary Care Physician [phone] Encounter [facility] Date(s): 07/01/21 - 07/08/21 [facility] Adult [address] [place] [address]- Encounter Diagnosis COVID-19(Discharge Diagnosis) - 07/01/21 Attending Physician: Fidencio KEN, Kezia Allergies, Adverse [...] Replace Required Details, Route to Pharmacy Electronically, [id number]... Start Date: 09/13/19 Status: Ordered biotin 5000 [...] Electronically, [facility]/pharmacy #[id number], Partial fill upon patient request if the prescription is for a schedule II opioid d... Start Date: 05/01/20 Status: Ordered hydrochlorothiazide-triamterene 25 mg-37.5 mg oral capsule 1 capsule, By Mouth, Daily, *REPLACES CLONIDINE*., # 90 capsule, 1 Refills, [facility] STORE [facility]85[facility], 90, TAKE ONE CAPSULE BY MOUTH EVERY [...] 2 Refills, Soft Stop, 06/28/21 13:53:00 EDT, [facility]/pharmacy #[id number], 156, cm, 06/24/21 10:16:00 EDT, Height [...] tablet, 0 Refills, Maintenance, 07/01/21 14:52:00 EDT, [facility]/pharmacy #[id number], Partial fill upon patient request if the prescription is for a schedule II opioid drug., Take 3 tablet by... Start Date: 07/01/21 Status: Ordered rosuvastatin 5 mg oral tablet 1 tablet, By Mouth, Daily, # 90 tablet, 3 Refills, [facility], 156, cm, 11/19/20 13:47:00 EDT,Height Start Date: [...] 05/21/21 15:06:00 EDT, Route to Pharmacy Electronically, [facility]/pharmacy #[id number], Partial fill upon patient request if the prescription is... Start Date: 05/21/21 Status: Ordered Vitamin D 40950 iu oral capsule 50,000 International_Units, 1, capsule, [...] Refills, Maintenance, 06/24/21 10:44:00 EDT, ER Tablet, [facility]/pharmacy #[id number], [...] Clini vishnu Service Informant COVID-19 Discharge Diagnosis 07/01/21 Vital Signs Most recent to oldest [Reference Range]: 1 Height 156 cm (07/01/21 2:11 PM) Social History Social History Type Response Smoking Status Former smoker, quit more than 30 days ago; Other: Quit 2007; entered on: 11/19/20 Sex
--- OUTSIDE RECORDS SUMMARY | 2023-11-07 21:41 | XMS_ITS | Continuity of Care Document ---
Author Organization [facility] Azam Torres Hammad lt Address [address] [place] [address]- Care Team Providers Care Hardware Sales Assistant Name Role Phone Alisa MAS, Coy Peng Primary Care Physician Encounter [facility] Date(s): 01/12/20 - 02/11/20 [facility] Adult [address] [place] [address]- Allergies, Adverse Reactions, Alerts Substance Reaction Severity [...] Replace Required Details, Route to Pharmacy Electronically, [id number]... Start Date: 09/13/19 Status: Ordered Aleve = 220 mg, By Mouth, 0 Refills, Maintenance, 08/13/19 11:07:00 EDT Start Date: 08/13/19 Status: Ordered Crestor 5 mg oral tablet 1 tablet = 5 mg, By Mouth, Daily, # 90 tablet, 1 Refills, Maintenance, 11/07/19 15:56:00 EDT, Tablet, [facility]/pharmacy #[id number], 157.48, cm, 08/13/19 10:51:00 EDT, [...] capsule, 0 Refills, Maintenance, 09/03/19 15:27:00 EDT, [facility]/pharmacy #0843, 157.48, cm, 08/13/19 10:51:00 EDT, [...] 10/21/19 10:51:00 EDT, Route to Pharmacy Electronically, [facility]/pharmacy #[id number], 157.48, cm, 08/13/19 10:51:00 EDT, Height Start Date: 10/21/19 Status: Ordered Vitamin D 57945 iu oral capsule 50,000 International_Units, 1, capsule, By Mouth, Daily, Refills 0, Maintenance, 08/13/19 11:04:00 EDT Start Date: 08/13/19 Status: Ordered Zoloft 50 mg oral tablet 1 tablet = 50 mg, By Mouth, Daily, DOSAGE INCREASE, # 30 tablet, 1 Refills, Maintenance, 01/21/20 10:09:00 EST, Tablet, [facility]/pharmacy #0843, Partial fill upon patient request, 157.48, [...]
--- OUTSIDE RECORDS SUMMARY | 2023-11-07 21:41 | XMS_ITS | Continuity of Care Document ---
Author Organization [facility] Azam Torres Hammad lt Address [address] [place] [address]- Care Team Providers Care Echocardiograph Tech Name Role Phone Alisa MAS, Coy Peng Primary Care Physician [phone] Encounter [facility] Date(s): 01/02/20 - 02/15/20 [facility] Adult [address] [place] [address]- Attending Physician: Elda Sequeira NP Referring Physician: [...] Guardian Refuses 1Result Comment: pt received from [facility] Medications Advair Diskus 250 mcg-50 [...] Replace Required Details, Route to Pharmacy Electronically, [id number]... Start Date: 09/13/19 Status: Ordered Aleve = 220 mg, By Mouth, 0 Refills, Maintenance, 08/13/19 11:07:00 EDT Start Date: 08/13/19 Status: Ordered Crestor 5 mg oral tablet 1 tablet = 5 mg, By Mouth, Daily, # 90 tablet, 1 Refills, Maintenance, 11/07/19 15:56:00 EDT, Tablet, [facility]/pharmacy #[id number], 157.48, cm, 08/13/19 10:51:00 EDT, [...] capsule, 0 Refills, Maintenance, 09/03/19 15:27:00 EDT, [facility]/pharmacy #0843, 157.48, cm, 08/13/19 10:51:00 EDT, [...] 10/21/19 10:51:00 EDT, Route to Pharmacy Electronically, [facility]/pharmacy #0843, 157.48, cm, 08/13/19 10:51:00 EDT, Height Start Date: 10/21/19 Status: Ordered Vitamin D 35594 iu oral capsule 50,000 International_Units, 1, capsule, By Mouth, Daily, Refills 0, Maintenance, 08/13/19 11:04:00 EDT Start Date: 08/13/19 Status: Ordered Zoloft 50 mg oral tablet 1 tablet = 50 mg, By Mouth, Daily, DOSAGE INCREASE, # 30 tablet, 1 Refills, Maintenance, 01/21/20 10:09:00 EST, Tablet, [facility]/pharmacy #[id number], Partial fill upon patient request, 157.48, [...]
--- OUTSIDE RECORDS SUMMARY | 2023-11-07 21:41 | XMS_ITS | Continuity of Care Document ---
Author Organization [facility] Brian Hammad lt Address [address] [place] [address]- Care Team Providers Care Academic Physician Name Role Phone Coy Cuellar MD Primary Care Physician [phone] [place] [facility] [place]s): 08/13/21 - 09/12/21 [facility] [place] Adult [address] [place] [address]- Allergies, Adverse Reactions, Alerts Substance Reaction Severity [...] Guardian Refuses 1Result Comment: pt received from [facility] Ezekiel Mccartney Medications albuterol CFC free 90 mcg/inh inhalation aerosol 2, puffs, Inhalation, Every 6 hours, # 18 Gm, Refills 3, Tot. Refills 3, Soft Stop, 08/16/21 10:54:00 EDT, Route to Pharmacy Electronically, [id number], [facility]/pharmacy #[id number], 156, cm, 08/16/21 10:42:00 EDT, [...] 08/16/21 10:56:00 EDT, Route to Pharmacy Electronically, [facility]/pharmacy #[id number], Partial fill upon patient request if the prescription is for a schedule II opioid... Start Date: 08/16/21 Status: Ordered ferrous sulfate 325 mg oral enteric coated tablet 325 mg, 1, tablet, By Mouth, Daily, # 90 tablet, Refills 11, Tot. Refills 11, Maintenance, 05/01/2110:32:00 EST, Route to Pharmacy Electronically, [facility]/pharmacy #[id number], Partial fill upon patient request if the prescription is for a schedule II opioid d... Start Date: 05/01/20 Status: Ordered hydrochlorothiazide-triamterene 25 mg-37.5 mg oral capsule 1 capsule, By Mouth, Daily, *REPLACES CLONIDINE*., # 90 capsule, 1 Refills, [facility] 09[facility], 90, TAKE ONE CAPSULE BY MOUTH EVERY [...] # 90 tablet, 3 Refills, [facility], 156, cm, 11/19/20 13:47:00 EDT,Height Start Date: [...] 07/30/21 10:32:00 EDT, Route to Pharmacy Electronically, [facility]/pharmacy #0843, Partial fill upon patient request if the prescription is... Start Date: 07/30/21 Status: Ordered Vitamin D 34663 iu oral capsule 50,000 International_Units, 1, capsule, By Mouth, Daily, Refills 0, Maintenance, 08/13/19 11:04:00 EDT Start Date: 08/13/19 Status: Ordered Vitamin D3 2000 intl units oral capsule 1 capsule = 2,000 International_Units, By Mouth, Daily, # 60 capsule, 11 Refills, Maintenance, 05/01/20 11:32:00 EST, Capsule, [facility]/pharmacy #[id number], Partial fill upon patient request [...]
--- OUTSIDE RECORDS SUMMARY | 2023-11-07 21:41 | XMS_ITS | Continuity of Care Document ---
Author Organization [facility] Address [address] [facility], [address] d Floor, [address] [place] [address]- Care Team Providers Care Specimen Preparation Assistant Name Role Phone Alisa MAS, Coy Peng Primary Care Physician [phone] Encounter [facility] Date(s): 09/29/23 - 10/29/23 [facility] [address], [address] [place] [address]- Attending Physician: Wiley Brown Admitting Physician: Wiley Brown Referring Physician: AdmtrWiley Allergies, Adverse Reactions, Alerts Substance Reaction Severity [...] influenza virus vaccine, inactivated 12/09/17 Camacho rded [id number] bivalent booster vax 12/22/21 Recorded SARS-CoV-2 (COVID-19) [...] 02/27/03 Given 1Result Comment: pt received from [facility] Medications buPROPion 150 mg/24 hours (XL) oral tablet, extended release 1 tablet, By Mouth, Every 24 hours, # 30 tablet, 6 Refills, Maintenance, 09/25/23 7:58:00 EDT, [facility], 30, TAKE 1 TABLET [...] to Pharmacy Electronically, [facility]/pharmacy #[id number], Partial fill upon patient request if the prescription is for a schedule II opioid d... Start Date: 05/01/20 Status: Ordered hydrochlorothiazide-triamterene 25 mg-37.5 mg oral capsule 1 capsule, By Mouth, Daily, # 90 capsule, 1 Refills, Maintenance, 06/11/23 6:40:00 EDT, [facility]/pharmacy #0693, 90, 1 capsule By Mouth Daily, 156, cm, 06/02/23 10:46:00 EDT, Height Start Date: 06/11/23 Status: Ordered hydrocortisone 2.5% topical cream See Instructions, APPLY IN A THIN FILM TO AFFECTED AREAS AND RUB IN GENTLY AND COMPLETELY TWICE DAILY, # 30 Gm, 10 Refills, Maintenance, 08/28/23 8:10:00 EDT, [facility], 15, APPLY IN A THIN FILM TO AFFECTED AREAS AND RUB IN GENTLY AND COMPLET... Start Date: 08/28/23 Status: Ordered LORazepam 0.5 mg oral tablet 1 tablet = 0.5 mg, By Mouth, Daily, # 30 tablet, 5 Refills, Soft Stop, 09/15/23 16:05:00 EDT, [facility], cm, 08/21/23 10:50:00 EDT, Height, 74.5, kg, 06/16/23 16:56:00 EDT, Dry Weight Start Date: 09/15/23 Status: Ordered nabumetone 750 mg oral tablet 1 tablet, By Mouth, 2 times a day with meals, # 60 tablet, 10 Refills, Maintenance, 10/27/23 9:21:00 EDT, [facility], 155, cm, 10/23/23 14:16:00 EDT, Height, 74.5, kg, 06/16/23 16:56:00 EDT, Dry Weight Start Date: 10/27/23 Status: Ordered rosuvastatin 5 mg oral tablet 1 tablet, By Mouth, Daily, # 30 tablet, 10 Refills, Maintenance, 10/09/23 7:56:00 EDT, [facility], 155, cm, 08/21/23 10:50:00 EDT, Height, 74.5, kg, 06/16/23 16:56:00 EDT, Dry Weight Start Date: 10/09/23 Status: Ordered traZODone 100 mg oral tablet 200 mg, 2, tablet, By Mouth, Daily at bedtime, DOSAGE INCREASE, # 180 tablet, Refills 1, Tot. Refills 1, Maintenance, 08/21/23 10:59:00 EDT, Route to Pharmacy Electronically, [facility]/pharmacy #[id number], Partial fill upon patient request if the [...] 11 Refills, Maintenance, 05/01/20 11:32:00 EST, Capsule, [facility]/pharmacy #4873, Partial fill upon patient request if the [...] Personnel Name: Alisa MAS, Coy Peng Position: [facility] Physician - Primary Care Member Role: PCP Address: Address: [address] [place] [address]- Care Team Related Persons Name: DANTE NICOLE Address: home [address] [place] [address] Name: PASTORA NICOLE
--- OUTSIDE RECORDS SUMMARY | 2023-11-07 21:41 | XMS_ITS | Continuity of Care Document ---
Author Organization [facility] Azam Torres Hammad lt Address [address] [place] [address]- Care Team Providers Care Varnish Finisher Name Role Phone Alisa MAS, Coy Peng Primary Care Physician [phone] [facility]23 - 07/14/23 [facility] Azam Torres Adult [address] [place] [address]- Allergies, Adverse Reactions, Alerts Substance Reaction Severity [...] influenza virus vaccine, inactivated 12/09/17 Camacho rded [id number] bivalent booster vax 12/22/21 Recorded SARS-CoV-2 (COVID-19) [...] 02/27/03 Given 1Result Comment: pt received from [facility] Ezekiel Mccartney Medications ferrous sulfate 325 mg oral enteric coated tablet 325 mg, 1, tablet, By Mouth, Daily, # 90 tablet, Refills 11, Tot. Refills 11, Maintenance, 05/01/2110:32:00 EST, [id number] Partial fill upon patient request if the prescription is for a schedule II opioid d... Start Date: 05/01/20 Status: Ordered hydrochlorothiazide-triamterene 25 mg-37.5 mg oral capsule 1 capsule, By Mouth, Daily, # 90 capsule, 1 Refills, Maintenance, 06/11/23 6:40:00 EDT, [id number] 90, 1 capsule By Mouth Daily, 156, cm, 06/02/23 10:46:00 EDT, Height Start Date: 06/11/23 Status: Ordered LORazepam 0.5 mg oral tablet 1 tablet = 0.5 mg, By Mouth, Daily, # 30 tablet, 5 Refills, Soft Stop, 02/02/23 8:40:00 EST, [facility]/pharmacy #[id number], 156, cm, 01/26/23 17:08:00 EST, Height Start Date: 02/02/23 Status: Ordered nabumetone 750 mg oral tablet 1 tablet, By Mouth, 2 times a day with meals, # 60 tablet, 14 Refills, Maintenance, 08/31/22 12:49:00 EDT, [facility], 156, cm, 08/02/22 9:52:00 EDT, Height Start Date: 08/31/22 Status: Ordered rosuvastatin 5 mg oral tablet 1 tablet, By Mouth, Daily, # 90 tablet, 0 Refills, Maintenance, 06/12/23 12:13:00 EDT, [facility]ORE [facility]678, 156, cm, 06/02/23 10:46:00 EDT, Height Start Date: 06/12/23 Status: Ordered traZODone 100 mg oral tablet 200 mg, 2, tablet, By Mouth, Daily at bedtime, DOSAGE INCREASE, # 60 tablet, Refills 1, Tot. Refills 1, Maintenance, 07/03/23 11:31:00 EDT, Route to Pharmacy Electronically, [facility]/pharmacy #[id number], Partial fill upon patient request if the [...] EST, Capsule, [facility]/pharmacy #[id number], Partial fill upon patient request if the [...] Care Member Role: PCP Address: Address: [address] [place] [address]- Care Team Related Persons Name: DANTE NICOLE Address: [address] [place] [address] Name: PASTORA NICOLE
--- OUTSIDE RECORDS SUMMARY | 2023-11-07 21:41 | XMS_ITS | Continuity of Care Document ---
Author Organization [facility] Azam Torres Hammad lt Address [address] [place] [address]- Care Team Providers Care Stain Dipper Name Role Phone Alisa MAS, Coy Peng Primary Care Physician Encounter [facility] Date(s): 08/13/19 - 08/20/19 [facility] Brian Adult [address] [place] [address]- [facility] Attending Physician: Fabby KEN, Elda Valencia Allergies, [...] pt received from [facility] Medications Advair Diskus 250 mcg-50 mcg inhalation powder 1, puffs, Inhalation, 2 times a day, # 180 each, Refills 11, Tot. Refills 11, Maintenance, 10/04/1914:03:03 EDT, Powder, Print Requisition Start Date: 10/04/18 Status: Ordered albuterol CFC free 90 mcg/inh inhalation aerosol See Instructions, # 8.5 Unknown, Refills 5 Tot. Refills 5, INHALE 2 PUFFS EVERY 6 HOURS NEEDED FOR WHEEZING, [facility]/pharmacy #[id number] Start Date: 10/30/18 Status: Ordered Aleve = 220 mg, By Mouth, 0 Refills, Maintenance, 08/13/19 11:07:00 EDT Start Date: 08/13/19 Status: Ordered Crestor 5 mg oral tablet 1 tablet = 5 mg, By Mouth, Daily, # 30 tablet, 5 Refills, Maintenance, 03/08/19 11:58:00 EST, Tablet, [facility]/pharmacy #[id number], 157.48, cm, 03/08/19 10:35:00 EST, Height Start Date: 03/08/19 Status: Ordered Ferrous Sulfate EC Refills 0, Maintenance, 08/13/19 11:26:00 EDT Start Date: 08/13/19 Status: Ordered hydrochlorothiazide-triamterene 25 mg-37.5 mg oral capsule See Instructions, TAKE ONE CAPSULE BY MOUTH EVERY DAY *REPLACES CLONIDINE*, # 30 capsule, 5 Refills, Soft Stop, 03/08/19 13:34:00 EST, [facility]/pharmacy #[id number], TAKE ONE CAPSULE BY MOUTH EVERY DAY *REPLACES CLONIDINE*, 157.48, cm, 03/08/19 10:35:00 EST, Height Start Date: 03/08/19 Status: Ordered Iron 100 Plus oral tablet 1 tablet, By Mouth, Daily, 0 Refills, Maintenance, 08/13/19 11:04:00 EDT Start Date: 08/13/19 Status: Ordered Latanoprost Ophthalmic Daily before dinner, 0 Refills, Maintenance, 08/13/19 11:05:00 EDT Start Date: 08/13/19 Status: Ordered LORazepam 0.5 mg oral tablet 1 tablet = 0.5 mg, By Mouth, Daily, # 30 tablet, 2 Refills, Soft Stop, 08/13/19 12:12:00 EDT, [facility]/pharmacy #[id number], 157.48, cm, 08/13/19 10:51:00 EDT, Height Start Date: 08/13/19 Status: Ordered prednisolone ophthalmic acetate 1% suspension [...] to Pharmacy Electronically, [facility]/pharmacy #[id number], 157.48, cm, 08/13/19 10:51:00 EDT, Height Start Date: 08/13/19 Status: Ordered Vitamin D 72425 iu oral capsule 50,000 International_Units, 1, capsule, By Mouth, Daily, Refills 0, Maintenance, 08/13/19 11:04:00 EDT Start Date: 08/13/19 Status: Ordered Wellbutrin XL 300 mg/24 hours oral tablet, extended release 1 tablet = 300 mg, By Mouth, Daily, DOSAGE INCREASE, # 30 tablet, 3 Refills, Maintenance, 08/13/19 11:25:00 EDT, ER Tablet, [facility]/pharmacy #[id number], 157.48, cm, 08/13/19 10:51:00 EDT, [...] oldest [Reference Range]: 1 Height 157.48 cm (08/13/19 10:51 AM) Weight 84.3 kg (08/13/19 10:51 AM) Oxygen Saturation [94-100 %] 97 % (08/13/19 10:51 AM) Pulse Rate [55-90 bpm] 81 bpm (08/13/19 10:51 AM) Body Mass Index [18.5-24.99] 33.99 *>HHI* (08/13/19 10:51 AM) Blood Pressure [90-138/55-84 mm Hg] 118/ 78mm Hg (08/13/19 10:51 AM) Blood pressure sites Arm, left (08/13/19 10:51 AM) Social History Social History Type Response Smoking Status Never (less than 100 in lifetime) entered on: 03/08/19 Sex
--- OUTSIDE RECORDS SUMMARY | 2023-11-07 21:41 | XMS_ITS | Continuity of Care Document ---
Author Organization [facility] Azam Torres Hammad lt Address [address] [place] [address]- Care Team Providers Care Broadcast Producer Name Role Phone Alisa MAS, Coy Peng Primary Care Physician [facility] Date[facility]s): 06/19/23 - 07/19/23 [facility] Azam Torres Adult [address] [place] [address]- Allergies, Adverse Reactions, Alerts Substance Reaction Severity [...] influenza virus vaccine, inactivated 12/09/17 Camacho rded [id number] bivalent booster vax 12/22/21 Recorded SARS-CoV-2 (COVID-19) [...] 02/27/03 Given 1Result Comment: pt received from [facility] Ezekiel Mccartney Medications ferrous sulfate 325 mg oral enteric coated tablet 325 mg, 1, tablet, By Mouth, Daily, # 90 tablet, Refills 11, Tot. Refills 11, Maintenance, 05/01/2110:32:00 EST, [id number] Partial fill upon patient request if the prescription is for a schedule II opioid d... Start Date: 05/01/20 Status: Ordered hydrochlorothiazide-triamterene 25 mg-37.5 mg oral capsule 1 capsule, By Mouth, Daily, # 90 capsule, 1 Refills, Maintenance, 06/11/23 6:40:00 EDT, [id number], 1 capsule By Mouth Daily, 156, cm, 06/02/23 10:46:00 EDT, Height Start Date: 06/11/23 Status: Ordered LORazepam 0.5 mg oral tablet 1 tablet = 0.5 mg, By Mouth, Daily, # 30 tablet, 5 Refills, Soft Stop, 02/02/23 8:40:00 EST, [facility]/pharmacy #[id number], 156, cm, 01/26/23 17:08:00 EST, Height Start Date: 02/02/23 Status: Ordered nabumetone 750 mg oral tablet 1 tablet, By Mouth, 2 times a day with meals, # 60 tablet, 14 Refills, Maintenance, 08/31/22 12:49:00 EDT, [facility], 156, cm, 08/02/22 9:52:00 EDT, Height Start Date: 08/31/22 Status: Ordered rosuvastatin 5 mg oral tablet 1 tablet, By Mouth, Daily, # 90 tablet, 0 Refills, Maintenance, 06/12/23 12:13:00 EDT, [facility] STORE 22721, 156, cm, 06/02/23 10:46:00 EDT, Height Start Date: 06/12/23 Status: Ordered traZODone 100 mg oral tablet 200 mg, 2, tablet, By Mouth, Daily at bedtime, DOSAGE INCREASE, # 60 tablet, Refills 1, Tot. Refills 1, Maintenance, 07/03/23 11:31:00 EDT, Route to Pharmacy Electronically, [facility]/pharmacy #[id number], Partial fill upon patient request if the [...] 11 Refills, Maintenance, 05/01/20 11:32:00 EST, Capsule, [facility]/pharmacy #[id number], Partial fill upon patient request if [...] 2007; entered on: 11/19/20 Sex Note * Petty Waller RN: PERFORM, SIGN, VERIFY Coy Cuellar MD: SIGN Event Display: Case Management Discharge Plan Authored Date: [id number] Patient: JAYA NICOLE Age: 68 years Sex: Female : 1955 Associated Diagnoses: None Author: Petty Waller RN Care Management Discharge Call Note Admit date 06/16/2023 Discharge date 06/16/2023 Date of contact 06/19/2023 Diagnosis Low Potasssium If patient went for emergency services was this patient referred? Referred by Self Discharge instructions were reviewed with the patient? Yes Medication reconciliation performed Yes Looks like you were recently discharged from the hospital (ED), how are you feeling? Patient denies any new or worsneing s/sx and rpeort's she is hanging in their. Please tell me the problem or condition that brought you to the hospital (ED)? weakness and confusion Do you know what to do in case of an emergency? yes Were you given any prescriptions to fill? Yes. Do you understand how to take your medication? Yes Other diagnostic tests/procedures ordered/recommended? see PCP to discuss lab work rechecked Do you have an appointment already scheduled with your PCP? Yes Is date appropriate: Yes. Are you able to get to that appointment: Yes. Appointment scheduled? Date 06/20/2023 Scheduled by [facility] requested? No Have there been any changes in your condition since discharge? No Do you have someone at home that is able to help you? No Is there anything else that you need addressed before your follow up appointment? NO Patient Care team information Care Team Personnel Name: Coy Cuellar MD Position: S Physician - Primary Care Member Role: PCP Address: Address: [address] [place] [address]- Care Team Related Persons Name: DANTE NICOLE Address: home [address] [place] [id number] Name: COREY PASTORA
--- OUTSIDE RECORDS SUMMARY | 2023-11-07 21:41 | XMS_ITS | Continuity of Care Document ---
Author Organization [facility] Azam Torres Hammad lt Address [address] [place] [address]- Care Team Providers Care Attenuator Name Role Phone Coy Cuellar MD Primary Care Physician [facility]): 06/09/23 - 07/09/23 [facility] Azam Torres Adult [address] [place] [address]- Allergies, Adverse Reactions, Alerts Substance Reaction Severity [...] influenza virus vaccine, inactivated 12/09/17 Camacho rded [id number] bivalent booster vax 12/22/21 Recorded SARS-CoV-2 (COVID-19) [...] 02/27/03 Given 1Result Comment: pt received from [facility] Ezekiel Mccartney Medications ferrous sulfate 325 mg oral enteric coated tablet 325 mg, 1, tablet, By Mouth, Daily, # 90 tablet, Refills 11, Tot. Refills 11, Maintenance, 05/01/2110:32:00 EST, [id number] Partial fill upon patient request if the prescription is for a schedule II opioid d... Start Date: 05/01/20 Status: Ordered hydrochlorothiazide-triamterene 25 mg-37.5 mg oral capsule 1 capsule, By Mouth, Daily, # 90 capsule, 1 Refills, Maintenance, 06/11/23 6:40:00 EDT, [id number], 90, 1 capsule By Mouth Daily, 156, cm, 06/02/23 10:46:00 EDT, Height Start Date: 06/11/23 Status: Ordered LORazepam 0.5 mg oral tablet 1 tablet = 0.5 mg, By Mouth, Daily, # 30 tablet, 5 Refills, Soft Stop, 02/02/23 8:40:00 EST, [id number], 156, cm, 01/26/23 17:08:00 EST, Height Start Date: 02/02/23 Status: Ordered nabumetone 750 mg oral tablet 1 tablet, By Mouth, 2 times a day with meals, # 60 tablet, 14 Refills, Maintenance, 08/31/22 12:49:00 EDT, [facility] 240[facility], 156, cm, 08/02/22 9:52:00 EDT, Height Start Date: 08/31/22 Status: Ordered rosuvastatin 5 mg oral tablet 1 tablet, By Mouth, Daily, # 90 tablet, 0 Refills, Maintenance, 06/12/23 12:13:00 EDT, [facility] 69980, 156, cm, 06/02/23 10:46:00 EDT, Height Start Date: 06/12/23 Status: Ordered traZODone 100 mg oral tablet 200 mg, 2, tablet, By Mouth, Daily at bedtime, DOSAGE INCREASE, # 60 tablet, Refills 1, Tot. Refills 1, Maintenance, 07/03/23 11:31:00 EDT, Route to Pharmacy Electronically, [facility]/pharmacy #[id number], Partial fill upon patient request if the [...] 11 Refills, Maintenance, 05/01/20 11:32:00 EST, Capsule, [facility]/pharmacy #[id number], Partial fill upon patient request [...] Primary Care Member Role: PCP Address: Address: [address] [place] [address]- Care Team Related Persons Name: DANTE NICOLE Address: [address] [address] Name: PASTORA NICOLE
--- OUTSIDE RECORDS SUMMARY | 2023-11-07 21:41 | XMS_ITS | Continuity of Care Document ---
Author Organization [facility] Brian Hammad lt Address [address] [place] [address]- Care Team Providers Care Operations Welder Name Role Phone Coy Cuellar MD Primary Care Physician [facility] Date[facility]s): 09/21/21 - 10/21/21 [facility] Adult [address] [place] [address]- Allergies, Adverse Reactions, Alerts Substance Reaction Severity [...] 1Result Comment: pt received from [facility] Ezekiel Mccartney Medications albuterol CFC free 90 mcg/inh inhalation aerosol 2, puffs, Inhalation, Every 6 hours, # 18 Gm, Refills 3, Tot. Refills 3, Soft Stop, 08/16/21 10:54:00 EDT, Route to Pharmacy Electronically, [id number], [facility]/pharmacy #[id number], 156, cm, 08/16/21 10:42:00 EDT, [...] 08/16/21 10:56:00 EDT, Route to Pharmacy Electronically, [facility]/pharmacy #[id number], Partial fill upon patient request if the prescription is for a schedule II opioid... Start Date: 08/16/21 Status: Ordered ferrous sulfate 325 mg oral enteric coated tablet 325 mg, 1, tablet, By Mouth, Daily, # 90 tablet, Refills 11, Tot. Refills 11, Maintenance, 05/01/2110:32:00 EST, Route to Pharmacy Electronically, [facility]/pharmacy #[id number], Partial fill upon patient request if the prescription is for a schedule II opioid d... Start Date: 05/01/20 Status: Ordered hydrochlorothiazide-triamterene 25 mg-37.5 mg oral capsule 1 capsule, By Mouth, Daily, *REPLACES CLONIDINE*., # 90 capsule, 1 Refills, [facility] ST[facility] 39865, 90, TAKE ONE CAPSULE BY MOUTH EVERY [...] # 90 tablet, 3 Refills, [facility], 156, cm, 11/19/20 13:47:00 EDT,Height Start Date: [...] Electronically, [facility]/pharmacy #[id number], Partial fill upon patient request if the prescription is... Start Date: 07/30/21 Status: Ordered Vitamin D 20017 iu oral capsule 50,000 International_Units, 1, capsule, By Mouth, Daily, Refills 0, Maintenance, 08/13/19 11:04:00 EDT Start Date: 08/13/19 Status: Ordered Vitamin D3 2000 intl units oral capsule 1 capsule = 2,000 International_Units, By Mouth, Daily, # 60 capsule, 11 Refills, Maintenance, 05/01/20 11:32:00 EST, Capsule, [facility]/pharmacy #[id number], Partial fill upon patient request [...] Other: Quit 2007; entered on: 11/19/20 Sex Care Team Personnel Name: Coy Cuellar MD Address: [address] [place] [address] Adult [place], [place] [address]
--- OUTSIDE RECORDS SUMMARY | 2023-11-07 21:41 | XMS_ITS | Continuity of Care Document ---
Author Organization [facility] Azam Torres Hammad Address [address] [place] [address]- Care Team Providers Care Care Process Manager Name Role Phone Alisa MAS, Coy Peng Primary Care Physician Encounter [facility] Date(s): 05/07/19 - 06/13/19 [facility] Brian Adult [address] [place] [address]- [facility] Attending Physician: Олег KEN, Skyla Jaime Referring Physician: Vanessa MAS, Jesse Caraballo Allergies, Adverse Reactions, Alerts Substance Reaction Severity [...] Guardian Refuses 1Result Comment: pt received from [facility] Ezekiel Mccartney Medications Advair Diskus 250 mcg-50 mcg inhalation powder 1, puffs, Inhalation, 2 times a day, # 180 each, Refills 11, Tot. Refills 11, Maintenance, 10/04/1914:03:03 EDT, Powder, Print Requisition Start Date: 10/04/18 Status: Ordered albuterol CFC free 90 mcg/inh inhalation aerosol See Instructions, # 8.5 Unknown, Refills 5 Tot. Refills 5, INHALE 2 PUFFS EVERY 6 HOURS NEEDED FOR WHEEZING, [facility]/pharmacy #[id number] Start Date: 10/30/18 Status: Ordered betamethasone-clotrimazole 0.05%-1% topical cream 1 applicator, Topically, 2 times a day, Not to be used longer than 2 weeks, # 45 Gm, 0 Refills, Acute 06/21/19 7:00:00 EDT, 05/21/19 11:45:00 EDT, [facility]/pharmacy #[id number], 1 applicator Topically 2 times aday,Instr:Not to be used longer than 2 weeks, 157.4... Start Date: 05/21/19 Stop Date: 06/21/19 Status: Ordered Crestor 5 mg oral tablet 1 tablet = 5 mg, By Mouth, Daily, # 30 tablet, 5 Refills, Maintenance, 03/08/19 11:58:00 EST, Tablet, [facility]/pharmacy #[id number], 157.48, cm, 03/08/19 10:35:00 EST, Height Start Date: 03/08/19 Status: Ordered hydrochlorothiazide-triamterene 25 mg-37.5 mg oral capsule See Instructions, TAKE ONE CAPSULE BY MOUTH EVERY DAY *REPLACES CLONIDINE*, # 30 capsule, 5 Refills, Soft Stop, 03/08/19 13:34:00 EST, [facility]/pharmacy #[id number], TAKE ONE CAPSULE BY MOUTH EVERY DAY *REPLACES CLONIDINE*, 157.48, cm, 03/08/19 10:35:00 EST, Height Start Date: 03/08/19 Status: Ordered LORazepam 0.5 mg oral tablet 1 tablet = 0.5 mg, By Mouth, Daily, # 30 tablet, 0 Refills, Soft Stop, 06/06/19 15:41:00 EDT, [facility]/pharmacy #[id number], 157.48, cm, 05/07/19 14:27:00 EDT, Height [...] 05/05/19 16:46:00 EDT, Route to Pharmacy Electronically, [facility]/pharmacy #[id number], 157.48, cm, 04/08/19 9:15:00 EST, [...]
--- OUTSIDE RECORDS SUMMARY | 2023-11-07 21:41 | XMS_ITS | Continuity of Care Document ---
Author Organization [facility] Azam Torres Hammad lt Address [address] [place] [address]- Care Team Providers Care Model Dresser Name Role Phone Coy Cuellar MD Primary Care Physician [facility]): 08[facility]22 - 09/28/22 [facility] Azam Torres Adult [address] [place] [address]- Allergies, Adverse Reactions, Alerts Substance Reaction Severity Status codeine Active ibuprofen 1 Active indomethacin Active lisinopril 2 Active Inderal 3 Active Betadine Skin Cleanser Activ e 1gets itchy 2pt reports her tongue swells up 3gets anxiety Immunizations Given and Recorded Vaccine Date Status Refusal Reason [id number] bivalent booster vax 12/22/21 Recorded influenza virus [...] Guardian Refuses 1Result Comment: pt received from [facility] Ezekiel Mccartney Medications ferrous sulfate 325 mg oral enteric coated tablet 325 mg, 1, tablet, By Mouth, Daily, # 90 tablet, Refills 11, Tot. Refills 11, Maintenance, 05/01/2110:32:00 EST, Route to Pharmacy Electronically, [facility]/pharmacy #[id number], Partial fill upon patient request if the prescription is for a schedule II opioid d... Start Date: 05/01/20 Status: Ordered hydrochlorothiazide-triamterene 25 mg-37.5 mg oral capsule See Instructions, TAKE ONE CAPSULE BY MOUTH EVERY DAY *REPLACES CLONIDINE*, # 90 capsule, 1 Refills, Maintenance, 02/27/22 16:00:00 EST, [id number], TAKE ONE CAPSULE BY MOUTH EVERY DAY *REPLACES CLONIDINE*, 156, cm, 01/18/22 7:21:00 EST, H... Start Date: 02/27/22 Status: Ordered loratadine 10 mg oral tablet 10 mg, 1, tablet, By Mouth, Daily, # 90 tablet, Refills 3, Tot. Refills 3, Maintenance, 06/24/21 10:50:00 EDT, Route to Pharmacy Electronically, [facility]/pharmacy #[id number], Partial fill upon patient request if the prescription is for a schedule II opioid drug... Start Date: 06/24/21 Status: Ordered LORazepam 0.5 mg oral tablet 1 tablet = 0.5 mg, By Mouth, Daily, # 30 tablet, 5 Refills, Soft Stop, 09/21/22 11:52:00 EDT, [id number], 156, cm, 09/05/22 11:06:00 EDT, Height Start Date: 09/21/22 Status: Ordered nabumetone 750 mg oral tablet 1 tablet, By Mouth, 2 times a day with meals, # 60 tablet, 14 Refills, Maintenance, 08/31/22 12:49:00 EDT, [facility] 49692, 156, cm, 08/02/22 9:52:00 EDT, Height Start Date: 08/31/22 Status: Ordered rosuvastatin 5 mg oral tablet 1 tablet, By Mouth, Daily, # 90 tablet, 1 Refills, Maintenance, 07/04/22 15:03:00 EDT, [facility] ST[facility] 79711, 156, cm, 05/09/22 9:48:00 EDT, Height Start Date: 07/04/22 Status: Ordered traZODone 100 mg oral tablet 1, tablet, By Mouth, Daily at bedtime, # 90 tablet, Refills 1, Maintenance, 08/29/22 14:54:00 EDT, Route to Pharmacy Electronically, [facility] [id number], 156, cm, 08/02/22 9:52:00 EDT, Height Start Date: 08/29/22 Status: Ordered Vitamin D3 2000 intl units oral capsule 1 capsule = 2,000 International_Units, By Mouth, Daily, # 60 capsule, 11 Refills, Maintenance, 05/01/20 11:32:00 EST, Capsule, [facility]/pharmacy #[id number], Partial fill upon patient request [...] Primary Care Member Role: PCP Address: Address: [address] [place] [address]- Care Team Related Persons Name: DANTE NICOLE Address: [address] [place] [address] Name: PASTORA NICOLE
--- OUTSIDE RECORDS SUMMARY | 2023-11-07 21:41 | XMS_ITS | Continuity of Care Document ---
Author Organization [facility] Address [address] [place] [address]- Care Team Providers Care Mountain Guide Name Role Phone Coy Cuellar MD Primary Care Physician [facility] Date[facility]s): 09/06/23 - 10/06/23 [facility] [address] [place] [address]- Allergies, Adverse Reactions, Alerts Substance Reaction Severity [...] influenza virus vaccine, inactivated 12/09/17 Camacho rded [id number] bivalent booster vax 12/22/21 Recorded SARS-CoV-2 (COVID-19) [...] received from [facility] Ezekiel Mccartney Medications buPROPion 150 mg/24 hours (XL) oral tablet, extended release 1 tablet, By Mouth, Every 24 hours, # 30 tablet, 6 Refills, Maintenance, 09/25/23 7:58:00 EDT, [facility], 30, TAKE 1 TABLET BY MOUTH EVERY 24 HOURS, 155, cm, 08/21/23 10:50:00 EDT, Height, 74.5, kg, 06/16/23 16:56:00 EDT, Dry Weight Start Date: 09/25/23 Status: Ordered ferrous sulfate 325 mg oral enteric coated tablet 325 mg, 1, tablet, By Mouth, Daily, # 90 tablet, Refills 11, Tot. Refills 11, Maintenance, 05/01/2110:32:00 EST, Route to Pharmacy Electronically, [facility]/pharmacy #[id number], Partial fill upon patient request if the prescription is for a schedule II opioid d... Start Date: 05/01/20 Status: Ordered hydrochlorothiazide-triamterene 25 mg-37.5 mg oral capsule 1 capsule, By Mouth, Daily, # 90 capsule, 1 Refills, Maintenance, 06/11/23 6:40:00 EDT, [facility]/pharmacy #[id number], 90, 1 capsule By Mouth Daily, 156, cm, 06/02/23 10:46:00 EDT, Height Start Date: 06/11/23 Status: Ordered hydrocortisone 2.5% topical cream See Instructions, APPLY IN A THIN FILM TO AFFECTED AREAS AND RUB IN GENTLY AND COMPLETELY TWICE DAILY, # 30 Gm, 10 Refills, Maintenance, 08/28/23 8:10:00 EDT, [facility], 15, APPLY IN A THIN FILM TO AFFECTED AREAS AND RUB IN GENTLY AND COMPLET... Start Date: 08/28/23 Status: Ordered LORazepam 0.5 mg oral tablet 1 tablet = 0.5 mg, By Mouth, Daily, # 30 tablet, 5 Refills, Soft Stop, 09/15/23 16:05:00 EDT, [facility], 155, cm, 08/21/23 10:50:00 EDT, Height, 74.5, kg, 06/16/23 16:56:00 EDT, Dry Weight Start Date: 09/15/23 Status: Ordered nabumetone 750 mg oral tablet 1 tablet, By Mouth, 2 times a day with meals, # 60 tablet, 1 Refills, Maintenance, 09/15/23 16:05:00 EDT, [facility], 155, cm, 08/21/23 10:50:00 EDT, Height, 74.5, kg, 06/16/23 16:56:00 EDT, Dry Weight Start Date: 09/15/23 Status: Ordered rosuvastatin 5 mg oral tablet 1 tablet, By Mouth, Daily, # 90 tablet, 0 Refills, Maintenance, 06/12/23 12:13:00 EDT, [facility] [id number], 156, cm, 06/02/23 10:46:00 EDT, Height Start Date: 06/12/23 Status: Ordered traZODone 100 mg oral tablet 200 mg, 2, tablet, By Mouth, Daily at bedtime, DOSAGE INCREASE, # 180 tablet, Refills 1, Tot. Refills 1, Maintenance, 08/21/23 10:59:00 EDT, Route to Pharmacy Electronically, [facility]/pharmacy #[id number], Partial fill upon patient request if the [...] Maintenance, 05/01/20 11:32:00 EST, Capsule, [facility]/pharmacy #[id number], Partial fill upon patient request if the [...] Primary Care Member Role: PCP Address: Address: [address] [place] [address]- Care Team Related Persons Name: DANTE NICOLE Address: home [address] [place] [address] Name: PASTORA NICOLE
--- OUTSIDE RECORDS SUMMARY | 2023-11-07 21:41 | XMS_ITS | Continuity of Care Document ---
Author Organization [facility] Address [address] [place] [address]- Care Team Providers Care Automotive Quality Engineer Name Role Phone Coy Cuellar MD Primary Care Physician [place] [facility] [place] 04/09/19 - 04/16/[address] [address]- [facility] Discharge Disposition: A-D/C Home Attending Physician: Fabby KEN, Elda Valencia Admitting Physician: Elda Sequeira NP Referring Physician: Fabby KEN, Elda Valencia Allergies, [...] Guardian Refuses 1Result Comment: pt received from [facility] Medications Advair Diskus 250 mcg-50 mcg inhalation powder 1, puffs, Inhalation, 2 times a day, # 180 each, Refills 11, Tot. Refills 11, Maintenance, 10/04/1914:03:03 EDT, Powder, Print Requisition Start Date: 10/04/18 Status: Ordered albuterol CFC free 90 mcg/inh inhalation aerosol See Instructions, # 8.5 Unknown, Refills 5 Tot. Refills 5, INHALE 2 PUFFS EVERY 6 HOURS NEEDED FOR WHEEZING, [facility]/pharmacy #[id number] Start Date: 10/30/18 Status: Ordered betamethasone-clotrimazole 0.05%-1% topical cream See Instructions, # 45 Gm, Refills 1 Tot. Refills 1, APPLY TO AFFECTED AREA TWICE A DAY, [facility]/pharmacy #[id number] Start Date: 01/10/19 Status: Ordered Crestor 5 mg oral tablet 1 tablet = 5 mg, By Mouth, Daily, # 30 tablet, 5 Refills, Maintenance, 03/08/19 11:58:00 EST, Tablet, [facility]/pharmacy #[id number], 157.48, cm, 03/08/19 10:35:00 EST, Height Start Date: 03/08/19 Status: Ordered hydrochlorothiazide-triamterene 25 mg-37.5 mg oral capsule See Instructions, TAKE ONE CAPSULE BY MOUTH EVERY DAY *REPLACES CLONIDINE*, # 30 capsule, 5 Refills, Soft Stop, 03/08/19 13:34:00 EST, [facility]/pharmacy #[id number], TAKE ONE CAPSULE BY MOUTH EVERY DAY *REPLACES CLONIDINE*, 157.48, cm, 03/08/19 10:35:00 EST, Height Start Date: 03/08/19 Status: Ordered LORazepam 0.5 mg oral tablet See Instructions, TAKE 1 TABLET BY MOUTH EVERY DAY, # 30 tablet, 0 Refills, Soft Stop, 02/11/19 11:32:48 EST, [facility]/pharmacy #[id number], 157.48, cm, 10/04/18 [...] 04/08/19 9:43:00 EST, Route to Pharmacy Electronically, [facility]/pharmacy #[id number], 157.48, cm, 04/08/19 9:15:00 [...]
--- OUTSIDE RECORDS SUMMARY | 2023-11-07 21:41 | XMS_ITS | Continuity of Care Document ---
Author Organization [facility] Hammad lt Address [address] [place] [address]- Care Team Providers Care Salesforce Developer Name Role Phone Coy Cuellar MD Primary Care Physician [facility] Date[facility]s): 09/03/19 - 10/03/19 [facility] Adult [address] [place] [address]- [facility] Attending Physician: Admtr, Ar8 Allergies, Adverse Reactions, [...] Guardian Refuses 1Result Comment: pt received from [facility] Medications Advair Diskus 250 mcg-50 mcg [...] Replace Required Details, Route to Pharmacy Electronically, [id number]... Start Date: 09/13/19 Status: Ordered Aleve = 220 mg, By Mouth, 0 Refills, Maintenance, 08/13/19 11:07:00 EDT Start Date: 08/13/19 Status: Ordered Crestor 5 mg oral tablet 1 tablet = 5 mg, By Mouth, Daily, # 30 tablet, 5 Refills, Maintenance, 09/04/19 10:55:00 EDT, Tablet, [facility]/pharmacy #[id number], 157.48, cm, 08/13/19 10:51:00 EDT, Height [...] 0 Refills, Maintenance, 09/03/19 15:27:00 EDT, [facility]/pharmacy #[id number], 157.48, cm, 08/13/19 10:51:00 EDT, Height [...] 11:26:00 EDT, Route to Pharmacy Electronically, [facility]/pharmacy #[id number], 157.48, cm, 08/13/19 10:51:00 EDT, Height Start Date: 08/13/19 Status: Ordered Vitamin D 72401 iu oral capsule 50,000 International_Units, 1, capsule, By Mouth, Daily, Refills 0, Maintenance, 08/13/19 11:04:00 EDT Start Date: 08/13/19 Status: Ordered Wellbutrin XL 300 mg/24 hours oral tablet, extended release 1 tablet = 300 mg, By Mouth, Daily, DOSAGE INCREASE, # 30 tablet, 3 Refills, Maintenance, 08/13/19 11:25:00 EDT, ER Tablet, [facility]/pharmacy #[id number], 157.48, cm, 08/13/19 10:51:00 EDT, Height [...]
--- OUTSIDE RECORDS SUMMARY | 2023-11-07 21:41 | XMS_ITS | Continuity of Care Document ---
Author Organization [facility] Address [address] [facility], [address] [place] [address]- Care Team Providers Care Cart Driver Name Role Phone Alisa MAS, Coy Peng Primary Care Physician Encounter 10/28/21 - 11/04/21 [facility] [address], [facility] [address] [place] [address]- Attending Physician: Fabby KEN, Elda Valencia Admitting [...] Refuses 1Result Comment: pt received from [facility] Ezekiel Mccartney Medications albuterol CFC free 90 mcg/inh inhalation aerosol 2, puffs, Inhalation, Every 6 hours, # 18 Gm, Refills 3, Tot. Refills 3, Soft Stop, 08/16/21 10:54:00 EDT, Route to Pharmacy Electronically, [id number], [facility]/pharmacy #[id number], 156, cm, 08/16/21 10:42:00 EDT, [...] 08/16/21 10:56:00 EDT, Route to Pharmacy Electronically, [facility]/pharmacy #[id number], Partial fill upon patient request if the prescription is for a schedule II opioid... Start Date: 08/16/21 Status: Ordered ferrous sulfate 325 mg oral enteric coated tablet 325 mg, 1, tablet, By Mouth, Daily, # 90 tablet, Refills 11, Tot. Refills 11, Maintenance, 05/01/2110:32:00 EST, Route to Pharmacy Electronically, [facility]/pharmacy #[id number], Partial fill upon patient request if the prescription is for a schedule II opioid d... Start Date: 05/01/20 Status: Ordered hydrochlorothiazide-triamterene 25 mg-37.5 mg oral capsule 1 capsule, By Mouth, Daily, *REPLACES CLONIDINE*., # 90 capsule, 1 Refills, [facility] STORE [address], 90, TAKE ONE CAPSULE BY MOUTH EVERY [...] EDT, Route to Pharmacy Electronically, [facility]/pharmacy #[id number], Partial fill upon patient [...] Mouth, Daily, # 90 tablet, 3 Refills, [facility] [address]71, 156, cm, 11/19/20 13:47:00 EDT,Height Start Date: [...] 07/30/21 10:32:00 EDT, Route to Pharmacy Electronically, [facility]/pharmacy #[id number], Partial fill upon patient request if the prescription is... Start Date: 07/30/21 Status: Ordered Vitamin D 47983 iu oral capsule 50,000 International_Units, 1, capsule, By Mouth, Daily, Refills 0, Maintenance, 08/13/19 11:04:00 EDT Start Date: 08/13/19 Status: Ordered Vitamin D3 2000 intl units oral capsule 1 capsule = 2,000 International_Units, By Mouth, Daily, # 60 capsule, 11 Refills, Maintenance, 05/01/20 11:32:00 EST, Capsule, [facility]/pharmacy #[id number], Partial fill upon patient [...] 3 Refills, Maintenance, 08/19/21 6:43:00 EDT, [facility]/pharmacy #[id number], Partial fill upon patient [...] on: 11/19/20 Sex Care Team Personnel Name: Alisa MAS, Coy Peng Address: [address] [place] [id number]
--- OUTSIDE RECORDS SUMMARY | 2023-11-07 21:42 | XMS_ITS | Continuity of Care Document ---
Author Organization [facility] Brian Hammad lt Address [address] [place] [address]- Care Team Providers Care Student Career Development Specialist Name Role Phone Alisa MAS, Coy Peng Primary Care Physician Encounter [facility] Date(s): 09/21/21 - 09/28/21 [facility] Adult [address] [place] [address]- Encounter Diagnosis Swollen gland(Discharge Diagnosis) - 09/21/21 Attending Physician: Cyrus Jamison Zaid Allergies, Adverse Reactions, Alerts Substance Reaction Severity [...] 08/16/21 10:54:00 EDT, Route to Pharmacy Electronically, [id number], [facility]/pharmacy #[id number], 156, [...] Refills, [facility] STORE [address]06, 90, TAKE ONE CAPSULE BY MOUTH EVERY [...] 2 Refills, Soft Stop, 06/28/21 13:53:00 EDT, [facility]/pharmacy #[id number], 156, cm, 06/24/21 10:16:00 EDT, Height [...] capsule, 0 Refills, Maintenance, 05/11/21 14:59:00 EDT, [facility]/pharmacy #[id number], 156, cm, 11/19/20 13:47:00 EDT, Height Start Date: 05/11/21 Status: Ordered rosuvastatin 5 mg oral tablet 1 tablet, By Mouth, Daily, # 90 tablet, 3 Refills, [facility]ORE 13726, 156, cm, 11/19/20 13:47:00 EDT,Height Start Date: [...] Start Date: 07/30/21 Status: Ordered Vitamin D 59463 iu oral capsule 50,000 International_Units, 1, capsule, [...] Gm, 3 Refills, Maintenance, 08/19/21 6:43:00 EDT, [facility]/pharmacy #[id number], Partial [...] Dates Health Status Cl inical Service Informant Swollen gland Discharge Diagnosis 09/21/21 Vital Signs Most recent to oldest [Reference Range]: 1 Height 156 cm (09/21/21 9:41 AM) Weight 75.4 kg (09/21/21 9:41 AM) Oxygen Saturation [94-100 %] 97 % (09/21/21 9:41 AM) Pulse Rate [55-90 bpm] 98 bpm *H* (09/21/21 9:41 AM) Body Mass Index [18.5-24.99] 30.98 *>HHI* (09/21/21 9:41 AM) Blood Pressure [90-138/55-84 mm Hg] 110/ 67mm Hg (09/21/21 9:41 AM) Respiratory Rate [16-30 br/min] 14 br/mi n *L* (09/21/21 9:41 AM) Mode of Delivery (Oxygen) Room air (09/21/21 9:41 AM) Blood pressure sites Arm, left (09/21/21 9:41 AM) Weight Obtained Via Standing scale (09/21/21 9:41 AM) Social History Social History Type Response Smoking Status Former smoker, quit more than 30 days ago; Other: Quit 2007; entered on: 11/19/20 Sex
--- OUTSIDE RECORDS SUMMARY | 2023-11-07 21:42 | XMS_ITS | Continuity of Care Document ---
Author Organization [facility] Address [address] [place] [address]- Care Team Providers Care Engraving Patternmaker Name Role Phone Coy Cuellar MD Primary Care Physician Encounter [facility] Date(s): 04/19/19 - 04/29/19 [place] [address]- [facility] Attending Physician: Wiley Brown Admitting Physician: AdmWiley santacruz Referring Physician: AdmtrWiley Allergies, Adverse Reactions, Alerts [...] EVERY 6 HOURS NEEDED FOR WHEEZING, [facility]/pharmacy #[id number] Start Date: 10/30/18 Status: Ordered betamethasone-clotrimazole 0.05%-1% topical cream See Instructions, # 45 Gm, Refills 1 Tot. Refills 1, APPLY TO AFFECTED AREA TWICE A DAY, [facility]/pharmacy #[id number] Start Date: 01/10/19 Status: Ordered Crestor 5 mg oral tablet 1 tablet = 5 mg, By Mouth, Daily, # 30 tablet, 5 Refills, Maintenance, 03/08/19 11:58:00 EST, Tablet, [facility]/pharmacy #[id number], 157.48, cm, 03/08/19 10:35:00 EST, Height Start Date: 03/08/19 Status: Ordered hydrochlorothiazide-triamterene 25 mg-37.5 mg oral capsule See Instructions, TAKE ONE CAPSULE BY MOUTH EVERY DAY *REPLACES CLONIDINE*, # 30 capsule, 5 Refills, Soft Stop, 03/08/19 13:34:00 EST, [facility]/pharmacy #[id number], TAKE ONE CAPSULE BY MOUTH EVERY DAY *REPLACES CLONIDINE*, 157.48, cm, 03/08/19 10:35:00 EST, Height Start Date: 03/08/19 Status: Ordered LORazepam 0.5 mg oral tablet See Instructions, TAKE 1 TABLET BY MOUTH EVERY DAY, # 30 tablet, 0 Refills, Soft Stop, 02/11/19 11:32:48 EST, [facility]/pharmacy #[id number], 157.48, cm, 10/04/18 14:39:17 EDT, Height [...] 04/08/19 9:43:00 EST, Route to Pharmacy Electronically, [facility]/pharmacy #[id number], 157.48, cm, 04/08/19 9:15:00 EST, Height [...]
--- OUTSIDE RECORDS SUMMARY | 2023-11-07 21:42 | XMS_ITS | Continuity of Care Document ---
Author Organization [facility] Azam Torres Hammad lt Address [address] [place] [address]- Care Team Providers Care Technical Instructor Name Role Phone Coy Cuellar MD Primary Care Physician [facility]s): 09/07/23 - 10/07/23 [facility] Azam Torres Adult [address] [place] [address]- Allergies, Adverse Reactions, Alerts Substance Reaction Severity [...] influenza virus vaccine, inactivated 12/09/17 Camacho rded [id number] bivalent booster vax 12/22/21 Recorded SARS-CoV-2 (COVID-19) [...] Given 1Result Comment: pt received from [facility] Ezekiel Mccartney Medications buPROPion 150 mg/24 hours (XL) oral tablet, extended release 1 tablet, By Mouth, Every 24 hours, # 30 tablet, 6 Refills, Maintenance, 09/25/23 7:58:00 EDT, [facility], 30, TAKE 1 TABLET BY MOUTH EVERY 24 HOURS, 155, cm, 08/21/23 10:50:00 EDT, Height, 74.5, kg, 06/16/23 16:56:00 EDT, Dry Weight Start Date: 09/25/23 Status: Ordered ferrous sulfate 325 mg oral enteric coated tablet 325 mg, 1, tablet, By Mouth, Daily, # 90 tablet, Refills 11, Tot. Refills 11, Maintenance, 05/01/2110:32:00 EST, Route to Pharmacy Electronically, [facility]/pharmacy #[id number], Partial fill upon patient request if the prescription is for a schedule II opioid d... Start Date: 05/01/20 Status: Ordered hydrochlorothiazide-triamterene 25 mg-37.5 mg oral capsule 1 capsule, By Mouth, Daily, # 90 capsule, 1 Refills, Maintenance, 06/11/23 6:40:00 EDT, [facility]/pharmacy #[id number], 90, 1 capsule By Mouth Daily, 156, cm, 06/02/23 10:46:00 EDT, Height Start Date: 06/11/23 Status: Ordered hydrocortisone 2.5% topical cream See Instructions, APPLY IN A THIN FILM TO AFFECTED AREAS AND RUB IN GENTLY AND COMPLETELY TWICE DAILY, # 30 Gm, 10 Refills, Maintenance, 08/28/23 8:10:00 EDT, [facility], 15, APPLY IN A THIN FILM TO AFFECTED AREAS AND RUB IN GENTLY AND COMPLET... Start Date: 08/28/23 Status: Ordered LORazepam 0.5 mg oral tablet 1 tablet = 0.5 mg, By Mouth, Daily, # 30 tablet, 5 Refills, Soft Stop, 09/15/23 16:05:00 EDT, [facility], 155, cm, 08/21/23 10:50:00 EDT, Height, 74.5, kg, 06/16/23 16:56:00 EDT, Dry Weight Start Date: 09/15/23 Status: Ordered nabumetone 750 mg oral tablet 1 tablet, By Mouth, 2 times a day with meals, # 60 tablet, 1 Refills, Maintenance, 09/15/23 16:05:00 EDT, [facility], 155, cm, 08/21/23 10:50:00 EDT, Height, 74.5, kg, 06/16/23 16:56:00 EDT, Dry Weight Start Date: 09/15/23 Status: Ordered rosuvastatin 5 mg oral tablet 1 tablet, By Mouth, Daily, # 90 tablet, 0 Refills, Maintenance, 06/12/23 12:13:00 EDT, [facility] [id number], 156, cm, 06/02/23 10:46:00 EDT, Height Start Date: 06/12/23 Status: Ordered traZODone 100 mg oral tablet 200 mg, 2, tablet, By Mouth, Daily at bedtime, DOSAGE INCREASE, # 180 tablet, Refills 1, Tot. Refills 1, Maintenance, 08/21/23 10:59:00 EDT, Route to Pharmacy Electronically, [facility]/pharmacy #[id number], Partial fill upon patient request if the [...] 05/01/20 11:32:00 EST, Capsule, [facility]/pharmacy #[id number], Partial fill upon patient request if the [...] Primary Care Member Role: PCP Address: Address: [address] [place] [address]- Care Team Related Persons Name: DATNE NICOLE Address: home [address] [place] [address] Name: PASTORA NICOLE
--- OUTSIDE RECORDS SUMMARY | 2023-11-07 21:42 | XMS_ITS | Continuity of Care Document ---
Author Organization [facility] Azam Torres Hammad lt Address [address] [place] [address]- Care Team Providers Care Metals Sales Representative Name Role Phone Coy Cuellar MD Primary Care Physician [phone] [facility]): 09/13/19 - 10/13/19 [facility] Adult [address] [place] [address]- [facility] Allergies, Adverse Reactions, Alerts Substance Reaction Severity [...] Refuses 1Result Comment: pt received from [facility] Medications Advair Diskus 250 mcg-50 [...] Replace Required Details, Route to Pharmacy Electronically, [id number]... Start Date: 09/13/19 Status: Ordered Aleve = [...] Start Date: 08/13/19 Status: Ordered Vitamin D 43458 iu oral capsule 50,000 International_Units, 1, capsule, [...]
--- OUTSIDE RECORDS SUMMARY | 2023-11-07 21:42 | XMS_ITS | Continuity of Care Document ---
Author Organization [facility] Azam Torres Hammad lt Address [address] [place] [address]- Care Team Providers Care Odd Job Laborer Name Role Phone Coy Cuellar MD Primary Care Physician [phone] [facility]counter [facility] Date(s): 09/23/19 - 10/23/19 [facility] Adult [address] [place] [address]- [facility] Allergies, Adverse Reactions, Alerts Substance Reaction Severity [...] Guardian Refuses 1Result Comment: pt received from [facility] Medications Advair Diskus 250 mcg-50 [...] Replace Required Details, Route to Pharmacy Electronically, [id number]... Start Date: 09/13/19 Status: Ordered Aleve = [...] 10/21/19 10:51:00 EDT, Route to Pharmacy Electronically, [facility]/pharmacy #[id number], 157.48, cm, 08/13/19 10:51:00 EDT, Height Start Date: 10/21/19 Status: Ordered Vitamin D 79705 iu oral capsule 50,000 International_Units, 1, capsule, [...]
--- OUTSIDE RECORDS SUMMARY | 2023-11-07 21:42 | XMS_ITS | Continuity of Care Document ---
Author Organization [facility] Azam Torres Hammad lt Address [address] [place] [id number]- Care Team Providers Care Candles Pourer Name Role Phone Coy Cuellar MD Primary Care Physician [facility]): 09[facility]/23 - 10/15/23 [facility] Azam Torres Adult [address] [place] [address]- Allergies, Adverse Reactions, Alerts Substance Reaction Severity [...] influenza virus vaccine, inactivated 12/09/17 Camacho rded [id number] bivalent booster vax 12/22/21 Recorded SARS-CoV-2 (COVID-19) [...] 02/27/03 Given 1Result Comment: pt received from [facility] Ezekiel Mccartney Medications buPROPion 150 mg/24 hours (XL) oral tablet, extended release 1 tablet, By Mouth, Every 24 hours, # 30 tablet, 6 Refills, Maintenance, 09/25/23 7:58:00 EDT, [facility], 30, TAKE 1 TABLET BY MOUTH EVERY 24 HOURS, 155, cm, 08/21/23 10:50:00 EDT, Height, 74.5, kg, 06/16/23 16:56:00 EDT, Dry Weight Start Date: 09/25/23 Status: Ordered ferrous sulfate 325 mg oral enteric coated tablet 325 mg, 1, tablet, By Mouth, Daily, # 90 tablet, Refills 11, Tot. Refills 11, Maintenance, 05/01/2110:32:00 EST, Route to Pharmacy Electronically, [facility]/pharmacy #[id number], Partial fill upon patient request if the prescription is for a schedule II opioid d... Start Date: 05/01/20 Status: Ordered hydrochlorothiazide-triamterene 25 mg-37.5 mg oral capsule 1 capsule, By Mouth, Daily, # 90 capsule, 1 Refills, Maintenance, 06/11/23 6:40:00 EDT, [facility]/pharmacy #[id number], 90, 1 capsule By Mouth Daily, 156, cm, 06/02/23 10:46:00 EDT, Height Start Date: 06/11/23 Status: Ordered hydrocortisone 2.5% topical cream See Instructions, APPLY IN A THIN FILM TO AFFECTED AREAS AND RUB IN GENTLY AND COMPLETELY TWICE DAILY, # 30 Gm, 10 Refills, Maintenance, 08/28/23 8:10:00 EDT, [facility], 15, APPLY IN A THIN FILM TO AFFECTED AREAS AND RUB IN GENTLY AND COMPLET... Start Date: 08/28/23 Status: Ordered LORazepam 0.5 mg oral tablet 1 tablet = 0.5 mg, By Mouth, Daily, # 30 tablet, 5 Refills, Soft Stop, 09/15/23 16:05:00 EDT, [facility], 155, cm, 08/21/23 10:50:00 EDT, Height, 74.5, kg, 06/16/23 16:56:00 EDT, Dry Weight Start Date: 09/15/23 Status: Ordered nabumetone 750 mg oral tablet 1 tablet, By Mouth, 2 times a day with meals, # 60 tablet, 1 Refills, Maintenance, 09/15/23 16:05:00 EDT, [facility], 155, cm, 08/21/23 10:50:00 EDT, Height, 74.5, kg, 06/16/23 16:56:00 EDT, Dry Weight Start Date: 09/15/23 Status: Ordered rosuvastatin 5 mg oral tablet 1 tablet, By Mouth, Daily, # 30 tablet, 10 Refills, Maintenance, 10/09/23 7:56:00 EDT, [facility], 155, cm, 08/21/23 10:50:00 EDT, Height, 74.5, kg, 06/16/23 16:56:00 EDT, Dry Weight Start Date: 10/09/23 Status: Ordered traZODone 100 mg oral tablet 200 mg, 2, tablet, By Mouth, Daily at bedtime, DOSAGE INCREASE, # 180 tablet, Refills 1, Tot. Refills 1, Maintenance, 08/21/23 10:59:00 EDT, Route to Pharmacy Electronically, [facility]/pharmacy #[id number], Partial fill upon patient request if the [...] Refills, Maintenance, 05/01/20 11:32:00 EST, Capsule, [facility]/pharmacy #[id number], Partial fill upon patient request if the [...] Team Personnel Name: Coy Cuellar MD Position: [facility] Physician - Primary Care Member Role: PCP Address: Address: [address] [place] [address]- Care Team Related Persons Name: DANTE NICOLE Address: home [address] [place] [id number] Name: PASTORA NICOLE
--- OUTSIDE RECORDS SUMMARY | 2023-11-07 21:42 | XMS_ITS | Continuity of Care Document ---
Author Organization [facility] Brian Hammad lt Address [address] [place] [address]- Care Team Providers Care Wood Calker Name Role Phone Coy Cuellar MD Primary Care Physician Encounter [facility] Date(s): 09/03/19 - 09/10/19 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 Refills 11, Maintenance, 10/04/1914:03:03 EDT, Powder, Print Requisition Start Date: 10/04/18 Status: Ordered albuterol CFC free 90 mcg/inh inhalation aerosol See Instructions, # 8.5 Unknown, Refills 5 Tot. Refills 5, INHALE 2 PUFFS EVERY 6 HOURS NEEDED FOR WHEEZING, [facility]/pharmacy #[id number] Start Date: 10/30/18 Status: Ordered Aleve = 220 mg, By Mouth, 0 Refills, Maintenance, 08/13/19 11:07:00 EDT Start Date: 08/13/19 Status: Ordered Crestor 5 mg oral tablet 1 tablet = 5 mg, By Mouth, Daily, # 30 tablet, 5 Refills, Maintenance, 09/04/19 10:55:00 EDT, Tablet, [facility]/pharmacy #[id number], 157.48, cm, 08/13/19 10:51:00 EDT, Height Start Date: 09/04/19 Status: Ordered Ferrous Sulfate EC Refills 0, Maintenance, 08/13/19 11:26:00 EDT Start Date: 08/13/19 Status: Ordered hydrochlorothiazide-triamterene 25 mg-37.5 mg oral capsule See Instructions, TAKE ONE CAPSULE BY MOUTH EVERY DAY *REPLACES CLONIDINE*, # 30 capsule, 5 Refills, Soft Stop, 03/08/19 13:34:00 EST, [facility]/pharmacy #[id number], TAKE ONE CAPSULE BY MOUTH [...] capsule, 0 Refills, Maintenance, 09/03/19 15:27:00 EDT, [facility]/pharmacy #[id number], 157.48, cm, 08/13/19 10:51:00 EDT, [...] 08/13/19 11:26:00 EDT, Route to Pharmacy Electronically, [facility]/pharmacy #[id number], 157.48, cm, 08/13/19 10:51:00 EDT, Height Start Date: 08/13/19 Status: Ordered Vitamin D 26597 iu oral capsule 50,000 International_Units, 1, capsule, By Mouth, Daily, Refills 0, Maintenance, 08/13/19 11:04:00 EDT Start Date: 08/13/19 Status: Ordered Wellbutrin XL 300 mg/24 hours oral tablet, extended release 1 tablet = 300 mg, By Mouth, Daily, DOSAGE INCREASE, # 30 tablet, 3 Refills, Maintenance, 08/13/19 11:25:00 EDT, ER Tablet, [facility]/pharmacy #[id number], 157.48, cm, 08/13/19 10:51:00 EDT, [...] Effective Dates Health Status Clinical Service Informant Sore throat Discharge Diagnosis 09/03/19 Multiple sclerosis Discharge Diagnosis 09/03/19 Autoimmune connective tissue disorder Discharge Diagnosis 09/03/19 Social History Social History Type Response Smoking Status Never (less than 100 in lifetime) entered on: 03/08/19 Sex
--- OUTSIDE RECORDS SUMMARY | 2023-11-07 21:42 | XMS_ITS | Continuity of Care Document ---
Author Organization [facility] Brian Hammad lt Address [address] [place] [address]- Care Team Providers Care Envelope Adjuster Name Role Phone Alisa MAS, Coy Peng Primary Care Physician [facility] Date[facility] 08/21/21 - 12/19/21 [facility] Adult [address] [place] [address]- Attending Physician: Fabby KEN, Elda Valencia Referring [...] Guardian Refuses 1Result Comment: pt received from [facility] Ezekiel Mccartney Medications albuterol CFC free 90 mcg/inh inhalation aerosol 2, puffs, Inhalation, Every 6 hours, # 18 Gm, Refills 3, Tot. Refills 3, Soft Stop, 08/16/21 10:54:00 EDT, Route to Pharmacy Electronically, [id number], [facility]/pharmacy #[id number], 156, cm, 08/16/21 [...] 08/16/21 10:56:00 EDT, [facility] [...] *REPLACES CLONIDINE*., # 90 capsule, 1 Refills, [id number], 90, TAKE ONE CAPSULE BY MOUTH EVERY [...] 30 tablet, 0 Refills, 12/16/21 15:55:00 EDT, [facility]/pharmacy #[id number], 156, cm, 09/21/21 9:41:00 EDT, Height [...] 07/30/21 10:32:00 EDT, Route to Pharmacy Electronically, [facility]/pharmacy #[id number], Partial fill upon patient request if the prescription is... Start Date: 07/30/21 Status: Ordered Vitamin D 36521 iu oral capsule 50,000 International_Units, 1, capsule, [...] Gm, 3 Refills, Maintenance, 08/19/21 6:43:00 EDT, [facility]/pharmacy #[id number], Partial fill [...] Sex Patient Care team information Personnel Name: Coy Cuellar MD Address: Address: [address] [place] [id number]
--- OUTSIDE RECORDS SUMMARY | 2023-11-07 21:42 | XMS_ITS | Continuity of Care Document ---
Author Organization [facility] Azam Torres Hammad lt Address [address] [place] [address]- Care Team Providers Care Mid Level Java Developer Name Role Phone Coy Cuellar MD Primary Care Physician [facility]s): 02/01/23 - 03/03/23 [facility] Azam Torres Adult [address] [place] [address]- Allergies, Adverse Reactions, Alerts Substance Reaction Severity [...] influenza virus vaccine, inactivated 12/09/17 Camacho rded [id number] bivalent booster vax 12/22/21 Recorded SARS-CoV-2 (COVID-19) [...] 1Result Comment: pt received from [facility] Ezekiel Mccartney Medications ferrous sulfate 325 mg oral enteric coated tablet 325 mg, 1, tablet, By Mouth, Daily, # 90 tablet, Refills 11, Tot. Refills 11, Maintenance, 05/01/2110:32:00 EST, Route to Pharmacy Electronically, [facility]/pharmacy #[id number], Partial fill upon patient request if the prescription is for a schedule II opioid d... Start Date: 05/01/20 Status: Ordered hydrochlorothiazide-triamterene 25 mg-37.5 mg oral capsule 1 capsule, By Mouth, Daily, *REPLACES CLONIDINE*., # 90 capsule, 1 Refills, Maintenance, 12/23/22 16:36:00 EDT, [facility] [id number], 90, TAKE ONE CAPSULE BY MOUTH EVERY DAY *REPLACES CLONIDINE*, 156, cm,09/05/22 11:06:00 EDT, Height Start Date: 12/23/22 Status: Ordered loratadine 10 mg oral tablet 10 mg, 1, tablet, By Mouth, Daily, # 90 tablet, Refills 3, Tot. Refills 3, Maintenance, 06/24/21 10:50:00 EDT, Route to Pharmacy Electronically, [facility]/pharmacy #[id number], Partial fill upon patient request if the prescription is for a schedule II opioid drug... Start Date: 06/24/21 Status: Ordered LORazepam 0.5 mg oral tablet 1 tablet = 0.5 mg, By Mouth, Daily, # 30 tablet, 5 Refills, Soft Stop, 02/02/23 8:40:00 EST, [facility]/pharmacy #[id number], 156, cm, 01/26/23 17:08:00 EST, Height Start Date: 02/02/23 Status: Ordered nabumetone 750 mg oral tablet 1 tablet, By Mouth, 2 times a day with meals, # 60 tablet, 14 Refills, Maintenance, 08/31/22 12:49:00 EDT, [id number], 156, cm, 08/02/22 9:52:00 EDT, Height Start Date: 08/31/22 Status: Ordered rosuvastatin 5 mg oral tablet 1 tablet, By Mouth, Daily, # 90 tablet, 1 Refills, Maintenance, 07/04/22 15:03:00 EDT, [facility], 156, cm, 05/09/22 9:48:00 EDT, Height Start Date: 07/04/22 Status: Ordered traZODone 100 mg oral tablet 1, tablet, By Mouth, Daily at bedtime, # 90 tablet, Refills 1, Maintenance, 02/01/23 15:33:00 EST, Route to Pharmacy Electronically, [facility], 156, cm, 01/26/23 17:08:00 EST, Height Start [...] Primary Care Member Role: PCP Address: Address: [address] [place] [address]- Care Team Related Persons Name: DANTE NICOLE Address: [address] [address] Name: PASTORA NICOLE
--- OUTSIDE RECORDS SUMMARY | 2023-11-07 21:42 | XMS_ITS | Continuity of Care Document ---
Author Organization [facility] Brian Hammad lt Address [address] [place] [address]- Care Team Providers Care Historical Archeologist Name Role Phone Coy Cuellar MD Primary Care Physician [facility] Date[facility]s): 09/14/23 - 10/14/23 [facility] Adult [address] [place] [address]- Allergies, Adverse Reactions, Alerts Substance Reaction Severity [...] influenza virus vaccine, inactivated 12/09/17 Camacho rded [id number] bivalent booster vax 12/22/21 Recorded SARS-CoV-2 (COVID-19) [...] 1Result Comment: pt received from [facility] Ezekiel Mccartney Medications buPROPion 150 mg/24 hours (XL) oral tablet, extended release 1 tablet, By Mouth, Every 24 hours, # 30 tablet, 6 Refills, Maintenance, 09/25/23 7:58:00 EDT, [facility], 30, TAKE 1 TABLET BY MOUTH EVERY 24 HOURS, 155, cm, 08/21/23 10:50:00 EDT, Height, 74.5, kg, 06/16/23 16:56:00 EDT, Dry Weight Start Date: 09/25/23 Status: Ordered ferrous sulfate 325 mg oral enteric coated tablet 325 mg, 1, tablet, By Mouth, Daily, # 90 tablet, Refills 11, Tot. Refills 11, Maintenance, 05/01/2110:32:00 EST, Route to Pharmacy Electronically, [facility]/pharmacy #[id number], Partial fill upon patient request if the prescription is for a schedule II opioid d... Start Date: 05/01/20 Status: Ordered hydrochlorothiazide-triamterene 25 mg-37.5 mg oral capsule 1 capsule, By Mouth, Daily, # 90 capsule, 1 Refills, Maintenance, 06/11/23 6:40:00 EDT, [facility]/pharmacy #[id number], 90, 1 capsule By Mouth Daily, 156, cm, 06/02/23 10:46:00 EDT, Height Start Date: 06/11/23 Status: Ordered hydrocortisone 2.5% topical cream See Instructions, APPLY IN A THIN FILM TO AFFECTED AREAS AND RUB IN GENTLY AND COMPLETELY TWICE DAILY, # 30 Gm, 10 Refills, Maintenance, 08/28/23 8:10:00 EDT, [facility], 15, APPLY IN A THIN FILM TO AFFECTED AREAS AND RUB IN GENTLY AND COMPLET... Start Date: 08/28/23 Status: Ordered LORazepam 0.5 mg oral tablet 1 tablet = 0.5 mg, By Mouth, Daily, # 30 tablet, 5 Refills, Soft Stop, 09/15/23 16:05:00 EDT, [facility], 155, cm, 08/21/23 10:50:00 EDT, Height, 74.5, kg, 06/16/23 16:56:00 EDT, Dry Weight Start Date: 09/15/23 Status: Ordered nabumetone 750 mg oral tablet 1 tablet, By Mouth, 2 times a day with meals, # 60 tablet, 1 Refills, Maintenance, 09/15/23 16:05:00 EDT, [facility], 155, cm, 08/21/23 10:50:00 EDT, Height, 74.5, kg, 06/16/23 16:56:00 EDT, Dry Weight Start Date: 09/15/23 Status: Ordered rosuvastatin 5 mg oral tablet 1 tablet, By Mouth, Daily, # 30 tablet, 10 Refills, Maintenance, 10/09/23 7:56:00 EDT, [facility], 155, cm, 08/21/23 10:50:00 EDT, Height, 74.5, kg, 06/16/23 16:56:00 EDT, Dry Weight Start Date: 10/09/23 Status: Ordered traZODone 100 mg oral tablet 200 mg, 2, tablet, By Mouth, Daily at bedtime, DOSAGE INCREASE, # 180 tablet, Refills 1, Tot. Refills 1, Maintenance, 08/21/23 10:59:00 EDT, Route to Pharmacy Electronically, [facility]/pharmacy #[id number], Partial fill upon patient request if the [...] Maintenance, 05/01/20 11:32:00 EST, Capsule, [facility]/pharmacy #[id number], Partial fill upon patient request if the [...] Care Member Role: PCP Address: Address: [address] [place] [address]- Care Team Related Persons Name: DANTE NICOLE Address: home [address] [place] [phone] Name: PASTORA NICOLE
--- OUTSIDE RECORDS SUMMARY | 2023-11-07 21:42 | XMS_ITS | Continuity of Care Document ---
Author Organization [facility] Azam Torres Hammad lt Address [address] [place] [address]- Care Team Providers Care Audograph Operator Name Role Phone Alisa MAS, Coy Peng Primary Care Physician [phone] [facility] Date[facility]s): 01/18/22 - 03/19/22 [facility] Azam Torres Adult [address] [place] [address]- Attending Physician: Fabby KEN, Elda Valencia Referring Physician: Coy Cuellar MD Allergies, Adverse Reactions, Alerts Substance Reaction Severity Status codeine Active ibuprofen 1 Active indomethacin Active lisinopril 2 Active Inderal 3 Active Betadine Skin Cleanser Activ e 1gets itchy 2pt reports her tongue swells up 3gets anxiety Immunizations Given and Recorded Vaccine Date Status Refusal Reason [id number] bivalent booster vax 12/22/21 Recorded influenza virus [...] Guardian Refuses 1Result Comment: pt received from [facility] Medications albuterol CFC free 90 mcg/inh inhalation aerosol 2, puffs, Inhalation, Every 6 hours, # 18 Gm, Refills 3, Tot. Refills 3, Soft Stop, 08/16/21 10:54:00 EDT, Route to Pharmacy Electronically, [id number], [facility]/pharmacy #[id number], 156, cm, 08/16/21 10:42:00 EDT, Height [...] Route to Pharmacy Electronically, [facility]/pharmacy #[id number], Partial fill upon patient request if the prescription is for a schedule II opioid d... Start Date: 05/01/20 Status: Ordered hydrochlorothiazide-triamterene 25 mg-37.5 mg oral capsule See Instructions, TAKE ONE CAPSULE BY MOUTH EVERY DAY *REPLACES CLONIDINE*, # 90 capsule, 1 Refills, Maintenance, 02/27/22 16:00:00 EST, [facility]/pharmacy #[id number], 90, TAKE ONE CAPSULE BY MOUTH [...] 10:50:00 EDT, Route to Pharmacy Electronically, [facility]/pharmacy #[id number], Partial fill upon patient request if the prescription is for a schedule II opioid drug... Start Date: 06/24/21 Status: Ordered LORazepam 0.5 mg oral tablet 1 tablet = 0.5 mg, By Mouth, Daily, APPOINTMENT NEEDED FOR FURTHER REFILLS, # 30 tablet, 0 Refills,Soft Stop, 03/10/22 10:58:00 EST, [facility]/pharmacy #[id number], 156, cm, 01/18/22 7:21:00 EST, Height [...] Refills, Maintenance, 12/27/21 9:38:00 EDT, [facility], 156, cm, 09/21/21 9:41:00 EDT, Height Start Date: 12/27/21 Status: Ordered omeprazole 20 mg oral enteric coated capsule 1 capsule, By Mouth, Daily, # 90 capsule, 0 Refills, Maintenance, 05/11/21 14:59:00 EDT, [id number], 156, cm, 11/19/20 13:47:00 EDT, Height Start Date: 05/11/21 Status: Ordered rosuvastatin 5 mg oral tablet 1 tablet, By Mouth, Daily, # 90 tablet, 1 Refills, 01/18/22 7:39:00 EST, [facility]/pharmacy #[id number], 156, cm, 01/18/22 7:21:00 EST, Height [...] 12/27/21 9:38:00 EDT, Route to Pharmacy Electronically, [facility] 08[facility], 156, cm, 09/21/21 9:41:00 EDT, Height Start Date: 12/27/21 Status: Ordered venlafaxine 75 mg oral capsule, extended release 75 mg, 1, capsule, By Mouth, Daily, APPOINTMENT NEEDED FOR FURTHER REFILLS, # 30 capsule, Refills 0, Tot. Refills 0, Maintenance, 03/10/22 10:58:00 EST, Route to Pharmacy Electronically, [facility]/pharmacy#[id number], Partial fill upon patient request if the pre... Start Date: 03/10/22 Status: Ordered Vitamin D 49984 iu oral capsule 50,000 International_Units, 1, capsule, By Mouth, Daily, Refills 0, Maintenance, 08/13/19 11:04:00 EDT Start Date: 08/13/19 Status: Ordered Vitamin D3 2000 intl units oral capsule 1 capsule = 2,000 International_Units, By Mouth, Daily, # 60 capsule, 11 Refills, Maintenance, 05/01/20 11:32:00 EST, Capsule, [facility]/pharmacy #[id number], Partial fill upon patient request if [...] Gm, 3 Refills, Maintenance, 08/19/21 6:43:00 EDT, [facility]/pharmacy #[id number], Partial fill upon patient request if [...] Care Physician Member Role: PCP Address: Address: [address] [place] [phone]- Care Team Related Persons Name: DANTE NICOLE Address: home [address] [place] [phone] Name: PASTORA NICOLE
[2023-11-07 22:15] LABS: MANUAL DIFF FLAG NO
[2023-11-07 22:17] LABS: Basophils Absolute Auto 0.1 X10*3/uL (0.0-0.2); Basophils Percent Auto 0.8 % (0-2); Eosinophils Absolute Auto 0.1 X10*3/uL (0.0-0.4); Eosinophils Percent Auto 0.7 % (0-4); Hematocrit 40.3 % (37.0-47.0); Hemoglobin 14.2 g/dl (12.0-16.0); Imm Gran Abs Auto 0.04 X10*3/uL (0.00-0.03); Imm Gran Pct Auto 0.5 % (0.0-0.4); Lymphocytes Absolute Auto 2.7 X10*3/uL (1.2-4.9); Lymphocytes Percent Auto 36.2 % (20-40); Mean Corpuscular HGB Conc 35.2 g/dl (31.0-35.0); Mean Corpuscular Hemoglobin 31.3 pg (27.0-33.0); Mean Corpuscular Volume 88.8 fL (80.0-98.0); Mean Platelet Volume 9.4 fL (9.4-12.3); Monocytes Absolute Auto 0.5 X10*3/uL (0.1-1.2); Monocytes Percent Auto 6.7 % (2-11); Neutrophils Absolute Auto 4.1 x10*3/uL (2.0-8.3); Neutrophils Percent Auto 55.1 % (45-73); Platelet Count 281 X10*3/uL (160-400); Red Blood Count 4.54 X10*6/uL (4.20-5.50); Red Cell Distribution Width 12.3 % (11.0-16.0); White Blood Count 7.4 X10*3/uL (4.8-10.8)
[2023-11-07 22:25] LABS: Prothrombin Time 12.3 SEC (11.1-13.3)
[2023-11-07] MEDS: 0.9 % Sodium Chloride 1,000 ML 999 ML IV (22:28)
[2023-11-07 22:31] LABS: Ethanol 90 mg/dL
[2023-11-07 22:36] LABS: Alanine Aminotransferase 12 U/L (0-31); Albumin Level 4.2 g/dL (3.5-5.0); Alkaline Phosphatase 61 U/L (39-117); Anion Gap 12 (12-20); Aspartate Amino Transferase 14 U/L (5-31); Bilirubin Direct < 0.2 mg/dL (0.0-0.5); Bilirubin Total 0.2 mg/dL (0.0-1.0); Blood Urea Nitrogen 10 mg/dL (9-16); Calcium 9.6 mg/dL (8.4-10.2); Carbon Dioxide 24 mmol/L (22-29); Chloride 106 mmol/L (96-108); Estimated Glomerular Filt Rate > 60; Glucose Random 111 mg/dL (60-115); Lipase 16 U/L (8-78); Potassium 3.4 mmol/L (3.3-5.1); Sodium 139 mmol/L (135-145); Total Protein 7.9 g/dL (6.5-8.0)
[2023-11-07 22:40] LABS: B Type Natriuretic Peptide 34 pg/mL (<100)
[2023-11-07 22:43] LABS: Troponin-I High Sensitivity < 2.7 ng/L (<3.5-17.0)
[2023-11-07 22:57] LABS: Appearance Urine Clear; Color Urine Yellow; Glucose Urine UA Negative (Negative); Leukocyte Esterase Urine Negative (Negative); Nitrite Urine Negative (Negative); Specific Gravity - Urine <= 1.005 (1.005-1.025); Urine Blood Negative (Negative); Urine Ketones Negative (Negative); Urine Protein Negative (Neg-Trace)
[2023-11-07 23:00] LABS: Influenza A PCR NEGATIVE (Negative); Influenza B PCR NEGATIVE (Negative); Resp Syncy Virus RNA Qual PCR NEGATIVE (Negative); SARS COV2 PCR INHOUSE NEGATIVE (Negative)
--- NOTE | 2023-11-07 23:11 | PM.EVENT ---
Event Note Date of Service: 11/07/23 Event Note: I was asked to evaluate the patient for admission due to possible presyncope/syncope leading to a fall. Patient states she was asked to come to the ER for evaluation after a fall by her family members. She has MS and on the day of presentation, patient was going to the bathroom and as she was trying to lower herself to sit on the commode, she fell. Patient did not pass out. No dizziness or lightheadedness prior to the episode of fall. She did not lose consciousness. No chest pain or palpitations prior to the fall. No rhythmic jerking movement of extremities. No indication for admission at this time. Discussed with ER provider. Discussed with patient who agrees with the plan. Asked to come back to the ER in case of new or worsening complaints. Close outpatient follow-up. Time Spent With Patient Time: Total time managing care of this patient today ____ minutes.
[2023-11-07 23:48] VITALS: BP 127/73; PULSE 88; RESP 18; TEMP 37.2; O2SAT 95
== END 2023-11-07 23:50 | disposition home or self-care (01) ==
PROVIDERS: Emergency Provider Emergency Medicine; PCP Internal Medicine
DX: R55 Syncope and collapse (principal); F10.929 Alcohol use, unspecified with intoxication, unspecified; Y90.4 Blood alcohol level of 80-99 mg/100 ml; Z03.818 Encounter for observation for suspected exposure to other biological agents ruled out; I10 Essential (primary) hypertension; E78.00 Pure hypercholesterolemia, unspecified; G35 Multiple sclerosis; Z87.891 Personal history of nicotine dependence; Z79.899 Other long term (current) drug therapy
CPT/HCPCS: 0241U; 36415; 70450; 71045; 72125; 80048; 80076; 80307; 81003; 83690; 83880; 84484; 85025; 85610; 92950; 93005; 99284; 99285